=== PATIENT | female | born 1950 | race Caucasian/White ===

== ENCOUNTER 2021-01-20 14:16 | Outpatient (REF) | payer MEDICARE, MEDICAID, SELFPAY ==
--- NOTE | ~2021-01-20 | XR_ITS ---
EXAMINATION: RIGHT SHOULDER, CERVICAL SPINE AND THORACIC SPINE X-RAYS CLINICAL INFORMATION: Pain COMPARISON: Right shoulder x-ray November 2015 and chest x-ray April 2017 TECHNIQUE: 4 views of the right shoulder, 5 views of the cervical spine and 2 views of the thoracic spine FINDINGS: Right shoulder: Bone alignment is normal. No fracture or dislocation is seen. There is arthritis at the acromioclavicular joint. Soft tissues are unremarkable. Cervical spine: There is mild curvature of the mid cervical spine to the right. Bone alignment is otherwise normal. There is evidence of degenerative spondylosis from C3-C4 to C7-T1. There is disc space narrowing from C4-C5 to C7-T1. There is right-sided neuroforaminal narrowing from bony osteophyte from C4-C5 to C7-T1. There is left-sided neuroforaminal narrowing at C3-C4 C5-C6 and C6-C7. Prevertebral soft tissues are normal. Thoracic spine: Bone alignment is normal. No fracture or dislocation is seen. There is multilevel degenerative spondylosis. Paraspinal soft tissues are normal. XR/XR cervical spine min 6V IMPRESSION: Right shoulder: Degenerative change at the acromioclavicular joint. Cervical spine: Multilevel degenerative spondylosis, disc space narrowing and neuroforaminal narrowing. Thoracic spine: Multilevel degenerative spondylosis.
--- NOTE | ~2021-01-20 | XR_ITS ---
EXAMINATION: RIGHT SHOULDER, CERVICAL SPINE AND THORACIC SPINE X-RAYS CLINICAL INFORMATION: Pain COMPARISON: Right shoulder x-ray November 2015 and chest x-ray April 2017 TECHNIQUE: 4 views of the right shoulder, 5 views of the cervical spine and 2 views of the thoracic spine FINDINGS: Right shoulder: Bone alignment is normal. No fracture or dislocation is seen. There is arthritis at the acromioclavicular joint. Soft tissues are unremarkable. Cervical spine: There is mild curvature of the mid cervical spine to the right. Bone alignment is otherwise normal. There is evidence of degenerative spondylosis from C3-C4 to C7-T1. There is disc space narrowing from C4-C5 to C7-T1. There is right-sided neuroforaminal narrowing from bony osteophyte from C4-C5 to C7-T1. There is left-sided neuroforaminal narrowing at C3-C4 C5-C6 and C6-C7. Prevertebral soft tissues are normal. Thoracic spine: Bone alignment is normal. No fracture or dislocation is seen. There is multilevel degenerative spondylosis. Paraspinal soft tissues are normal. XR/XR shoulder RT min 2V IMPRESSION: Right shoulder: Degenerative change at the acromioclavicular joint. Cervical spine: Multilevel degenerative spondylosis, disc space narrowing and neuroforaminal narrowing. Thoracic spine: Multilevel degenerative spondylosis.
--- NOTE | ~2021-01-20 | XR_ITS ---
EXAMINATION: RIGHT SHOULDER, CERVICAL SPINE AND THORACIC SPINE X-RAYS CLINICAL INFORMATION: Pain COMPARISON: Right shoulder x-ray November 2015 and chest x-ray April 2017 TECHNIQUE: 4 views of the right shoulder, 5 views of the cervical spine and 2 views of the thoracic spine FINDINGS: Right shoulder: Bone alignment is normal. No fracture or dislocation is seen. There is arthritis at the acromioclavicular joint. Soft tissues are unremarkable. Cervical spine: There is mild curvature of the mid cervical spine to the right. Bone alignment is otherwise normal. There is evidence of degenerative spondylosis from C3-C4 to C7-T1. There is disc space narrowing from C4-C5 to C7-T1. There is right-sided neuroforaminal narrowing from bony osteophyte from C4-C5 to C7-T1. There is left-sided neuroforaminal narrowing at C3-C4 C5-C6 and C6-C7. Prevertebral soft tissues are normal. Thoracic spine: Bone alignment is normal. No fracture or dislocation is seen. There is multilevel degenerative spondylosis. Paraspinal soft tissues are normal. XR/XR thoracic spine 3V IMPRESSION: Right shoulder: Degenerative change at the acromioclavicular joint. Cervical spine: Multilevel degenerative spondylosis, disc space narrowing and neuroforaminal narrowing. Thoracic spine: Multilevel degenerative spondylosis.
== END 2021-01-20 14:17 | disposition home or self-care (01) ==
LOC: HO.XRAY 14:16
PROVIDERS: PCP Student in an Organized Health Care Education/Training Program; Visit Provider General Practice
DX: M79.601 Pain in right arm (principal); M54.2 Cervicalgia; M54.6 Pain in thoracic spine
CPT/HCPCS: 72052; 72072; 73030

== ENCOUNTER → 2021-04-14 12:59 | Outpatient (BNVA) | payer MEDICARE, MEDICAID, SELFPAY | PROVIDERS: PCP Student in an Organized Health Care Education/Training Program; Referring Provider Student in an Organized Health Care Education/Training Program; Visit Provider Internal Medicine | DX: I48.19 Other persistent atrial fibrillation (principal) | CPT/HCPCS: 93005; 99212 ==

== ENCOUNTER 2021-04-22 09:01 | Day surgery (SDC) | payer MEDICARE, MEDICAID, SELFPAY ==
--- NOTE | 2021-04-21 10:16 | HO.ANESPROP2 ---
Documented by User: Nette Santana 04/21/21 10:19 HPI - Anesthesia Eval Consult details Narrative: 70yo F for Cardioversion Eliquis for afib PMFSH Active Problems Active Problems: All Active Problems (Updated 07/31/20 @ 09:43 by Elizabeth Shankar NP-C) Persistent atrial fibrillation (Acute) Past Medical History Medical History Diabetes HLD (hyperlipidemia) ARMOND (obstructive sleep apnea) Persistent atrial fibrillation Smoker Family History Family History Father Myocardial infarction Mother No problems noted. Surgical History Surgical History History of appendectomy History of bilateral breast reduction surgery History of oophorectomy Social History Social History Patient Tobacco Use Status: Current everyday Tobacco user Tobacco use type: Cigarette Cigarettes Per Day: 4 Smoked in Last 30 Days: Yes Use of substances other than those prescribed or required for medical reasons: No Are you DNR?: No Advance Directives: No Advance Directives Information Provided: No Recently lost weight without trying: No Nutrition Risks: No Nutritional Risk Patient : No Meds Allergies Allergy/AdvReac Type Severity Reaction Status Date / Time Tetanus Vaccines and Toxoid Allergy Unknown HIVES Verified 04/14/21 13:24 [TETANUS VACCINES AND TOXOID] Home Medications Medication Instructions Recorded Confirmed Last Taken Type cholecalciferol (vitamin D3) 25 25 mcg PO DAILY 04/14/21 04/14/21 Unknown History mcg (1,000 unit) capsule lorazepam 1 mg tablet 1 mg PO DAILY PRN 04/14/21 04/14/21 Unknown History metformin 500 mg tablet 500 mg PO DAILY 04/14/21 04/14/21 04/22/21 08:00 History Exam Exam Date and Time: April 21, 2021 1016 Narrative Narrative: EKG 04/14/21 atrial fibrillation at 87/Min with nonspecific ST-T changes Assessment and Plan Assessment Anesthesia Assessment: Chart Reviewed Documented by User: Emerald Kasper 04/22/21 09:50 PMFSH Past Medical History Medical History Diabetes HLD (hyperlipidemia) ARMOND (obstructive sleep apnea) Persistent atrial fibrillation Smoker Family History Family History Father Myocardial infarction Mother No problems noted. Surgical History Surgical History History of appendectomy History of bilateral breast reduction surgery History of oophorectomy Social History Social History Patient Tobacco Use Status: Current everyday Tobacco user Tobacco use type: Cigarette Cigarettes Per Day: 4 Smoked in Last 30 Days: Yes Use of substances other than those prescribed or required for medical reasons: No Are you DNR?: No Advance Directives: No Advance Directives Information Provided: No Recently lost weight without trying: No Nutrition Risks: No Nutritional Risk Patient : No Meds Allergies Allergy/AdvReac Type Severity Reaction Status Date / Time Tetanus Vaccines and Toxoid Allergy Unknown HIVES Verified 04/14/21 13:24 [TETANUS VACCINES AND TOXOID] Home Medications Medication Instructions Recorded Confirmed Last Taken Type cholecalciferol (vitamin D3) 25 25 mcg PO DAILY 04/14/21 04/14/21 Unknown History mcg (1,000 unit) capsule lorazepam 1 mg tablet 1 mg PO DAILY PRN 04/14/21 04/14/21 Unknown History metformin 500 mg tablet 500 mg PO DAILY 04/14/21 04/14/21 04/22/21 08:00 History Exam Airway Mallampati Class: II TM Dist: >3cm Neck ROM: Full Assessment and Plan Assessment Anesthesia Assessment: Anesthesia Plan Discussed Final Anesthetic Review NPO: Yes ASA Class: III Final Preanesthetic Review: No Changes in Pt Med Stat, Meds/Allgs Chart Reviewed, Consent Obtained/Reviewed and Anes Risks/Benef Reviewed Patient Risk: Intermediate Procedure Risk: Low Assessment/Block/Sedation in SS: Assess/Block/Sedation-SS Anesthetic Plan Anesthetic Plan: MAC: Disposition: Standard PACU
[2021-04-22] VITALS (9 sets, daily range): BP systolic 79–120; BP diastolic 37–62; PULSE 50–83; RESP 14–16; TEMP 35.9–36.1; O2SAT 96–100; BMI 33.1
--- NOTE | 2021-04-22 | ECG_ITS ---
Test Reason : CARDIOVERSION Blood Pressure : / mmHG Vent. Rate : 058 BPM Atrial Rate : 058 BPM P-R Int : 158 ms QRS Dur : 070 ms QT Int : 446 ms P-R-T Axes : 106 033 106 degrees QTc Int : 437 ms Sinus bradycardia with marked sinus arrhythmia Nonspecific T wave abnormality Abnormal ECG When compared with ECG of 18-DEC-2017 10:03, Premature atrial complexes are no longer Present Referred By: Tete Jackson Electronically Signed By:TETE JACKSON
--- NOTE | 2021-04-22 09:30 | MHC.SHP ---
Pre-Procedural Eval Section A Date of Service: 04/22/21 Section B Chief Complaint: a-fib Allergies: Allergies Allergy/AdvReac Type Severity Reaction Status Date / Time Tetanus Vaccines and Toxoid Allergy Unknown HIVES Verified 04/14/21 13:24 [TETANUS VACCINES AND TOXOID] Plan I have reviewed the history and physical and performed a pertinent physical examination on my patient. No changes have occurred unless specified.
[2021-04-22] MEDS: Lactated Ringers 1,000 ML 100 ML IVCONT (09:34)
[2021-04-22 09:42] LABS: Glucose, Whole Blood 127 mg/dL (60-115)
--- NOTE | 2021-04-22 10:31 | P.CONAN_ITS ---
FORMERLY [facility], [facility] Active Problems Active Problems: All Active Problems (Updated 04/21/21 @ 10:19 by Nette calix) Persistent atrial fibrillation (Acute) Past Medical History Medical History Diabetes HLD (hyperlipidemia) ARMOND (obstructive sleep apnea) Persistent atrial fibrillation Smoker Family History Family History Father Myocardial infarction Mother No problems noted. Surgical History Surgical History History of appendectomy History of bilateral breast reduction surgery History of oophorectomy Social History Social History Patient Tobacco Use Status: Current everyday Tobacco user Tobacco use type: Cigarette Cigarettes Per Day: 4 Smoked in Last 30 Days: Yes Use of substances other than those prescribed or required for medical reasons: No Are you DNR?: No Advance Directives: No Advance Directives Information Provided: No Recently lost weight without trying: No Nutrition Risks: No Nutritional Risk Patient : No Meds Allergies Allergy/AdvReac Type Severity Reaction Status Date / Time Tetanus Vaccines and Toxoid Allergy Unknown HIVES Verified 04/14/21 13:24 [TETANUS VACCINES AND TOXOID] Active Medications: Current Medications Generic Name Dose Route Start Last Admin Trade Name Freq PRN Reason Stop Dose Admin Albuterol Sulfate 2.5 mg 04/22/21 08:15 Albuterol Sulfate (0.083%) 2.5 Mg/3 Ml Vial.Neb INHALE ONCE PRN Shortness of Breath/Wheezing Lactated Ringer's 1,000 mls @ 100 mls/hr 04/22/21 08:15 04/22/21 09:34 Lr IVCONT 100 mls/hr .Q10H HUY Administration Home Medications Medication Instructions Recorded Confirmed Last Taken Type cholecalciferol (vitamin D3) 25 25 mcg PO DAILY 04/14/21 04/14/21 Unknown History mcg (1,000 unit) capsule lorazepam 1 mg tablet 1 mg PO DAILY PRN 04/14/21 04/14/21 Unknown History metformin 500 mg tablet 500 mg PO DAILY 04/14/21 04/14/21 04/22/21 08:00 History Exam Exam Date and Time: April 22, 2021 1031 Height,Weight and Vital Signs: Height 5 ft 5 in Weight 199 lb Last Vital Signs Temp 96.7 F L 04/22/21 09:27 Pulse 83 04/22/21 09:27 Resp 16 04/22/21 09:27 BP 114/41 L 04/22/21 09:27 Pulse Ox 98 04/22/21 09:27 Pertinent Lab Results Pertinent Lab Results: Laboratory Tests 04/22/21 09:37 POC Glucose 127 H Airway Mallampati Class: III TM Dist: >3cm Neck ROM: Full Denture: Upper and Lower Assessment and Plan Assessment Anesthesia Assessment: Anesthesia Plan Discussed and Chart Reviewed Final Anesthetic Review NPO: Yes ASA Class: III Final Preanesthetic Review: No Changes in Pt Med Stat, Meds/Allgs Chart Reviewed, Consent Obtained/Reviewed and Anes Risks/Benef Reviewed Patient Risk: Low Procedure Risk: Low Anesthetic Plan Anesthetic Plan: GA Disposition: Standard PACU
--- NOTE | 2021-04-22 10:59 | HO.CARDIVERS ---
Cardioversion Procedure Note Cardioversion Date of Procedure: 04/22/2021 Ordering Provider: Dr. Bennett Performing Provider: Dr. Bennett Indication for Procedure: Atrial fibrillation Pre-Op Diagnosis: Atrial fibrillation Post-Op Diagnosis: Sinus rhythm Performed with Transesophageal Echo: No History: Symptomatic atrial fibrillation. Hence referred for cardioversion. Consent: Informed consent obtained. Procedure: After informed consent was obtained, patient was taken to the PACU. The patient was then positioned appropriately. The cardioversion pads were placed in anteroposterior position. Once under anesthesia, 120 joules of synchronized shock was administered. The rhythm converted from atrial fibrillation to sinus rhythm. Patient remained in sinus rhythm after the end of procedure. Complications: None Impression: Successful cardioversion from atrial fibrillation to sinus rhythm. Recommendations: Start Multaq 400 mg b.i.d.. First dose now. EKG. Follow-up in office.
[2021-04-22] MEDS: Dronedarone HCl 400 MG TABLET PO (11:40)
== END 2021-04-22 12:35 | disposition home or self-care (01) ==
PROVIDERS: PCP Student in an Organized Health Care Education/Training Program; Visit Provider Internal Medicine
PROC: 5A2204Z Restoration of Cardiac Rhythm, Single (ICD-10-PCS; principal; 2021-04-22 10:30)
DX: I48.19 Other persistent atrial fibrillation (principal); Z79.01 Long term (current) use of anticoagulants; E11.9 Type 2 diabetes mellitus without complications; Z79.899 Other long term (current) drug therapy; Z88.7 Allergy status to serum and vaccine; G47.33 Obstructive sleep apnea (adult) (pediatric); F17.210 Nicotine dependence, cigarettes, uncomplicated
CPT/HCPCS: 82947; 92960; 93005

== ENCOUNTER → 2021-04-26 14:59 | Outpatient (BNVA) | payer MEDICARE, MEDICAID, SELFPAY | PROVIDERS: PCP Student in an Organized Health Care Education/Training Program; Visit Provider Internal Medicine ==

== ENCOUNTER → 2021-04-29 12:47 | Outpatient (REF) | payer MEDICARE, MEDICAID, SELFPAY | LOC: HO.SL 12:47 | PROVIDERS: PCP Student in an Organized Health Care Education/Training Program; Visit Provider Internal Medicine | DX: G47.33 Obstructive sleep apnea (adult) (pediatric) (principal); I48.19 Other persistent atrial fibrillation | CPT/HCPCS: 95806 ==

== ENCOUNTER → 2021-05-12 12:25 | Outpatient (BNVA) | payer MEDICARE, MEDICAID, SELFPAY | PROVIDERS: PCP Student in an Organized Health Care Education/Training Program; Visit Provider Internal Medicine | DX: I48.19 Other persistent atrial fibrillation (principal); G47.33 Obstructive sleep apnea (adult) (pediatric) | CPT/HCPCS: 93005; 99212 ==

== ENCOUNTER 2021-05-31 14:58 | Outpatient (REF) | payer MEDICARE, MEDICAID, SELFPAY ==
--- NOTE | ~2021-05-31 | MM_ITS ---
EXAMINATION: MM SCREENING DIGITAL BREAST TOMOSYNTHESIS, BILATERAL CLINICAL INFORMATION: Screening. Asymptomatic. Prior history reduction mammoplasty. The lifetime risk of breast cancer based on the Tyrer-Cuzick Model is 3%. COMPARISON: Mammography: 08/28/2019, 05/30/2018, 04/24/2017 TECHNIQUE: Digital breast tomosynthesis is performed in both the craniocaudal and mediolateral oblique views along with computer-aided detection (CAD). Synthesized 2D images are generated from the tomosynthesis. FINDINGS: The breasts are almost entirely fatty (ACR BI-RADS breast composition Category a). Background stromal and fibroglandular densities are stable. There is some minor scarring and scattered benign round and rim calcifications again seen consistent with the reduction mammoplasty. There is no developing density or interval mass or architectural abnormality or abnormal calcifications. No significant changes. MM/MM tomosynthesis screening BI IMPRESSION: No mammographic evidence of malignancy. ASSESSMENT: BI-RADS 2: Benign RECOMMENDATION: Routine annual mammography screening. This patient's information was entered into a reminder system with a target due date for their next mammogram.
== END 2021-05-31 14:59 | disposition home or self-care (01) ==
LOC: HO.MAMMO 14:58
PROVIDERS: Visit Provider Student in an Organized Health Care Education/Training Program
DX: Z12.31 Encounter for screening mammogram for malignant neoplasm of breast (principal)
CPT/HCPCS: 77063; 77067

== ENCOUNTER → 2021-06-08 13:57 | Outpatient (BNVA) | payer MEDICARE, MEDICAID, SELFPAY | PROVIDERS: PCP Student in an Organized Health Care Education/Training Program; Visit Provider Internal Medicine | DX: G47.33 Obstructive sleep apnea (adult) (pediatric) (principal); I48.19 Other persistent atrial fibrillation; Z79.01 Long term (current) use of anticoagulants | CPT/HCPCS: 99202 ==

== ENCOUNTER → 2021-08-05 13:00 | Outpatient (BNVA) | payer MEDICARE, MEDICAID, SELFPAY | PROVIDERS: PCP Student in an Organized Health Care Education/Training Program; Visit Provider Internal Medicine | DX: I48.19 Other persistent atrial fibrillation (principal); G47.33 Obstructive sleep apnea (adult) (pediatric) | CPT/HCPCS: 99212 ==

== ENCOUNTER → 2021-08-16 08:10 | Outpatient (BNVA) | payer MEDICARE, MEDICAID, SELFPAY | PROVIDERS: PCP Student in an Organized Health Care Education/Training Program; Visit Provider Surgery ==

== ENCOUNTER → 2021-11-15 15:04 | Outpatient (BNVA) | payer MEDICARE, OTHER, SELFPAY | PROVIDERS: PCP Student in an Organized Health Care Education/Training Program; Visit Provider Internal Medicine | DX: G47.33 Obstructive sleep apnea (adult) (pediatric) (principal); I48.19 Other persistent atrial fibrillation | CPT/HCPCS: 99212 ==

== ENCOUNTER → 2022-01-17 10:43 | Outpatient (REF) | payer MEDICARE, OTHER, SELFPAY ==
--- NOTE | 2022-01-17 10:46 | HM_ITS ---
Conclusion: 1. Patient was monitored for total period of 3 days and 4 hours 2. Baseline rhythm was atrial fibrillation with average heart of 76 beats per minute 3. No significant pauses or bradycardia noted 4. Total of 312 PVCs accounting for 0.09% of total burden accounting for rare PVCs 5. Patient reported 1 event correlated with baseline rhythm MTDD
== END ==
LOC: HO.CARD 10:43
PROVIDERS: PCP Student in an Organized Health Care Education/Training Program; Visit Provider Internal Medicine
DX: I48.19 Other persistent atrial fibrillation (principal)
CPT/HCPCS: 93242

== ENCOUNTER → 2022-02-03 12:27 | Outpatient (BNVA) | payer MEDICARE, OTHER, SELFPAY | PROVIDERS: PCP Student in an Organized Health Care Education/Training Program; Visit Provider Internal Medicine | DX: I48.19 Other persistent atrial fibrillation (principal); I35.1 Nonrheumatic aortic (valve) insufficiency; G47.33 Obstructive sleep apnea (adult) (pediatric); F17.210 Nicotine dependence, cigarettes, uncomplicated; Z79.01 Long term (current) use of anticoagulants; Z79.899 Other long term (current) drug therapy; Z71.6 Tobacco abuse counseling | CPT/HCPCS: 99212 ==

== ENCOUNTER → 2022-05-02 15:43 | Outpatient (BNVA) | payer MEDICARE, MEDICAID, SELFPAY | PROVIDERS: PCP Student in an Organized Health Care Education/Training Program; Visit Provider Internal Medicine | DX: G47.33 Obstructive sleep apnea (adult) (pediatric) (principal); F17.210 Nicotine dependence, cigarettes, uncomplicated | CPT/HCPCS: 99212 ==

== ENCOUNTER 2022-09-28 10:40 | Outpatient (REF) | payer MEDICARE, MEDICAID, SELFPAY ==
--- NOTE | ~2022-09-28 | MM_ITS ---
EXAMINATION: MM SCREENING DIGITAL BREAST TOMOSYNTHESIS, BILATERAL CLINICAL INFORMATION: Screening. Asymptomatic. The lifetime risk of breast cancer based on the Tyrer-Cuzick Model is 4%. COMPARISON: Mammography: 05/31/2021, 08/28/2019, 05/30/2018 TECHNIQUE: Digital breast tomosynthesis is performed in both the craniocaudal and mediolateral oblique views along with computer-aided detection (CAD). Synthesized 2D images are generated from the tomosynthesis. FINDINGS: The breasts are almost entirely fatty (ACR BI-RADS breast composition Category a). There are no significant masses, abnormal calcifications, or other abnormalities. There are scattered bilateral punctate round and rim and dermal calcifications again noted. Grouped punctate calcifications anterior left breast correspond to dermal calcifications on tomography. There is stable nodule posterior 12:00 right breast possibly intramammary node. The axilla and skin contours are unremarkable. No significant changes. MM/MM tomosynthesis screening BI IMPRESSION: No mammographic evidence of malignancy. ASSESSMENT: BI-RADS 2: Benign RECOMMENDATION: Routine annual mammography screening. This patient's information was entered into a reminder system with a target due date for their next mammogram.
== END 2022-09-28 10:41 | disposition home or self-care (01) ==
LOC: HO.MAMMO 10:40
PROVIDERS: PCP Student in an Organized Health Care Education/Training Program; Visit Provider Student in an Organized Health Care Education/Training Program
DX: Z12.31 Encounter for screening mammogram for malignant neoplasm of breast (principal)
CPT/HCPCS: 77063; 77067

== ENCOUNTER 2023-04-24 11:58 | Outpatient (REF) | payer MEDICARE, MEDICAID, SELFPAY ==
[2023-04-24 15:07] LABS: Alanine Aminotransferase 12 U/L (0-31); Albumin Level 3.7 g/dL (3.5-5.0); Alkaline Phosphatase 65 U/L (39-117); Anion Gap 13 (12-20); Aspartate Amino Transferase 11 U/L (5-31); Bilirubin Direct 0.2 mg/dL (0.0-0.5); Bilirubin Total 0.8 mg/dL (0.0-1.0); Blood Urea Nitrogen 22 mg/dL (9-16); Calcium 9.3 mg/dL (8.4-10.2); Carbon Dioxide 25 mmol/L (22-29); Chloride 107 mmol/L (96-108); Cholesterol 192 mg/dL; Estimated Glomerular Filt Rate > 60; Glucose Random 121 mg/dL (60-115); HDL Cholesterol 37 mg/dL; LDL Cholesterol Calculated 138 mg/dl; Potassium 4.1 mmol/L (3.3-5.1); Sodium 141 mmol/L (135-145); Total Protein 7.8 g/dL (6.5-8.0); Triglycerides 89 mg/dL
== END 2023-04-24 11:59 | disposition home or self-care (01) ==
LOC: HO.CHCLDS 11:58
PROVIDERS: Visit Provider Student in an Organized Health Care Education/Training Program
DX: E78.00 Pure hypercholesterolemia, unspecified (principal); E11.9 Type 2 diabetes mellitus without complications; I10 Essential (primary) hypertension
CPT/HCPCS: 36415; 80048; 80061; 80076; 82043; 83036

== ENCOUNTER → 2023-05-04 13:45 | Outpatient (REF) | payer OTHER, SELFPAY ==
--- NOTE | 2023-05-04 14:11 | CA_ITS ---
Transthoracic Echocardiogram Patient (Last, First, Middle): Saumya Coughlin L Gender: Female Date of : 1950 Age: 72 Procedure Date: 05/04/2023 Procedure Type: Transthoracic Echocardiogram Location: OP Height: 165.1 cm Weight: 89.36 kg BSA: 1.97 m2 Heart Rate: bpm BP: 112 / 66 mmHg Target Worker: TO Referring MD: Nicholas Bennett MD Symptoms: I35.1 - Nonrheumatic aortic (valve) insufficiency Study Quality: Fair ECG Rhythm: Atrial Fibrillation Conclusions: - The left ventricular systolic function is normal. The calculated ejection fraction is 56% by biplane method. - The left atrium is moderately dilated. - There is mild to moderate aortic valve regurgitation. Findings Left Ventricle Normal left ventricular cavity size. There is mildly increased left ventricular wall thickness. The left ventricular systolic function is normal. The calculated ejection fraction is 56% by biplane method. There is no evidence of regional wall motion abnormalities. Diastolic function is indeterminate on the basis of available data. Right Ventricle Normal right ventricular cavity size. There is mildly decreased right ventricular systolic function. Atria The left atrium is moderately dilated. The right atrium is normal in size. Aortic Valve There is a normal trileaflet aortic valve. There is no aortic valve stenosis. There is mild to moderate aortic valve regurgitation. Mitral Valve The mitral valve appears normal. There is mild mitral valve regurgitation. There is no mitral valve stenosis. Pulmonic Valve The pulmonic valve is likely normal. Tricuspid Valve Normal tricuspid valve structure. There is mild tricuspid valve regurgitation. There is no evidence of pulmonary hypertension. Great Vessels The asc aorta is normal in size. Venous The inferior vena cava is normal in size and collapses greater than 50% with inspiration. Pericardium/Pleural There is no evidence of pericardial effusion. Prior Study Comparison No significant change compared to prior study dated: 05/08/2020. Measurements 2D Linear Measurements IVSd: 1.10 0.6-0.9/0.6-1.0 cm LVIDd: 5.40 3.9-5.3/4.2-5.9 cm LVIDd Index: 2.74 2.4-3.2/2.2-3.1 cm/m2 LVIDs: 3.80 2.0-3.6 cm LVPWd: 1.00 0.7-1.1 cm LA Diam: 4.10 2.7-3.8/3.0-4.0 cm LAIDs Index: 2.08 1.5-2.3 cm/m2 LV Mass: 274.99 67-162/88-224 g LV Mass Index: 139.59 43-95/49-115 g/m2 LVOT Diam: 2.00 3.0+(-)1.3 cm 2D Systolic Function EF 4C: 56.40 >55% EF 2C: 56.60 >55% EF BiP: 55.90 >55% Mitral Valve MV VTI: 0.31 MV Pk Santo: 1.44 MV Mn Santo: 0.90 MV Pk Grad: 8.00 MV Mn Grad: 4.00 MV Pk E: 1.23 MV Decel Time: 191.00 E'Lateral: 5.55 E'Medial: 5.66 E/E' Med: 21.70 E/E' Lat: 22.20 PHT: 56.00 MVA PHT: 3.93 MVA Continuity: 2.02 Decel [place]: 6.44 Aortic Valve AoV Pk Santo: 1.49 AoV Pk Grad: 9.00 AI Pk Santo: 4.25 AI [place]: 2.30 LVOT LVOT Pk Santo: 0.87 LVOT Mn Santo: 0.57 LVOT VTI: 0.20 LVOT Pk Grad: 3.00 LVOT Mn Grad: 1.00 LVOT Diam: 2.00 LVOT Area: 3.14 Diastolic Function MV Pk E: 1.23 E'Medial: 5.66 E/E' Med: 21.70 E' Laterial: 5.55 E/E' Lat: 22.20 Right Ventricle TAPSE (mm): 18.50 TVS' Santo: 10.00 Tricuspid Valve TR Pk Santo: 2.71 TR Pk Grad: 29.00 RA Press: 3.00 RVSP: 32.00 Great Vessels Aorta Sinus of Valsalva: 3.50 2.0-3.[address] [place]: 2.50 1.7-3.4 cm Ao Asc: 3.40 2.1-3.4 cm Updated in Other Vendor System with Status of Final Nicholas Bennett MD electronically signed on 05/04/2023 5:06:51 PM with status of Final
== END ==
LOC: HO.CARD 13:45
PROVIDERS: PCP Student in an Organized Health Care Education/Training Program; Visit Provider Internal Medicine
DX: I35.1 Nonrheumatic aortic (valve) insufficiency (principal)
CPT/HCPCS: 93306

== ENCOUNTER → 2023-05-04 14:11 | Outpatient (BNV) | payer MEDICARE, MEDICAID, SELFPAY | PROVIDERS: PCP Student in an Organized Health Care Education/Training Program; Visit Provider Internal Medicine | DX: I35.1 Nonrheumatic aortic (valve) insufficiency (principal); I34.0 Nonrheumatic mitral (valve) insufficiency; I36.1 Nonrheumatic tricuspid (valve) insufficiency | CPT/HCPCS: 93306 ==

== ENCOUNTER 2023-05-24 14:19 | Outpatient (AMB) | payer OTHER, MEDICAID, SELFPAY ==
--- NOTE | 2023-05-24 14:23 | A.OFFVIS_ITS ---
Intake Vital Signs 05/24/23 14:24 Height 5 ft 5 in Weight 201 lb 15.095 oz BMI 33.6 BP 132/70 Blood Pressure Location Lt brachial Position Sitting Pulse 91 Intake Visit Reasons: 1 year follow up, echo Intake Note: 1 year follow up Production Inspector Required: No Accompanied by: Self / Same As Patient Allergies Tetanus Vaccines and Toxoid [TETANUS VACCINES AND TOXOID] Allergy (Unknown, Verified 05/24/23 14:26) HIVES Medication List - Last Reconciled 05/24/23 by Nicholas Bennett MD apixaban (Eliquis) 5 mg PO BID lorazepam 1 mg PO DAILY PRN metformin 500 mg PO DAILY metoprolol succinate ER 50 mg PO DAILY HPI HPI Comments History of Present Illness Details Saumya is here for follow-up regarding atrial fibrillation. To recall, she has had atrial fibrillation for the last few years. Underwent cardioversion in 2018 at 2020. She was on Flecainide in the past, but due to bradycardia and tiredness this was stopped. Then, she was on Multaq but in spite of this, went back into atrial fibrillation. Then she was seen by EP at [facility] but it was recommended that she continue rate control strategy as she had minimal or no symptoms. Overall, generally doing well. No complaints like angina or shortness of breath or in fact anything cardiac sounding. No palpitations. Weight is just about the same as before. States that she has not smoked in the last couple of weeks or so. PFSH Medical History Diabetes HLD (hyperlipidemia) ARMOND (obstructive sleep apnea) Persistent atrial fibrillation Smoker Surgical History History of appendectomy History of bilateral breast reduction surgery History of oophorectomy Family History Father Myocardial infarction Mother Arthritis Sister No problems noted. Sister No problems noted. Sister No problems noted. Brother No problems noted. Sister No problems noted. Brother No problems noted. Son No problems noted. Son No problems noted. Social History Alcohol intake: never Patient Tobacco Use Status: Former Tobacco user Quit Date: 01/27/22 Cigarettes Per Day: 4 Review of Systems Const Denies weakness ENT Denies dizziness Card Denies chest pain, Denies chest pain with activity, Denies syncope, Denies rapid heart rate, Denies pedal edema, Denies edema, Denies leg edema, Denies lightheadedness, Denies palpitations, Denies dyspnea, Denies dyspnea on exertion and Denies orthopnea Resp Denies cough, Denies dyspnea and Denies dyspnea on exertion GI Denies hematochezia and Denies change in stool character Musc Denies abnormal gait, Denies muscle cramps, Denies muscle weakness, Denies numbness, Denies radiating pain into limb and Denies tingling Neuro Denies abnormal gait, Denies dizziness, Denies syncope, Denies numbness, Denies tingling and Denies weakness Endo Denies palpitations Physical Exam Vital Signs: Last Vital Signs Pulse 91 05/24/23 14:24 BP 132/70 05/24/23 14:24 BMI result Body Mass Index 33.6 Const General: comfortable and no acute distress Orientation/consciousness: patient oriented x3 HEENT Other: Unremarkable Head: Yes normal to inspection Neck Neck: Yes normal visual inspection Chest Chest palpation & inspection: normal inspection of the chest Resp Auscultation: clear to auscultation bilaterally Cardio Palpation: normal PMI Heart sounds: S1 normal heart sound present, S2 normal heart sound present, no gallops, no murmurs and no rubs GI Palpation (GI): Soft to palpation Back/Spine/Pelvis Other: unremarkable Skin General skin exam: no rashes or lesions noted Neuro General: patient oriented x3 Extrem General: Yes normal to inspection Psych Mental Status: mental status grossly normal Office Procedures EKG Details: EKG with atrial fibrillation rate of 91/Min; nonspecific ST-T changes. [id number], Complete Assessment & Plan Assessment & Plan (1) Persistent atrial fibrillation: Code(s): I48.19 - Other persistent atrial fibrillation Plan: Failed antiarrhythmics as well as cardioversions. Was seen by EP, but not felt to be a good candidate for ablation. Continue beta-blockers. Continue Eliquis. (2) Non-rheumatic aortic regurgitation: Code(s): I35.1 - Nonrheumatic aortic (valve) insufficiency Plan: In the most recent echocardiogram from last month, [id number] aortic regurgitation. Can be followed on echocardiograms. (3) ARMOND (obstructive sleep apnea): Code(s): G47.33 - Obstructive sleep apnea (adult) (pediatric) Plan: She has mild obstructive sleep apnea. Seen by Pulmonary. Per documentation, not keen on CPAP. Would like to just lose weight. Avoid sleeping in supine position. (4) Smoker: Code(s): F17.200 - Nicotine dependence, unspecified, uncomplicated Plan: She states she has not smoked in the last 2 weeks. Must quit. Plan Follow-up in 1 year. In the interim, she will call with concerns. Coding Level of Care Code Est Pt Level 4 (17911) Diagnoses Persistent atrial fibrillation I48.19 Non-rheumatic aortic regurgitation I35.1 ARMOND (obstructive sleep apnea) G47.33 Smoker F17.200 CPT Codes EKG - CPT: 99216-[id number], Complete ([id number])
[2023-05-24 14:24] VITALS: BP 132/70; PULSE 91; BMI 33.6
== END 2023-05-24 14:42 | disposition home or self-care (01) ==
PROVIDERS: PCP Student in an Organized Health Care Education/Training Program; Referring Provider Student in an Organized Health Care Education/Training Program; Visit Provider Internal Medicine
DX: I48.19 Other persistent atrial fibrillation (principal); I35.1 Nonrheumatic aortic (valve) insufficiency; G47.33 Obstructive sleep apnea (adult) (pediatric); F17.200 Nicotine dependence, unspecified, uncomplicated
CPT/HCPCS: 93010; 99214

== ENCOUNTER → 2023-05-24 14:19 | Outpatient (BNVA) | payer OTHER, MEDICAID, SELFPAY | PROVIDERS: PCP Student in an Organized Health Care Education/Training Program; Referring Provider Student in an Organized Health Care Education/Training Program; Visit Provider Internal Medicine | DX: I48.19 Other persistent atrial fibrillation (principal); I35.1 Nonrheumatic aortic (valve) insufficiency; G47.33 Obstructive sleep apnea (adult) (pediatric); F17.210 Nicotine dependence, cigarettes, uncomplicated | CPT/HCPCS: 93005; 99212 ==

== ENCOUNTER 2023-08-15 09:13 | Outpatient (AMB) | payer OTHER, MEDICAID, SELFPAY ==
[2023-08-15 09:24] VITALS: BMI 33.4
--- NOTE | 2023-08-15 09:24 | MHC.OFFVIS ---
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 Pt states they are getting worse, States that she has Hx of VV procedures w/ . [facility] procedures were too painful so she stopped going there. Pt states that Right LE looks worse but Left LE has more pain. Pt states she has compression socks and wears them when possible. 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 Complaints include pain over varicosities, swelling of lower extremities, cramping, fatigue, and heaviness of the lower extremities. It has been affecting there daily activities including walking. It is noted more so in left leg. Of note she smokes about a half pack per day and has been a diabetic for over 10 years Patient notes prior bilateral venous ablation is by Dr. Yuan nearly 5 years ago Patient denies any history of DVT/ PE. Patient denies any history of phlebitis. Trial of compression includes - [id number] They now present for vascular evaluation regarding their varicose veins. [facility] Medical History Smoker ARMOND (obstructive sleep apnea) Diabetes HLD (hyperlipidemia) Persistent atrial fibrillation Surgical History History of bilateral breast reduction surgery History of appendectomy History of oophorectomy Family History Father Myocardial infarction Mother Arthritis Sister No problems noted. Sister No problems noted. Sister No problems noted. Brother No problems noted. Sister No problems noted. Brother No problems noted. Son No problems noted. Son No problems noted. Social History Alcohol intake: never Patient Tobacco Use Status: Former Tobacco user Quit Date: 01/27/22 Cigarettes Per Day: 4 Review of Systems Const Reports as per HPI ENT Reports no additional complaints Card Denies chest pain, Denies chest pain at rest and Denies chest pain with activity Resp Denies chest congestion and Denies cough GI Reports no additional complaints Musc Details: pain over varicosities, aching of lower extremities, swelling, cramping, heaviness and tiredness, itching Denies abnormal gait Skin/Breast Reports pruritus and Denies wounds Neuro Reports no additional complaints and Denies abnormal gait Psych Denies no additional complaints Physical Exam Vital Signs: BMI result Body Mass Index 33.4 Const General: cooperative, healthy appearing and comfortable Orientation/consciousness: oriented to person, oriented to place and oriented to time Neck Carotids: no bruits Chest Chest palpation & inspection: normal inspection of the chest and normal palpation of entire chest wall Resp Effort & Inspection: normal respiratory effort and able to speak in complete sentences Cardio Rate: regular rate Heart sounds: S1 normal heart sound present and S2 normal heart sound present Peripheral pulses: Peripheral pulses 2+ throughout GI Inspection: Yes normal to inspection Skin Other: +2 edema, large rope-like varicosities greater than 4 mm left medial thigh and calf CEAP Classification C4 - skin color changes Ep - Etiology Primary As - superficial veins P - reflux General skin exam: dry skin Neuro General: oriented to person, oriented to place and oriented to time Extrem Right lower extremity: full ROM, normal capillary refill and edema Left lower extremity: full ROM, normal capillary refill and edema Psych Mental Status: mental status grossly normal Assessment & Plan Assessment & Plan (1) Varicose veins of left lower extremity with inflammation: Code(s): I83.12 - Varicose veins of left lower extremity with inflammation Plan: In short, the patient has evidence of venous insufficiency. I have discussed the pathophysiology with the patient. In addition I have provided informational material regarding venous disease to the patient. We have discussed conservative measures including compression, elevation, and exercise. I have also provided a handout regarding appropriate use of compression stockings and where to purchase good compression stockings as well. I have taken the liberty of ordering venous insufficiency testing with the patient. They will follow up with me after testing. The patient had an opportunity to ask questions regarding the treatment plan. All questions were answered. Imaging studies, laboratory studies and physical exam results were discussed and reviewed in detail. No major barriers to understanding were identified. The patient expressed understanding and agreement with the above treatment plan. The patient is aware they should contact our office by phone for worsening of the current condition or the appearance of new symptoms. Thank you for allowing me to participate in the vascular care of this patient. If you have any questions or concerns regarding the treatment for the above condition please do not hesitate to contact me. The office telephone contact is [phone]. This note is constructed using voice recognition software. While every effort has been made to ensure accuracy, agriculture research director errors may have been included. Thank you for allowing me to participate in the care of your patient. Yours sincerely, Dakota Darnell MD, FACS, R.P.V.I. Orders: Orders US venous duplex LE BI 1 Week I83.12 - Varicose veins of left lower extremity with inflammation Coding Level of Care Code New Pt Level 4 (37963) Diagnoses Varicose veins of left lower extremity with inflammation I83.12
== END 2023-08-15 09:40 | disposition home or self-care (01) ==
PROVIDERS: PCP Student in an Organized Health Care Education/Training Program; Visit Provider Surgery Vascular Surgery
DX: I83.12 Varicose veins of left lower extremity with inflammation (principal)
CPT/HCPCS: 99203

== ENCOUNTER → 2023-08-15 09:13 | Outpatient (BNVA) | payer OTHER, MEDICAID, SELFPAY | PROVIDERS: PCP Student in an Organized Health Care Education/Training Program; Visit Provider Surgery Vascular Surgery | DX: I83.12 Varicose veins of left lower extremity with inflammation (principal) | CPT/HCPCS: 99202 ==

== ENCOUNTER 2023-09-01 12:45 | Outpatient (REF) | payer OTHER, SELFPAY ==
--- NOTE | ~2023-09-01 | US_ITS ---
EXAMINATION: US LOWER EXTREMITY VENOUS (REFLUX EXAM), BILATERAL CLINICAL INDICATION: Varicose veins COMPARISON: None. TECHNIQUE: Color flow triplex imaging and compression Doppler was performed to evaluate both the deep and the superficial systems bilaterally. To evaluate the superficial system, the examination was performed in the upright position. Color-flow Doppler ultrasound and compression ultrasound were utilized. In addition, maneuvers were utilized to demonstrate reflux. FINDINGS: 1. DEEP VENOUS ULTRASOUND OF THE RIGHT LOWER EXTREMITY: Common Femoral Vein: Compressible, normal respiratory variation and augmented flow. Femoral Vein: Compressible, normal color flow and augmentation. Popliteal Vein: Compressible, normal augmentation. Deep Reflux: 364ms reflux in the common femoral vein. There is no evidence of a Huynh's cyst. 2. SUPERFICIAL ULTRASOUND WITH DOPPLER OF RIGHT LOWER EXTREMITY: GREAT SAPHENOUS VEIN: Saphenofemoral Junction: 0.8 cm; Reflux: 0 ms Proximal Thigh: 0.5 cm; Reflux: 3192 ms Mid Thigh: not visualized Above Knee: not visualized At Knee: not visualized Below Knee: 0.4 cm; Reflux: 3252 ms Mid Calf: 0.3 cm; Reflux: 3240 ms Ankle: 0.3 cm; Reflux: 0 ms DUPLICATED MEDIAL GREAT SAPHENOUS VEIN: Diameter: None imaged Reflux: NA DUPLICATED LATERAL GREAT SAPHENOUS VEIN: Proximal: 0.4 cm; Reflux: 0 ms SMALL SAPHENOUS VEIN: Proximal: 0.2 cm; Reflux: 0 ms Distal: 0.2 cm; Reflux: 0 ms VEIN OF GIACOMINI: Size: NA Reflux: NA PERFORATORS: Location: Multiple calf Size: 0.3cm Reflux: 3168-3284ms VARICOSITIES: Location: Numerous varicosities throughout the right lower extremity Size: 0.4-0.7 cm Reflux: >2900ms in numerous varicosities 3. DEEP VENOUS ULTRASOUND OF THE LEFT LOWER EXTREMITY: Common Femoral Vein: Compressible, normal respiratory variation and augmented flow. Femoral Vein: Compressible, normal color flow and augmentation. Popliteal Vein: Compressible, normal augmentation. Deep Reflux: 352ms reflux in the common femoral vein. There is no evidence of a Huynh's cyst. 4. SUPERFICIAL ULTRASOUND WITH DOPPLER OF LEFT LOWER EXTREMITY: GREAT SAPHENOUS VEIN: Saphenofemoral Junction: 0.9 cm; Reflux: 0 ms Proximal Thigh: 0.5 cm; Reflux: 0 ms Mid Thigh: not visualized Above Knee: not visualized At Knee: not visualized Below Knee: not visualized Mid Calf: 0.3 cm; Reflux: 0 ms Ankle: 0.2 cm; Reflux: 0 ms DUPLICATED MEDIAL GREAT SAPHENOUS VEIN: Diameter: None imaged Reflux: NA DUPLICATED LATERAL GREAT SAPHENOUS VEIN: Diameter: None imaged Reflux: NA SMALL SAPHENOUS VEIN: Proximal: 0.3 cm; Reflux: 0 ms Distal: 0.2 cm; Reflux: 0 ms VEIN OF GIACOMINI: Size: NA Reflux: NA PERFORATORS: Location: Multiple at the knee and calf Size: 0.2-0.4 cm Reflux: 1104ms reflux in one director of operations home health in the mid calf at 22 cm from the ankle VARICOSITIES: Location: Numerous varicosities throughout the right lower extremity Size: 0.3-0.4 cm Reflux: >2776ms in numerous varicosities US/US venous duplex LE BI IMPRESSION: 1. Minimal reflux in the bilateral common femoral veins. 2. Bilateral reflux in the great saphenous veins and small saphenous veins. 3. Bilateral refluxing varicosities.
== END 2023-09-01 12:46 | disposition home or self-care (01) ==
LOC: HO.US 12:45
PROVIDERS: PCP Student in an Organized Health Care Education/Training Program; Visit Provider Surgery Vascular Surgery
DX: I83.12 Varicose veins of left lower extremity with inflammation (principal)
CPT/HCPCS: 93970

== ENCOUNTER 2023-11-16 14:53 | Outpatient (AMB) | payer OTHER, SELFPAY ==
[2023-11-16 14:58] VITALS: BMI 33.4
--- NOTE | 2023-11-16 14:58 | A.OFFVIS_ITS ---
Intake Vital Signs 11/16/23 14:58 Height 5 ft 5 in Weight 201 lb BMI 33.4 Intake Visit Reasons: Follow up Intake Note: follow up for bilateral LE US 09/01/23 and has Hx of bilateral LE ablations done by . States Left LE has more pain and Right LE has more rope like VV. Pt states she wears compresiion socks when possible. She has had VV for over 20 years Accompanied by: Self / Same As Patient Allergies Tetanus Vaccines and Toxoid [TETANUS VACCINES AND TOXOID] Allergy (Unknown, Verified 11/16/23 15:02) HIVES HPI Follow up HPI Details Very pleasant 73-year-old female presents for follow-up regarding venous insufficiency. She has significant swelling and discomfort right more so than left. She had a prior history of venous ablation is done nearly [address] Yuan. She now presents for routine follow-up with venous insufficiency testing. [facility] Medical History Smoker ARMOND (obstructive sleep apnea) Diabetes HLD (hyperlipidemia) Persistent atrial fibrillation Surgical History History of bilateral breast reduction surgery History of appendectomy History of oophorectomy Family History Father Myocardial infarction Mother Arthritis Sister No problems noted. Sister No problems noted. Sister No problems noted. Brother No problems noted. Sister No problems noted. Brother No problems noted. Son No problems noted. Son No problems noted. Social History (Updated 11/16/23 @ 15:03 by JACK Bose) Alcohol intake: never Patient Tobacco Use Status: Former Tobacco user Quit Date: 01/27/22 Cigarettes Per Day: 0 Review of Systems Const Reports as per HPI ENT Reports no additional complaints Card Denies chest pain, Denies chest pain at rest and Denies chest pain with activity Resp Denies chest congestion and Denies cough GI Reports no additional complaints Musc Details: pain over varicosities, aching of lower extremities, swelling, cramping, heaviness and tiredness, itching Denies abnormal gait Skin/Breast Reports pruritus and Denies wounds Neuro Reports no additional complaints and Denies abnormal gait Psych Denies no additional complaints Physical Exam Vital Signs: BMI result Body Mass Index 33.4 Const General: cooperative, healthy appearing and comfortable Orientation/consciousness: oriented to person, oriented to place and oriented to time Neck Carotids: no bruits Chest Chest palpation & inspection: normal inspection of the chest and normal palpation of entire chest wall Resp Effort & Inspection: normal respiratory effort and able to speak in complete sentences Cardio Rate: regular rate Heart sounds: S1 normal heart sound present and S2 normal heart sound present Peripheral pulses: Peripheral pulses 2+ throughout GI Inspection: Yes normal to inspection Skin Other: +2 edema, large rope-like varicosities greater than 4 mm right calf CEAP Classification C4 - skin color changes Ep - Etiology Primary As - superficial veins P - reflux General skin exam: dry skin Neuro General: oriented to person, oriented to place and oriented to time Extrem Right lower extremity: full ROM, normal capillary refill and edema Left lower extremity: full ROM, normal capillary refill and edema Psych Mental Status: mental status grossly normal Results Reviewed Results Reviewed: Brief summary of venous insufficiency testing is as follows: right great saphenous vein: Positive right small saphenous vein: negative right accessory vein: none present left great saphenous vein: negative left small saphenous vein: negative left accessory vein: none present Please note there is no evidence of any venous aneurysms or significant tortuosity Assessment & Plan Assessment & Plan (1) Varicose veins of right lower extremity with inflammation: Code(s): I83.11 - Varicose veins of right lower extremity with inflammation Plan: This patient has varicose veins with inflammation. They continue to be a source of discomfort for the patient. The patient has tried conservative treatment with compression, leg elevation and exercise program for over 3 months time. They have been compliant with all treatment. This has provided minimal relief for the patient. I do not anticipate this course of treatment will alter the underlying etiology. The patient has been scheduled for lower extremity venous treatment inclusive of --- right great saphenous vein Cyanoacralate ablation. Risks, benefits, and complications of this procedure has been discussed in detail with the patient including but not limited to bleeding, infection, and the development of a DVT. The patient has demonstrated a clear understanding and has consented. We will schedule the patient as soon as possible. Thank you for allowing us to participate in this patient's care. If there are any questions or concerns please do not hesitate to contact us. Coding Level of Care Code Est Pt Level 4 (65344) Diagnoses Varicose veins of right lower extremity with inflammation I83.11
== END 2023-11-16 15:42 | disposition home or self-care (01) ==
PROVIDERS: PCP Student in an Organized Health Care Education/Training Program; Visit Provider Surgery Vascular Surgery
DX: I83.11 Varicose veins of right lower extremity with inflammation (principal)
CPT/HCPCS: 99214

== ENCOUNTER → 2023-11-16 14:53 | Outpatient (BNVA) | payer OTHER, SELFPAY | PROVIDERS: PCP Student in an Organized Health Care Education/Training Program; Visit Provider Surgery Vascular Surgery | DX: I83.11 Varicose veins of right lower extremity with inflammation (principal) | CPT/HCPCS: 99212 ==

== ENCOUNTER 2024-04-29 12:03 | Outpatient (REF) | payer OTHER, SELFPAY ==
[2024-04-29 14:57] LABS: Alanine Aminotransferase 15 U/L (0-31); Albumin Level 3.7 g/dL (3.5-5.0); Alkaline Phosphatase 60 U/L (39-117); Anion Gap 13 (12-20); Aspartate Amino Transferase 14 U/L (5-31); Bilirubin Direct 0.2 mg/dL (0.0-0.5); Bilirubin Total 0.7 mg/dL (0.0-1.0); Blood Urea Nitrogen 14 mg/dL (9-16); Calcium 9.2 mg/dL (8.4-10.2); Carbon Dioxide 25 mmol/L (22-29); Chloride 107 mmol/L (96-108); Cholesterol 168 mg/dL (<200); Estimated Glomerular Filt Rate 60; Glucose Random 187 mg/dL (60-115); HDL Cholesterol 39 mg/dL (>40); LDL Cholesterol Calculated 111 mg/dL (<100); Potassium 4.7 mmol/L (3.3-5.1); Sodium 140 mmol/L (135-145); Total Protein 7.8 g/dL (6.5-8.0); Triglycerides 92 mg/dL (<150)
[2024-04-29 15:25] LABS: Creatinine Urine 109.33 mg/dL; Microalbum/Creatinine Ratio Ur 23.7 ug/mg cr (<30)
== END 2024-04-29 12:04 | disposition home or self-care (01) ==
LOC: HO.CHCLDS 12:03
PROVIDERS: Visit Provider Student in an Organized Health Care Education/Training Program
DX: I10 Essential (primary) hypertension (principal); E11.9 Type 2 diabetes mellitus without complications; E78.00 Pure hypercholesterolemia, unspecified
CPT/HCPCS: 36415; 80048; 80061; 80076; 82043; 82570

== ENCOUNTER 2024-05-28 12:56 | Outpatient (AMB) | payer OTHER, SELFPAY ==
[2024-05-28 13:02] VITALS: BP 134/68; PULSE 79; BMI 34.5
--- NOTE | 2024-05-28 13:02 | MHC.OFFVIS ---
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 To recall, she has had atrial fibrillation for the last few years. Underwent cardioversion in 2017 and 2020. She was on Flecainide in the past, but due to bradycardia and tiredness this was stopped. Then, she was on Multaq but in spite of this, went back into atrial fibrillation. Then she was seen by EP at [facility], but it was recommended that she continue rate control strategy as she had minimal or no symptoms. Since last seen, she states she is doing fine. No cardiac complaints whatsoever including chest pain or shortness of breath or palpitations or in fact anything cardiac sounding. [facility] Medical History Smoker ARMOND (obstructive sleep apnea) Diabetes HLD (hyperlipidemia) Persistent atrial fibrillation Surgical History History of bilateral breast reduction surgery History of appendectomy History of oophorectomy Family History Father Myocardial infarction Mother Arthritis Sister No problems noted. Sister No problems noted. Sister No problems noted. Brother No problems noted. Sister No problems noted. Brother No problems noted. Son No problems noted. Son No problems noted. Social History Alcohol intake: never Patient Tobacco Use Status: Former Tobacco user Cigarettes Per Day: 0 Review of Systems Const Denies chills, Denies fatigue, Denies fever(s), Denies weight gain and Denies weight loss ENT Denies dizziness Card Denies chest pain, Denies leg edema, Denies lightheadedness, Reports palpitations, Reports dyspnea on exertion, Denies orthopnea and Denies other Resp Denies cough and Reports dyspnea on exertion GI Denies hematochezia and Denies change in stool character Musc Denies abnormal gait, Denies muscle weakness, Denies numbness, Denies radiating pain into limb and Denies tingling Neuro Denies abnormal gait, Denies dizziness, Denies numbness and Denies tingling Endo Denies fatigue and Reports palpitations Physical Exam Vital Signs: Last Vital Signs Pulse 79 05/28/24 13:02 BP 134/68 05/28/24 13:02 BMI result Body Mass Index 34.5 Const General: comfortable and no acute distress Orientation/consciousness: patient oriented x3 HEENT Other: Unremarkable Head: Yes normal to inspection Neck Neck: Yes normal visual inspection Chest Chest palpation & inspection: normal inspection of the chest Resp Auscultation: clear to auscultation bilaterally Cardio Palpation: normal PMI Heart sounds: S1 normal heart sound present, S2 normal heart sound present, no gallops, no murmurs and no rubs GI Palpation (GI): Soft to palpation Back/Spine/Pelvis Other: unremarkable Skin General skin exam: no rashes or lesions noted Neuro General: patient oriented x3 Extrem General: Yes normal to inspection Psych Mental Status: mental status grossly normal Office Procedures EKG Details: EKG with underlying atrial fibrillation at 79/Min; nonspecific ST-T changes. [id number], Complete Assessment & Plan Assessment & Plan (1) Persistent atrial fibrillation: Code(s): I48.19 - Other persistent atrial fibrillation Category: Medical Plan: Failed antiarrhythmics as well as cardioversions. Was seen by EP, but not felt to be a good candidate for ablation. Continue beta-blockers. Continue Eliquis. Need to check if there is any CBC as there is nothing in our system. Will contact PCP. (2) Non-rheumatic aortic regurgitation: Code(s): I35.1 - Nonrheumatic aortic (valve) insufficiency Category: Medical Plan: In the last echocardiogram from 2022, [id number] aortic regurgitation. Can be followed on echocardiograms. (3) ARMOND (obstructive sleep apnea): Code(s): G47.33 - Obstructive sleep apnea (adult) (pediatric) Category: Medical Plan: She has mild obstructive sleep apnea. Seen by Pulmonary. Per documentation, not keen on CPAP. Would like to just lose weight. Avoid sleeping in supine position. (4) Smoker: Code(s): F17.200 - Nicotine dependence, unspecified, uncomplicated Category: Social Hx Plan: Nothing in the last year. Hopefully, she can keep it that way. Plan Advised to call us with any concerns like chest pain or in fact any cardiac symptoms. She agrees. Coding Level of Care Code Est Pt Level 4 (31221) Diagnoses Persistent atrial fibrillation I48.19 Non-rheumatic aortic regurgitation I35.1 ARMOND (obstructive sleep apnea) G47.33 Smoker F17.200 CPT Codes EKG - CPT: 90915-[id number], Complete ([id number])
== END 2024-05-28 13:17 | disposition home or self-care (01) ==
PROVIDERS: PCP Student in an Organized Health Care Education/Training Program; Visit Provider Internal Medicine
DX: I48.19 Other persistent atrial fibrillation (principal); I35.1 Nonrheumatic aortic (valve) insufficiency; G47.33 Obstructive sleep apnea (adult) (pediatric); F17.200 Nicotine dependence, unspecified, uncomplicated
CPT/HCPCS: 93010; 99214

== ENCOUNTER → 2024-05-28 12:56 | Outpatient (BNVA) | payer OTHER, SELFPAY | PROVIDERS: PCP Student in an Organized Health Care Education/Training Program; Visit Provider Internal Medicine | DX: I48.19 Other persistent atrial fibrillation (principal); I35.1 Nonrheumatic aortic (valve) insufficiency; G47.33 Obstructive sleep apnea (adult) (pediatric); F17.210 Nicotine dependence, cigarettes, uncomplicated | CPT/HCPCS: 93005; 99212 ==

== ENCOUNTER 2024-08-29 11:32 | Outpatient (REF) | payer OTHER, SELFPAY | END 2024-08-29 11:33 | disposition home or self-care (01) | LOC: HO.HOSX 11:32 | PROVIDERS: Visit Provider Orthopaedic Surgery | DX: M25.562 Pain in left knee (principal); M17.12 Unilateral primary osteoarthritis, left knee | CPT/HCPCS: 73562; 99202 ==

== ENCOUNTER 2024-08-29 12:59 | Outpatient (AMB) | payer OTHER, SELFPAY ==
--- NOTE | 2024-08-29 13:10 | A.OFFVIS_ITS ---
Vital Signs 08/29/24 13:13 Height 5 ft 5 in Weight 201 lb BMI 33.4 Intake Visit Reasons: Left knee pain Intake Note: Saumya is 74 year old female who presents with complaints of progressively worsening left knee pain. The patient states that she 1st injured her left knee when she fell on ice 2 years ago. Since that time her pain has gotten worse. She denies any locking or giving way. She has failed the last 3 months of conservative treatment which has included topical creams, Tylenol and a home physical therapy program. She is not able to take anti-inflammatory medicines because she is on Eliquis. She has had cortisone injections in the past which gave her no relief. She would like to hold off on surgery if at all possible. She also reports progressively worsening painful nodules in her left hand. today as a new patient with complaints of left knee pain and limited ROM. hx of Type 2 DM. Allergies Tetanus Vaccines and Toxoid [TETANUS VACCINES AND TOXOID] Allergy (Unknown, Verified 08/29/24 13:14) HIVES Medication List - Last Reconciled 08/30/24 by Colton Chou MD apixaban (Eliquis) 5 mg PO BID 30 days lorazepam 1 mg PO DAILY PRN metformin 1,000 mg PO DAILY metoprolol succinate ER 50 mg PO DAILY [facility] Medical History Smoker ARMOND (obstructive sleep apnea) Diabetes HLD (hyperlipidemia) Persistent atrial fibrillation Surgical History History of bilateral breast reduction surgery History of appendectomy History of oophorectomy Family History Father Myocardial infarction Mother Arthritis Sister No problems noted. Sister No problems noted. Sister No problems noted. Brother No problems noted. Sister No problems noted. Brother No problems noted. Son No problems noted. Son No problems noted. Social History (Updated 08/29/24 @ 13:14 by JAKE Rivera) Alcohol intake: never Patient Tobacco Use Status: Former Tobacco user Cigarettes Per Day: 0 Current occupational status: retired Physical Exam Vital Signs: BMI result Body Mass Index 33.4 Const Other: Well-nourished well-developed very friendly female awake alert and oriented x3 in no acute distress Extrem Other: Bilateral lower extremity examination shows good capillary refill, no skin lesions noted, normal sensation light touch Left knee examination shows a minimal effusion, palpable crepitus with range of motion, pain with range of motion, range of motion from -3 degrees to 115 degrees, no instability Results Reviewed Results Reviewed: X-rays of the patient's left knee show joint space narrowing, subchondral sclerosis, no acute bony abnormalities Assessment & Plan Assessment & Plan (1) Left knee pain: Code(s): M25.562 - Pain in left knee Category: Medical (2) Osteoarthritis of left knee: Code(s): M17.12 - Unilateral primary osteoarthritis, left knee Category: Medical Plan Ms. Coughlin presents with progressively worsening left knee pain due to osteoarthritis. I had a lengthy discussion with the patient regarding the treatment options. She wishes to hold off on surgery for as long as possible. I agree with this plan. I will see whether or not the patient's insurance company will cover a viscosupplementation injection, such as Durolane, for her left knee. I will see her back once the injection is available. The patient also has nodules in her left palm due to Dupuytren's contractures. Thus, I will arrange for her to have a follow-up appointment with my partner, Dr. Lopez. The patient will follow-up as instructed. Feel free to call me at any time should questions regarding her orthopedic management arise. Thank you very much for asking me to see this very friendly patient. I spent 22 minutes in reviewing the patient's records and imaging studies, seeing the patient and documenting in the medical record. Orders: Orders XR knee LT 3V 08/29/24 M25.562 - Pain in left knee Coding Level of Care Code New Pt Level 3 (00762) Complex EM visit Add On G2211 Diagnoses Left knee pain M25.562 Osteoarthritis of left knee M17.12
[2024-08-29 13:13] VITALS: BMI 33.4
== END 2024-08-29 13:28 | disposition home or self-care (01) ==
PROVIDERS: PCP Student in an Organized Health Care Education/Training Program; Visit Provider Orthopaedic Surgery
DX: M25.562 Pain in left knee (principal); M17.12 Unilateral primary osteoarthritis, left knee
CPT/HCPCS: 99203; G2211

== ENCOUNTER 2024-09-09 09:35 | Outpatient (AMB) | payer OTHER, SELFPAY ==
[2024-09-09 09:41] VITALS: BMI 33.4
--- NOTE | 2024-09-09 09:41 | A.OFFVIS_ITS ---
Vital Signs 09/09/24 09:41 Height 5 ft 5 in Weight 201 lb BMI 33.4 Intake Visit Reasons: Left knee pain Intake Note: Saumya presents with complaints of progressively worsening left knee pain. She describes her pain as sharp and severe nature. Her pain has gotten worse over the last few months in spite of continued non operative treatments. She has tried Tylenol which gives her minimal relief. She is not able to take anti- inflammatory medicines because she is on Eliquis. She has done physical therapy exercises which aggravated her pain. She wishes to hold off on surgery if at all possible. Allergies Tetanus Vaccines and Toxoid [TETANUS VACCINES AND TOXOID] Allergy (Unknown, Verified 09/09/24 09:41) HIVES Medication List - Last Reconciled 09/09/24 by Colton Chou MD apixaban (Eliquis) 5 mg PO BID 30 days lorazepam 1 mg PO DAILY PRN metformin 1,000 mg PO DAILY metoprolol succinate ER 50 mg PO DAILY [facility] Medical History Smoker ARMOND (obstructive sleep apnea) Diabetes HLD (hyperlipidemia) Persistent atrial fibrillation Surgical History History of bilateral breast reduction surgery History of appendectomy History of oophorectomy Family History Father Myocardial infarction Mother Arthritis Sister No problems noted. Sister No problems noted. Sister No problems noted. Brother No problems noted. Sister No problems noted. Brother No problems noted. Son No problems noted. Son No problems noted. Social History Alcohol intake: never Patient Tobacco Use Status: Former Tobacco user Cigarettes Per Day: 0 Current occupational status: retired Physical Exam Vital Signs: BMI result Body Mass Index 33.4 Const Other: Well-nourished well-developed very friendly female awake alert and oriented x3 in no acute distress Extrem Other: Bilateral lower extremity examination shows good capillary refill, no skin lesions noted, normal sensation light touch Left knee examination shows a minimal effusion, palpable crepitus with range of motion, pain with range of motion, range of motion from -3 degrees to 115 degrees, no instability Office Procedures AMB Joint Injection/Aspiration Joint Injection/Aspiration Primary Site: left knee Prep: site was prepped using aseptic technique Injected: 60 mg of (Durolane viscosupplementation) and 1% plain lidocaine Procedure: The patient tolerated the procedure well Coding - Large joint Procedure code (CPT) selection complete Assessment & Plan Assessment & Plan (1) Osteoarthritis of left knee: Code(s): M17.12 - Unilateral primary osteoarthritis, left knee Category: Medical (2) Left knee pain: Code(s): M25.562 - Pain in left knee Category: Medical Plan Mr. Coughlin presents with left knee pain due to osteoarthritis. I had a lengthy discussion with the patient regarding the treatment options. The risks and benefits of a left knee Durolane viscosupplementation injection were discussed at length with the patient. The patient wished to proceed. She tolerated the injection well. She will continue with her home exercise program. She will contact me prior to her follow-up appointment in 3 months should any questions or concerns arise. Feel free to call me at any time should questions regarding her orthopedic management arise. I spent 20 minutes in reviewing the patient's records and imaging studies, seeing the patient and documenting in the medical record. Orders: Orders AMB Joint Injection/Aspiration Today M17.12 - Unilateral primary osteoar thritis, left knee Coding Level of Care Code Est Pt Level 3 (10641) Complex EM visit Add On G2211 Diagnoses Osteoarthritis of left knee M17.12 Left knee pain M25.562 CPT Codes Coding - Large joint: 85209 - Large joint ([id number])
== END 2024-09-09 09:56 | disposition home or self-care (01) ==
PROVIDERS: PCP Student in an Organized Health Care Education/Training Program; Visit Provider Orthopaedic Surgery
DX: M17.12 Unilateral primary osteoarthritis, left knee (principal)
CPT/HCPCS: 20610; 99213

== ENCOUNTER → 2024-09-09 09:35 | Outpatient (BNVA) | payer OTHER, SELFPAY | PROVIDERS: PCP Student in an Organized Health Care Education/Training Program; Visit Provider Orthopaedic Surgery | DX: M17.12 Unilateral primary osteoarthritis, left knee (principal); M25.562 Pain in left knee | CPT/HCPCS: 20610; 99212; J2003; J7318 ==

== ENCOUNTER 2024-10-22 | Outpatient (REF) | payer MEDICARE, MEDICAID, SELFPAY | END 2024-10-22 00:01 | disposition home or self-care (01) | LOC: CF | PROVIDERS: PCP Student in an Organized Health Care Education/Training Program; Visit Provider Student in an Organized Health Care Education/Training Program | DX: M72.0 Palmar fascial fibromatosis [Dupuytren] (principal); R20.0 Anesthesia of skin; R20.2 Paresthesia of skin; I48.19 Other persistent atrial fibrillation; E11.9 Type 2 diabetes mellitus without complications; F17.200 Nicotine dependence, unspecified, uncomplicated; Z71.6 Tobacco abuse counseling | CPT/HCPCS: 99202 ==

== ENCOUNTER 2024-10-22 11:24 | Outpatient (AMB) | payer MEDICARE, MEDICAID, SELFPAY ==
[2024-10-22 11:40] VITALS: BMI 33.4
--- NOTE | 2024-10-22 11:40 | A.OFFVIS_ITS ---
Vital Signs 10/22/24 11:40 Height 5 ft 5 in Weight 201 lb BMI 33.4 Intake Visit Reasons: Newprob-left hand dupuytren Intake Note: Saumya 74 yr old right hand dominant male presents today for a new problem visit for her left hand dupuytrens contracture. States her small and ring finger are [place] inward for the last 5-6 months and has worsen. Also is having numbness and tingling in her middle and ring finger. No EMG done. Denies any recent injury. Allergies Tetanus Vaccines and Toxoid [TETANUS VACCINES AND TOXOID] Allergy (Unknown, Verified 10/22/24 11:46) HIVES HPI HPI Newprob-left hand dupuytren: Details: Saumya is a 74 year old right hand dominant woman who presents with complaints of left hand contractures. She complains of contractures of her left ring & small fingers, which have been worsening in the last 6 months. She also complains of new numbness of her left middle & ring fingers. Symptoms intermittent, but daily, worse at night. She is a smoker and is on Eliquis for Afib. She is a Diabetic which she says is well-controlled. [facility] Medical History (Updated 10/22/24 @ 12:08 by Akshat Patrick) Smoker ARMOND (obstructive sleep apnea) Diabetes HLD (hyperlipidemia) Persistent atrial fibrillation Surgical History History of bilateral breast reduction surgery History of appendectomy History of oophorectomy Family History Father Myocardial infarction Mother Arthritis Sister No problems noted. Sister No problems noted. Sister No problems noted. Brother No problems noted. Sister No problems noted. Brother No problems noted. Son No problems noted. Son No problems noted. 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 Review of Systems Const All systems reviewed & are unremarkable except as noted in HPI and below Physical Exam Vital Signs: BMI result Body Mass Index 33.4 Const General: cooperative, healthy appearing and no acute distress Orientation/consciousness: patient oriented x3 HEENT Head: Yes normocephalic and Yes atraumatic Eyes EOM: EOMs intact bilaterally Resp Effort & Inspection: normal respiratory effort and able to speak in complete sentences Cardio Jugular venous distension: no JVD Skin General skin exam: turgor normal Rashes: no rashes Neuro General: patient oriented x3 Extrem Other: Evaluation of Left Upper Extremity: The patient is alert, oriented, and in no acute distress Neuro: Median, Ulnar, Radial nerves motor and sensory intact Vascular: Cap refill brisk ROM: She can bring her fingers closed to a fist and extend her index & middle fingers Ring finger Dupuytrens contracture: MCP 20/ PIP 0 Middle finger Dupuytrens contracture: MCP 15/ PIP 0 There is a Dupuytrens cord extending from the palm into the ring & another to the small fingers No contracture of the small finger at this time Skin: No lacerations or abrasions. General: No Ecchymosis. No Erythema or evidence of infection. Psych Appearance: grossly normal Affect: normal affect Attitude: cooperative Assessment & Plan Assessment & Plan (1) Dupuytren's disease of palm of left hand: Code(s): M72.0 - Palmar fascial fibromatosis [Dupuytren] Category: Medical (2) Numbness and tingling in left hand: Code(s): R20.0 - Anesthesia of skin; R20.2 - Paresthesia of skin Category: Medical (3) Smoker: Code(s): F17.200 - Nicotine dependence, unspecified, uncomplicated Category: Social Hx (4) Persistent atrial fibrillation: Code(s): I48.19 - Other persistent atrial fibrillation Category: Medical (5) Diabetes: Comment: NIDDM Code(s): E11.9 - Type 2 diabetes mellitus without complications Category: Medical Plan Assessment & Plan: 1. Left ring finger Dupuytrens contracture MCP 20/PIP 0 2. Left middle finger Dupuytrens contracture MCP 15/PIP 0 I educated her about this condition I discussed operative and non-operative treatment options I directed her to the [email or web address] website for more information She should work on stretching exercises at home At this point I am recommending non operative treatment. If her symptoms increase in severity she can follow up to discuss treatment options Otherwise she can follow up in 6 months to see how she is doing 3. Left small finger Dupuytrens cord in the palm No evidence of small finger contracture at this time 4. Left hand numbness Primarily in the middle, ring, and small fingers Symptoms intermittent, but daily, worse at night I ordered a NCS to assess for peripheral nerve compression She will follow up when completed for review Scribed for Monica Lopez MD by Akshat Patrick, territory sales manager medical, on 10/22/23 at 12:05 PM, EST. Orders: Orders NE nerve conduction velocity Today R20.0 - Anesthesia of skin, R20.2 - Paresth esia of skin Coding Level of Care Code New Pt Level 4 (47174) Diagnoses Dupuytren's disease of palm of left hand M72.0 Numbness and tingling in left hand R20.0; R20.2 Smoker F17.200 Persistent atrial fibrillation I48.19 Diabetes E11.9
== END 2024-10-22 12:16 | disposition home or self-care (01) ==
PROVIDERS: PCP Student in an Organized Health Care Education/Training Program; Visit Provider Orthopaedic Surgery
DX: M72.0 Palmar fascial fibromatosis [Dupuytren] (principal); R20.0 Anesthesia of skin; R20.2 Paresthesia of skin; F17.200 Nicotine dependence, unspecified, uncomplicated; I48.19 Other persistent atrial fibrillation; E11.9 Type 2 diabetes mellitus without complications
CPT/HCPCS: 99204

== ENCOUNTER → 2024-11-13 15:26 | Outpatient (BNV) | payer MEDICARE, MEDICAID, SELFPAY | PROVIDERS: PCP Student in an Organized Health Care Education/Training Program; Visit Provider Physical Medicine & Rehabilitation | DX: G56.02 Carpal tunnel syndrome, left upper limb (principal) | CPT/HCPCS: 95909 ==

== ENCOUNTER 2024-11-13 15:27 | Outpatient (REF) | payer MEDICARE, MEDICAID, SELFPAY ==
--- NOTE | 2024-11-13 15:26 | EMG_ITS ---
Chief complaint: Dupuytren's contraction on left hand Reason for referral: Evaluate for Carpal Tunnel Syndrome Referred by: Dr. Lopez Procedure done: Left upper extremity NCS Precautions and/or limitations: Patient is anxious about needles. On Eliquis for AFib. The limb temperature was monitored continuously and remained between 32-36 degrees C during the performance of the NCS. Nerve Conduction Studies Anti Sensory Summary Table ?Stim Site NR Onset (ms) Norm Onset (ms) Peak (ms) Norm Peak (ms) O-P Amp (?V) Norm O-P Amp Site1 Site2 Delta-0 (ms) Dist (cm) Santo (m/s) Norm Santo (m/s) Left Median Anti Sensory (2nd Digit) Wrist ? 3.5 4.3 <3.6 18.0 >10 Wrist 2nd Digit 3.5 14.0 40 Left Radial Anti Sensory (Thumb) Forearm ? 2.1 2.6 <3.1 23.0 Forearm Thumb 2.1 0.0 Left Ulnar Anti Sensory (5th Digit) Wrist ? 2.9 3.7 <3.7 20.8 >15.0 Wrist 5th Digit 2.9 14.0 48 Motor Summary Table ?Stim Site NR Onset (ms) Norm Onset (ms) O-P Amp (mV) Norm O-P Amp iAmp (mV) Amp (1st) (%) Site1 Site2 Delta-0 (ms) Dist (cm) Santo (m/s) Norm Santo (m/s) Left Median Motor (Abd Poll Brev) Wrist ? 4.2 <3.9 6.4 >4.5 7.9 100.0 Elbow Wrist 3.8 18.5 49 >45 Elbow ? 8.0 5.8 7.1 90.6 Left Ulnar Motor (Abd Dig Minimi) Wrist ? 2.8 <3.0 10.2 >5 12.0 100.0 B Elbow Wrist 3.2 17.5 55 >45 B Elbow ? 6.0 10.2 12.0 100.0 A Elbow B Elbow 1.6 10.0 63 >45 A Elbow ? 7.6 9.8 11.7 96.1 FINDINGS: Left median motor nerve showed prolonged distal latency, normal amplitude and normal conduction velocity. Left median sensory nerve showed prolonged peak latency. All other nerves tested were within normal. IMPRESSION: 1. This is an abnormal study. 2. There is electrodiagnostic evidence for left moderate-severe median neuropathy at the wrist, consistent with carpal tunnel syndrome. 3. There is no electrodiagnostic evidence for ulnar neuropathy. Thank you for your kind referral. Molly Valero MD, VELIA Board Certified, [place] Board of Physical Medicine and Rehabilitation (ABPMR) Board Certified, [place] Board of Electrodiagnostic Medicine (ABEM) CODIN MTDD
--- OUTSIDE RECORDS SUMMARY | 2024-11-13 17:24 | XMS_ITS | Encounter Summary ---
Author Organization [employer] Address [address] [place] [address] [address] [place] [address] Care Team Providers Care Pin Chaser Name Role Phone Ayla Ziegler MD Primary Care Provider [phone] Reason for Visit * Reason Onset Date Comments Appointment Request 10/25/2024 Encounter Details Date Type Department Care Team ([facility] Contact Info) Description 10/25/2024 Telephone [facility] [address] [place] [address] Ayla Ziegler MD [address] [place] [address] Appointment Request Social History Tobacco Use Types Packs/Day Years Used Date Smoking Tobacco: Former Cigarettes Q uit: 04/21/2023 Smokeless Tobacco: Never Alcohol Use Standard Drinks/Week Comments Never 0 (1 standard drink = 0.6 oz pur e alcohol) Depression Answer Date Recorded Patient Health Questionnaire-9 Score 0 04/24/2023 Housing Stability Answer Date Recorded What is your housing situation today? I have josephine alberts 08/09/[address] you li ve. Do you have problems with any of the following? None of the above 08/09/2023 Food Insecurity Answer Date Recorded Within the past 12 months, y ou worried that your food would run out before you got money to buy more: Never True 08/09/2023 Within the past 12 months,th e food you bought just didn't last and you didn't have enough money to get more: Never True Transportation Answer Date Recorded In the past 12 months, has l ack of transportation kept you from medical appts, meetings, work or from getting things needed for daily living? No 08/09/2023 Utilities Answer Date Recorded In the past 12 months, has t he electric, gas, oil or water company threatened to shut off services in your home? No 08/09/2023 Depression Answer Date Recorded Patient Health Questionnaire-2 Score 0 04/24/2023 Internet Access Answer Date Recorded Internet Access Q1 Yes 06/14/2024 Internet Access Q2 Not on file 06/14/2024 Comments Unknown Sex and Gender Information Value Date Recorded Sex Assigned at Female 08/15/2022 10:16 AM EDT Legal Sex Female 10:16 AM EDT Gender Identity Female 08/15/2022 10:16 AM EDT Sexual Orientation Straight 08/15/2022 10 :16 AM EDT documented as of this encounter Miscellaneous Notes * Telephone Encounter - Nevaeh Sorenson MA - 10/28/2024 1:45 PM EST Outgoing call to patient. No answer. Left voicemail stating to call [facility] to schedule an APPT with Dr. Ziegler for rv DM. PARs please schedule next available. * Telephone Encounter - Radha Huerta - 10/25/2024 4:16 PM EST Tc from pt requesting office visit with PCP. Pt would like to discuss weight loss medication. Contact pt at [phone] documented in this encounter Plan of Treatment Upcoming Encounters Date Type Department Care Team (Late st Contact Info) Description 11/19/2024 8:30 AM EST Office Visit [facility] & PEDS [address] [place] [address] Ayla Ziegler MD [address] [place] [address] documented as of this encounter Visit Diagnoses Not on filedocumented in this encounter Additional Health Concerns Assessment Noted Time PHQ-9 Depression Total Score: 0 04/24/20 23 11:11 AM EDT documented as of this encounter Care Teams Pin Chaser Relationship Specialty Start Date End Date Ayla Ziegler MD [address] [place] [address] PCP - General Family Medicine 11/14/13 documented as of this encounter
--- OUTSIDE RECORDS SUMMARY | 2024-11-13 17:24 | XMS_ITS | Clinical Summary ---
Author Organization [employer] Address [address] [place] [address] 7t [place] [address] Care Team Providers Care Sign Painter Helper Name Role Phone Ayla Ziegler MD Primary Care Provider [phone] Allergies Active Allergy Reactions Criticality Noted Date Comments Omeprazole 12/02/2010 Other reaction(s): unspecified Tetanus Toxoid 04/24/2023 Other reaction(s): fever, vomiting Medications metoprolol succinate XL (Toprol-XL) 50 MG 24 hr tablet 3 Active metFORMIN (Glucophage) 500 MG tablet Take 1 tablet (500 mg) by mouth with breakfast and with evening meal. 180 tablet 3 4 04/29/20 25 Active D3-1000 25 MCG (1000 UT) capsule TAKE 1 CAPSULE BY MOUTH IN THE MORNING 90 capsule 3 4 Active Eliquis 5 MG tablet TAKE ONE TABLET EVERY TWELVE HOURS 180 tablet 1 4 Active LORazepam (Ativan) 1 MG tabletIndicatio ns:Anxiety Take 1 tablet (1 mg) by mouth if needed at bedtime for anxiety. 10 tablet 4 Active Active Problems Problem Noted Date Diagnosed Date Chronic atrial fibrillation 05/28/2024 Overview (05/28/2024): on eliquis Abdominal aortic aneurysm (AAA) 04/24/2023 Essential hypertension 12/13/2011 Diabetes mellitus 12/13/2011 Obesity 12/13/2011 Pure hypercholesterolemia 11/10/2011 Tobacco dependence syndrome 10/26/2011 Migraine 10/26/2011 Acute pharyngitis 05/18/2011 Encounters Date Type Department Care Team Description 11/11/2024 Telephone [facility] CHC MED & PEDS [address] [place] [address] Ayla Ziegler MD 11/11/24 Provider out 10/25/2024 Telephone [facility] MED & PEDS [address] [place] [address] Ayla Ziegler MD Appointment Request 10/02/2024 Refill [facility] [address] [facility] [place] [phone] Ayla Ziegler MD Anxiety 09/25/2024 Refill [facility] MEDICINE [address] [place] [address] Ayla Ziegler MD from Last 3 Months Immunizations Name Administration Dates Next Due Influenza High-dose Quadriva lent Preservative Free 08/15/2022 Influenza Quadrivalent Adjuvanted 07/13/2023,10/2020,07/14/2020 Influenza injectable quadriv alent IIV4 with preservative 09/03/2019 Influenza injectable quadriv alent preservative free 08/17/2015 Influenza, High Dose Seasona l, Preservative Free 08/06/2018,06/09/2017,07/21/2016 Influenza, IIV3, injectable 08/16/2014 Influenza, Split (incl. maribel fied surface antigen) 10/18/2013,09/21/2012 Pneumococcal Conjugate PCV 13 06/18/2019 Pneumococcal Conjugate PCV 20 08/12/2022 Tdap 04/29/2024 Social History Tobacco Use Types Packs/Day Years Used Date Smoking Tobacco: Former Cigarettes Q uit: 04/21/2023 Smokeless Tobacco: Never Tobacco Cessation:Counseling Given: Not Answered Alcohol Use Standard Drinks/Week Comments Never 0 [...] Orientation Straight 08/15/2022 10 :16 AM EDT Last Filed Vital Signs Vital Sign Reading Time Taken Comments Blood Pressure 146/86 04/29/2024 11:21 AM EDT Pulse 80 04/29/2024 11:21 AM EDT Temperature 36.7 ??C (98 ??F) 04/29/2024 11:21 AM EDT Respiratory Rate 16 04/29/2024 11:21 AM EDT Oxygen Saturation - - Inhaled Oxygen Concentration - - Weight 93.4 kg (206 lb) 04/29/2024 11:21 AM EDT Height 164.5 cm (5' 4.75 ) 04/29/2024 11:21 AM E DT Body Mass Index 34.55 04/29/2024 11:21 AM EDT Plan of Treatment Upcoming Encounters Date Type Department Care Team (Late st Contact Info) Description 11/19/2024 8:30 AM EST Office Visit [facility] CHC MED & PEDS [address] [place] [address] Ayla Ziegler MD [address] [place] [address] Health Maintenance Due Date Last Done Comments CT Colonography 1950 Colonoscopy 1950 Colorectal Cancer Screening 1950 FIT DNA/Cologuard 1950 FIT 1950 FOBT 1950 Sigmoidoscopy 1950 Eye Exam 1960 Alcohol/Substance Use Screening 1962 Hepatitis C Screening 1968 Hepatitis A Vaccines (1 of 2 - Risk 2-dose series) 1969 Zoster Vaccines (1 of 2) 2000 RSV Patients and Patients Aged 60 years or older (1 - Risk 60-74 years 1-dose series) 2010 Depression Screening 04/24/2024 04/24/2023, 04/24/20 23 Diabetes: Hemoglobin A1C 07/30/2024 024, 04/24/2023, 04/24/2023, Additional history exists Mammogram 09/28/2024 09/28/2022, 05/16, 08/29/2019, Additional history exists SDOH Screening 04/22/2025 04/22/2024 Tobacco Screening 04/22/2025 04/22/2024 Diabetes: Foot Exam 04/29/2025 04/29/2024, 04/29/2024, 04/29/2024, Additional history exists Diabetes: Urine Protein Screening 04/29/2025 04/29/2024, 04/24/2023 Lipid Panel 04/29/2025 04/29/2024, 04/15, 03/25/2022, Additional history exists DTaP/Tdap/Td Vaccines (2 - Td or Tdap) 04/29/2034 04/29/2024 Pneumococcal Vaccine: 50+ Years Completed 08/12/2022, 06/18/2019 COVID-19 Vaccine Completed 07/29/2024, 08/2022, 01/28/2022, Additional history exists Influenza Vaccine Completed 07/29/2024, , 08/15/2022, Additional history exists HIB Vaccines Aged Out No longer eligi ble based on patient's age to complete this topic HPV Vaccines Aged Out No longer eligi ble based on patient's age to complete this topic Hepatitis B Vaccines Aged Out No long er eligible based on patient's age to complete this topic IPV Vaccines Aged Out No longer eligi ble based on patient's age to complete this topic Meningococcal Vaccine Aged Out No oebd myrtle eligible based on patient's age to complete this topic RSV under 20 months Aged Out No longe r eligible based on patient's age to complete this topic Rotavirus Vaccines Aged Out No longer eligible based on patient's age to complete this topic Procedures Procedure Name Priority Date/Time Associated Diagnosis Comments LIPID PANEL, STANDARD Routine 04/29/2024 12:09 PM EDT Type 2 diabetes mellitus without complication, without long-term current use of insulin ([facility]) Essential hypertension Pure hypercholesterolemia POCT GLYCATED HEMOGLOBIN, TOTAL Routine 04/29/2024 11:24 AM EDT Type 2 diabetes mellitus without complication, without long-term current use of insulin ([facility]) ALBUMIN, RANDOM URINE W/CREATININE Routine 04/29/2024 11:01 AM EDT Type 2 diabetes mellitus without complication, without long-term current use of insulin ([facility]) BI MAMMOGRAM SCREENING TOMOSYNTHESIS BILATERAL Routine 09/28/2022 11:02 AM EST from Last 3 Months or Most Recently Relevant to Health Maintenance Results * (ABNORMAL) Lipid Panel, Standard (04/29/2024 12:09 PM EDT) Triglycerides 92 <150 mg/dL [facility] Comment:Desirable Triglyceri de: less than 150 mg/dLBorderline High Triglyceride 150-199 mg/dLHigh Triglyceride: 200-499 mg/dLVery High Triglyceride: greater than or equal to 5OO mg/dL Cholesterol 168 <200 mg/dL [facility] Comment:Desirable Cholestero l: less than 200 mg/dLBorderline High Cholesterol: 200-239 mg/dLHigh Cholesterol: greater than 239 mg/dL LDL Cholesterol Calculated 111(H) <100 mg/dL [facility] Comment:Desirable LDL: less than 100 mg/dLNear Optimal/Above Optimal LDL: 110- 129 mg/dLBorderline High LDL: 130-159 mg/dLHigh LDL: 160-189 mg/dLVery High LDL: greater than or equal to 190 mg/dL HDL Cholesterol 39(L) >40 mg/dL [facility] Comment:Desirable HDL: great er than 40 mg/dL Note: This HDL assay may give artificially low results in patients with liver disease. Blood Venous blood specimen / Unknown 04/29/2024 12:09 PM EDT 04/29/2024 2:23 PM EDT Ayla Ziegler MD LAB BLOOD ORDERABLES Final Resul t Performing Organization Address [facility] Co de Phone Number [facility] [address] [place] [phone] * (ABNORMAL) POCT A1C (04/29/2024 11:24 AM EDT) Hemoglobin A1C 7.9(A) 4.0 - 6.0 % QC Media Lot # Comment:[id number] Lot# Expiration Date Comment:12/05/2025 Blood 04/29/2024 11:2 4 AM EDT Ayla Ziegler MD POINT OF CARE TEST ENTER/EDIT OR DERABLES Final Result * Albumin, Random Urine W/Creatinine (04/29/2024 11:01 AM EDT) Creatinine, Urine 109.33 mg/dL [facility] Microalbumin Urine 26.0 mg/L [facility] Microalbum Creatinine Ratio Ur 23.7 <30 ug/mg cr [facility] Comment:Albumin/Creatinine R at Reference Ranges: Normal: < 30 ug/mg creatinine Microalbuminuria: 30 - 300 ug/mg creatinineClinical Albuminuria: > 300 ug/mg creatinine Urine (Urine, Random) 04/29/2024 11:01 AM EDT 04/29/2024 2:26 PM EDT us Ayla Ziegler MD LAB URINE ORDERABLES Final Resul t Performing Organization Address [facility]/ZIP Co de Phone Number [facility] [address] [place] [phone] * BI Mammogram Screening Tomosynthesis Bilateral (09/28/2022 11:02 AM EST) Anatomical Region Laterality Modality Breast Bilateral Mammography 09/28/2022 11:0 2 AM EST Narrative 09/29/2022 12:04 PM EST ? [facility] ? [address] ?[place] [address] ? Mammography Report ? Signed ? Patient: Ced,Saumya L ?MR#: [id number] ?? [id number] ? : 1950 ?Acct:[id number] ? Age/Sex: 72 / F ?ADM Date: 09/28/ ? Loc: HO.MAMMO ? Attending Dr: Ayla Ziegler MD ? Ordering Physician: Ayla Ziegler MD ?Results: 2Benign ?? Findings ? Date of Service: 09/28/ ?Follow Up: 1 Year From Orig ?? inal Mammogram ? Procedure(s): MM tomosynthesis screening BI ?? Accession Number(s): [id number] ? cc: Ayla Ziegler MD ? EXAMINATION: ?? MM SCREENING DIGITAL BREAST TOMOSYNTHESIS, BILATERAL ? CLINICAL INFORMATION: ? Screening. Asymptomatic. ? The lifetime risk of breast cancer based on the Tyrer-Cuzick Model is ?? 4%. ? COMPARISON: ?? Mammography: 05/31/2021, 08/28/2019, 05/30/2018 ? TECHNIQUE: ?? Digital breast tomosynthesis is performed in both the craniocaudal and ?? mediolateral oblique views along with computer-aided detection (CAD). ?? Synthesized 2D images are generated from the tomosynthesis. ? FINDINGS: ?? The breasts are almost entirely fatty (ACR BI-RADS breast composition ?? Category a). ? There are no significant masses, abnormal calcifications, or other ?? abnormalities. ?? There are scattered bilateral punctate round and rim ?? and dermal calcifications again noted. Grouped punctate calcifications ?? anterior left breast correspond to dermal calcifications on tomography. ?? There is stable nodule posterior 12:00 right breast possibly ?? intramammary node. The axilla and skin contours are unremarkable. No ?? significant changes. ? MM/MM tomosynthesis screening BI ?? IMPRESSION: ?? No mammographic evidence of malignancy. ? ASSESSMENT: ? BI-RADS 2: Benign ? RECOMMENDATION: ?? Routine annual mammography screening. ? This patient's information was entered into a reminder system with a ?? target due date for their next mammogram. ? Dictated By: ?Curry Quiroz MD ? Signed By: ?<Electronically signed by Curry uQiroz MD in OV> ?09/29/22 1202 ? DD/ 1102 ? TD/TT: ? Stock Roller: FLANAGAN ? Procedure Note [place], Image - 09/29/2022 [facility] [address] [place] [address] Mammography Report Signed Patient: Saumya Coughlin LMR#: [id number] : 1950Acct:[id number] Age/Sex: 72 / FADM Date: 09/28/22 Loc: HO.MAMMO Attending Dr: Ayla Ziegler MD Ordering Physician: Ayla Ziegleresults: 2Benign Findings Date of Service: 09/28/22Follow Up: 1 Year From Orig inal Mammogram Procedure(s): MM tomosynthesis screening BI Accession Number(s): [id number] cc: Ayla Ziegler MD EXAMINATION: MM SCREENING DIGITAL BREAST TOMOSYNTHESIS, BILATERAL CLINICAL INFORMATION: Screening. Asymptomatic. The lifetime risk of breast cancer based on the Tyrer-Cuzick Model is 4%. COMPARISON: Mammography: 05/31/2021, 08/28/2019, 05/30/2018 TECHNIQUE: Digital breast tomosynthesis is performed in both the craniocaudal and mediolateral oblique views along with computer-aided detection (CAD). Synthesized 2D images are generated from the tomosynthesis. FINDINGS: The breasts are almost entirely fatty (ACR BI-RADS breast composition Category a). There are no significant masses, abnormal calcifications, or other abnormalities. There are scattered bilateral punctate round and rim and dermal calcifications again noted. Grouped punctate calcifications anterior left breast correspond to dermal calcifications on tomography. There is stable nodule posterior 12:00 right breast possibly intramammary node. The axilla and skin contours are unremarkable. No significant changes. MM/MM tomosynthesis screening BI IMPRESSION: No mammographic evidence of malignancy. ASSESSMENT: BI-RADS 2: Benign RECOMMENDATION: Routine annual mammography screening. This patient's information was entered into a reminder system with a target due date for their next mammogram. Dictated By: Curry Quiroz MD Signed By: <Electronically signed by Curry Quiroz MD in OV> 09/29/22 1202 DD/ 1102 TD/TT: Stock Roller: FLANAGAN [facility] External Provider IMG BI PROCEDURES Final Result from Last 3 Months or Most Recently Relevant to Health Maintenance Insurance Continuity Control STANDARD MEDICARE Care Teams Sign Painter Helper Relationship Specialty Start Date End Date Ayla Ziegler MD [address] [place] [phone] PCP - General Family Medicine 11/14/13
--- OUTSIDE RECORDS SUMMARY | 2024-11-13 17:24 | XMS_ITS | Encounter Summary ---
Author Organization [employer] Address [address] [facility] 7t [place] [address] Care Team Providers Care Valving Machine Operator Name Role Phone Ayla Ziegler MD Primary Care Provider [phone] Reason for Visit * Reason Onset Date Comments Med Refill 03/21/2024 Encounter Details Date Type Department Care Team ([facility] st Contact Info) Description 03/21/[address] [facility] MEDICINE [address] [place] [address] Ayla Ziegler MD [address] [place], [place] [phone] Med Refill Social History Tobacco Use Types Packs/Day Years [...] Recorded Patient Health Questionnaire-2 Score 0 04/24/2023 Comments Unknown Sex and Gender Information Value Date Recorded Sex Assigned at Female 08/15/2022 10:16 AM EDT Legal Sex Female 10:16 AM EDT Gender Identity Female 08/15/2022 10:16 AM EDT Sexual Orientation Straight 08/15/2022 10 :16 AM EDT documented as of this encounter Miscellaneous Notes * Telephone Encounter - Bhavesh Coreas - 03/21/2024 1:46 PM EDT TC from pt requesting medication refill. Medications needing refill: LORazepam (Ativan) 1 MG tablet To be sent to: [facility]/pharmacy #[id number] [facility] documented in this encounter Plan of Treatment Upcoming Encounters Date Type Department Care Team (Late st Contact Info) Description 11/19/2024 8:30 AM EST Office Visit [facility] CHC MED & PEDS [address] [place] [address] Ayla Ziegler MD [address] [place] [address] documented as of this encounter Visit Diagnoses Not on filedocumented in this encounter Additional Health Concerns Assessment Noted Time PHQ-9 Depression Total Score: 0 04/24/20 23 11:11 AM EDT documented as of this encounter Care Teams Valving Machine Operator Relationship Specialty Start Date End Date Ayla Ziegler MD [address] [place] [phone] PCP - General Family Medicine 11/14/13 documented as of this encounter
--- OUTSIDE RECORDS SUMMARY | 2024-11-13 17:24 | XMS_ITS | Encounter Summary ---
Author Organization [employer] Address [address] 7t [place] [address] Care Team Providers Care Silk Screen Repairer Name Role Phone Ayla Ziegler MD Primary Care Provider [phone] Reason for Visit * Reason Onset Date Comments Med Refill 02/01/2023 Encounter Details Date Type Department Care Team ([facility] st Contact Info) Description 02/01/2023 Telephone [facility] MEDICINE [address] [place] [address] Ayla Ziegler MD [address] [place], [place] [phone] Med Refill Social History Tobacco Use Types Packs/Day Years Used Date Smoking Tobacco: Never Assessed Depression Answer Date Recorded Patient Health Questionnaire-9 [...] Orientation Straight 08/15/2022 10 :16 AM EDT COVID-19 Exposure Response Date Recorded In the last 10 days, have yo u been in contact with someone who was confirmed or suspected to have Coronavirus/COVID-19? No / Unsure 04/24/2023 10:50 AM EDT documented as of this encounter Miscellaneous Notes * Telephone Encounter - Monica Marie - 02/01/2023 11:01 AM EDT Tc from pt requesting a med refill for lorazepam 1 mg documented in this encounter Plan of Treatment Upcoming Encounters Date Type Department Care Team (Late st Contact Info) Description 11/19/2024 8:30 AM EST Office Visit [facility] MED & PEDS [address] [place] [address] Ayla Ziegler MD [address] [place] [address] documented as of this encounter Visit Diagnoses Not on filedocumented in this encounter Care Teams Silk Screen Repairer Relationship Specialty Start Date End Date Ayla Ziegler MD [address] [place] [address] PCP - General Family Medicine 11/14/13 documented as of this encounter
--- OUTSIDE RECORDS SUMMARY | 2024-11-13 17:24 | XMS_ITS | Encounter Summary ---
Author Organization [employer] Address [address] [facility] 7t [place] [address] Care Team Providers Care Autocad Detailer Name Role Phone Ayla Ziegler MD Primary Care Provider [phone] Reason for Visit * Reason Onset Date Comments FYI 08/08/2024 Encounter Details Date Type Department Care Team ([facility] st Contact Info) Description 08/08/2024 Telephone [facility] MEDICINE [address] [place] [address] Ayla Ziegler MD [address] [place], [place] [phone] FYI Social History Tobacco Use Types Packs/Day Years [...] * Telephone Encounter - Monica Marie - 08/08/2024 12:03 PM EDT Tc from janis with [facility] medication management requesting PCP to review pt's diabetic status and pt possibly benefiting from being prescribed a statin drug. For any questions please call at [phone] *Advised caller message sent to provider. documented in this encounter Plan of Treatment Upcoming Encounters Date Type Department Care Team (Late st Contact Info) Description 11/19/2024 8:30 AM EST Office Visit [facility] MED & PEDS [address] [place] [address] Ayla Ziegler MD [address] [place] [address] documented as of this encounter Visit Diagnoses Not on filedocumented in this encounter Additional Health Concerns Assessment Noted Time PHQ-9 Depression Total Score: 0 04/24/20 23 11:11 AM EDT documented as of this encounter Care Teams Autocad Detailer Relationship Specialty Start Date End Date Ayla Ziegler MD [address] [place] [phone] PCP - General Family Medicine 11/14/13 documented as of this encounter
--- OUTSIDE RECORDS SUMMARY | 2024-11-13 17:24 | XMS_ITS | Encounter Summary ---
Author Organization [employer] Address [address] [place] [address] 7 [place] [address] Care Team Providers Care Cereal Supervisor Name Role Phone Ayla Ziegler MD Primary Care Provider [phone] Reason for Visit * Reason Onset Date Comments 11/11/24 Provider out 11/11/2024 Encounter Details Date Type Department Care Team ([facility] Contact Info) Description 11/11/2024 Telephone [facility]C MED & PEDS [address] [place] [address] Ayla Ziegler MD [address] [place] [address] 11/11/24 Provider out Social History Tobacco Use Types Packs/Day Years [...] encounter Miscellaneous Notes * Telephone Encounter - Marley Weiss RN - 11/11/2024 8:12 AM EST TC to pt- she agrees to move appt to 11/19/24. documented in this encounter Plan of Treatment Upcoming Encounters Date Type Department Care Team (Late st Contact Info) Description 11/19/2024 8:30 AM EST Office Visit [facility] MED & PEDS [address] [place] [address] Ayla Ziegler MD [address] [place] [address] documented as of this encounter Visit Diagnoses Not on filedocumented in this encounter Additional Health Concerns Assessment Noted Time PHQ-9 Depression Total Score: 0 04/24/20 23 11:11 AM EDT documented as of this encounter Care Teams Cereal Supervisor Relationship Specialty Start Date End Date Ayla Ziegler MD [address] [place] [phone] PCP - General Family Medicine 11/14/13 documented as of this encounter
== END 2024-11-13 15:28 | disposition home or self-care (01) ==
LOC: HO.NEURO 15:27
PROVIDERS: PCP Student in an Organized Health Care Education/Training Program; Visit Provider Orthopaedic Surgery
DX: R20.0 Anesthesia of skin (principal); R20.2 Paresthesia of skin
CPT/HCPCS: 95909

== ENCOUNTER 2024-11-19 09:21 | Outpatient (REF) | payer MEDICARE, MEDICAID, SELFPAY ==
--- OUTSIDE RECORDS SUMMARY | 2024-11-19 09:54 | XMS_ITS | Encounter Summary ---
Author Organization [employer] Address [address] [place] [address] 7 [place] [address] Care Team Providers Care Case Picker Name Role Phone Ayla Ziegler MD Primary Care Provider [phone] Reason for Visit * Reason Onset Date Comments 11/11/24 Provider out 11/11/2024 Encounter Details Date Type Department Care Team ([facility] Contact Info) Description 11/11/2024 Telephone [facility] CHC MED & PEDS [address] [place] [address] Ayla Ziegler MD [address] [place] [address] 11/11/24 Provider out Social History Tobacco Use [...] documented in this encounter Plan of Treatment Not on file documented as of this encounter Visit Diagnoses Not on filedocumented in this encounter Additional Health Concerns Assessment Noted Time PHQ-9 Depression Total Score: 0 04/24/20 23 11:11 AM EDT documented as of this encounter Care Teams Case Picker Relationship Specialty Start Date End Date Ayla Ziegler MD [address] [place] [phone] PCP - General Family Medicine 11/14/13 documented as of this encounter
--- OUTSIDE RECORDS SUMMARY | 2024-11-19 09:54 | XMS_ITS | Encounter Summary ---
Author Organization [employer] Address [address] [place] [address] 7 [place] [address] Care Team Providers Care Organic Gardening Teacher Name Role Phone Ayla Ziegler MD Primary Care Provider [phone] Reason for Visit * Reason Onset Date Comments chart prep 11/18/2024 Encounter Details Date Type Department Care Team ([facility] st Contact Info) Description 11/18/2024 Telephone [facility] CHC MED & PEDS [address] [place] [address] Ayla Ziegler MD [address] [place] [address] chart prep Social History Tobacco Use Types Packs/Day Years [...] Telephone Encounter - Nevaeh Sorenson MA - 11/18/2024 12:55 PM EST Chart Prep Labs: done Images: done Vaccines due: yes Referrals: complete Screenings: colon,mammo, eye exam Overdue care gaps: A1C, Glucose, PHQ-9 documented in this encounter Plan of Treatment Not on file documented as of this encounter Visit Diagnoses Not on filedocumented in this encounter Additional Health Concerns Assessment Noted Time PHQ-9 Depression Total Score: 0 04/24/20 23 11:11 AM EDT documented as of this encounter Care Teams Organic Gardening Teacher Relationship Specialty Start Date End Date Ayla Ziegler MD [address] [place] [phone] PCP - General Family Medicine 11/14/13 documented as of this encounter
--- OUTSIDE RECORDS SUMMARY | 2024-11-19 09:54 | XMS_ITS | Encounter Summary ---
Author Organization [employer] Address [address] [place] [address] 7 [place] [address] Care Team Providers Care Boilermaker Mechanic Name Role Phone Ayla Ziegler MD Primary Care Provider [phone] Reason for Visit * Reason Onset Date Comments Appointment Request 10/25/2024 Encounter Details Date Type Department Care Team ([facility] Contact Info) Description 10/25/2024 Telephone [facility] MED & PEDS [address] [place] [address] Ayla Ziegler MD [address] [place] [address] Appointment Request Social History Tobacco Use Types [...] No answer. Left voicemail stating to call [facility] to schedule an APPT with Dr. Ziegler for rv DM. PARs please schedule next available. * Telephone Encounter - Radha Huerta - 10/25/2024 4:16 PM EST Tc from pt requesting office visit with PCP. Pt would like to discuss weight loss medication. Contact pt at [phone] documented in this encounter Plan of Treatment Not on file documented as of this encounter Visit Diagnoses Not on filedocumented in this encounter Additional Health Concerns Assessment Noted Time PHQ-9 Depression Total Score: 0 04/24/20 23 11:11 AM EDT documented as of this encounter Care Teams Boilermaker Mechanic Relationship Specialty Start Date End Date Ayla Ziegler MD [address] [place] [address] PCP - General Family Medicine 11/14/13 documented as of this encounter
--- OUTSIDE RECORDS SUMMARY | 2024-11-19 09:54 | XMS_ITS | Encounter Summary ---
Author Organization [employer] Address [address] [facility] 7t [place] [address] Care Team Providers Care Repair Service Dispatcher Name Role Phone Ayla Ziegler MD Primary Care Provider [phone] Reason for Visit * Reason Onset Date Comments Med Refill 03/21/2024 Encounter Details Date Type Department Care Team ([facility] st Contact Info) Description 03/21/2024 Telephone [facility] MEDICINE [address] [place] [address] Ayla Ziegler MD [address] [place], [place] [id number] Med Refill Social History Tobacco Use Types [...] 1 MG tablet To be sent to: [facility]/pharmacy #[id number] - [address] AT [facility] documented in this encounter Plan of Treatment Not on file documented as of this encounter Visit Diagnoses Not on filedocumented in this encounter Additional Health Concerns Assessment Noted Time PHQ-9 Depression Total Score: 0 04/24/20 23 11:11 AM EDT documented as of this encounter Care Teams Repair Service Dispatcher Relationship Specialty Start Date End Date Ayla Ziegler MD [address] [place] [id number] PCP - General Family Medicine 11/14/13 documented as of this encounter
--- OUTSIDE RECORDS SUMMARY | 2024-11-19 09:54 | XMS_ITS | Encounter Summary ---
Author Organization [employer] Address [address] [place] [address] [address], [place] [address] Care Team Providers Care Camera Storage Clerk Name Role Phone Ayla Ziegler MD Primary Care Provider [phone] Reason for Referral * Imaging (Routine) - Closed Specialty Diagnoses / Procedures Referred By Neyda sin Referred To Contact Radiology Diagnoses Encounter for screening mammogram for breast cancer Procedures BI Mammogram Screening Tomosynthesis Bilateral Ayla Ziegler MD [address] [place] [address] Phone: tel: fax: [address] Phone: tel: fax: Referral ID Status Reason Start Date Expiration Date Visits Re quested Visits Authorized [id number] Closed 11/19/2024 11/19/2025 1 1 * Consultation (Routine) - Pending Review Specialty Diagnoses / Procedures Referred By Neyda sin Referred To Contact Gastroenterology Diagnoses Encounter for screening for malignant neoplasm of colon Ayla Ziegler MD [address] [place] [address] Phone: tel: fax: Referral ID Status Reason Start Date Expiration Date Visits Requested Visits Authorized [id number] Pending Review Specialty Services Required 11/19/2024 11/19/2025 1 1 * Consultation (Routine) - Pending Review Specialty Diagnoses / Procedures Referred By Neyda sin Referred To Contact Podiatry Diagnoses Type 2 diabetes mellitus without complication, without long-term current use of insulin (CMS/HCC) Ayla Ziegler MD [address] [place] [address] Phone: tel: fax: Referral ID Status Reason Start Date Expiration Date Visits Requested Visits Authorized [id number] Pending Review Specialty Services Required 11/19/2024 11/19/2025 1 1 Reason for Visit * Reason Comments Diabetes Encounter Details Date Type Department Care Team ([facility] st Contact Info) Description 11/19/2024 8:30 AM EST Office Visit [facility] CHC MED & PEDS [address] [place] [address] Ayla Ziegler MD [address] [place] [address] Essential hypertension (Primary Dx); Type 2 diabetes mellitus without complication, without long-term current use of insulin (CMS/HCC); Encounter for screening mammogram for breast cancer; Encounter for screening for malignant neoplasm of colon Social History Tobacco Use Types Packs/Day Years [...] Access Q2 Not on file 06/14/2024 Comments No Sex and Gender Information Value Date Recorded Sex Assigned at Female 08/15/2022 10:16 AM EDT Legal Sex Female 10:16 AM EDT Gender Identity Female 08/15/2022 10:16 AM EDT Sexual Orientation Straight 08/15/2022 10 :16 AM EDT documented as of this encounter Last Filed Vital Signs Vital Sign Reading Time Taken Comments Blood Pressure 146/67 11/19/2024 8:50 AM EST Pulse 84 11/19/2024 8:50 AM EST Temperature 36.1 ??C (97 ??F) 11/19/2024 8:50 AM EST Respiratory Rate 18 11/19/2024 8:50 AM EST Oxygen Saturation - - Inhaled Oxygen Concentration - - Weight 91.2 kg (201 lb) 11/19/2024 8:50 AM EST Height 164.5 cm (5' 4.75 ) 11/19/2024 8:50 AM ES T Body Mass Index 33.71 11/19/2024 8:50 AM EST documented in this encounter Progress Notes * Ayla Ziegler MD - 11/19/2024 8:30 AM EST Subjective Patient ID: Saumya Coughlin is a 74 y.o. female who presents for Diabetes. Diabetes She presents for her follow-up diabetic visit. She has type 2 diabetes mellitus. Her disease coursehas been worsening. Pertinent negatives for hypoglycemia include no headaches or sweats. Pertinent negatives for diabetes include no blurred vision, no chest pain, no fatigue, no foot paresthesias, no foot ulcerations, no polydipsia, no polyphagia, no polyuria, no visual change, no weakness and no weight loss. Review of Systems Constitutional: Negative. Negative for fatigue and weight loss. Eyes: Negative for blurred vision. Respiratory: Negative. Negative for shortness of breath. Cardiovascular: Negative for chest pain and palpitations. Gastrointestinal: Negative. Endocrine: Negative for polydipsia, polyphagia and polyuria. Genitourinary: Negative. Musculoskeletal: Negative for neck pain. Neurological: Negative for weakness and headaches. Objective Physical Exam Constitutional: Appearance: Normal appearance. Cardiovascular: Rate and Rhythm: Normal rate and regular rhythm. Pulses: Normal pulses. Heart sounds: Normal heart sounds. Pulmonary: Effort: Pulmonary effort is normal. Abdominal: General: Abdomen is flat. Neurological: Mental Status: She is alert. Assessment/Plan Diagnoses and all orders for this visit: Essential hypertension Maintain a low-sodium diet (less than 2 grams per day). Maintain a regular cardiovascular exercise program. Advised to maintain a low-fat, low-cholesterol diet. Counseled regarding importance of weight loss. Counseled re: potential co-morbidities including cardiovascular disease. Type 2 diabetes mellitus without complication, without long-term current use of insulin (CMS/HCC) Comments: Metformin Increased to 1000 BID Advised Low sugar and Low carb diet. Counseled regarding self-monitoring of blood glucose. Counseled re: potential co-morbidities including cardiovascular disease. Counseled re: potential co-morbidities include neuropathy and retinopathy. Counseled re: potential co-morbidities include nephropathy. Orders: - POCT HGB A1C - POCT Glucose - Referral to Podiatry; Future - Basic Metabolic Panel; Future - Lipid Panel, Standard; Future - Hepatic Function Panel; Future - Albumin, Random Urine W/Creatinine; Future Encounter for screening mammogram for breast cancer - BI Mammogram Screening Tomosynthesis Bilateral; Future Encounter for screening for malignant neoplasm of colon - Referral to Gastroenterology; Future Other orders - metFORMIN (Glucophage) 1000 MG tablet; Take 1 tablet (1,000 mg) by mouth with breakfast and with evening meal. Pt refused Low dose CT for lung cancer screen documented in this encounter Plan of Treatment Scheduled Orders Name Type Priority Associated Diagnoses Orde r Schedule Basic Metabolic Panel Lab Routine Type 2 diabetes mellitus without complication, without long-term current use of insulin (CMS/HCC) Expected: 11/19/2024 (Approximate), Expires: 11/19/2025 Lipid Panel, Standard Lab Routine Type 2 diabetes mellitus without complication, without long-term current use of insulin (CMS/HCC) Expected: 11/19/2024 (Approximate), Expires: 11/19/2025 Hepatic Function Panel Lab Routine Type 2 diabetes mellitus without complication, without long-term current use of insulin (CMS/HCC) Expected: 11/19/2024 (Approximate), Expires: 11/19/2025 Albumin, Random Urine W/Creatinine Lab Routine Type 2 diabetes mellitus without complication, without long-term current use of insulin (CMS/HCC) Expected: 11/19/2024 (Approximate), Expires: 11/19/2025 BI Mammogram Screening Tomosynthesis Bilateral Imaging Routine Encounter for screening mammogram for breast cancer Expected: 11/19/2024, Expires: 01/17/2026 Scheduled Referrals Name Type Priority Associated Diagnoses Order Schedule Referral to Podiatry Outpatient Referral Routine Type 2 diabetes mellitus without complication, without long-term current use of insulin (CMS/HCC) Expected: 11/19/2024 (Approximate), Expires: 11/19/2025 Referral to Gastroenterology Outpatient Referral Routine Encounter for screening for malignant neoplasm of colon Expected: 11/19/2024 (Approximate), Expires: 11/19/2025 documented as of this encounter Procedures Procedure Name Priority Date/Time Associated Diagnosis Comments POCT GLYCATED HEMOGLOBIN, TOTAL Routine 11/19/2024 8:54 AM EST Type 2 diabetes mellitus without complication, without long-term current use of insulin (CMS/[facility]) POCT GLUCOSE Routine 11/19/2024 8:54 AM EST Type 2 diabetes mellitus without complication, without long-term current use of insulin (CMS/[facility]) documented in this encounter Results * (ABNORMAL) POCT Glucose (11/19/2024 8:54 AM EST) Glucose Blood, POC 265(A) 60 - 200 mg/dL QC Media Lot # [id number] Lot# Expiration Date Blood Capillary blood specimen / Unknown 11/19/2024 8:54 AM EST Ayla Ziegler MD POINT OF CARE TEST ENTER/EDIT OR DERABLES Final Result * (ABNORMAL) POCT HGB A1C (11/19/2024 8:54 AM EST) Hemoglobin A1C 8.5(A) 4.0 - 6.0 % QC Media Lot # [id number] Lot# Expiration Date ,237 Blood 11/19/2024 8:54 AM EST Ayla Ziegler MD POINT OF CARE TEST ENTER/EDIT OR DERABLES Final Result documented in this encounter Visit Diagnoses Diagnosis Essential hypertension- Primary Unspecified essential hypertension Type 2 diabetes mellitus without complication, without long-term current use of insulin ([facility]) Encounter for screening mammogram for breast cancer Encounter for screening for malignant neoplasm of colon documented in this encounter Additional Health Concerns Assessment Noted Time PHQ-9 Depression Total Score: 0 04/24/20 23 11:11 AM EDT documented as of this encounter Care Teams Camera Storage Clerk Relationship Specialty Start Date End Date Ayla Ziegler MD [address] [place] [phone] PCP - General Family Medicine 11/14/13 documented as of this encounter
--- OUTSIDE RECORDS SUMMARY | 2024-11-19 09:54 | XMS_ITS | Encounter Summary ---
Author Organization [employer] Address [address] [facility] [address] [place] [address] Care Team Providers Care Organ Pipe Maker Metal Name Role Phone Ayla Ziegler MD Primary Care Provider Encounter Details Date Type Department Care Team (Latest Contact Info) Description 11/19/2024 Travel Social History Tobacco Use Types Packs/Day Years [...] AM EDT documented as of this encounter Plan of Treatment Not on file documented as of this encounter Visit Diagnoses Not on filedocumented in this encounter Additional Health Concerns Assessment Noted Time PHQ-9 Depression Total Score: 0 04/24/20 23 11:11 AM EDT documented as of this encounter Care Teams Organ Pipe Maker Metal Relationship Specialty Start Date End Date Ayla Ziegler MD [address] [place] [phone] PCP - General Family Medicine 11/14/13 documented as of this encounter
--- OUTSIDE RECORDS SUMMARY | 2024-11-19 09:54 | XMS_ITS | Encounter Summary ---
Author Organization [employer] Address [address] [facility] [address] 7[address] [place] [address] Care Team Providers Care Homemaking Rehabilitation Consultant Name Role Phone Ayla Ziegler MD Primary Care Provider [phone] Reason for Visit * Reason Onset Date Comments Med Refill 02/01/2023 Encounter Details Date Type Department Care Team ([facility] st Contact Info) Description 02/01/2023 Telephone [facility] MEDICINE [address] [place] [address] Ayla Ziegler MD [address] [place], [place] [phone] Med Refill Social History Tobacco Use Types [...] on filedocumented in this encounter Care Teams Homemaking Rehabilitation Consultant Relationship Specialty Start Date End Date Ayla Ziegler MD [address] [place] [phone] PCP - General Family Medicine 11/14/13 documented as of this encounter
--- OUTSIDE RECORDS SUMMARY | 2024-11-19 09:54 | XMS_ITS | Clinical Summary ---
Author Organization [employer] Address [address] [place] [address] 7t [place] [address] Care Team Providers Care Stretcher Drier Operator Name Role Phone Ayla Ziegler MD Primary Care Provider [phone] Allergies Active Allergy Reactions Criticality Noted Date Comments Omeprazole 12/02/2010 Other reaction(s): unspecified Tetanus Toxoid 04/24/2023 Other reaction(s): fever, vomiting Medications metoprolol succinate XL (Toprol-XL) 50 MG 24 hr tablet 04/19/20 23 Active D3-1000 25 MCG (1000 UT) capsule TAKE 1 CAPSULE BY MOUTH IN THE MORNING 90 capsule 3 06/20/20 24 Active Eliquis 5 MG tablet TAKE ONE TABLET EVERY TWELVE HOURS 180 tablet 1 09/26/20 24 Active LORazepam (Ativan) 1 MG tabletIndicati ons:Anxiety Take 1 tablet (1 mg) by mouth if needed at bedtime for anxiety. 10 tablet 10/02/20 24 Active metFORMIN (Glucophage) 1000 MG tablet Take 1 tablet (1,000 mg) by mouth with breakfast and with evening meal. 60 tablet 11 11/19/19 25 026 Active metFORMIN (Glucophage) 500 MG tablet Take 1 tablet (500 mg) by mouth with breakfast and with evening meal. 180 tablet 3 04/29/20 24 025 Discontinued Active Problems Problem Noted Date Diagnosed Date Chronic atrial fibrillation 05/28/2024 Overview (05/28/2024): on eliquis Abdominal aortic aneurysm (AAA) 04/24/2023 Essential hypertension 12/13/2011 Diabetes mellitus 12/13/2011 Obesity 12/13/2011 Pure hypercholesterolemia 11/10/2011 Tobacco dependence syndrome 10/26/2011 Migraine 10/26/2011 Acute pharyngitis 05/18/2011 Encounters Date Type Department Care Team Description 11/19/2024 8:30 AM EST Office Visit [facility] MED & PEDS [address] [facility] [place] [address] Ayla Ziegler MD Essential hypertension (Primary Dx); Type 2 diabetes mellitus without complication, without long-term current use of insulin ([facility]); Encounter for screening mammogram for breast cancer; Encounter for screening for malignant neoplasm of colon 11/19/2024 Travel 11/18/2024 Telephone [facility] CHC MED & PEDS [address] [place] [address] Ayla Ziegler MD chart prep 11/11/2024 Telephone [facility] MED & PEDS [address] [place] [address] Ayla Ziegler MD 11/11/24 Provider out 10/25/2024 Telephone [facility] MED & PEDS [address] [place] [address] Ayla Ziegler MD Appointment Request 10/02/2024 Refill [facility] CHC MED & PEDS [address] [place] [address] Ayla Ziegler MD Anxiety 09/25/2024 Refill [facility] MEDICINE [address] [place] [address] Ayla Ziegler MD from Last 3 Months [...] Mass Index 33.71 11/19/2024 8:50 AM EST Plan of Treatment Health Maintenance Due Date Last Done Comments [...] 2010 Depression Screening 04/24/2024 04/24/2023, 04/24/20 23 Mammogram 09/28/2024 09/28/2022, 05/16, 08/29/2019, Additional history exists Diabetes: Hemoglobin A1C 02/16/2025 025, 04/29/2024, 04/24/2023, Additional history exists SDOH Screening 04/22/2025 04/22/2024 Diabetes: Foot Exam 04/29/2025 04/29/2024, 04/29/2024, 04/29/2024, Additional history exists Diabetes: Urine Protein Screening 04/29/2025 04/29/2024, 04/24/2023 Lipid Panel 04/29/2025 04/29/2024, 04/15, 03/25/2022, Additional history exists Tobacco Screening 11/19/2025 11/19/2024 DTaP/Tdap/Td Vaccines (2 - Td or Tdap) [...] this topic Meningococcal Vaccine Aged Out No obed myrtle eligible based on patient's age to complete this topic RSV under 20 months Aged Out No longe r eligible based on patient's age to complete this topic Rotavirus Vaccines Aged Out No longer eligible based on patient's age to complete this topic Procedures Procedure Name Priority Date/Time Associated Diagnosis Comments POCT GLUCOSE Routine 11/19/2024 8:54 AM EST Type 2 diabetes mellitus without complication, without long-term current use of insulin ([facility]) POCT GLYCATED HEMOGLOBIN, TOTAL Routine 11/19/2024 8:54 AM EST Type 2 diabetes mellitus without complication, without long-term current use of insulin (CMS/[facility]) LIPID PANEL, STANDARD Routine 04/29/2024 12:09 PM EDT Type 2 diabetes mellitus without complication, without long-term current use of insulin (CMS/[facility]) Essential hypertension Pure hypercholesterolemia ALBUMIN, RANDOM URINE W/CREATININE Routine 04/29/2024 11:01 AM EDT Type 2 diabetes mellitus without complication, without long-term current use of insulin (CMS/[facility]) BI MAMMOGRAM SCREENING TOMOSYNTHESIS BILATERAL Routine 09/28/2022 11:02 AM EST from Last 3 Months or Most Recently Relevant to Health Maintenance Results * (ABNORMAL) POCT HGB A1C (11/19/2024 8:54 AM EST) Hemoglobin A1C 8.5(A) 4.0 - 6.0 % QC Media Lot # [id number] Lot# Expiration Date Blood 11/19/2024 8:54 AM EST Ayla Ziegler MD POINT OF CARE TEST ENTER/EDIT OR DERABLES Final Result * (ABNORMAL) POCT Glucose (11/19/2024 8:54 AM EST) [facility] Glucose Blood, POC 265(A) 60 - 200 mg/dL QC Media Lot # [id number] Lot# Expiration Date Blood Capillary blood specimen / Unknown 11/19/2024 8:54 AM EST Ayla Ziegler MD POINT OF CARE TEST ENTER/EDIT OR DERABLES Final Result * (ABNORMAL) Lipid Panel, Standard (04/29/2024 12:09 PM EDT) [facility] Triglycerides 92 <150 mg/dL [facility] Comment:Desirable Triglyceri de: less than 150 mg/dLBorderline High Triglyceride 150-199 mg/dLHigh Triglyceride: 200-499 mg/dLVery High Triglyceride: greater than or equal to 5OO mg/dL Cholesterol 168 <200 mg/dL [facility] Comment:Desirable Cholestero l: less than 200 mg/dLBorderline High Cholesterol: 200-239 mg/dLHigh Cholesterol: greater than 239 mg/dL LDL Cholesterol Calculated 111(H) <100 mg/dL [facility] Comment:Desirable LDL: less than 100 mg/dLNear Optimal/Above Optimal LDL: 110- 129 mg/dLBorderline High LDL: 130-159 mg/dLHigh LDL: 160-189 mg/dLVery High LDL: greater than or equal to 190 mg/dL HDL Cholesterol 39(L) >40 mg/dL [facility] Comment:Desirable HDL: great er than 40 mg/dL Note: This HDL assay may give artificially low results in patients with liver disease. Blood Venous blood specimen / Unknown 04/29/2024 12:09 PM EDT 04/29/2024 2:23 PM EDT Ayla Ziegler MD LAB BLOOD ORDERABLES Final Resul t [facility] [address] [place] [phone] * Albumin, Random Urine W/Creatinine (04/29/2024 11:01 AM EDT) Creatinine, Urine 109.33 mg/dL [facility] Microalbumin Urine 26.0 mg/L [facility] Microalbum Creatinine Ratio Ur 23.7 <30 ug/mg cr [facility] Comment:Albumin/Creatinine R atio Reference Ranges: Normal: < 30 ug/mg creatinine Microalbuminuria: 30 - 300 ug/mg creatinineClinical Albuminuria: > 300 ug/mg creatinine Urine (Urine, Random) 04/29/2024 11:01 AM EDT 04/29/2024 2:26 PM EDT us Ayla Ziegler MD LAB URINE ORDERABLES Final Resul t [facility] [address] [place] [address] [phone] * BI Mammogram Screening Tomosynthesis Bilateral (09/28/2022 11:02 AM EST) Anatomical Region Laterality Modality Breast Bilateral Mammography 09/28/2022 11:0 2 AM EST Narrative 09/29/2022 12:04 PM EST ? [facility] [address] ?[place] [address] ? Mammography Report ? Signed ? Patient: Ced,Saumya L ?MR#: [id number] ?? [id number] ? : 1950 ?Acct:[id number] ? Age/Sex: 72 / F ?ADM Date: 12/14/22 ? Loc: HO.MAMMO ? Attending Dr: Ayla Ziegler MD ? Ordering Physician: Ayla Ziegler MD ?Results: 2Benign ?? Findings ? Date of Service: 09/28/22 ?Follow Up: 1 Year From Orig ?? inal Mammogram ? Procedure(s): MM tomosynthesis screening BI ?? Accession Number(s): [id number] ? cc: Toney,Ayla De Jesus MD ? EXAMINATION: ?? MM SCREENING DIGITAL [...] ? Signed By: ?<Electronically signed by Curry Quiroz MD in OV> ?09/29/22 1202 ? DD/ 1102 ? TD/TT: ? Stylist Assistant: FLANAGAN ? Procedure Note Donotuseinterpreter, Image - 09/29/2022 [place] [facility] [address] [place] [address] Mammography Report Signed Patient: Saumya Coughlin LMR#: [id number] : 1950Acct:[id number] Age/Sex: 72 / FADM Date: 09/28/22 Loc: HO.MAMMO Attending Dr: Ayla Ziegler MD Ordering Physician: Ayla Ziegler MDResults: 2Benign Findings Date of Service: 09/28/22Follow Up: 1 Year From Orig inal Mammogram Procedure(s): MM tomosynthesis screening BI Accession Number(s): [id number] cc: Ayla Ziegler MD EXAMINATION: MM SCREENING [...] in OV> 09/29/22 1202 DD/ 1102 TD/TT: Stylist Assistant: MASHA [facility] External Provider IMG BI PROCEDURES Final Result from Last 3 Months or Most Recently Relevant to Health Maintenance Insurance [facility] STANDARD MEDICARE Care Teams Stretcher Drier Operator Relationship Specialty Start Date End Date Ayla Ziegler MD [address] [place] [phone] PCP - General Family Medicine 11/14/13
--- OUTSIDE RECORDS SUMMARY | 2024-11-19 09:54 | XMS_ITS | Encounter Summary ---
Author Organization [employer] Address [address] [facility] 7t [place] [address] Care Team Providers Care Ferryboat Helper Name Role Phone Ayla Ziegler MD Primary Care Provider [phone] Reason for Visit * Reason Onset Date Comments FYI 08/08/2024 Encounter Details Date Type Department Care Team ([facility] st Contact Info) Description 08/08/2024 Telephone [facility] [address] [place] [address] Ayla Ziegler MD [address] [place], [place] [id number] FYI Social History Tobacco Use Types Packs/Day [...] drug. For any questions please call at [phone] *Advised caller message sent to provider. documented in this encounter Plan of Treatment Not on file documented as of this encounter Visit Diagnoses Not on filedocumented in this encounter Additional Health Concerns Assessment Noted Time PHQ-9 Depression Total Score: 0 04/24/20 23 11:11 AM EDT documented as of this encounter Care Teams Ferryboat Helper Relationship Specialty Start Date End Date Ayla Ziegler MD [address] [place] [id number] PCP - General Family Medicine 11/14/13 documented as of this encounter
[2024-11-19 14:36] LABS: Alanine Aminotransferase 7 U/L (0-31); Albumin Level 3.5 g/dL (3.5-5.0); Alkaline Phosphatase 65 U/L (39-117); Anion Gap 13 (12-20); Aspartate Amino Transferase 16 U/L (5-31); Bilirubin Direct 0.2 mg/dL (0.0-0.5); Bilirubin Total 0.6 mg/dL (0.0-1.0); Blood Urea Nitrogen 16 mg/dL (9-16); Calcium 8.5 mg/dL (8.4-10.2); Carbon Dioxide 28 mmol/L (22-29); Chloride 102 mmol/L (96-108); Cholesterol 175 mg/dL (<200); Estimated Glomerular Filt Rate > 60; Glucose Random 246 mg/dL (60-115); HDL Cholesterol 36 mg/dL (>40); LDL Cholesterol Calculated 123 mg/dL (<100); Potassium 4.4 mmol/L (3.3-5.1); Sodium 139 mmol/L (135-145); Total Protein 7.8 g/dL (6.5-8.0); Triglycerides 84 mg/dL (<150)
== END 2024-11-19 09:22 | disposition home or self-care (01) ==
LOC: HO.CHCLDS 09:21
PROVIDERS: Visit Provider Student in an Organized Health Care Education/Training Program
DX: E11.9 Type 2 diabetes mellitus without complications (principal)
CPT/HCPCS: 36415; 80048; 80061; 80076

== ENCOUNTER 2024-12-05 20:00 | Inpatient (IN) | payer MEDICARE, SELFPAY ==
--- NOTE | ~2024-12-05 | CT_ITS ---
CLINICAL HISTORY: Umbilical pain, elevated lipase, R O pancr gallsto CT abdomen and pelvis with contrast Comparison: None Findings: Right basilar subsegmental atelectasis versus scarring. No consolidation or pleural effusion. Minimal densities in the gallbladder possibly very small gallstones. No biliary ductal dilatation. The liver is enlarged and demonstrates low attenuation consistent with steatosis. The spleen is unremarkable. A 3.5 cm lobulated somewhat heterogeneous mass is demonstrated in the tail of the pancreas. Adrenal glands are normal. No ureteral stones and no hydronephrosis or hydroureter. 2.8 cm left renal exophytic cyst and 1.2 cm right renal exophytic cyst. No bowel obstruction, pneumoperitoneum, or pneumatosis. Minimal edema in bowel mesentery in upper abdomen. Sigmoid colon diverticulosis. Trace free fluid in pelvic cul-de-sac. Appendix not visualized. Uterus and urinary bladder within normal limits. Atherosclerotic vascular disease with no aneurysm of the abdominal aorta. Retroaortic left renal vein. No acute fracture. IMPRESSION: 1. 3.5 cm somewhat heterogeneous mass in the tail of the pancreas. This could be benign but pancreatic carcinoma not excluded. Further clinical evaluation recommended. 2. Possible cholelithiasis with no CT evidence of acute cholecystitis. 3. Hepatomegaly and hepatic steatosis. 4. Additional nonacute findings as described. This document has been electronically signed by: Kaykay Wasserman MD on 12/06/2024 04:29:39
--- NOTE | ~2024-12-05 | MR_ITS ---
EXAMINATION: MRCP. CLINICAL INFORMATION: Pancreatic mass. COMPARISON: Correlated to CT dated December 06, 2024. TECHNIQUE: Axial and coronal T2 HASTE sequences. Axial and coronal T2 fat sat HASTE. Coronal oblique T2 fat-sat single slice. MRCP radial T2 fat sat. 3-D SPACE MRCP TRIGGERED. Axial in and out of phase 3-D. Axial T1 VIBE fat sat. FINDINGS: Limited by patient's motion artifact and the lack of IV contrast. Liver measures 20 cm. No focal lesion. The portal veins, hepatic veins and intrahepatic portion of the IVC demonstrated normal flow void signal. Gallbladder is fluid-filled prominent with multiple layering small less than 5 mm intraluminal calculi. There is a 4 mm erythematous gallbladder wall. The common bile duct measures 6 mm with an abrupt cut off in the distal segment. There is a lobulated 4 x 3 cm isointense T1 and T2 lesion centered in the tail of the pancreas. There is no main pancreatic ductal dilatation. No peripancreatic fluid collection. Spleen measures 11 cm. No nodular lesions in the right adrenal gland. There is a 1 cm isointense T2 nodular lesion in the left adrenal gland with a drop-off signal from the in-phase into the out of phase sequences. Kidneys demonstrate multifocal exophytic cystic lesions, the largest in the left kidney measures 3.5 cm and the largest in the right kidney measures 1.5 cm. No hydronephrosis in either kidney. Renal cortical thinning bilaterally with the subcentimeter cystic lesion in the parapelvic region. No gross lymphadenopathy in the retroperitoneum. No ascites. No intestinal obstruction pattern. No aneurysm in the abdominal aorta. Small volume hiatal hernia. MR/MR MRCP IMPRESSION: Concerning acute calculus cholecystitis with questionable choledocholithiasis. 4 x 3 cm lobulated lesion/mass, tail of the pancreas. Concerning for malignancy. Bilateral renal cysts. Hepatomegaly. Lipid rich adenoma, left adrenal gland. Electronically signed by: Ariel Ruiz MD 12/06/2024 10:28 AM EST
[2024-12-05 20:05] VITALS: BP 125/71; PULSE 101; RESP 20; TEMP 36; O2SAT 97; BMI 33.1
--- NOTE | 2024-12-05 20:05 | ED.GENADULT ---
HPI - General Adult General Chief complaint: Abdominal Pain Stated complaint: abd pain Time Seen by Provider: 12/06/24 02:59 Source: patient Mode of arrival: ambulatory Limitations: no limitations History of Present Illness ED Provider: Dr. Marcial Stephenson HPI narrative: 74-year-old female who presents emergency department for evaluation of sudden onset of abdominal pain that occurred yesterday afternoon. She states that the pain has been constant since onset. The patient points to her umbilical area when asked to localize the pain. She states the pain is a constant, stabbing pain which is 8/10 at its worst. Patient states this is a 1st episode of this type of pain. The patient states that she was had some change in her stools over the last 3 weeks. She states that she has constipation alternating with bloody loose stools. She was not noticed any blood in her stools. She states that her glucose was high and 2 weeks prior, her doctor increased her metformin from 1000 mg a day to 2000 mg a day. She states that she did have blood work recently from her doctor and was told that she may have high triglycerides. She denies taking any other new medications. She denied fever but states she did have chills. She denied sore throat, cough, chest pain, shortness of breath. She had nausea with no vomiting. She denied dark stools or bloody stools. Related Data Home Medications ?Medication ?Instructions ?Recorded ?Confirmed lorazepam 1 mg tablet 1 mg PO DAILY PRN Anxiety 04/14/21 12/06/24 metformin 500 mg tablet 1,000 mg PO DAILY 05/28/24 12/06/24 Previous Rx's ?Medication ?Instructions ?Recorded apixaban 5 mg tablet (Eliquis) 5 mg PO BID 30 days #60 tabs 10/23/23 metoprolol succinate 50 mg 50 mg PO DAILY #90 tabs 04/24/24 tablet,extended release 24 hr Allergies Allergy/AdvReac Type Severity Reaction Status Date / Time Tetanus Vaccines and Toxoid Allergy Unknown HIVES Verified 12/05/24 20:06 [TETANUS VACCINES AND TOXOID] Review of Systems Review of Systems: Yes all other systems are reviewed and are negative [facility] Past Medical History [facility] Narrative: Social history: She denies tobacco, alcohol and drug use Medical History (Updated 12/06/24 @ 05:25 by Marcial Stephenson MD) Smoker ARMOND (obstructive sleep apnea) Diabetes HLD (hyperlipidemia) Persistent atrial fibrillation Surgical History History of bilateral breast reduction surgery History of appendectomy History of oophorectomy Family History Family History Father Myocardial infarction Mother Arthritis Sister No problems noted. Sister No problems noted. Sister No problems noted. Brother No problems noted. Sister No problems noted. Brother No problems noted. Son No problems noted. Son No problems noted. 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 Physical Exam ED Vital Signs: Vital Signs - 24 hr 12/05/24 20:05 12/06/24 01:14 12/06/24 02:31 Temperature 96.8 F 98.5 F 98.2 F Pulse Rate 101 H 90 80 Respiratory Rate 20 20 16 Blood Pressure 125/71 136/40 L 122/48 L Pulse Oximetry 97 95 98 Oxygen Delivery Method Room Air Room Air Room Air 12/06/24 04:52 Temperature 98.4 F Pulse Rate 78 Respiratory Rate 16 Blood Pressure 119/45 L Pulse Oximetry 95 Oxygen Delivery Method Room Air BMI result Body Mass Index 33.1 Vital signs revealed an elevated heart rate of 101, otherwise unremarkable Exam: General: Awake, alert in no distress, weight 90.2 kg, elevated BMI 33.1 kg per m2 Head: Normocephalic, atraumatic EENT: PERRL, Lids normal, sclera normal, conjunctiva normal, nose normal , ears normal, throat without erythema or exudates Neck: Supple, no adenopathy Lung: breath sounds symmetric, no wheezing, rales or rhonchi Chest: symmetric movement, nontender Heart: regular rate and rhythm, normal S1, S2 no murmurs or rubs Abdomen: soft, moderate umbilical tenderness, mild to moderate diffuse abdominal tenderness, no rebound, no voluntary or involuntary guarding, normoactive bowel sounds Back: no vertebral tenderness, no CVAT Extremities: no deformities, moves all extremities symmetrically Neuro: Awake, alert, oriented, normal speech, moves all extremities symmetrically Psych: Pleasant, cooperative Course Course Course Narrative: This is a rapid medical exam performed by Charlie Scott NP: Additional HPI, ROS, PE not included below will be deferred to primary provider. Patient is a 74-year-old female with history of afib on eliquis, DM, ARMOND, non-rheumatic aortic regurgitation presenting with complaint of severe periumbilical pain for the past 4-5 hours. Nausea without vomiting. Denies fevers. Also feeling short of breath. Plan: labs, UA, EKG Medications Administered Discontinued Medications Generic Name Dose Route Start Last Admin Trade Name Freq PRN Reason Stop Dose Admin Sodium Chloride 1,000 mls @ 999 mls/hr 12/06/24 03:13 12/06/24 03:26 Ns IV 12/06/24 04:13 999 mls/hr .Q1H1M STA Administration Iohexol 85 ml 12/06/24 03:39 12/06/24 03:40 Iohexol 350 Mg/Ml 100 Ml Infus..Btl IV 12/06/24 03:40 85 ml ONCE ONE Administration Morphine Sulfate 4 mg 12/06/24 03:13 12/06/24 03:24 Morphine Sulfate 4 Mg/Ml Cartridge IVPUSH 12/06/24 03:14 4 mg ONCE STA Administration Protocol Ondansetron HCl 4 mg 12/06/24 03:13 12/06/24 03:24 Ondansetron Hcl 4 Mg/2 Ml Vial IVPUSH 12/06/24 03:14 4 mg ONCE ONE Administration Medical Decision Making Medical Decision Making [facility] Narrative: 74-year-old female who presents emergency department for evaluation of sudden onset of periumbilical, stabbing, constant, 8/10 abdominal pain that occurred yesterday afternoon. The patient's 1st episode of this type of pain. Patient had associated nausea and chills. Two weeks prior, patient was PCP increased her metformin from a 1000 mg to 2000 mg a day, she was also told that she may have high triglycerides. Patient denies alcohol use. Vital signs revealed an elevated heart rate otherwise unremarkable. Examination revealed moderate umbilical tenderness with mild to moderate diffuse abdominal tenderness. Differential diagnosis: ?Includes but is not limited to gastritis, pancreatitis, diverticulitis, bowel obstruction, anemia, electrolyte abnormalities Course: 03:18 My interpretation patient's laboratory patient is follows: WBC was normal 9300. Glucose elevated 195. LFTs were normal. Lipase elevated 1522. COVID-19, influenza and RSV tests were negative. The patient's presentation and elevated lipase is consistent with acute pancreatitis unclear etiology. I added triglycerides to the patient's laboratory tests and will obtain a CT scan of the patient's abdomen pelvis to evaluate for pancreatitis. Patient was ordered to get normal saline IV x1 L, Zofran 4 mg IV and morphine 4 mg IV. 05:16 Patient states that her pain improved after the 1st dose of morphine in the pain is not 2/10. Triglycerides were normal. CT scan of the abdomen pelvis with IV contrast this suspicious for gallstones but no evidence for acute cholecystitis. Patient also has 3.5 cm heterogeneous mass in the tail of the pancreas which is concerning for possible malignancy. I did discuss these findings with the patient. I order a right upper quadrant ultrasound to further evaluate the patient for possible gallstone pancreatitis. Patient will need admission for further treatment of her pancreatitis and further workup for possible malignancy. I did discuss the patient's presentation over tiger text with the covering hospitalist, Dr. Contreras the patient will be admitted to the hospitalist service for further treatment. Admission/Observation Consideration of admission/observation: Escalation of care including admission/observation considered (Yes) Consult Healthcare Provider Management of the patient was discussed with: Hospitalist Lab Data MDM Lab Attestation statement: I reviewed the patient's lab results. 12/05/24 20:20 12/05/24 20:20 Labs: Lab Results 12/05/24 Range/Units 20:20 WBC 9.3 (4.8-10.8) X10*3/uL RBC 3.85 L (4.20-5.50) X10*6/uL Hgb 11.9 L (12.0-16.0) g/dl Hct 36.2 L (37.0-47.0) % MCV 94.0 (80.0-98.0) fL MCH 30.9 (27.0-33.0) pg MCHC 32.9 (31.0-35.0) g/dl RDW 14.3 (11.0-16.0) % Plt Count 164 (160-400) X10*3/uL MPV 10.1 (9.4-12.3) fL Immature Gran % (Auto) 0.4 (0.0-0.4) % Neut % (Auto) 78.8 H (45-73) % Lymph % (Auto) 14.6 L (20-40) % [place] % (Auto) 4.7 (2-11) % Eos % (Auto) 1.2 (0-4) % Baso % (Auto) 0.3 (0-2) % Lymph # (Auto) 1.4 (1.2-4.9) X10*3/uL [place] # (Auto) 0.4 (0.1-1.2) X10*3/uL Eos # (Auto) 0.1 (0.0-0.4) X10*3/uL Baso # (Auto) 0.0 (0.0-0.2) X10*3/uL Abs Immat Gran (auto) 0.04 H (0.00-0.03) X10*3/uL Absolute Neuts (auto) 7.3 (2.0-8.3) x10*3/uL Absolute Nucleated RBC 0.000 (0.0-0.012) X10*3/uL Nucleated RBC % (auto) 0.0 (0.0-0.2) /100WBC PT 16.8 H (10.9-12.4) SEC INR 1.4 H (0.9-1.1) Sodium 139 (135-145) mmol/L Potassium 4.3 (3.3-5.1) mmol/L Chloride 106 (96-108) mmol/L Carbon Dioxide 25 (22-29) mmol/L Anion Gap 12 (12-20) BUN 15 (9-16) mg/dL Creatinine 0.68 (0.5-1.4) mg/dL Estim Creat Clear Calc 80.5 Estimated GFR > 60 Random Glucose 195 H (60-115) mg/dL Lactic Acid 1.8 (0.5-2.0) mmol/L Calcium 9.4 D (8.4-10.2) mg/dL Magnesium 1.8 (1.6-2.6) mg/dL Total Bilirubin 0.8 (0.0-1.0) mg/dL AST 16 (5-31) U/L ALT 14 (0-31) U/L Alkaline Phosphatase 66 (39-117) U/L Troponin I High Sens 4.2 (<3.5-17.0) ng/L Total Protein 7.9 (6.5-8.0) g/dL Albumin 3.7 (3.5-5.0) g/dL Triglycerides 97 (<150) mg/dL Lipase 1522 H (8-78) U/L Influenza Type A (PCR) NEGATIVE (Negative) Influenza Type B (PCR) NEGATIVE (Negative) RSV RNA Qual (PCR) NEGATIVE (Negative) SARS-CoV-2 RNA (RT-PCR) NEGATIVE (Negative) Independent Interpretation I performed an independent interpretation of an: EKG Interpretation: My interpretation patient's 12 EKG done on 12/05/2024 at 20:13 hours is as follows: Atrial fibrillation with a rate of 93, no ST segment elevation, no ST segment depression, Q-wave V1, nonspecific T-wave abnormalities, no PVCs. Compared to EKG dated 04/22/2021 at 10:58 hours, patient was atrial fibrillation at that time with known at a rate with no significant changes, Q-wave in V1 was present on the previous EKG. Radiology Impression Discussion of test interpretation with radiology: I have reviewed the radiologist's reading. Radiologist Impression: CT abdomen and pelvis with contrast Comparison: None Findings: Right basilar subsegmental atelectasis versus scarring. No consolidation or pleural effusion. Minimal densities in the gallbladder possibly very small gallstones. No biliary ductal dilatation. The liver is enlarged and demonstrates low attenuation consistent with steatosis. The spleen is unremarkable. A 3.5 cm lobulated somewhat heterogeneous mass is demonstrated in the tail of the pancreas. Adrenal glands are normal. No ureteral stones and no hydronephrosis or hydroureter. 2.8 cm left renal exophytic cyst and 1.2 cm right renal exophytic cyst. No bowel obstruction, pneumoperitoneum, or pneumatosis. Minimal edema in bowel mesentery in upper abdomen. Sigmoid colon diverticulosis. Trace free fluid in pelvic cul-de-sac. Appendix not visualized. Uterus and urinary bladder within normal limits. Atherosclerotic vascular disease with no aneurysm of the abdominal aorta. Retroaortic left renal vein. No acute fracture. IMPRESSION: 1. 3.5 cm somewhat heterogeneous mass in the tail of the pancreas. This could be benign but pancreatic carcinoma not excluded. Further clinical evaluation recommended. 2. Possible cholelithiasis with no CT evidence of acute cholecystitis. 3. Hepatomegaly and hepatic steatosis. 4. Additional nonacute findings as described. This document has been electronically signed by: Kaykay Wasserman MD on 12/06/2024 04:29:39 Dictated By: Kaykay Wasserman MD Chronic Conditions Patient?s care impacted by: Diabetes and Other (Chronic atrial fibrillation) Discharge Plan Discharge Clinical Impression: Acute pancreatitis, Pancreatic mass Patient Disposition: Admitted As Inpatient Print Language: Surinamese
--- NOTE | 2024-12-05 20:08 | ECG_ITS ---
Test Reason : SOB Blood Pressure : */* mmHG Vent. Rate : 93 BPM Atrial Rate : * BPM P-R Int : * ms QRS Dur : 70 ms QT Int : 364 ms P-R-T Axes : * 32 106 degrees QTcB Int : 452 ms Atrial fibrillation Nonspecific ST and T wave abnormality Abnormal ECG When compared with ECG of 22-Apr-2021 10:58, Atrial fibrillation has replaced Sinus rhythm Vent. rate has increased by 35 bpm Referred By: Glenny Scott Electronically Signed By: TETE JACKSON
[2024-12-05 20:27] LABS: MANUAL DIFF FLAG NO
--- OUTSIDE RECORDS SUMMARY | 2024-12-05 20:27 | XMS_ITS | Encounter Summary ---
Author Organization [employer] Address [address] [facility] 7t [place] [address] Care Team Providers Care Patient Registrar Name Role Phone Ayla Ziegler MD Primary Care Provider [phone] Reason for Visit * Reason Onset Date Comments Med Refill 03/21/2024 Encounter Details Date Type Department Care Team ([facility] st Contact Info) Description 03/21/2024 Telephone [facility] [address] [place] [address] Ayla Ziegler MD [address] [place], [place] [phone] Med Refill Social History Tobacco Use Types [...] 1 MG tablet To be sent to: [facility]/pharmacy #[id number] - [address] AT [facility] documented in this encounter Plan of Treatment Not on file documented as of this encounter Visit Diagnoses Not on filedocumented in this encounter Additional Health Concerns Assessment Noted Time PHQ-9 Depression Total Score: 0 04/24/20 23 11:11 AM EDT documented as of this encounter Care Teams Patient Registrar Relationship Specialty Start Date End Date Ayla Ziegler MD [address] [place] [id number] PCP - General Family Medicine 11/14/13 documented as of this encounter
--- OUTSIDE RECORDS SUMMARY | 2024-12-05 20:27 | XMS_ITS | Encounter Summary ---
Author Organization [employer] Address [address] [facility] [address] [place] [address] Care Team Providers Care Administrative Project Coordinator Name Role Phone Ayla Ziegler MD Primary Care Provider [phone] Encounter Details Date Type Department Care Team [...] documented as of this encounter Care Teams Administrative Project Coordinator Relationship Specialty Start Date End Date Ayla Ziegler MD [address] [place] [id number] PCP - General Family Medicine 11/14/13 documented as of this encounter
--- OUTSIDE RECORDS SUMMARY | 2024-12-05 20:27 | XMS_ITS | Encounter Summary ---
Author Organization [employer] Address [address] [facility] [address] [place] [address] Care Team Providers Care Clam Shucking Machine Tender Name Role Phone Ayla Ziegler MD Primary Care Provider [phone] Reason for Visit * Reason Onset Date Comments Results 12/05/2024 Encounter Details Date Type Department Care Team ([facility] Contact Info) Description 12/05/2024 Telephone [facility] [address] [place], [place] [phone] Rashmi Nazario RN Results Social History Tobacco Use Types Packs/Day Years [...] encounter Miscellaneous Notes * Telephone Encounter - Rashmi Nazario RN - 12/05/2024 10:42 AM EST TC placed to pt to inform of the positive Cologaurd results and that a referral has been placed by Dr. Ziegler to GI. Pt educated that a positive Cologuard result indicates that further evaluation is needed, primarily with a colonoscopy. Pt informed that she will either receive a call or a traffic control officer to schedule an appt with GI. Pt agreeable to this information and had no further questions or concerns. ---- Message from Ayla Ziegler MD sent at 12/05/2024 9:32 AM EST ----- Cologaurd positive. Referred to GI documented in this encounter Plan of Treatment Not on file documented as of this encounter Visit Diagnoses Not on filedocumented in this encounter Additional Health Concerns Assessment Noted Time PHQ-9 Depression Total Score: 0 04/24/20 23 11:11 AM EDT documented as of this encounter Care Teams Clam Shucking Machine Tender Relationship Specialty Start Date End Date Ayla Ziegler MD [address] [place] [id number] PCP - General Family Medicine 11/14/13 documented as of this encounter
--- OUTSIDE RECORDS SUMMARY | 2024-12-05 20:27 | XMS_ITS | Clinical Summary ---
Author Organization [facility] Address [address] [place] [address] Phone Care Team Providers Care Heavy Equipment Operator/Paver Name Role Phone Ayla Ziegler MD Primary Care Provider [phone] Social History Tobacco Use Types Packs/Day Years Used Date Smoking Tobacco: Never Assessed Comments Unknown Sex and Gender Information Value Date Recorded Sex Assigned at Not on file Legal Sex Female 11:17 AM EST Gender Identity Not on file Sexual Orientation Not on file Plan of Treatment Upcoming Encounters Date Type Department Care Team ([facility] Contact Info) Description 02/03/2025 3:00 PM EDT Consult Orthopedic Surgery [place] [id number] [phone] Warren Currie, DPM [address] [address] Health Maintenance Due Date Last Done Comments Breast Cancer Screening 1950 Diabetes: Annual GFR (Glomer ular Filtration Rate) 1950 Diabetes: Annual Foot Exam 1960 Diabetes: Annual Retina Eye Exam 1960 DTaP,Tdap,and Td Vaccines (1 - Tdap) 1969 Pneumococcal Vaccine: 50+ Ye ars (1 of 2 - PCV) 1969 Zoster Vaccines (1 of 2) 2000 COVID-19 Vaccine ( - 2023-2 5 season) 2024 Influenza Vaccine (#1) 2024 Cholesterol Screening (Lipid Panel) 12/05/2024 Colorectal Cancer Screening: Colonoscopy 12/05/2024 Depression Screening 12/05/2024 Diabetes: Annual Urine Albumin-Creatinine Ratio (uACR) 12/05/2024 Diabetes: Blood Sugar Contro l Test (HGBA1C) 12/05/2024 Falls Risk Assessment 12/05/2024 Hepatitis C Screening 12/05/2024 Medicare Annual Wellness Visit 12/05/2024 Osteoporosis Screening (Bone Density Screening) 12/05/2024 Social Influencers of Health Screening 12/05/2024 RSV Immunization Patients 60 + Years Old (1 - 1-dose 75+ series) 2025 HIB Vaccines Aged Out No longer eligi ble based on patient's age to complete this topic HPV Vaccines Aged Out No longer eligi ble based on patient's age to complete this topic Hepatitis A Vaccines Aged Out No long er eligible based on patient's age to complete this topic Hepatitis B Vaccines Aged Out No long er eligible based on patient's age to complete this topic IPV Vaccines Aged Out No longer eligi ble based on patient's age to complete this topic MMR Vaccines Aged Out No longer eligi ble based on patient's age to complete this topic Meningococcal ACWY Vaccine Aged Out N o longer eligible based on patient's age to complete this topic Meningococcal B Vacine Aged Out No lo nger eligible based on patient's age to complete this topic RSV Immunization Patients Un justus 20 months Aged Out No longer eligible b ased on patient's age to complete this topic Varicella Vaccines Aged Out No longer eligible based on patient's age to complete this topic Insurance MEDICAID - [place] MEDICARE Care Teams Heavy Equipment Operator/Paver Relationship Specialty Start Date End Date Ayla Ziegler MD [address] [place] [address] PCP - General Family Medicine 12/05/24
--- OUTSIDE RECORDS SUMMARY | 2024-12-05 20:27 | XMS_ITS | Encounter Summary ---
Author Organization [employer] Address [address] [place] [address] [address] [place] [address] Care Team Providers Care Corporation Lawyer Name Role Phone Ayla Ziegler MD Primary Care Provider [phone] Reason for Visit * Reason Onset Date Comments 11/11/24 Provider out 11/11/2024 Encounter Details Date Type Department Care Team ([facility] Contact Info) Description 11/11/[address] [facility] [address] [place] [address] Ayla Ziegler MD [address] [place] [address] 11/11/24 Provider out Social History Tobacco Use [...] documented as of this encounter Care Teams Corporation Lawyer Relationship Specialty Start Date End Date Ayla Ziegler MD [address] [place] [id number] PCP - General Family Medicine 11/14/13 documented as of this encounter
--- OUTSIDE RECORDS SUMMARY | 2024-12-05 20:27 | XMS_ITS | Encounter Summary ---
Author Organization [employer] Address [address] [place] [address] [address] [place] [address] Care Team Providers Care Clinical Nurse Educator Name Role Phone Ayla Ziegler MD Primary Care Provider [phone] Reason for Visit * Reason Onset Date Comments chart prep 11/18/2024 Encounter Details Date Type Department Care Team ([facility] st Contact Info) Description 11/18/[address] [facility] [address] [place] [address] Ayla Ziegler MD [address] [place] [address] chart prep Social History Tobacco Use Types [...] documented as of this encounter Care Teams Clinical Nurse Educator Relationship Specialty Start Date End Date Ayla Ziegler MD [address] [place] [id number] PCP - General Family Medicine 11/14/13 documented as of this encounter
--- OUTSIDE RECORDS SUMMARY | 2024-12-05 20:27 | XMS_ITS | Encounter Summary ---
Author Organization [employer] Address [address] [place] [address] 7 [place] [address] Care Team Providers Care Windows Architect Name Role Phone Ayla Ziegler MD Primary Care Provider [phone] Reason for Referral * Consultation (Routine) - Canceled Specialty Diagnoses / Procedures Referred By Neyda sin Referred To Contact Gastroenterology Diagnoses Encounter for screening for malignant neoplasm of colon Ayla Ziegler MD [address] [place] [address] Phone: tel: fax: Referral ID Status Reason Start Date Expiration Date Visits Requested Visits Authorized [id number] Canceled Specialty Services Required 12/05/2024 12/05/2025 1 1 Encounter Details Date Type Department Care Team ([facility] st Contact Info) Description 12/05/2024 Orders Only [facility] CHC MED & PEDS [address] [place] [address] Ayla Ziegler MD [address] [place] [address] Encounter for screening for malignant neoplasm of colon (Primary Dx) Social History Tobacco Use Types Packs/Day Years [...] as of this encounter Plan of Treatment Scheduled Referrals Name Type Priority Associated Diagnoses Order Schedule Referral to Gastroenterology Outpatient Referral Routine Encounter for screening for malignant neoplasm of colon Expected: 12/05/2024 (Approximate), Expires: 12/05/2025 documented as of this encounter Visit Diagnoses Diagnosis Encounter for screening for malignant neoplasm of colon- Primary documented in this encounter Additional Health Concerns Assessment Noted Time PHQ-9 Depression Total Score: 0 04/24/20 23 11:11 AM EDT documented as of this encounter Care Teams Windows Architect Relationship Specialty Start Date End Date Ayla Ziegler MD [address] [place] [id number] PCP - General Family Medicine 11/14/13 documented as of this encounter
--- OUTSIDE RECORDS SUMMARY | 2024-12-05 20:27 | XMS_ITS | Encounter Summary ---
Author Organization [employer] Address [address] [place] [address] Care Team Providers Care Electronic Data Processing Auditor Name Role Phone Ayla Ziegler MD Primary Care Provider Reason for Visit * Reason Onset Date Comments Med Refill 02/01/2023 Encounter Details Date Type Department Care Team ([facility] st Contact Info) Description 02/01/2023 Telephone [facility] MEDICINE [address] [place] [address] Ayla Ziegler MD [address] [place], [place] [phone] Med Refill Social History Tobacco Use Types [...] on filedocumented in this encounter Care Teams Electronic Data Processing Auditor Relationship Specialty Start Date End Date Ayla Ziegler MD [address] [place] [phone] PCP - General Family Medicine 11/14/13 documented as of this encounter
--- OUTSIDE RECORDS SUMMARY | 2024-12-05 20:27 | XMS_ITS | Encounter Summary ---
Author Organization [employer] Address [address] [place] [address] 7t [place] [address] Care Team Providers Care Natural Resources Extension Educator Name Role Phone Ayla Ziegler MD Primary Care Provider [phone] Reason for Visit * Reason Onset Date Comments Med Refill 11/20/2024 Encounter Details Date Type Department Care Team ([facility] st Contact Info) Description 11/20/2024 Refill [facility] CHC MED & PEDS [address] [place] [address] Ayla Ziegler MD [address] [place] [address] Anxiety Social History Tobacco Use Types Packs/Day Years [...] encounter Miscellaneous Notes * Telephone Encounter - Bettie Scherer - 11/20/2024 9:17 AM EST TC from pt requesting medication refill. Medications needing refill : LORazepam (Ativan) 1 MG tablet To be sent to: [facility]/pharmacy #[id number] - [address] AT [facility] documented in this encounter Plan of Treatment Not on file documented as of this encounter Visit Diagnoses Diagnosis Anxiety Anxiety state, unspecified documented in this encounter Additional Health Concerns Assessment Noted Time PHQ-9 Depression Total Score: 0 04/24/20 23 11:11 AM EDT documented as of this encounter Care Teams Natural Resources Extension Educator Relationship Specialty Start Date End Date Ayla Ziegler MD [address] [place] [phone] PCP - General Family Medicine 11/14/13 documented as of this encounter
--- OUTSIDE RECORDS SUMMARY | 2024-12-05 20:27 | XMS_ITS | Encounter Summary ---
Author Organization [facility] [employer] Address [address] [place] [address] [address] [address] Care Team Providers Care Sunglass Clip Attacher Name Role Phone Ayla Ziegler MD Primary Care Provider [phone] Reason for Referral * Imaging (Routine) - Closed Specialty Diagnoses / Procedures Referred By Neyda sin Referred To Contact Radiology Diagnoses Encounter for screening mammogram for breast cancer Procedures BI Mammogram Screening Tomosynthesis Bilateral Ayla Ziegler MD [address] [place] [address] Phone: tel: fax: [address] Phone: tel: fax: Referral ID Status Reason Start Date Expiration Date Visits Re quested Visits Authorized [id number] Closed 11/19/2024 11/19/2025 1 1 * Consultation (Routine) - Authorized Specialty Diagnoses / Procedures Referred By Neyda sin Referred To Contact Gastroenterology Diagnoses Encounter for screening for malignant neoplasm of colon Ayla Ziegler MD [address] [place] [address] Phone: tel: fax: Rene Blake MD [address] [place] [address] Phone: tel: fax: Referral ID Status Reason Start Date Expiration Date Visits Requested Visits Authorized [id number] Authorized Specialty Services Required 11/19/2024 11/19/2025 1 1 * Consultation (Routine) - Authorized Specialty Diagnoses / Procedures Referred By Neyda sin Referred To Contact Podiatry Diagnoses Type 2 diabetes mellitus without complication, without long-term current use of insulin (CMS/HCC) Ayla Ziegler MD [address] [place] [address] Phone: tel: fax: Warren Currie DPM [address] [address] Phone: tel: fax: Referral ID Status Reason Start Date Expiration Date Visits Requested Visits Authorized [id number] Authorized Specialty Services Required 11/19/2024 11/19/2025 1 1 Reason for Visit * Reason Comments Diabetes Encounter Details Date Type Department Care Team (Late st Contact Info) Description 11/19/2024 8:30 AM EST Office Visit [facility] ED MED & PEDS [address] [place] [address] Ayla Ziegler MD [address] [place] [address] Essential hypertension (Primary Dx); Type 2 diabetes [...] complication, without long-term current use of insulin ([facility]) Comments: Metformin Increased to 1000 BID Advised [...] Type Priority Associated Diagnoses Orde r Schedule Albumin, Random Urine W/Creatinine Lab Routine Type [...] Procedure Name Priority Date/Time Associated Diagnosis Comments HEPATIC FUNCTION PANEL Routine 11/19/2024 9:24 AM EST Type 2 diabetes mellitus without complication, without long-term current use of insulin (CMS/HCC) LIPID PANEL, STANDARD Routine 11/19/2024 9:24 AM EST Type 2 diabetes mellitus without complication, without long-term current use of insulin (CMS/HCC) BASIC METABOLIC PANEL Routine 11/19/2024 9:24 AM EST Type 2 diabetes mellitus without complication, without long-term current use of insulin (CMS/HCC) POCT GLYCATED HEMOGLOBIN, TOTAL Routine 11/19/2024 8:54 AM EST Type 2 diabetes mellitus without complication, without long-term current use of insulin (CMS/HCC) POCT GLUCOSE Routine 11/19/2024 8:54 AM EST Type 2 diabetes mellitus without complication, without long-term current use of insulin (CMS/HCC) documented in this encounter Results * Hepatic Function Panel (11/19/2024 9:24 AM EST) Bilirubin, Total 0.6 0.0 - 1.0 mg/dL [facility] Bilirubin, Direct 0.2 0.0 - 0.5 mg/dL [facility] Aspartate Amino Transferase 16 5 - 31 U/L [facility] Alanine Aminotransferase 7 0 - 31 U/L [facility] Total Protein 7.8 6.5 - 8.0 g/dL [facility] Albumin Level 3.5 3.5 - 5.0 g/dL [facility] Alkaline Phosphatase 65 39 - 117 U/L [facility] Blood Venous blood specimen / Unknown 11/19/2024 9:24 AM EST 11/19/2024 2:10 PM EST us Ayla Ziegler MD LAB BLOOD ORDERABLES Final Resul t [facility] [address] [place] [address] [phone] * (ABNORMAL) Lipid Panel, Standard (11/19/2024 9:24 AM EST) Triglycerides 84 <150 mg/dL [facility] Comment:Desirable Triglyceri de: less than 150 mg/dLBorderline High Triglyceride 150-199 mg/dLHigh Triglyceride: 200-499 mg/dLVery High Triglyceride: greater than or equal to 5OO mg/dL Cholesterol 175 <200 mg/dL [facility] Comment:Desirable Cholestero l: less than 200 mg/dLBorderline High Cholesterol: 200-239 mg/dLHigh Cholesterol: greater than 239 mg/dL LDL Cholesterol Calculated 123(H) <100 mg/dL [facility] Comment:Desirable LDL: less than 100 mg/dLNear Optimal/Above Optimal LDL: 110- 129 mg/dLBorderline High LDL: 130-159 mg/dLHigh LDL: 160-189 mg/dLVery High LDL: greater than or equal to 190 mg/dL HDL Cholesterol 36(L) >40 mg/dL [facility] Comment:Desirable HDL: great er than 40 mg/dL Note: This HDL assay may give artificially low results in patients with liver disease. Blood Venous blood specimen / Unknown 11/19/2024 9:24 AM EST 11/19/2024 2:10 PM EST Ayla Ziegler MD LAB BLOOD ORDERABLES Final Resul t Performing Organization Address [facility] Co de Phone Number [facility] [address] [place] [phone] * (ABNORMAL) Basic Metabolic Panel (11/19/2024 9:24 AM EST) Sodium 139 135 - 145 mmol/L [facility] Potassium 4.4 3.3 - 5.1 mmol/L [facility] Chloride 102 96 - 108 mmol/L [facility] Carbon Dioxide 28 22 - 29 mmol/L [facility] Anion Gap 13 12 - 20 [facility] Urea Nitrogen (BUN) 16 9 - 16 mg/dL [facility] Creatinine, Serum 0.90 0.5 - 1.4 mg/dL [facility] Estimated Glomerular Filt Rate >60 [facility] Comment:Chronic Kidney Disea se: Estimated GFR < 60 mL/min/[id number] Kidney Disease: Estimated GFR < 15 mL/min/1.73m2 Glucose 246(H) 60 - 115 mg/dL [facility] Calcium 8.5 8.4 - 10.2 mg/dL [facility] Blood Venous blood specimen / Unknown 11/19/2024 9:24 AM EST 11/19/2024 2:10 PM EST Ayla Ziegler MD LAB BLOOD ORDERABLES Final Resul t Performing Organization Address City/[facility]/ZIP Co de Phone Number [facility] [address] [place] [phone] * (ABNORMAL) POCT Glucose (11/19/2024 8:54 AM [...] - 6.0 % QC Media Lot # [id number] Lot# Expiration Date Blood 11/19/2024 8:54 AM EST Ayla Ziegler MD POINT OF CARE TEST ENTER/EDIT OR DERABLES Final Result documented in this encounter Visit Diagnoses Diagnosis Essential hypertension- Primary Unspecified essential hypertension Type 2 diabetes mellitus without complication, without long-term current use of insulin ([facility]) Encounter for screening mammogram for breast cancer Encounter for screening for malignant neoplasm of colon documented in this encounter Additional Health Concerns Assessment Noted Time PHQ-9 Depression Total Score: 0 04/24/20 23 11:11 AM EDT documented as of this encounter Care Teams Sunglass Clip Attacher Relationship Specialty Start Date End Date Ayla Ziegler MD [address] [place] [address] PCP - General Family Medicine 11/14/13 documented as of this encounter
--- OUTSIDE RECORDS SUMMARY | 2024-12-05 20:27 | XMS_ITS | Clinical Summary ---
Author Organization [employer] Address [address] [place] [address] [address] [place] [address] Care Team Providers Care Combination Saw Operator Name Role Phone Ayla Ziegler MD Primary Care Provider [phone] Allergies Active Allergy Reactions Criticality Noted Date [...] HOURS 180 tablet 1 09/26/20 24 Active metFORMIN (Glucophage) 1000 MG tablet Take 1 tablet (1,000 mg) by mouth with breakfast and with evening meal. 60 tablet 11 11/19/19 25 026 Active LORazepam (Ativan) 1 MG tabletIndicati ons:Anxiety Take 1 tablet (1 mg) by mouth if needed at bedtime for anxiety. 10 tablet 11/20/19 25 Active metFORMIN (Glucophage) 500 MG tablet Take 1 tablet (500 mg) by mouth with breakfast and with evening meal. 180 tablet 3 04/29/20 24 025 Discontinued LORazepam (Ativan) 1 MG tabletIndicati ons:Anxiety Take 1 tablet (1 mg) by mouth if needed at bedtime for anxiety. 10 tablet 10/02/20 24 025 Discontinued(Re order (will not trigger notification to Pharmacy)) Active Problems Problem Noted Date Diagnosed Date Chronic atrial fibrillation 05/28/2024 Overview (05/28/2024): on eliquis Abdominal aortic aneurysm (AAA) 04/24/2023 Essential hypertension 12/13/2011 Diabetes mellitus 12/13/2011 Obesity 12/13/2011 Pure hypercholesterolemia 11/10/2011 Tobacco dependence syndrome 10/26/2011 Migraine 10/26/2011 Acute pharyngitis 05/18/2011 Encounters Date Type Department Care Team Description 12/05/2024 Telephone [facility] [address] [place] [address] Rashmi Nazario, RN Results 12/05/2024 Orders Only [facility] [address] [place] [address] Ayla Ziegler MD Encounter for screening for malignant neoplasm of colon (Primary Dx) 11/20/2024 Refill [facility] [address] [place] [address] Ayla Ziegler MD Anxiety 11/19/2024 8:30 AM EST Office Visit [facility] [address] [place] [address] Ayla Ziegler MD Essential hypertension (Primary Dx); Type 2 diabetes mellitus without complication, without long-term current use of insulin ([facility]); Encounter for screening mammogram for breast cancer; Encounter for screening for malignant neoplasm of colon 11/19/2024 Travel 11/18/2024 Telephone [facility] [address] [place] [address] Ayla Ziegler MD chart prep 11/11/2024 Telephone [facility] [address] [place] [address] Ayla Ziegler MD 11/11/24 Provider out 10/25/2024 Telephone [facility] [address] [facility] [place] [address] Ayla Ziegler MD Appointment Request 10/02/2024 Refill [facility] [address] [place] [address] Ayla Ziegler MD Anxiety 09/25/2024 Refill [facility] [address] [place], [place] [phone] Ayla Ziegler MD from Last 3 Months [...] Done Comments CT Colonography 1950 Colonoscopy 1950 FIT 1950 FOBT 1950 Sigmoidoscopy 1950 Eye Exam 1960 Alcohol/Substance Use Screening 1962 Hepatitis C Screening 1968 Hepatitis A Vaccines (1 of 2 - Risk 2-dose series) 1969 Zoster Vaccines (1 of 2) 2000 RSV Patients and Patients Aged 60 years or older (1 - Risk 60-74 years 1-dose series) 2010 Depression Screening 04/24/2024 04/24/2023, 04/24/20 23 Mammogram 09/28/2024 09/28/2022, 0803/2021, 08/29/2019, Additional history exists Diabetes: Hemoglobin A1C 02/16/2025 025, 04/29/2024, 04/24/2023, Additional history exists SDOH Screening 04/22/2025 04/22/2024 Diabetes: Foot Exam 04/29/2025 04/29/2024, 04/29/2024, 04/29/2024, Additional history exists Diabetes: Urine Protein Screening 04/29/2025 04/29/2024, 04/24/2023 Lipid Panel 11/19/2025 11/19/2024, 04/15, 04/24/2023, Additional history exists Tobacco Screening 11/19/2025 11/19/2024 Colorectal Cancer Screening 11/28/2027 FIT DNA/Cologuard 11/28/2027 11/28/2024 DTaP/Tdap/Td Vaccines (2 - Td or Tdap) [...] Procedure Name Priority Date/Time Associated Diagnosis Comments LAB COLOGUARD?? COLON CANCER SCREEN Routine 11/28/2024 10:45 AM EST Encounter for screening for malignant neoplasm of colon HEPATIC FUNCTION PANEL Routine 9:24 AM EST Type 2 diabetes mellitus [...] without long-term current use of insulin (CMS/HCC) ALBUMIN, RANDOM URINE W/CREATININE Routine 04/29/2024 11:01 AM EDT Type 2 diabetes mellitus without complication, without long-term current use of insulin (CMS/HCC) BI MAMMOGRAM SCREENING TOMOSYNTHESIS BILATERAL Routine 09/28/2022 11:02 AM EST from Last 3 Months or Most Recently Relevant to Health Maintenance Results * (ABNORMAL) Cologuard?? colon cancer screening (11/28/2024 10:45 AM EST) Cologuard Result Positive( A) Negative 12/04/2024 2:53 PM EST [facility] (CLIA #:[id number]) Comment: POSITIVE TEST RESULT. A positive Cologuard result should be followed with a colonoscopy or visual examination of the colon. The normal value (reference range) for this assay is negative. TEST DESCRIPTION: Composite algorithmic analysis of stool DNA-biomarkers with hemoglobin immunoassay. ?? Quantitative values of individual biomarkers are not reportable and are not associated with individual biomarker result reference ranges. Cologuard is intended for colorectal cancer screening of adults of either sex, 45 years or older, who are at average-risk for colorectal cancer (CRC). Cologuard has been approved for use by the U.S. FDA. The performance of Cologuard was established in a cross sectional study of average-risk adults aged 50-84. Cologuard performance in patients ages 45 to 49 years was estimated by sub-group analysis of near-age groups. Colonoscopies performed for a positive result may find as the most clinically significant lesion: colorectal cancer [4.0%], advanced adenoma (including sessile serrated polyps greater than or equal to 1cm diameter) [20%] or non- advanced adenoma [31%]; or no colorectal neoplasia [45%]. These estimates are derived from a prospective cross-sectional screening study of 10,000 individuals at average risk for colorectal cancer who were screened with both Cologuard and colonoscopy. (Dawn Farfan al, N Engl J Med 2014;370(14):7209-3324.) Cologuard may produce a false negative or false positive result (no colorectal cancer or precancerous polyp present at colonoscopy follow up). A negative Cologuard test result does not guarantee the absence of CRC or advanced adenoma (pre-cancer). The current Cologuard screening interval is every 3 years. ([place] [employer] Society and U.S. Multi-Society Task Force). Cologuard performance data in a 10,000 patient pivotal study using colonoscopy as the reference method can be accessed at the following location: www.hearo.fm/results. Additional description of the Cologuard test process, warnings and precautions can be found at [email or web address].[email or web address]. Stool specimen (specimen) Rectal contents / Unknown 11/28/2024 10:45 AM EST 11/29/2024 10:58 AM EST us Ayla Ziegler MD LAB MOLECULAR DIAGNOSTICS ORDERA BLES Final Result [facility] (CLIA #:[id number]) [place] [address], * Hepatic Function Panel (11/19/2024 9:24 AM EST) Bilirubin, Total 0.6 0.0 - 1.0 mg/dL [facility] Bilirubin, Direct 0.2 0.0 - 0.5 mg/dL [facility] Aspartate Amino Transferase 16 5 - 31 U/L [facility] Alanine Aminotransferase 7 0 - 31 U/L [facility] Total Protein 7.8 6.5 - 8.0 g/dL [facility] Albumin Level 3.5 3.5 - 5.0 g/dL [facility] Alkaline Phosphatase 65 39 - 117 U/L [facility] Blood Venous blood specimen / Unknown 11/19/2024 9:24 AM EST 11/19/2024 2:10 PM EST Ayla Ziegler MD LAB BLOOD ORDERABLES Final Resul t Performing Organization Address [facility] de Phone Number [facility] [address] [place] [phone] * (ABNORMAL) Lipid Panel, Standard (11/19/2024 9:24 AM EST) Triglycerides 84 <150 mg/dL [facility] Comment:Desirable Triglyceri de: less than 150 mg/dLBorderline High Triglyceride 150-199 mg/dLHigh Triglyceride: 200-499 mg/dLVery High Triglyceride: greater than or equal to 5OO mg/dL Cholesterol 175 <200 mg/dL [facility] Comment:Desirable Cholestero l: less than 200 mg/dLBorderline High Cholesterol: 200-239 mg/dLHigh Cholesterol: greater than 239 mg/dL LDL Cholesterol Calculated 123(H) <100 mg/dL [facility] Comment:Desirable LDL: less than 100 mg/dLNear Optimal/Above Optimal LDL: 110- 129 mg/dLBorderline High LDL: 130-159 mg/dLHigh LDL: 160-189 mg/dLVery High LDL: greater than or equal to 190 mg/dL HDL Cholesterol 36(L) >40 mg/dL [facility] Comment:Desirable HDL: great er than 40 mg/dL Note: This HDL assay may give artificially low results in patients with liver disease. Blood Venous blood specimen / Unknown 11/19/2024 9:24 AM EST 11/19/2024 2:10 PM EST Ayla Ziegler MD LAB BLOOD ORDERABLES Final Resul t Performing Organization Address [facility] Co de Phone Number [facility] [address] [place] [phone] * (ABNORMAL) Basic Metabolic Panel (11/19/2024 9:24 AM EST) [facility] Sodium 139 135 - 145 mmol/L [facility] Potassium 4.4 3.3 - 5.1 mmol/L [facility] Chloride 102 96 - 108 mmol/L [facility] Carbon Dioxide 28 22 - 29 mmol/L [facility] Anion Gap 13 12 - 20 [facility] Urea Nitrogen (BUN) 16 9 - 16 mg/dL [facility] Creatinine, Serum 0.90 0.5 - 1.4 mg/dL [facility] Estimated Glomerular Filt Rate >60 [facility] Comment:Chronic Kidney Disea se: Estimated GFR < 60 mL/min/1.10o1[place] Kidney Disease: Estimated GFR < 15 mL/min/1.73m2 Glucose 246(H) 60 - 115 mg/dL [facility] Calcium 8.5 8.4 - 10.2 mg/dL [facility] Blood Venous blood specimen / Unknown 11/19/2024 9:24 AM EST 11/19/2024 2:10 PM EST Ayla Ziegler MD LAB BLOOD ORDERABLES Final Resul t Performing Organization Address City/State/[facility] Co de Phone Number [facility] [address] [place] [phone] * (ABNORMAL) POCT HGB A1C (11/19/2024 8:54 AM EST) [facility] Hemoglobin A1C 8.5(A) 4.0 - 6.0 % QC Media Lot # [id number] Lot# Expiration Date [id number] Blood 11/19/2024 8:54 AM EST Ayla Ziegler MD POINT OF CARE TEST ENTER/EDIT OR DERABLES Final Result * (ABNORMAL) POCT Glucose (11/19/2024 8:54 AM EST) [facility] Glucose Blood, POC 265(A) 60 - 200 mg/dL QC Media Lot # [id number] Lot# Expiration Date Blood Capillary blood specimen / Unknown 11/19/2024 8:54 AM EST Ayla Ziegler MD POINT OF CARE TEST ENTER/EDIT OR DERABLES Final Result * Albumin, Random Urine W/Creatinine (04/29/2024 11:01 AM EDT) Creatinine, Urine 109.33 mg/dL [facility] Microalbumin Urine 26.0 mg/L [facility] Microalbum Creatinine Ratio Ur 23.7 <30 ug/mg cr [facility] Comment:Albumin/Creatinine R atio Reference Ranges: Normal: < 30 ug/mg creatinine Microalbuminuria: 30 - 300 ug/mg creatinineClinical Albuminuria: > 300 ug/mg creatinine Urine (Urine, Random) 04/29/2024 11:01 AM EDT 04/29/2024 2:26 PM EDT Ayla Ziegler MD LAB URINE ORDERABLES Final Resul t Performing Organization Address City/State/[facility] Co de Phone Number [facility] [address] [place] [address] [phone] * BI Mammogram Screening Tomosynthesis Bilateral (09/28/2022 11:02 AM EST) Anatomical Region Laterality Modality Breast Bilateral Mammography 09/28/2022 11:0 2 AM EST Narrative 09/29/2022 12:04 PM EST ? [facility] ? [address] ?[place] [address] ? Mammography Report ? Signed ? Patient: Ced,Saumya L ?MR#: [id number] ?? [id number] ? : 1950 ?Acct:[id number] ? Age/Sex: 72 / F ?ADM Date: 12/14/22 ? Loc: HO.MAMMO ? Attending Dr: Ayla Ziegler MD ? Ordering Physician: Ayla Ziegler MD ?Results: 2Benign ?? Findings ? Date of Service: 09/28/22 ?Follow Up: 1 Year From Orig ?? inal Mammogram ? Procedure(s): MM tomosynthesis screening BI ?? Accession Number(s): [id number] ? cc: Ayla Ziegler MD ? EXAMINATION: [...] signed by Curry Quiroz MD in OV> ?15/ 1202 ? DD/ 1102 ? TD/TT: ? Rn Clinical Documentation Specialist: FLANAGAN ? Procedure Note Donotuseinterpreter, Image - 09/29/2022 [facility] [address] [place], [place] [address] Mammography Report Signed Patient: Saumya Coughlin LMR#: [id number] : 1950Acct:[id number] Age/Sex: 72 / FADM Date: 09/28/22 Loc: HO.MAMMO Attending Dr: Ayla Ziegler MD Ordering Physician: Ayla Ziegler MDResults: 2Benign Findings Date of Service: 09/28/22Follow Up: 1 Year From Orig inal Mammogram Procedure(s): MM tomosynthesis screening BI Accession Number(s): [id number] cc: Ayla Ziegler MD EXAMINATION: MM SCREENING [...] in OV> 09/29/22 1202 DD/ 1102 TD/TT: Rn Clinical Documentation Specialist: MAS[facility] External Provider IMG BI PROCEDURES Final Result from Last 3 Months or Most Recently Relevant to Health Maintenance Insurance STANDARD MEDICARE Care Teams Combination Saw Operator Relationship Specialty Start Date End Date Ayla Ziegler MD [address] [place] [id number] PCP - General Family Medicine 11/14/13
[2024-12-05 20:28] LABS: Basophils Percent Auto 0.3 % (0-2); Eosinophils Absolute Auto 0.1 X10*3/uL (0.0-0.4); Eosinophils Percent Auto 1.2 % (0-4); Hematocrit 36.2 % (37.0-47.0); Hemoglobin 11.9 g/dl (12.0-16.0); Imm Gran Abs Auto 0.04 X10*3/uL (0.00-0.03); Imm Gran Pct Auto 0.4 % (0.0-0.4); Lymphocytes Absolute Auto 1.4 X10*3/uL (1.2-4.9); Lymphocytes Percent Auto 14.6 % (20-40); Mean Corpuscular HGB Conc 32.9 g/dl (31.0-35.0); Mean Corpuscular Hemoglobin 30.9 pg (27.0-33.0); Mean Platelet Volume 10.1 fL (9.4-12.3); Monocytes Absolute Auto 0.4 X10*3/uL (0.1-1.2); Monocytes Percent Auto 4.7 % (2-11); Neutrophils Absolute Auto 7.3 x10*3/uL (2.0-8.3); Neutrophils Percent Auto 78.8 % (45-73); Platelet Count 164 X10*3/uL (160-400); Red Blood Count 3.85 X10*6/uL (4.20-5.50); Red Cell Distribution Width 14.3 % (11.0-16.0); White Blood Count 9.3 X10*3/uL (4.8-10.8)
[2024-12-05 20:37] LABS: INTERNATIONAL NORM RATIO 1.4 (0.9-1.1); Prothrombin Time 16.8 SEC (10.9-12.4)
[2024-12-05 20:42] LABS: Lactic Acid 1.8 mmol/L (0.5-2.0)
[2024-12-05 20:44] LABS: Alanine Aminotransferase 14 U/L (0-31); Albumin Level 3.7 g/dL (3.5-5.0); Alkaline Phosphatase 66 U/L (39-117); Anion Gap 12 (12-20); Aspartate Amino Transferase 16 U/L (5-31); Bilirubin Total 0.8 mg/dL (0.0-1.0); Blood Urea Nitrogen 15 mg/dL (9-16); Calcium 9.4 mg/dL (8.4-10.2); Carbon Dioxide 25 mmol/L (22-29); Chloride 106 mmol/L (96-108); Creatinine Clr Calc Pharmacy 80.5; Estimated Glomerular Filt Rate > 60; Glucose Random 195 mg/dL (60-115); Magnesium 1.8 mg/dL (1.6-2.6); Potassium 4.3 mmol/L (3.3-5.1); Sodium 139 mmol/L (135-145); Total Protein 7.9 g/dL (6.5-8.0)
[2024-12-05 20:50] LABS: Troponin-I High Sensitivity 4.2 ng/L (<3.5-17.0)
[2024-12-05 20:54] LABS: Lipase 1522 U/L (8-78)
[2024-12-05 21:04] LABS: Influenza A PCR NEGATIVE (Negative); Influenza B PCR NEGATIVE (Negative); Resp Syncy Virus RNA Qual PCR NEGATIVE (Negative); SARS COV2 PCR INHOUSE NEGATIVE (Negative)
[2024-12-06] VITALS (10 sets, daily range): BP systolic 109–141; BP diastolic 40–66; PULSE 73–90; RESP 14–20; TEMP 36.6–36.9; O2SAT 93–98
--- NOTE | 2024-12-06 02:37 | MHC.EDTECH ---
This pct just assumed care of Patient ,vitals taken ,Patient got change into hospital gown ,Patient is aware we need a urine sample .
[2024-12-06] MEDS: ondansetron HCL 4 MG/2 ML VIAL IVPUSH (03:24)
[2024-12-06] MEDS: Morphine Sulfate 4 MG/ML CARTRIDGE IVPUSH (03:24)
[2024-12-06] MEDS: 0.9 % Sodium Chloride 1,000 ML 999 ML IV (03:26)
[2024-12-06 03:34] LABS: Triglycerides 97 mg/dL (<150)
[2024-12-06] MEDS: iohexoL 350 MG/ML 100 ML INFUS..BTL 85 ML IV (03:40)
--- NOTE | 2024-12-06 05:14 | MHC.EDTECH ---
2nd set of blood culture drawn.urine sample collected all sent to lab .
[2024-12-06 05:22] LABS: Appearance Urine Clear; Color Urine Yellow; Glucose Urine UA 250 mg/dL (Negative); Leukocyte Esterase Urine Negative (Negative); Nitrite Urine Negative (Negative); Specific Gravity - Urine >= 1.030 (1.005-1.025); Urine Blood Negative (Negative); Urine Ketones Negative (Negative); Urine Protein Negative (Neg-Trace)
--- NOTE | 2024-12-06 05:23 | PM.IMHP ---
History of Present Illness Date of Service: 12/06/24 Attending physician on admission: [facility] Chief Complaint: Abdominal pain Pt is a 74-year-old female with a PMH significant for?persistent AFib on Eliquis s/p failed cardioversions in 2017 and 2020, nuu-qndaaey-xubysugkw type 2 diabetes, HTN, and anxiety who presents to the ED with?sudden-onset central abdominal pain since yesterday mid afternoon. Pt describes pain as constant, sharp and stabbing with no alleviating or relieving factors. Pt has not felt similar symptoms before. Has had nausea but no vomiting, as well as chills but no fever. Pt reports has not eaten anything since night prior to symptom onset. Pt denies alcohol use. No chest pain/pressure, palpitations. Denies shortness or breath or difficulty breathing. Pt reports pain currently well-controlled current analgesics. In the ED pt was tachycardic up to 101 and soft BP as low as 119/45. Labs were significant for lipase 1522, otherwise grossly unremarkable and around baseline for pt. No leukocytosis. Stable H&H. No significant electrolyte abnormalities. Renal function baseline. Lactic acid WNL. Hepatic function WNL. Triglycerides WNL at 97. UA negative for UTI. Tested negative for flu, COVID, RSV. CT?of abdomen showed 3.5 cm mass in the tail of pancreas that could be benign but carcinoma not excluded. Also found possible cholelithiasis without evidence of acute cholecystitis, as well as hepatomegaly and hepatic steatosis. Pt was treated with morphine, ondansetron, and IVF. Pt will be admitted to the hospital for treatment and further evaluation of acute pancreatitis. Review of Systems Review of Systems: Negative except for that which is stated in the HPI. ON LICENSE OF [facility] Medical History (Updated 12/06/24 @ 06:04 by YON García) HTN (hypertension) Smoker ARMOND (obstructive sleep apnea) Diabetes HLD (hyperlipidemia) Persistent atrial fibrillation Family History Father Myocardial infarction Mother Arthritis Sister No problems noted. Sister No problems noted. Sister No problems noted. Brother No problems noted. Sister No problems noted. Brother No problems noted. Son No problems noted. Son No problems noted. 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 Meds Allergies Allergy/AdvReac Type Severity Reaction Status Date / Time Tetanus Vaccines and Toxoid Allergy Unknown HIVES Verified 12/05/24 20:06 [TETANUS VACCINES AND TOXOID] Home Medications ?Medication ?Instructions ?Recorded ?Confirmed ?Last Taken ?Type lorazepam 1 mg tablet 1 mg PO DAILY PRN Anxiety 04/14/21 12/06/24 12/05/24 12:00 History metformin 500 mg tablet 1,000 mg PO DAILY 05/28/24 12/06/24 12/05/24 12:00 History Physical Exam Vital Signs and Narrative: Vital Signs: Last Vital Signs Temp 98.4 F 12/06/24 04:52 Pulse 78 12/06/24 04:52 Resp 16 12/06/24 04:52 BP 119/45 L 12/06/24 04:52 Pulse Ox 95 12/06/24 04:52 O2 Del Method Room Air 12/06/24 04:52 BMI result Body Mass Index 33.1 General: AOx3, no acute distress Resp: CTA bilaterally CVS: S1, S2, RRR GI: Mild periumbilical tenderness. +BS, Skin: Warm, dry Neuro: Cranial nerves II-XII grossly intact bilaterally. Motor grossly intact bilaterally Extremities: No edema Psych: Mildly anxious Results Labs 12/05/24 20:20 12/05/24 20:20 Labs: Laboratory Results - last 24 hr 12/05/24 20:20 MCV 94.0 MCH 30.9 MCHC 32.9 RDW 14.3 Plt Count 164 MPV 10.1 Immature Gran % (Auto) 0.4 Neut % (Auto) 78.8 H Lymph % (Auto) 14.6 L [place] % (Auto) 4.7 Eos % (Auto) 1.2 Baso % (Auto) 0.3 Lymph # (Auto) 1.4 [place] # (Auto) 0.4 Eos # (Auto) 0.1 Baso # (Auto) 0.0 Abs Immat Gran (auto) 0.04 H Absolute Neuts (auto) 7.3 Absolute Nucleated RBC 0.000 Nucleated RBC % (auto) 0.0 PT 16.8 H INR 1.4 H Anion Gap 12 Estim Creat Clear Calc 80.5 Estimated GFR > 60 Random Glucose 195 H Lactic Acid 1.8 Calcium 9.4 D Magnesium 1.8 Total Bilirubin 0.8 AST 16 ALT 14 Alkaline Phosphatase 66 Total Protein 7.9 Albumin 3.7 Triglycerides 97 Lipase 1522 H Influenza Type A (PCR) NEGATIVE Influenza Type B (PCR) NEGATIVE RSV RNA Qual (PCR) NEGATIVE SARS-CoV-2 RNA (RT-PCR) NEGATIVE Assessment and Plan (1) Acute pancreatitis: Qualifiers: Acute pancreatitis complication: no infection or necrosis Pancreatitis type: unspecified pancreatitis type Qualified Code(s): K85.90 - Acute pancreatitis without necrosis or infection, unspecified Status: Acute (2) Pancreatic mass: Status: Acute Plan Pt is a 74-year-old female with a PMH significant for?persistent AFib on Eliquis s/p failed cardioversions in 2017 and 2020, mxg-bbuhesz-mhwmxnnvd type 2 diabetes, HTN, and anxiety who presents to the ED with?sudden-onset central abdominal pain since yesterday mid afternoon. Pt will be admitted to the hospital for treatment and further evaluation of acute pancreatitis. Acute pancreatitis Pt with sudden onset periumbilical pain, lipase 1522 CT of abdomen and pelvis showing 3.5 cm mass in tail of pancreas Pt denies alcohol use, triglycerides WNL Will treat with bowel rest, IVF, analgesics, and antiemetics Will check MRCP; pt with anxiety and claustrophobia, administer Ativan 1 mg IV prior to MRCP GI consult Follow BMP, lipase Persistent AFib Continue metoprolol, Eliquis Insulin-dependent type [address] sliding scale insulin Hold metformin Anxiety Continue lorazepam Full Code Attending:?Dr. Contreras DVT Prophylaxis: On Eliquis Pt will require a hospitalization of at least two nights for treatment of?acute pancreatitis possibly secondary to pancreatic mass. As pt is currently unable to tolerate p.o., she will require hospital level care for administration of IVF, IV analgesics, IV antiemetics, and specialist consultation with GI and further evaluation with MRCP. Quality Stroke Does the patient have a stroke diagnosis?: No VTE Prior VTE?: No VTE Risk Level:: Medical - moderate - high VTE Device Contraindication: Treatment Not Indicated VTE Drug Contraindication: N/A - Med Ordered
[2024-12-06] MEDS: LORazepam 2 MG/ML VIAL 1 MG IVPUSH (06:43)
[2024-12-06] MEDS: Lactated Ringers 1,000 ML 100 ML IVCONT ×2 (06:46→15:27)
[2024-12-06 07:18] LABS: Glucose, Whole Blood 160 mg/dL (60-115)
--- NOTE | 2024-12-06 07:31 | P.CNGI_ITS ---
History of Present Illness Data of Consult Service Date: 12/06/24 Requesting physician: Jersey Cerda Primary Care Provider: Ayla Ziegler MD [facility] Reason for consult: Pancreatitis, pancreatic mass in tail 74 YF with AFib on Eliquis s/p failed cardioversions in 2017 and 2020, NIDDM, HTN, and anxiety seen at [facility] [place] [facility] on 12/05/24 with?sudden-onset upper abdominal and periumblical abdominal pain and nausea x 1 day. Pt described the pain as 8/10, constant, sharp and stabbing radiating to the back with no alleviating or relieving factors. Pt has not felt similar symptoms before. Pt complained of chills and nausea without vomiting. Pt reported has not eaten anything since night prior to symptom onset. Pt denied chest pain/pressure, palpitations, shortness or breath or difficulty breathing. Pt reports pain has decreased to 2/10 and well-controlled current analgesics. Pt also notes a change in bowel habits with constipation x 3 days followed by diarrhea for the past 3 weeks. She denies ant change in her appetite or weight. Pt denies smoking or ETOH abuse. 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 Family hx is positive for colon polyps in a sister and a brother with prostate cancer. Pt denies known FH of pancreatic or colon cancer. In the ED pt was tachycardic up to 101 and soft BP as low as 119/45. Labs showed lipase 1522, otherwise grossly unremarkable and around baseline for pt. No leukocytosis. Stable H&H. No significant electrolyte abnormalities. Renal function baseline. Lactic acid WNL. Hepatic function WNL. Triglycerides WNL at 97. Tested negative for flu, COVID, RSV. Pt was treated with morphine, ondansetron, and IVF and admitted for further evaluation of acute pancreatitis 12/06/[address] SCAN SHOWED: 1. 3.5 cm somewhat heterogeneous mass in the tail of the pancreas. This could be benign but pancreatic carcinoma not excluded. Further clinical evaluation recommended. 2. Possible cholelithiasis with no CT evidence of acute cholecystitis. 3. Hepatomegaly and hepatic steatosis. 4. Additional nonacute findings as described. 12/06/24 ABD MRI SHOWED: Concerning acute calculus cholecystitis with questionable choledocholithiasis. 4 x 3 cm lobulated lesion/mass, tail of the pancreas. Concerning for malignancy. Bilateral renal cysts. Hepatomegaly. Lipid rich adenoma, left adrenal gland. Review of Systems 2 Review of Systems: Yes all other systems are reviewed and are negative [facility] Past Medical History Medical History HTN (hypertension) Smoker ARMOND (obstructive sleep apnea) Diabetes HLD (hyperlipidemia) Persistent atrial fibrillation Family History Family History Father Myocardial infarction Mother Arthritis Sister No problems noted. Sister No problems noted. Sister No problems noted. Brother No problems noted. Sister No problems noted. Brother No problems noted. Son No problems noted. Son No problems noted. 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 Meds Allergies Allergy/AdvReac Type Severity Reaction Status Date / Time Tetanus Vaccines and Toxoid Allergy Unknown HIVES Verified 12/05/24 20:06 [TETANUS VACCINES AND TOXOID] Active Medications: Current Medications Acetaminophen (Acetaminophen 325 Mg Tablet) 650 mg PO Q6H PRN PRN Reason: Pain, Mild 1-3,fever,headache Apixaban (Apixaban 5 Mg Tablet) 5 mg PO BID [facility] Calcium Carbonate (Calcium Carbonate 750 Mg Tab.Chew) 750 mg PO Q4H PRN PRN Reason: Heartburn Dextrose (Dextrose 50 % 25 Gm/50 Ml Syringe) 25 gm IVPUSH Q15M PRN; Protocol PRN Reason: per Hypoglycemia Standing Ord. Glucose (Glucose Gel 15 Gm Gel..Gram.) 15 gm PO Q15M PRN; Protocol PRN Reason: per Hypoglycemia Standing Ord. Lactated Ringer's (Lr) 1,000 mls @ 100 mls/hr IVCONT .Q10H [facility] Last Admin: 12/06/24 06:46 Dose: 100 mls/hr Insulin Human Lispro (Insulin Lispro 100 Unit/Ml 3 Ml Vial) 0 unit SUBCUT QIDACHS [facility]; Protocol Last Admin: 12/06/24 07:15 Dose: Not Given Lorazepam (Lorazepam 1 Mg Tablet) 1 mg PO DAILY PRN PRN Reason: Anxiety Magnesium Hydroxide (Milk Of Magnesia 30 Ml Oral.Susp) 30 ml PO DAILY PRN PRN Reason: Constipation Melatonin (Melatonin 3 Mg Tablet) 6 mg PO BEDTIME PRN PRN Reason: Insomnia Metoprolol Succinate (Metoprolol Succinate Er 50 Mg Tab.Er.24h) 50 mg PO DAILY [facility]; Protocol Morphine Sulfate (Morphine Sulfate 4 Mg/Ml Cartridge) 4 mg IVPUSH Q4H PRN; Protocol PRN Reason: Pain, Severe (Pain Scale 7-10) Ondansetron HCl (Ondansetron Hcl 4 Mg/2 Ml Vial) 4 mg IVPUSH Q8H PRN PRN Reason: Nausea and Vomiting Oxycodone HCl (Oxycodone Hcl Immed Release 5 Mg Tablet) 5 mg PO Q6H PRN PRN Reason: Pain, Moderate(Pain Scale 4-6) Sodium Chloride (0.9 % Sodium Chloride Flush 3 Ml Syringe) [facility] Medications ?Medication ?Instructions ?Recorded ?Confirmed ?Last Taken ?Type lorazepam 1 mg tablet 1 mg PO DAILY PRN Anxiety 04/14/21 12/06/24 12/04/24 History metformin 1,000 mg tablet 1,000 mg PO BID 12/06/24 12/06/24 12/04/24 History Physical Exam 2 Vital Signs: Vital Signs: Last Vital Signs Temp 98.4 F 12/06/24 04:52 Pulse 78 12/06/24 04:52 Resp 16 12/06/24 04:52 BP 119/45 L 12/06/24 04:52 Pulse Ox 95 12/06/24 04:52 O2 Del Method Room Air 12/06/24 04:52 BMI result Body Mass Index 33.1 Const: General: no acute distress Nutritional Appearance: obese O rientation/consciousness: patient oriented x3 Limitations: no limitations HEENT: Head: Yes normal to inspection Ears: hearing grossly normal bilaterally Eyes: Sclerae: sclerae normal Pupils: Equal, round and reactive pupils present Neck: Neck: Yes normal visual inspection Chest: Chest palpation & inspection: normal inspection of the chest Resp: Effort & Inspection: normal respiratory effort Auscultation: clear to auscultation bilaterally Cardio: Palpation: normal PMI Rate: Other Rhythm: regular rhythm and other (irregularly irregular due to A fib) Heart sounds: S1 normal heart sound present, S2 normal heart sound present and no murmurs GI: Palpation (GI): Soft to palpation, Tenderness to palpation present (GI) (upper abdominal tenderness) and No hepatosplenomegaly present Auscultation: normal bowel sounds Rectal Exam - Female: deferred Skin: General skin exam: no rashes or lesions noted Neuro: General: patient oriented x3, gait normal and moves all extremities Cranial nerves: Yes Equal, round and reactive pupils present Psych: Appearance: grossly normal Mental Status: mental status grossly normal Results Labs 12/07/24 06:29 12/07/24 06:29 Labs: Short CBC 12/05/24 Range/Units 20:20 WBC 9.3 (4.8-10.8) X10*3/uL Hgb 11.9 L (12.0-16.0) g/dl Hct 36.2 L (37.0-47.0) % Plt Count 164 (160-400) X10*3/uL BMP 12/05/24 20:20 Sodium 139 Potassium 4.3 Chloride 106 Carbon Dioxide 25 BUN 15 Creatinine 0.68 Calcium 9.4 D Liver Function 12/05/24 Range/Units 20:20 Total Bilirubin 0.8 (0.0-1.0) mg/dL AST 16 (5-31) U/L ALT 14 (0-31) U/L Alkaline Phosphatase 66 (39-117) U/L Albumin 3.7 (3.5-5.0) g/dL Urine 12/06/24 Range/Units 05:13 Urine Color Yellow Urine Appearance Clear Urine pH 5.0 (5.0-9.0) Ur Specific [place] >= 1.030 H (1.005-1.025) Urine Protein Negative (Neg-Trace) mg/dL Urine Glucose (UA) 250 H (Negative) mg/dL Assessment and Plan (1) Pancreatic mass: Status: Acute (2) Acute pancreatitis: Qualifiers: Acute pancreatitis complication: no infection or necrosis Pancreatitis type: unspecified pancreatitis type Qualified Code(s): K85.90 - Acute pancreatitis without necrosis or infection, unspecified Status: Acute Plan 74 YF with AFib on Eliquis s/p failed cardioversions in 2018 and 2020, NIDDM, HTN, and anxiety admitted to [facility] [place] on 12/06/24 with?upper abdominal and periumblical pain and nausea x 1 day. Pt denies smoking or ETOH abuse. Labs showed lipase 1522, Lactic acid and Hepatic function WNL. Triglycerides WNL at 97. Acute pancreatitis likey biliary etiology versus related to pancreatic mass. 12/06/[address] SCAN SHOWED: 1. 3.5 cm somewhat heterogeneous mass in the tail of the pancreas. This could be benign but pancreatic carcinoma not excluded. Further clinical evaluation recommended. 2. Possible cholelithiasis with no CT evidence of acute cholecystitis. 3. Hepatomegaly and hepatic steatosis. 4. Additional nonacute findings as described. 12/06/24 ABD MRI SHOWED: Concerning acute calculus cholecystitis with questionable choledocholithiasis. 4 x 3 cm lobulated lesion/mass, tail of the pancreas. Concerning for malignancy. Bilateral renal cysts. Hepatomegaly. RECOMMENDATIONS: 1. Agree with IV pain medications and antiemetics 2. Check CEA and CA 19-9 and lipase - added to am labs 3. Clear liquid diet and advance diet as tolerated. 4. Oncology consult. 5. Pt will need further evaluation with EUS guided biopsy of pancreatic lesion versus percutaneous bx by IR as an outpatient after acute pancreatitis resolves Procedures Date of Service Date of Service: 12/07/24
--- NOTE | 2024-12-06 07:51 | PC.NURSE ---
Pts son Manav asked to leave his number [phone]
--- NOTE | 2024-12-06 09:03 | PHA.MEDREC ---
Addendum entered by Jimenez Dan 12/06/24 09:05: reviewed Original Note: Pharmacy Consult ? Medication Reconciliation Pharmacy has completed the medication reconciliation. Spoke with patient and she confirmed her medications. She stated she has not taken any medications since Monday.
[2024-12-06] MEDS: LORazepam 1 MG TABLET PO (09:13)
[2024-12-06] MEDS: Metoprolol Succinate ER 50 MG TAB.ER.24H PO (09:13)
[2024-12-06] MEDS: Apixaban 5 MG TABLET PO (09:13)
--- NOTE | 2024-12-06 09:37 | MHC.CM.PN ---
PT REPORTS SHE LIVES WITH HER SON AND IS INDEPENDENT WITH CARE SHE HAS NO DME AND NO SERVICES SHE WILL CONSIDER COMPLETING A HCP, SHE IS UNSURE WHO SHE WANTS TO NAME AT THIS TIME PT AWARE CM CAN ASSIST WITH COMPLETION OF A HCP ANYTIME DURING ADMISSION PCP: TATY VALVERDE IMM DELIVERED DCP: HOME NO SERVICES VIA PRIVATE TRANSPORT
--- NOTE | 2024-12-06 11:03 | PM.EVENT ---
Event Note Date of Service: 12/06/24 Event Note: 74-year-old female with a PMH significant for?persistent AFib on Eliquis s/p failed cardioversions in 2017 and 2020, iod-[id number] type 2 diabetes, HTN, and anxiety who presents to the ED with?sudden-onset central abdominal pain since yesterday mid afternoon. Pt will be admitted to the hospital for treatment and further evaluation of acute pancreatitis. Complaining of persistent abdominal pain associated with chills, denies weight loss, no change in appetite, with change in bowel pattern constipation alternating with diarrhea muddy loose stools General: AOx3, no acute distress Anicteric sclera Resp: CTA bilaterally CVS: S1, S2, RRR GI: Mid abdominal tenderness tenderness. +BS, Skin: Warm, dry, no edema Neuro: Motor grossly intact bilaterally Extremities: No edema Psych: Appropriate affect Acute pancreatitis Abdominal pain of 3 weeks' duration , lipase 1522 CT of abdomen and pelvis showing 3.5 cm mass in tail of pancreas, normal LFTs, normal total bili and alk-phos MRCP concerning for acute calculous cholecystitis with questionable choledocholithiasis, 4 on to 3 cm lobulated lesion/mass, tail of pancreas concerning for malignancy, hepatomegaly no alcohol use, triglycerides WNL, normal WBC no fevers bowel rest, IVF, analgesics, and antiemetics GI consult Obtain surgical consult Follow BMP, lipase Persistent AFib Continue metoprolol xl 50 mg, hold Eliquis Insulin-dependent type 2 diabetes npo, sliding scale insulin, Hold metformin Anxiety Continue lorazepam Full Code DVT Prophylaxis: Compression boots Pt will require continued inpatient hospitalization for treatment of?acute pancreatitis possibly secondary to pancreatic mass, require IVF, IV analgesics, IV antiemetics, and specialist consultation with GI and further evaluation with MRCP. Time Spent With Patient Time: Total time managing care of this patient today ____ minutes.
[2024-12-06 12:53] LABS: Glucose, Whole Blood 170 mg/dL (60-115)
--- NOTE | 2024-12-06 15:11 | PC.NURSE ---
Pt alert and oriented, breathing even and unlabored. Pt denied any pain today so far, resting comfortably in bed with family. Plan to stay NPO per admitting provider. Family and pt asks for update from provider, provider aware.
[2024-12-06] MEDS: Acetaminophen 325 MG TABLET 650 MG PO (15:36)
--- NOTE | 2024-12-06 15:55 | PM.CNGS ---
History of Present Illness Consult details Consult date: 12/06/24 Narrative: 74-year-old female admitted last night via the emergency room because of sharp epigastric pain. She says that this started yesterday during the day suddenly. She says she had been doing well the day before. She says she has been unable to eat because of this pain She had a CAT scan done last night showing what appeared to be a pancreatic mass. She currently says that her pain is much improved although this is still present. She has other medical problems including atrial fibrillation, obstructive sleep apnea, aortic regurgitation and diabetes. She is a smoker She denies any jaundice or weight loss. Review of Systems Constitutional: Constitutional: Denies chills and Denies fever(s) Cardiovascular: Cardiovascular: Denies chest pain, Denies dyspnea and Reports dyspnea on exertion Respiratory: Respiratory: Denies cough, Denies dyspnea and Reports dyspnea on exertion Gastrointestinal: Gastrointestinal: Denies hematochezia and Denies change in bowel habits Genitourinary: Genitourinary: Denies hematuria Musculoskeletal: Musculoskeletal: Denies back pain and Denies limited range of motion Neurologic: Denies focal weakness and Denies convulsions Psychiatric: Psychiatric: Denies depression and Denies mood swings [facility] Past Medical History Medical History HTN (hypertension) Smoker ARMOND (obstructive sleep apnea) Diabetes HLD (hyperlipidemia) Persistent atrial fibrillation Family History Family History Father Myocardial infarction Mother Arthritis Sister No problems noted. Sister No problems noted. Sister No problems noted. Brother No problems noted. Sister No problems noted. Brother No problems noted. Son No problems noted. Son No problems noted. 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 Glucose (Glucose Gel 15 Gm Gel..Gram.) 15 gm PO Q15M PRN; Protocol PRN Reason: per Hypoglycemia Standing Ord. Lactated Ringer's (Lr) 1,000 mls @ 100 mls/hr IVCONT .Q10H [facility] Last Admin: 12/06/24 15:27 Dose: 100 mls/hr Insulin Human Lispro (Insulin Lispro 100 Unit/Ml 3 Ml Vial) 0 unit SUBCUT QIDACHS [facility]; Protocol Last Admin: 12/06/24 12:47 Dose: Not Given Lorazepam (Lorazepam 1 Mg Tablet) 1 mg PO DAILY PRN PRN Reason: Anxiety Last Admin: 12/06/24 09:13 Dose: 1 mg Magnesium Hydroxide (Milk Of Magnesia 30 Ml Oral.Susp) 30 ml PO DAILY PRN PRN Reason: Constipation Melatonin (Melatonin 3 Mg Tablet) 6 mg PO BEDTIME PRN PRN Reason: Insomnia Metoprolol Succinate (Metoprolol Succinate Er 50 Mg Tab.Er.24h) 50 mg PO DAILY [facility]; Protocol Last Admin: 12/06/24 09:13 Dose: 50 mg Morphine Sulfate (Morphine Sulfate 4 Mg/Ml Cartridge) 4 mg IVPUSH Q4H PRN; Protocol PRN Reason: Pain, Severe (Pain Scale 7-10) Ondansetron HCl (Ondansetron Hcl 4 Mg/2 Ml Vial) 4 mg IVPUSH Q8H PRN PRN Reason: Nausea and Vomiting Oxycodone HCl (Oxycodone Hcl Immed Release 5 Mg Tablet) 5 mg PO Q6H PRN PRN Reason: Pain, Moderate(Pain Scale 4-6) Sodium Chloride (0.9 % Sodium Chloride Flush 3 Ml Syringe) 3 ml IVFLUSH QSHIFT [facility] Last Admin: 12/06/24 15:27 Dose: Not Given Home Medications ?Medication ?Instructions ?Recorded ?Confirmed ?Last Taken ?Type lorazepam 1 mg tablet 1 mg PO DAILY PRN Anxiety 04/14/21 12/06/24 12/04/24 History metformin 1,000 mg tablet 1,000 mg PO BID 12/06/24 12/06/24 12/04/24 History Physical Exam Vital Signs: Vital Signs: Last Vital Signs Temp 98.3 F 12/06/24 14:12 Pulse 82 12/06/24 14:12 Resp 14 12/06/24 14:12 BP 130/52 L 12/06/24 14:12 Pulse Ox 94 12/06/24 14:12 O2 Del Method Room Air 12/06/24 14:12 BMI result Body Mass Index 33.1 Const: General: comfortable and no acute distress Eyes: Sclerae: sclerae normal Resp: Effort & Inspection: normal respiratory effort Cardio: Rhythm: abnormal rhythm GI: Palpation (GI): Soft to palpation, not firm, Tenderness to palpation present (GI) (epigastric), no guarding and not rigid Results Labs 12/07/24 06:29 12/07/24 06:29 Labs: Abnormal lab results 12/05/24 12/06/24 12/06/24 Range/Units 20:20 05:13 07:09 RBC 3.85 L (4.20-5.50) X10*6/uL Hgb 11.9 L (12.0-16.0) g/dl Hct 36.2 L (37.0-47.0) % Neut % (Auto) 78.8 H (45-73) % Lymph % (Auto) 14.6 L (20-40) % Abs Immat Gran (auto) 0.04 H (0.00-0.03) X10*3/uL PT 16.8 H (10.9-12.4) SEC INR 1.4 H (0.9-1.1) POC Glucose 160 H (60-115) mg/dL Random Glucose 195 H (60-115) mg/dL Lipase 1522 H (8-78) U/L Ur Specific [place] >= 1.030 H (1.005-1.025) Urine Glucose (UA) 250 H (Negative) mg/dL 12/06/24 Range/Units 12:46 RBC (4.20-5.50) X10*6/uL Hgb (12.0-16.0) g/dl Hct (37.0-47.0) % Neut % (Auto) (45-73) % Lymph % (Auto) (20-40) % Abs Immat Gran (auto) (0.00-0.03) X10*3/uL PT (10.9-12.4) SEC INR (0.9-1.1) POC Glucose 170 H (60-115) mg/dL Random Glucose (60-115) mg/dL Lipase (8-78) U/L Ur Specific [place] (1.005-1.025) Urine Glucose (UA) (Negative) mg/dL Short CBC 12/05/24 Range/Units 20:20 WBC 9.3 (4.8-10.8) X10*3/uL Hgb 11.9 L (12.0-16.0) g/dl Hct 36.2 L (37.0-47.0) % Plt Count 164 (160-400) X10*3/uL BMP 12/05/24 20:20 Sodium 139 Potassium 4.3 Chloride 106 Carbon Dioxide 25 BUN 15 Creatinine 0.68 Calcium 9.4 D Liver Function 12/05/24 Range/Units 20:20 Total Bilirubin 0.8 (0.0-1.0) mg/dL AST 16 (5-31) U/L ALT 14 (0-31) U/L Alkaline Phosphatase 66 (39-117) U/L Albumin 3.7 (3.5-5.0) g/dL Urine 12/06/24 Range/Units 05:13 Urine Color Yellow Urine Appearance Clear Urine pH 5.0 (5.0-9.0) Ur Specific [place] >= 1.030 H (1.005-1.025) Urine Protein Negative (Neg-Trace) mg/dL Urine Glucose (UA) 250 H (Negative) mg/dL All other labs normal. Imaging Abdomen CT scan report/results: report reviewed and image reviewed CT scan - pelvis: report reviewed and image reviewed Assessment and Plan (1) Pancreatic mass: Status: Acute She has been did for epigastric pain. I have reviewed her imaging studies. There was note of a 3.5 cm heterogenous mass in the tail of the pancreas. A malignancy can not be ruled out at this point Her lipase is elevated at 1500. This may be related to her pancreatic mass although gallstone pancreatitis can not be ruled out I would follow her LFTs. She may need further diagnostic studies including a possible tissue diagnosis. We will follow along while she is in the hospital. She is okay to have clear liquids at this time. Her family was at bedside. Procedures Date of Service Date of Service: 12/08/24
[2024-12-06 17:43] LABS: Glucose, Whole Blood 165 mg/dL (60-115)
[2024-12-06 21:19] LABS: Glucose, Whole Blood 148 mg/dL (60-115)
[2024-12-07 02:24] VITALS: BP 149/53; PULSE 78; RESP 16; TEMP 36.6; O2SAT 96
[2024-12-07 04:00] VITALS: BP 140/62; PULSE 71; RESP 18; TEMP 36.8; O2SAT 94
[2024-12-07 04:01] VITALS: BMI 33.1
[2024-12-07] MEDS: Lactated Ringers 1,000 ML 100 ML IVCONT ×3 (04:14→23:44)
[2024-12-07 07:05] LABS: Hematocrit 33.3 % (37.0-47.0); Hemoglobin 10.8 g/dl (12.0-16.0); Mean Corpuscular HGB Conc 32.4 g/dl (31.0-35.0); Mean Corpuscular Hemoglobin 31.1 pg (27.0-33.0); Mean Platelet Volume 10.2 fL (9.4-12.3); Platelet Count 141 X10*3/uL (160-400); Red Blood Count 3.47 X10*6/uL (4.20-5.50); Red Cell Distribution Width 14.6 % (11.0-16.0); White Blood Count 5.6 X10*3/uL (4.8-10.8)
[2024-12-07 07:21] VITALS: BP 150/68; PULSE 85; RESP 18; TEMP 36.1; O2SAT 96
[2024-12-07 07:24] LABS: Alanine Aminotransferase 8 U/L (0-31); Albumin Level 3.2 g/dL (3.5-5.0); Alkaline Phosphatase 59 U/L (39-117); Anion Gap 10 (12-20); Aspartate Amino Transferase 15 U/L (5-31); Bilirubin Total 0.6 mg/dL (0.0-1.0); Blood Urea Nitrogen 8 mg/dL (9-16); Calcium 8.6 mg/dL (8.4-10.2); Carbon Dioxide 25 mmol/L (22-29); Chloride 108 mmol/L (96-108); Creatinine Clr Calc Pharmacy 77.1; Estimated Glomerular Filt Rate > 60; Glucose Random 178 mg/dL (60-115); Lipase 108 U/L (8-78); Potassium 3.7 mmol/L (3.3-5.1); Sodium 139 mmol/L (135-145); Total Protein 6.9 g/dL (6.5-8.0)
[2024-12-07 07:35] LABS: Glucose, Whole Blood 184 mg/dL (60-115)
[2024-12-07] MEDS: Acetaminophen 325 MG TABLET 650 MG PO (08:49)
[2024-12-07] MEDS: Metoprolol Succinate ER 50 MG TAB.ER.24H PO (08:49)
[2024-12-07] MEDS: Insulin Lispro 100 UNIT/ML 3 ML VIAL SUBCUT ×3 (08:50→20:36)
--- NOTE | 2024-12-07 09:36 | PM.PNGS ---
Subjective Subjective Date of Service: 12/07/24 Interval history: Feels much better Has minimal epigastric pain Tolerating clear liquid No fever Physical Exam Vital Signs: Vital Signs: Last Vital Signs Temp 96.9 F 12/07/24 07:21 Pulse 85 12/07/24 07:21 Resp 18 12/07/24 07:21 BP 150/68 H 12/07/24 07:21 Pulse Ox 96 12/07/24 07:21 O2 Del Method Room Air 12/07/24 07:21 BMI result Body Mass Index 33.1 Const: General: comfortable and no acute distress Nutritional Appearance: overweight Resp: Effort & Inspection: normal respiratory effort Cardio: Rate: regular rate GI: Palpation (GI): Soft to palpation, not firm, nontender and no guarding Objective Data Active Medications Acetaminophen (Acetaminophen 325 Mg Tablet) 650 mg PO Q6H PRN PRN Reason: Pain, Mild 1-3,fever,headache Last Admin: 12/07/24 08:49 Dose: 650 mg Documented By: PEDRO Calcium Carbonate (Calcium Carbonate 750 Mg Tab.Chew) 750 mg PO Q4H PRN PRN Reason: Heartburn Dextrose (Dextrose 50 % 25 Gm/50 Ml Syringe) 25 gm IVPUSH Q15M PRN; Protocol PRN Reason: per Hypoglycemia Standing Ord. Glucose (Glucose Gel 15 Gm Gel..Gram.) 15 gm PO Q15M PRN; Protocol PRN Reason: per Hypoglycemia Standing Ord. Lactated Ringer's (Lr) 1,000 mls @ 100 mls/hr IVCONT .Q10H [facility] Last Admin: 12/07/24 04:14 Dose: 100 mls/hr Documented By: BILL Insulin Human Lispro (Insulin Lispro 100 Unit/Ml 3 Ml Vial) 0 unit SUBCUT QIDACHS [facility]; Protocol Last Admin: 12/07/24 08:50 Dose: 2 unit Documented By: PEDRO Lorazepam (Lorazepam 1 Mg Tablet) 1 mg PO DAILY PRN PRN Reason: Anxiety Last Admin: 12/06/24 09:13 Dose: 1 mg Documented By: THU Magnesium Hydroxide (Milk Of Magnesia 30 Ml Oral.Susp) 30 ml PO DAILY PRN PRN Reason: Constipation Melatonin (Melatonin 3 Mg Tablet) 6 mg PO BEDTIME PRN PRN Reason: Insomnia Metoprolol Succinate (Metoprolol Succinate Er 50 Mg Tab.Er.24h) 50 mg PO DAILY [facility]; Protocol Last Admin: 12/07/24 08:49 Dose: 50 mg Documented By: PEDRO Morphine Sulfate (Morphine Sulfate 4 Mg/Ml Cartridge) 4 mg IVPUSH Q4H PRN; Protocol PRN Reason: Pain, Severe (Pain Scale 7-10) Ondansetron HCl (Ondansetron Hcl 4 Mg/2 Ml Vial) 4 mg IVPUSH Q8H PRN PRN Reason: Nausea and Vomiting Oxycodone HCl (Oxycodone Hcl Immed Release 5 Mg Tablet) 5 mg PO Q6H PRN PRN Reason: Pain, Moderate(Pain Scale 4-6) Sodium Chloride (0.9 % Sodium Chloride Flush 3 Ml Syringe) 3 ml IVFLUSH QSHIFT [facility] Last Admin: 12/07/24 07:12 Dose: Not Given Documented By: PEDRO Non-Admin Reason: Previously Administered Labs 12/07/24 06:29 12/07/24 06:29 Labs: Laboratory Results - last 24 hr 12/06/24 12/06/24 12/06/24 12:46 17:38 21:16 MCV MCH MCHC RDW Plt Count MPV Absolute Nucleated RBC Nucleated RBC % (auto) Anion Gap Estim Creat Clear Calc Estimated GFR POC Glucose 170 H 165 H 148 H Random Glucose Calcium Total Bilirubin AST ALT Alkaline Phosphatase Total Protein Albumin Lipase Carcinoembryonic Ag 12/07/24 12/07/24 06:29 07:22 MCV 96.0 MCH 31.1 MCHC 32.4 RDW 14.6 Plt Count 141 L MPV 10.2 Absolute Nucleated RBC 0.000 Nucleated RBC % (auto) 0.0 Anion Gap 10 L Estim Creat Clear Calc 77.1 Estimated GFR > 60 POC Glucose 184 H Random Glucose 178 H Calcium 8.6 D Total Bilirubin 0.6 AST 15 ALT 8 Alkaline Phosphatase 59 Total Protein 6.9 Albumin 3.2 L Lipase 108 H Carcinoembryonic Ag 2.40 Microbiology Microbiology Results: Microbiology 12/06/24 05:13 Blood Culture - Preliminary Blood - Venous No growth after 24 hours. 12/05/24 20:20 Blood Culture - Preliminary Blood - Venous No growth after 24 hours. Procedures Date of Service Date of Service: 12/07/24 Progress Note: A&P Assessment and plan (1) Acute pancreatitis: Status: Acute Assessment and Plan: Lipase now down to 150 Clinically looks well Abdomen is soft and benign LFTs normal Has pancreatic mass - further diagnostic workup including tissue biopsy Family at bedside Time Spent With Patient Time: Total time managing care of this patient today ____ minutes. Quality Stroke Does the patient have a stroke diagnosis?: No VTE Prior VTE?: No VTE Risk Level:: Medical - moderate - high VTE Device Contraindication: Treatment Not Indicated VTE Drug Contraindication: N/A - Med Ordered
[2024-12-07 11:30] LABS: Glucose, Whole Blood 168 mg/dL (60-115)
--- NOTE | 2024-12-07 11:59 | P.PNIM_ITS ---
Subjective Subjective Date of Service: 12/08/24 Interval History: Wants to know why her metformin and Eliquis on hold Denies abdominal pain, slept well, no nausea, no vomiting, no fevers, no chills. No acute events overnight Review of Systems All other system reviewed and are negative. Physical Exam 2 Vital Signs: Vital Signs: Last Vital Signs Temp 96.9 F 12/07/24 07:21 Pulse 85 12/07/24 07:21 Resp 18 12/07/24 07:21 BP 150/68 H 12/07/24 07:21 Pulse Ox 96 12/07/24 07:21 O2 Del Method Room Air 12/07/24 07:21 BMI result Body Mass Index 33.1 Const: Other: General: AOx3, no acute distress Anicteric sclera Resp: CTA bilaterally CVS: S1, S2, RRR GI: Nontender, soft, +BS, Skin: Warm, dry, no edema Neuro: Motor grossly intact bilaterally Extremities: No edema Psych: Appropriate affect Objective Data Active Medications Acetaminophen (Acetaminophen 325 Mg Tablet) 650 mg PO Q6H PRN PRN Reason: Pain, Mild 1-3,fever,headache Last Admin: 12/07/24 08:49 Dose: 650 mg Documented By: PEDRO Calcium Carbonate (Calcium Carbonate 750 Mg Tab.Chew) 750 mg PO Q4H PRN PRN Reason: Heartburn Dextrose (Dextrose 50 % 25 Gm/50 Ml Syringe) 25 gm IVPUSH Q15M PRN; Protocol PRN Reason: per Hypoglycemia Standing Ord. Glucose (Glucose Gel 15 Gm Gel..Gram.) 15 gm PO Q15M PRN; Protocol PRN Reason: per Hypoglycemia Standing Ord. Lactated Ringer's (Lr) 1,000 mls @ 100 mls/hr IVCONT .Q10H [facility] Last Admin: 12/07/24 04:14 Dose: 100 mls/hr Documented By: BILL Insulin Human Lispro (Insulin Lispro 100 Unit/Ml 3 Ml Vial) 0 unit SUBCUT QIDACHS [facility]; Protocol Last Admin: 12/07/24 11:35 Dose: 2 unit Documented By: JULIA Lorazepam (Lorazepam 1 Mg Tablet) 1 mg PO DAILY PRN PRN Reason: Anxiety Last Admin: 12/06/24 09:13 Dose: 1 mg Documented By: THU Magnesium Hydroxide (Milk Of Magnesia 30 Ml Oral.Susp) 30 ml PO DAILY PRN PRN Reason: Constipation Melatonin (Melatonin 3 Mg Tablet) 6 mg PO BEDTIME PRN PRN Reason: Insomnia Metoprolol Succinate (Metoprolol Succinate Er 50 Mg Tab.Er.24h) 50 mg PO DAILY [facility]; Protocol Last Admin: 12/07/24 08:49 Dose: 50 mg Documented By: PEDRO Morphine Sulfate (Morphine Sulfate 4 Mg/Ml Cartridge) 4 mg IVPUSH Q4H PRN; Protocol PRN Reason: Pain, Severe (Pain Scale 7-10) Ondansetron HCl (Ondansetron Hcl 4 Mg/2 Ml Vial) 4 mg IVPUSH Q8H PRN PRN Reason: Nausea and Vomiting Oxycodone HCl (Oxycodone Hcl Immed Release 5 Mg Tablet) 5 mg PO Q6H PRN PRN Reason: Pain, Moderate(Pain Scale 4-6) Sodium Chloride (0.9 % Sodium Chloride Flush 3 Ml Syringe) 3 ml IVFLUSH QSHIFT [facility] Last Admin: 12/07/24 07:12 Dose: Not Given Documented By: PEDRO Non-Admin Reason: Previously Administered Labs 12/07/24 06:29 12/07/24 06:29 Labs: Laboratory Results - last 24 hr 12/06/24 12/06/24 12/06/24 12:46 17:38 21:16 MCV MCH MCHC RDW Plt Count MPV Absolute Nucleated RBC Nucleated RBC % (auto) Anion Gap Estim Creat Clear Calc Estimated GFR POC Glucose 170 H 165 H 148 H Random Glucose Calcium Total Bilirubin AST ALT Alkaline Phosphatase Total Protein Albumin Lipase Carcinoembryonic Ag 12/07/24 12/07/24 12/07/24 06:29 07:22 11:23 MCV 96.0 MCH 31.1 MCHC 32.4 RDW 14.6 Plt Count 141 L MPV 10.2 Absolute Nucleated RBC 0.000 Nucleated RBC % (auto) 0.0 Anion Gap 10 L Estim Creat Clear Calc 77.1 Estimated GFR > 60 POC Glucose 184 H 168 H Random Glucose 178 H Calcium 8.6 D Total Bilirubin 0.6 AST 15 ALT 8 Alkaline Phosphatase 59 Total Protein 6.9 Albumin 3.2 L Lipase 108 H Carcinoembryonic Ag 2.40 Microbiology Microbiology Results: Microbiology 12/06/24 05:13 Blood Culture - Preliminary Blood - Venous No growth after 24 hours. 12/05/24 20:20 Blood Culture - Preliminary Blood - Venous No growth after 24 hours. Assessment and Plan (1) Pancreatic mass: Status: Acute (2) Acute pancreatitis: Status: Acute Plan Acute pancreatitis question due to pancreatic mass versus biliary source Abdominal pain resolved, lipase [address] of abdomen and pelvis showing 3.5 cm mass in tail of pancreas, normal LFTs, normal total bili and alk-phos MRCP concerning for acute calculous cholecystitis with questionable choledocholithiasis, 4 on to 3 cm lobulated lesion/mass, tail of pancreas concerning for malignancy, hepatomegaly no alcohol use, triglycerides WNL, normal WBC no fevers, normal LFTs Continue analgesics, and antiemetics Seen by Dr. Blake CEA 2.4 in normal range, CA 19-9 pending Seen by General surgery he recommend further diagnostic workup including tissue biopsy Advance diet to full liquids Patient will need further evaluation with EUS guided biopsy of pancreatic lesion versus percutaneous biopsy by IR as an outpatient after acute pancreatitis resolves Follow BMP, lipase Persistent AFib Continue metoprolol xl 50 mg, hold Eliquis if requires further testing Insulin-dependent type 2 diabetes Continue sliding scale insulin, Hold metformin Anxiety Continue lorazepam Full Code DVT Prophylaxis: Compression boots Pt will require continued inpatient hospitalization for treatment of?acute pancreatitis possibly secondary to pancreatic mass, require IVF, IV analgesics, IV antiemetics, and specialist consultation with GI and further evaluation with MRCP. Quality Stroke Does the patient have a stroke diagnosis?: No VTE Prior VTE?: No VTE Risk Level:: Medical - moderate - high VTE Device Contraindication: Treatment Not Indicated VTE Drug Contraindication: N/A - Med Ordered
[2024-12-07 15:03] VITALS: BP 132/63; PULSE 66; RESP 16; TEMP 36; O2SAT 95
[2024-12-07 17:00] LABS: Glucose, Whole Blood 150 mg/dL (60-115)
[2024-12-07 18:58] VITALS: BP 141/89; PULSE 86; RESP 16; TEMP 36.1; O2SAT 95
[2024-12-07 20:18] LABS: Glucose, Whole Blood 215 mg/dL (60-115)
[2024-12-08 03:49] VITALS: BP 138/70; PULSE 99; RESP 18; TEMP 36.1; O2SAT 94
[2024-12-08 07:14] VITALS: BP 144/65; PULSE 88; RESP 18; TEMP 36.6; O2SAT 92
[2024-12-08 07:26] LABS: Glucose, Whole Blood 160 mg/dL (60-115)
[2024-12-08] MEDS: Insulin Lispro 100 UNIT/ML 3 ML VIAL SUBCUT ×2 (07:43→11:45)
[2024-12-08] MEDS: Metoprolol Succinate ER 50 MG TAB.ER.24H PO (07:44)
[2024-12-08] MEDS: Milk of Magnesia 30 ML ORAL.SUSP PO (07:53)
[2024-12-08] MEDS: Acetaminophen 325 MG TABLET 650 MG PO (07:54)
--- NOTE | 2024-12-08 09:50 | PM.PNGS ---
Subjective Subjective Date of Service: 12/08/24 Physical Exam Vital Signs: Vital Signs: Last Vital Signs Temp 97.8 F 12/08/24 07:14 Pulse 88 12/08/24 07:14 Resp 18 12/08/24 07:14 BP 144/65 H 12/08/24 07:14 Pulse Ox 92 12/08/24 07:14 O2 Del Method Room Air 12/08/24 07:14 BMI result Body Mass Index 33.1 Const: General: comfortable and no acute distress Resp: Effort & Inspection: normal respiratory effort Cardio: Rate: regular rate GI: Palpation (GI): Soft to palpation, not firm, nontender and no guarding Objective Data Active Medications Acetaminophen (Acetaminophen 325 Mg Tablet) 650 mg PO Q6H PRN PRN Reason: Pain, Mild 1-3,fever,headache Last Admin: 12/08/24 07:54 Dose: 650 mg Documented By: JULIA Calcium Carbonate (Calcium Carbonate 750 Mg Tab.Chew) 750 mg PO Q4H PRN PRN Reason: Heartburn Dextrose (Dextrose 50 % 25 Gm/50 Ml Syringe) 25 gm IVPUSH Q15M PRN; Protocol PRN Reason: per Hypoglycemia Standing Ord. Glucose (Glucose Gel 15 Gm Gel..Gram.) 15 gm PO Q15M PRN; Protocol PRN Reason: per Hypoglycemia Standing Ord. Insulin Human Lispro (Insulin Lispro 100 Unit/Ml 3 Ml Vial) 0 unit SUBCUT QIDACHS [facility]; Protocol Last Admin: 12/08/24 07:43 Dose: 2 unit Documented By: JULIA Lorazepam (Lorazepam 1 Mg Tablet) 1 mg PO DAILY PRN PRN Reason: Anxiety Last Admin: 12/06/24 09:13 Dose: 1 mg Documented By: THU Magnesium Hydroxide (Milk Of Magnesia 30 Ml Oral.Susp) 30 ml PO DAILY PRN PRN Reason: Constipation Last Admin: 12/08/24 07:53 Dose: 30 ml Documented By: JULIA Melatonin (Melatonin 3 Mg Tablet) 6 mg PO BEDTIME PRN PRN Reason: Insomnia Metoprolol Succinate (Metoprolol Succinate Er 50 Mg Tab.Er.24h) 50 mg PO DAILY [facility]; Protocol Last Admin: 12/08/24 07:44 Dose: 50 mg Documented By: JULIA Morphine Sulfate (Morphine Sulfate 4 Mg/Ml Cartridge) 4 mg IVPUSH Q4H PRN; Protocol PRN Reason: Pain, Severe (Pain Scale 7-10) Ondansetron HCl (Ondansetron Hcl 4 Mg/2 Ml Vial) 4 mg IVPUSH Q8H PRN PRN Reason: Nausea and Vomiting Oxycodone HCl (Oxycodone Hcl Immed Release 5 Mg Tablet) 5 mg PO Q6H PRN PRN Reason: Pain, Moderate(Pain Scale 4-6) Sodium Chloride (0.9 % Sodium Chloride Flush 3 Ml Syringe) 3 ml IVFLUSH QSHIFT [facility] Last Admin: 12/08/24 07:45 Dose: Not Given Documented By: JULIA Non-Admin Reason: IV Running Labs 12/07/24 06:29 12/07/24 06:29 Labs: Laboratory Results - last 24 hr 12/07/24 12/07/24 12/07/24 11:23 16:57 20:12 POC Glucose 168 H 150 H 215 H 12/08/24 07:17 POC Glucose 160 H Microbiology Microbiology Results: Microbiology 12/06/24 05:13 Blood Culture - Preliminary Blood - Venous No growth after 48 hours. 12/05/24 20:20 Blood Culture - Preliminary Blood - Venous No growth after 48 hours. Procedures Date of Service Date of Service: 12/08/24 Progress Note: A&P Assessment and plan (1) Pancreatic mass: Status: Acute Assessment and Plan: Denies any abdominal pain No tenderness on exam Tolerating full liquids Okay to advance diet as tolerated Lipase much improved We will need tissue diagnosis for pancreatic mass - as per GI, this should be endoscopic ultrasound guided May need to have this done as an outpatient in [facility] Exam remains benign Time Spent With Patient Time: Total time managing care of this patient today ____ minutes. Quality Stroke Does the patient have a stroke diagnosis?: No VTE Prior VTE?: No VTE Risk Level:: Medical - moderate - high VTE Device Contraindication: Treatment Not Indicated VTE Drug Contraindication: N/A - Med Ordered
[2024-12-08 11:36] LABS: Glucose, Whole Blood 202 mg/dL (60-115)
--- NOTE | 2024-12-08 12:38 | P.DS_ITS ---
DS: Providers Provider Date of Service: 12/08/24 Date of admission: 12/06/24 05:51 Date of discharge: 12/08/24 Primary care physician: Ayla Ziegler MD Consults: 12/06/24 05:56 Consult to Gastroenterology Routine Consulting Provider: Rene Blake Reason for consultation: Pancreatitis, pancreatic mass in tail 12/06/24 11:09 Consult to General Surgery Routine Consulting Provider: [facility] General Surgeons Reason for consultation: cholecystitis/choledocholithiasis Has provider been notified: No DS: Diagnosis Discharge Diagnosis (1) Pancreatic mass: Status: Acute (2) Acute pancreatitis: Status: Acute DS: Summary Hospital Course Hospital Course: History of presenting illness: Date of Service: 12/06/24 Attending physician on admission: [facility] Chief Complaint: Abdominal pain Pt is a 74-year-old female with a PMH significant for?persistent AFib on Eliquis s/p failed cardioversions in 2017 and 2020, [id number] type 2 diabetes, HTN, and anxiety who presents to the ED with?sudden-onset central abdominal pain since yesterday mid afternoon. Pt describes pain as constant, sharp and stabbing with no alleviating or relieving factors. Pt has not felt similar symptoms before. Has had nausea but no vomiting, as well as chills but no fever. Pt reports has not eaten anything since night prior to symptom onset. Pt denies alcohol use. No chest pain/pressure, palpitations. Denies shortness or breath or difficulty breathing. Pt reports pain currently well-controlled current analgesics. In the ED pt was tachycardic up to 101 and soft BP as low as 119/45. Labs were significant for lipase 1522, otherwise grossly unremarkable and around baseline for pt. No leukocytosis. Stable H&H. No significant electrolyte abnormalities. Renal function baseline. Lactic acid WNL. Hepatic function WNL. Triglycerides WNL at 97. UA negative for UTI. Tested negative for flu, COVID, RSV. CT?of abdomen showed 3.5 cm mass in the tail of pancreas that could be benign but carcinoma not excluded. Also found possible cholelithiasis without evidence of acute cholecystitis, as well as hepatomegaly and hepatic steatosis. Pt was treated with morphine, ondansetron, and IVF. Pt will be admitted to the hospital for treatment and further evaluation of acute pancreatitis. Hospital course: Acute pancreatitis question due to pancreatic mass versus biliary source, lipase 1522 ,CT of abdomen and pelvis showing 3.5 cm mass in tail of pancreas, normal LFTs, normal total bili and alk-phos,MRCP concerning for acute calculous cholecystitis with questionable choledocholithiasis, 4 to 3 cm lobulated lesion/mass, tail of pancreas concerning for malignancy, hepatomegaly, no alcohol use, triglycerides WNL, normal WBC no fevers, normal LFTs, patient admitted to medical floor treated with analgesics IV fluid and antiemetics, seen by wide load escort Dr. Blake ,CEA 2.4 in normal range, CA 19-9 pending, General surgery recommended further diagnostic workup including tissue biopsy, patient diet was gradually advanced, lipase improved to 108, acute pancreatitis resolved , since patient is hemodynamically stable she has been discharged home with recommendation for outpatient follow-up with oncologist Dr. Novoa for EUS guided biopsy of pancreatic lesion versus percutaneous biopsy by IR as an outpatient Persistent AFib Continue metoprolol xl 50 mg, and Eliquis Insulin-dependent type 2 diabetes Continue metformin Anxiety Continue lorazepam Time Attestation Discharge Coordination Time (in mins): 40 Quality: Safe Use of Opioids Does Pt have an Active Cancer Diagnosis on the Problem List?: No Quality: Stroke Does the patient have a stroke diagnosis?: No Physical Exam Vital Signs: Vital Signs: Last Vital Signs Temp 97.8 F 12/08/24 07:14 Pulse 88 12/08/24 07:14 Resp 18 12/08/24 07:14 BP 144/65 H 12/08/24 07:14 Pulse Ox 92 12/08/24 07:14 O2 Del Method Room Air 12/08/24 07:14 BMI result Body Mass Index 33.1 Const: Other: General: AOx3, no acute distress Anicteric sclera Resp: CTA bilaterally CVS: S1, S2, RRR GI: Nontender, soft, +BS, Skin: Warm, dry, no edema Neuro: Motor grossly intact bilaterally Extremities: No edema Psych: Appropriate affect DS: Data Data Completed and Pending Labs on day of discharge: Laboratory Results - last 24 hr 12/07/24 12/07/24 12/08/24 16:57 20:12 07:17 POC Glucose 150 H 215 H 160 H 12/08/24 11:30 POC Glucose 202 H Preliminary micro results at discharge 12/06/24 05:13 Blood Culture - Preliminary Blood - Venous No growth after 48 hours. 12/05/24 20:20 Blood Culture - Preliminary Blood - Venous No growth after 48 hours. Discharge Plan Discharge Anticipated Discharge Date/Time: 12/08/24 12:30 Patient Disposition: Home, Self-Care Discharge Diagnosis: Acute pancreatitis Pancreatic mass Referrals: Ayla Ziegler MD [Primary Care Provider] - 1 Week Discharge Medications: Continued Eliquis 5 mg tablet 5 mg PO BID 30 Days Qty: 60 1RF metoprolol succinate 50 mg tablet extended release 24 hr 50 mg PO DAILY Qty: 90 3RF metformin 1,000 mg tablet 1,000 mg PO BID lorazepam 1 mg tablet 1 mg PO DAILY PRN (Reason: Anxiety) Discharge Orders: Discharge Order (Routine); Ordered 12/08/24 Ordered By: Fletcher Vinson Diet: Diabetic diet Activity on Discharge: As tolerated Stand Alone Forms: Patient Portal Discharge page Print Language: Vietnamese Care Plan Goals: Acute pancreatitis resolved Pancreatic mass needs further workup including biopsy need follow-up with Dr. Novoa Take low-fat diet Continue all home medications as before. Health Concerns: Diabetes mellitus follow diabetic diet Plan of Treatment: Outpatient follow-up with Dr. Annabella Novoa [facility] Oncology dept for follow-up appointment on pancreatic mass Assessment: As above Discharge Date/Time: 12/08/24 13:24
--- NOTE | 2024-12-08 13:48 | MHC.CM.PN ---
PT CLEARED TO DC HOME TODAY WITH NO SERVICES VIA PRIVATE TRANSPORT
[2024-12-10 09:04] LABS: Carbohydrate Antigen 19-9 30 U/mL (<34)
== END 2024-12-08 13:24 | disposition home or self-care (01) | DRG 439 ==
LOC: HO.ED 12-06 03:22 → HO.EDOVER 12-06 06:02 → HO.S3 12-07 01:05
PROVIDERS: Internal Medicine Gastroenterology; Registered Nurse Emergency; Admitting Provider Student in an Organized Health Care Education/Training Program; Emergency Provider Emergency Medicine Emergency Medical Services; PCP Student in an Organized Health Care Education/Training Program; Visit Provider Hospitalist
DX: K85.90 Acute pancreatitis without necrosis or infection, unspecified (principal); C25.2 Malignant neoplasm of tail of pancreas; I48.19 Other persistent atrial fibrillation; K80.42 Calculus of bile duct with acute cholecystitis without obstruction; F41.9 Anxiety disorder, unspecified; Z20.822 Contact with and (suspected) exposure to COVID-19; F40.240 Claustrophobia; Z87.891 Personal history of nicotine dependence; Z79.01 Long term (current) use of anticoagulants; Z79.84 Long term (current) use of oral hypoglycemic drugs; Z79.899 Other long term (current) drug therapy
CPT/HCPCS: 0241U; 36415; 74177; 74181; 80053; 81003; 82378; 82947; 83605; 83690; 83735; 84478; 84484; 85025; 85027; 85610; 86301; 87040; 93005; 99285; J2060; J2270; J2405; J7120; Q9967

== ENCOUNTER → 2024-12-05 20:08 | Outpatient (BNV) | payer MEDICARE, MEDICAID, SELFPAY | PROVIDERS: Admitting Provider Student in an Organized Health Care Education/Training Program; Emergency Provider Emergency Medicine Emergency Medical Services; PCP Student in an Organized Health Care Education/Training Program; Visit Provider Internal Medicine | DX: R06.02 Shortness of breath (principal); I48.91 Unspecified atrial fibrillation; R94.31 Abnormal electrocardiogram [ECG] [EKG] | CPT/HCPCS: 93010 ==

== ENCOUNTER → 2024-12-06 03:01 | Outpatient (BNV) | payer MEDICARE, MEDICAID, SELFPAY | PROVIDERS: Emergency Provider Emergency Medicine Emergency Medical Services; PCP Student in an Organized Health Care Education/Training Program; Visit Provider Specialist | DX: K86.89 Other specified diseases of pancreas (principal); R16.0 Hepatomegaly, not elsewhere classified; N28.1 Cyst of kidney, acquired; D35.02 Benign neoplasm of left adrenal gland | CPT/HCPCS: 74181 ==

== ENCOUNTER → 2024-12-06 05:51 | Outpatient (BNV) | payer MEDICARE, MEDICAID, SELFPAY | PROVIDERS: Admitting Provider Student in an Organized Health Care Education/Training Program; Emergency Provider Emergency Medicine Emergency Medical Services; PCP Student in an Organized Health Care Education/Training Program; Visit Provider Surgery | DX: K85.90 Acute pancreatitis without necrosis or infection, unspecified (principal) | CPT/HCPCS: 99222; 99232 ==

== ENCOUNTER → 2024-12-06 05:51 | Outpatient (BNV) | payer MEDICARE, MEDICAID, SELFPAY | PROVIDERS: Admitting Provider Student in an Organized Health Care Education/Training Program; Emergency Provider Emergency Medicine Emergency Medical Services; PCP Student in an Organized Health Care Education/Training Program; Visit Provider Internal Medicine Gastroenterology | DX: K86.89 Other specified diseases of pancreas (principal); K85.90 Acute pancreatitis without necrosis or infection, unspecified | CPT/HCPCS: 99222 ==

== ENCOUNTER → 2024-12-06 05:51 | Outpatient (BNV) | payer MEDICARE, MEDICAID, SELFPAY | PROVIDERS: Admitting Provider Student in an Organized Health Care Education/Training Program; Emergency Provider Emergency Medicine Emergency Medical Services; PCP Student in an Organized Health Care Education/Training Program; Visit Provider Hospitalist | DX: K86.89 Other specified diseases of pancreas (principal); K85.90 Acute pancreatitis without necrosis or infection, unspecified | CPT/HCPCS: 99239; 99499 ==

== ENCOUNTER → 2024-12-20 09:43 | Outpatient (BNV) | payer MEDICARE, SELFPAY | PROVIDERS: PCP Student in an Organized Health Care Education/Training Program; Visit Provider Internal Medicine | DX: K86.89 Other specified diseases of pancreas (principal) | CPT/HCPCS: 99204 ==

== ENCOUNTER 2024-12-24 11:46 | Outpatient (AMB) | payer MEDICARE, SELFPAY ==
--- NOTE | 2024-12-24 11:48 | MHC.OFFVIS ---
Vital Signs 12/24/24 11:54 Height 5 ft 5 in Weight 199 lb BMI 33.1 BP 142/78 H Blood Pressure Location Lt brachial Position Sitting Pulse 82 Intake Visit Reasons: AFTER HOSPITAL Intake Note: Patient new consult after hospitalization for Acute pancreatitis. Patient cc: abdominal bloating with pressure/discomfort, and between diarrhea and constipation. Denies any other GI issues for today Police Patrol Officer Required: No Accompanied by: Self / Same As Patient Allergies Tetanus Vaccines and Toxoid [TETANUS VACCINES AND TOXOID] Allergy (Unknown, Verified 12/24/24 11:47) HIVES Medication List - Last Reconciled 12/24/24 by Rene Blake MD apixaban (Eliquis) 5 mg PO BID 30 days lorazepam 1 mg PO DAILY PRN metformin 1,000 mg PO BID metoprolol succinate ER 50 mg PO DAILY HPI HPI AFTER HOSPITAL: Details: GI clinic visit for this 74 YF with AFib on Eliquis s/p failed cardioversions in 2017 and 2020, NIDDM, HTN, and anxiety see for FU after hospitalization for acute pancreatitis. TODAY'S VISIT: Pt is accompanied by her sister. Her niece (sister's daughter) participitated in the interview by phone. Continues to have abdominal pressure. Trying to eat and does not know what to eat. Diagnosed with DM x 10 yrs ago. Patient denies symptoms of heartburn, dysphagia, nausea, vomiting, change in appetite or weight. Complains of constipation - no BM for a few days and then can have watery stools. Pt notes abd bloating and admits to intermittent bulky/oily stools Not taking any medication for constipation. Denies recent change in bowel habits, black stools or rectal bleeding. Patient denies major cardiac or pulmonary problems, Has bodreline sleep apnea Denies problems with anesthesia in the past. On Eliquis for AF. [place] [facility] [place] She denies ant change in her appetite or weight. Pt denies smoking or ETOH abuse. 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 Family hx is positive for colon polyps in a sister and a brother with prostate cancer. Pt denies known FH of pancreatic or colon cancer. PAST EGD/COLONOSCOPY: Denies having an EGD or colon in the past LABS IN [facility] : Reviewed IMAGING STUDIES: 12/06/[address] SCAN SHOWED: 1. 3.5 cm somewhat heterogeneous mass in the tail of the pancreas. This could be benign but pancreatic carcinoma not excluded. Further clinical evaluation recommended. 2. Possible cholelithiasis with no CT evidence of acute cholecystitis. 3. Hepatomegaly and hepatic steatosis. 4. Additional nonacute findings as described. 12/06/24 ABD MRI SHOWED: Concerning acute calculus cholecystitis with questionable choledocholithiasis. 4 x 3 cm lobulated lesion/mass, tail of the pancreas. Concerning for malignancy. Bilateral renal cysts. Hepatomegaly. PAST GI HISTORY BY REVIEW OF MEDICAL RECORDS: 12/06/24 PT WAS SEEN DURING HOSPITALIZATION AT [facility] [place] 74 YF with AFib on Eliquis s/p failed cardioversions in 2017 and 2020, NIDDM, HTN, and anxiety admitted to [facility] on 12/06/24 with?upper abdominal and periumblical pain and nausea x 1 day. Pt described the pain as 8/10, constant, sharp and stabbing radiating to the back with no alleviating or relieving factors. Pt has not felt similar symptoms before. Pt complained of chills and nausea without vomiting. Pt reported has not eaten anything since night prior to symptom onset. Pt denied chest pain/pressure, palpitations, shortness or breath or difficulty breathing. Pt reports pain has decreased to 2/10 and well-controlled current analgesics. Pt also notes a change in bowel habits with constipation x 3 days followed by diarrhea for the past 3 weeks. Pt denies smoking or ETOH abuse. In the ED pt was tachycardic up to 101 and soft BP as low as 119/45. Labs showed lipase 1522, otherwise grossly unremarkable and around baseline for pt. No leukocytosis. Stable H&H. No significant electrolyte abnormalities. Renal function baseline. Lactic acid WNL. Hepatic function WNL. Triglycerides WNL at 97. Patient denies known family history of colon polyps, colon cancer or other GI malignancies. Acute pancreatitis likey biliary etiology versus related to pancreatic mass. RECOMMENDATIONS: 1. Agree with IV pain medications and antiemetics 2. Check CEA and CA 19-9 and lipase - added to am labs 3. Clear liquid diet and advance diet as tolerated. 4. Oncology consult. 5. Pt will need further evaluation with EUS guided biopsy of pancreatic lesion versus percutaneous bx by IR as an outpatient after acute pancreatitis resolves [facility], [facility] Medical History HTN (hypertension) Smoker ARMOND (obstructive sleep apnea) Diabetes HLD (hyperlipidemia) Persistent atrial fibrillation Surgical History History of bilateral breast reduction surgery History of appendectomy History of oophorectomy Family History Father Myocardial infarction Mother Arthritis Sister No problems noted. Sister No problems noted. Sister No problems noted. Brother No problems noted. Sister No problems noted. Brother No problems noted. Son No problems noted. Son No problems noted. 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 Gender identity: Female Review of Systems Const Denies fever(s), Denies headache(s) and Denies weight loss Eyes Denies eye discharge and Denies irritation ENT Reports Normal hearing present, Denies dysphagia, Denies dizziness and Denies headache(s) Card Denies chest pain, Denies leg edema, Denies dyspnea on exertion and Reports other (Abnormal heart rhythm, palpitations) Resp Denies cough, Denies dyspnea on exertion and Denies wheezing GI Denies abdominal pain, Reports bloating, Denies change in bowel habits, Reports constipation, Denies dysphagia, Reports early satiety, Denies heartburn and Reports diarrhea Denies difficulty voiding and Denies dysuria Musc Denies back pain, Reports arthralgias and Reports other (Arthritis) Skin/Breast Denies pruritus, Denies rash and Denies jaundice Neuro Reports Normal hearing present, Denies Abnormal speech present, Denies dizziness, Denies headache(s) and Denies seizure-like activity Psych Reports anxiety, Denies depression and Denies panic attacks Endo Denies cold intolerance, Denies flushing and Denies heat intolerance Nahun/Lymph Denies easy bleeding and Denies easy bruising Aller/Immun Denies wheezing Physical Exam Vital Signs: Last Vital Signs Pulse 82 12/24/24 11:54 BP 142/78 H 12/24/24 11:54 BMI result Body Mass Index 33.1 Const General: healthy appearing and no acute distress Nutritional Appearance: obese Orientation/consciousness: patient oriented x3 Limitations: no limitations HEENT Head: Yes normal to inspection Ears: hearing grossly normal bilaterally Mouth: Normal oral and palatal mucosa present Eyes Sclerae: sclerae normal Pupils: Equal, round and reactive pupils present Neck Neck: Yes normal visual inspection Chest Chest palpation & inspection: normal inspection of the chest Resp Effort & Inspection: normal respiratory effort Auscultation: clear to auscultation bilaterally Cardio Palpation: normal PMI Rate: regular rate Rhythm: regular rhythm Heart sounds: S1 normal heart sound present, S2 normal heart sound present and no murmurs GI Palpation (GI): Soft to palpation, nontender and No hepatosplenomegaly present Auscultation: normal bowel sounds Rectal Exam - Female: deferred Skin General skin exam: no rashes or lesions noted Neuro General: patient oriented x3, gait normal and moves all extremities Cranial nerves: Yes Equal, round and reactive pupils present and Yes Normal hearing present Speech: No Abnormal speech present Psych Appearance: grossly normal Mental Status: mental status grossly normal Assessment & Plan Assessment & Plan (1) Acute pancreatitis: Code(s): K85.90 - Acute pancreatitis without necrosis or infection, unspecified Category: Medical Qualifiers: Acute pancreatitis complication: no infection or necrosis Pancreatitis type: unspecified pancreatitis type Qualified Code(s): K85.90 - Acute pancreatitis without necrosis or infection, unspecified Plan 74 YF with AFib on Eliquis s/p failed cardioversions in 2017 and 2020, NIDDM, HTN, and anxiety hospitalized at [facility] 12/06 to 12/08/24 with?upper abdominal and periumblical pain and nausea x 1 day. Labs showed lipase 1522, otherwise grossly unremarkable and around baseline for pt. No leukocytosis. Stable H&H. No significant electrolyte abnormalities. Renal function baseline. Lactic acid WNL. Hepatic function WNL. Triglycerides WNL at 97. Acute pancreatitis likey biliary etiology versus related to pancreatic mass. CEA and CA 19-9 were normal Pt is scheduled EUS guided [place] pancreatic [place] [facility] [place] Pt inquired about management of gallstones. She was advised to wait till biopsy results are available. If she needs pancreatic resection, can check with the surgeon if it is feasible to perform Lap Trupti on the same day Stool for pancreatic elastase to rule out pancreatic insufficiency. 12/20/[address] REID IN ONCOLOGY: This is a 74-year-old woman with past medical history significant for NIDDM, atrial fibrillation on Eliquis who has been diagnosed with acute pancreatitis in November 2024 and was noted to have mass in tail of pancreas. CT abdomen with contrast and subsequent MRI abdomen performed 12/06/2024 revealed a 4 x 3 cm lobulated mass in the tail of pancreas concerning for malignancy. There was no suspicious lymphadenopathy. I discussed further evaluation with EUS/biopsy, she is being referred to [facility] for this. If proven to be malignant, staging with PET scan will be ordered and referral to surgeon if she is a surgical candidate and does not have metastatic disease. FU in 3 months Orders: Orders Pancreatic Elastase-1 Today K85.90 - Acute pancreatitis without necrosis or infection, unspecified Medications: New polyethylene glycol 3350 (Miralax) 17 grams PO DAILY 30 days 510 grams 3RF K59.09 - Other constipation Coding Level of Care Code Est Pt Level 4 (67468) Diagnoses Acute pancreatitis without infection or necrosis, unspecified pancreatitis type K85.90 Acute pancreatitis complication: no infection or necrosis Pancreatitis type: unspecified pancreatitis type Time Spent (min) 23
[2024-12-24 11:54] VITALS: BP 142/78; PULSE 82; BMI 33.1
--- OUTSIDE RECORDS SUMMARY | 2024-12-24 14:31 | XMS_ITS | Encounter Summary ---
Author Organization [employer] Address [address] [place] [address] 7 [place] [address] Care Team Providers Care Go Go Dancer Name Role Phone Ayla Ziegler MD Primary Care Provider [phone] Reason for Referral * Consultation (STAT) - Closed Specialty Diagnoses / Procedures Referred By Contoscar t Referred To Contact Gastroenterology Diagnoses Pancreatic mass Ayla Ziegler MD [address] [place] [address] Phone: tel: fax: Rene Blake MD [address] [place] [address] Phone: tel: fax: Referral ID Status Reason Start Date Expiration Date V isits Requested Visits Authorized [id number] Closed Specialty Services Required 12/06/2024 12/06/2025 1 1 Encounter Details Date Type Department Care Team (Late st Contact Info) Description 12/06/2024 Orders Only [facility] [address] [place], [place] [id number] Ayla Ziegler MD [address] [place] [address] Pancreatic mass (Primary Dx) Social History Tobacco Use Types [...] Order Schedule Referral to Gastroenterology Outpatient Referral STAT Pancreatic mass Expected: 12/06/2024 (Approximate), Expires: 12/06/2025 documented as of this encounter Visit Diagnoses Diagnosis Pancreatic mass- Primary Unspecified disease of pancreas documented in this encounter Additional Health Concerns Assessment Noted Time PHQ-9 Depression Total Score: 0 04/24/20 23 11:11 AM EDT documented as of this encounter Care Teams Go Go Dancer Relationship Specialty Start Date End Date Ayla Ziegler MD [address] [place] [id number] PCP - General Family Medicine 11/14/13 documented as of this encounter
--- OUTSIDE RECORDS SUMMARY | 2024-12-24 14:31 | XMS_ITS | Encounter Summary ---
Author Organization [employer] Address [address] [facility] [address] [place] [address] Care Team Providers Care Car Restorer Name Role Phone Ayla Ziegler MD Primary Care Provider Reason for Visit * Reason Onset Date Comments Hospital Follow-up 12/12/2024 Encounter Details Date Type Department Care Team ([facility] st Contact Info) Description 12/12/2024 Telephone [facility] [address] [place] [address] Ayla Ziegler MD [address] [place], [place] [phone] Hospital Follow-up Social History Tobacco Use Types Packs/Day Years [...] encounter Miscellaneous Notes * Telephone Encounter - Norma Ash - 12/12/2024 9:40 AM EST Tc from pt son requesting a HDF appt. [place] [facility] [place]: [place]/06 Discharge date: 12/08 Diagnosed: Pancreatic mass (acute), Acute Pancreatitis. *Send message to [facility] Care Coordinators [phone] documented in this encounter Plan of Treatment Not on file documented as of this encounter Visit Diagnoses Not on filedocumented in this encounter Additional Health Concerns Assessment Noted Time PHQ-9 Depression Total Score: 0 04/24/20 23 11:11 AM EDT documented as of this encounter Care Teams Car Restorer Relationship Specialty Start Date End Date Ayla Ziegler MD [address] [place] [id number] PCP - General Family Medicine 11/14/13 documented as of this encounter
--- OUTSIDE RECORDS SUMMARY | 2024-12-24 14:31 | XMS_ITS | Encounter Summary ---
Author Organization [employer] Address [address] [facility] [address] [address] [place] [address] Care Team Providers Care Assistant Plant Control Operator Name Role Phone Ayla Ziegler MD Primary Care Provider [phone] Encounter Details Date Type Department Care Team ([facility] st Contact Info) Description 12/07/2024 Orders Only [facility] [address] [place] [address] ProviderSybil MD Social History Tobacco Use Types Packs/Day Years [...] on file documented as of this encounter Procedures Procedure Name Priority Date/Time Associated Diagnosis Comments DIABETES EYE EXAM Routine 02/28/2024 7:24 PM EDT documented in this encounter Results * Diabetes Eye Exam (02/28/2024 7:24 PM EDT) Historical Provider HEALTH MAINTENANCE Final Result documented in this encounter Visit Diagnoses Not on filedocumented in this encounter Additional Health Concerns Assessment Noted Time PHQ-9 Depression Total Score: 0 04/24/20 23 11:11 AM EDT documented as of this encounter Care Teams Assistant Plant Control Operator Relationship Specialty Start Date End Date Ayla Ziegler MD [address] [place] [id number] PCP - General Family Medicine 11/14/13 documented as of this encounter
--- OUTSIDE RECORDS SUMMARY | 2024-12-24 14:31 | XMS_ITS | Encounter Summary ---
Author Organization [employer] Address [address] [place] [address] 7 [place] [address] Care Team Providers Care Sugarcane Planter Name Role Phone Ayla Ziegler MD Primary Care Provider Reason for Visit * Reason Comments Transition Of Care (Tcm) HDF- LVM Encounter Details Date Type Department Care Team ([facility] st Contact Info) Description 12/12/2024 Patient Outreach [facility] [address] [place] [address] Ayla Ziegler MD [address] [place] [address] Transition Of Care (Tcm) (HDF- LVM ) Social History Tobacco Use Types Packs/Day Years [...] as of this encounter Miscellaneous Notes * Significant Event - Belle Maya - 12/12/2024 10:10 AM EST 12/12/24 1009 Hospital Discharges and Ad[facility] for [facility] Type of Visit Hospital Admission Date of Admission/Visit 12/06/24 Date of Discharge 12/08/24 Facility [facility] Diagnosis Pancreatic mass (acute), Acute Pancreatitis. Disposition Discharged Home Follow-Up Actions Follow-Up Needed Provider appointment Follow-Up Outcome Left Voicemail Initial Contact Date 12/12/24 CC Belle Patterson placed outbound call to patient for HDF outreach. CC placing call to offer patient with an HDF appointment with provider. No answer at this time. Patient's name and were not confirmed. CC left detailed message educating patient on importance of following up with provider followingan inpatient admission. Provided contact information requesting a call back in order to schedule the HDF appointment. Patient educated via voicemail on extended clinic hours on Mondays and Wednesdays, and Walk-In Urgent Care Located in [facility]. Patient provided with after-hours line for [facility], , which offer night time triage service and option to transfer to salesperson corsets provider if needed. CC will request Discharge summaries to scan into chart. CC will place additional outreach call within 2-5 business days. documented in this encounter Plan of Treatment Not on file documented as of this encounter Visit Diagnoses Not on filedocumented in this encounter Additional Health Concerns Assessment Noted Time PHQ-9 Depression Total Score: 0 04/24/20 23 11:11 AM EDT documented as of this encounter Care Teams Sugarcane Planter Relationship Specialty Start Date End Date Ayla Ziegler MD [address] [place] [address] PCP - General Family Medicine 11/14/13 documented as of this encounter
--- OUTSIDE RECORDS SUMMARY | 2024-12-24 14:31 | XMS_ITS | Encounter Summary ---
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 st Contact Info) Description 12/06/2024 Telephone [facility] [address] [place] [address] Ayla Ziegler MD [address] [place], [place] [phone] Social History Tobacco Use Types Packs/Day Years [...] encounter Miscellaneous Notes * Telephone Encounter - Kaykay Payne RN - 12/06/2024 1:42 PM EST PCP aware, pt is currently admitted to [facility] for pancreatitis. * Telephone Encounter - Kaykay Pyane RN - 12/06/2024 1:42 PM EST ----- Message from Ayla Ziegler MD sent at 12/06/2024 10:46 AM EST ----- Tried to call pt .MRCP reviewed.Shows pancreatic mass.STAT referral made to GI documented in this encounter Plan of Treatment Not on file documented as of this encounter Visit Diagnoses Not on filedocumented in this encounter Additional Health Concerns Assessment Noted Time PHQ-9 Depression Total Score: 0 04/24/20 23 11:11 AM EDT documented as of this encounter Care Teams Gas Plant Repairer Relationship Specialty Start Date End Date Ayla Ziegler MD [address] [place] [id number] PCP - General Family Medicine 11/14/13 documented as of this encounter
--- OUTSIDE RECORDS SUMMARY | 2024-12-24 14:32 | XMS_ITS | Clinical Summary ---
Author Organization [employer] Address [address] [place] [address] [address] [place] [address] Care Team Providers Care Per Diem Nurse Name Role Phone Ayla Ziegler MD Primary Care Provider Allergies Active Allergy Reactions Criticality Noted Date Comments Omeprazole 12/02/2010 Other reaction(s): unspecified Tetanus Toxoid 04/24/2023 Other reaction(s): fever, vomiting Medications metoprolol succinate XL (Toprol-XL) 50 MG 24 hr tablet 3 Active D3-1000 25 MCG (1000 UT) capsule TAKE 1 CAPSULE BY MOUTH IN THE MORNING 90 capsule 3 4 Active Eliquis 5 MG tablet TAKE ONE TABLET EVERY TWELVE HOURS 180 tablet 1 4 Active metFORMIN (Glucophage) 1000 MG tablet Take 1 tablet (1,000 mg) by mouth with breakfast and with evening meal. 60 tablet 11 5 11/19/19 26 Active LORazepam (Ativan) 1 MG tabletIndicatio ns:Anxiety Take 1 tablet (1 mg) by mouth if needed at bedtime for anxiety. 10 tablet 5 Active Active Problems Problem Noted Date Diagnosed Date Chronic atrial fibrillation 05/28/2024 Overview (05/28/2024): on eliquis Abdominal aortic aneurysm (AAA) 04/24/2023 Essential hypertension 12/13/2011 Diabetes mellitus 12/13/2011 Obesity 12/13/2011 Pure hypercholesterolemia 11/10/2011 Tobacco dependence syndrome 10/26/2011 Migraine 10/26/2011 Acute pharyngitis 05/18/2011 Encounters Date Type Department Care Team Description 12/12/2024 Patient Outreach [facility] [address] [place] [address] Ayla Ziegler MD Transition Of Care (Tcm) (HDF- LVM ) 12/12/2024 Telephone [facility] MED[facility] [address] [place] [phone] Ayla Ziegler MD Hospital Follow-up 12/07/2024 Orders Only [facility] [address] [place] [address] ProviderSybil MD 12/06/2024 Telephone [facility] PEDIATRICS [address] [place] [phone] Ayla Ziegler MD 12/06/2024 Orders Only [facility] [address] [place] [address] Ayla Ziegler MD Pancreatic mass (Primary Dx) 12/05/2024 Telephone [facility] [address] [place] [address] Rashmi Nazario, RN Results 12/05/2024 Orders Only [facility] [address] [place] [address] Ayla Ziegler MD Encounter for screening for malignant neoplasm of colon (Primary Dx) 11/20/2024 Refill [facility] [address] [place] [address] Ayla Ziegler MD Anxiety 11/19/2024 8:30 AM EST Office Visit [facility] [address] [place] [address] Ayla Ziegler MD Essential hypertension (Primary Dx); Type 2 diabetes mellitus without complication, without long-term current use of insulin (CMS/HCC); Encounter for screening mammogram for breast cancer; Encounter for screening for malignant neoplasm of colon 11/19/2024 Travel 11/18/2024 Telephone [facility] [address] [facility] [address] Ayla Ziegler MD chart prep 11/11/2024 Telephone [facility] [address] [place] [address] Ayla Ziegler MD 1/27/25 Provider out 10/25/2024 Telephone [facility] [address] [place] [address] Ayla Ziegler MD Appointment Request 10/02/2024 Refill [facility] [address] [place] [phone] Ayla Ziegler MD Anxiety 09/25/2024 Refill [facility] [address] [place] [address] Ayla Ziegler MD from Last 3 Months [...] is your housing situation today? I have josephineabena alberts 08/09/[address] you [...] 1950 FIT 1950 FOBT 1950 Sigmoidoscopy 1950 Alcohol/Substance Use Screening 1962 Hepatitis C Screening 1968 Zoster Vaccines (1 of 2) 2000 RSV [...] Additional history exists Tobacco Screening 11/19/2025 11/19/2024 Eye Exam 02/27/2026 02/28/2024 Colorectal Cancer Screening 11/28/2027 FIT DNA/Cologuard 11/28/2027 [...] Procedure Name Priority Date/Time Associated Diagnosis Comments MR MRCP Routine 12/06/2024 9:42 AM EST URINALYSIS WITH REFLEX MICROSCOPIC Routine 12/06/2024 5:13 AM EST Encounter for screening for malignant neoplasm of colon CT ABDOMEN PELVIS W CONTRAST Routine 12/06/2024 4:29 AM EST LAB COLOGUARD?? COLON CANCER SCREEN Routine 11/28/2024 [...] without long-term current use of insulin (CMS/HCC) HM DIABETES EYE EXAM Routine 02/28/2024 7:24 PM EDT BI MAMMOGRAM SCREENING TOMOSYNTHESIS BILATERAL Routine 09/28/2022 11:02 AM EST from Last 3 Months or Most Recently Relevant to Health Maintenance Results * MR MRCP (12/06/2024 9:42 AM EST) Anatomical Region Laterality Modality Lower Extremities Left Magnetic Reson ance 12/06/2024 9:42 AM EST Narrative 12/06/2024 10:31 AM EST ? [facility] ?[address] ?[place] [address] ? Magnetic Resonance Report ? Signed ? Patient: Ced,Saumya L ?MR#: [id number] ?? [id number] ? : 1950 ?Acct:[id number] ? Age/Sex: 74 / F ?ADM Date: 12/06/24 ? Loc: HO.[place] ?MEDSURG-8 ? Attending Dr: Fltecher Vinson MD ? Ordering Physician: Jersey Cerda ?? Date of Service: 12/06/24 ?? Procedure(s): MR MRCP ?? Accession Number(s): [id number] ? cc: Jersey Cerda; Ayla Ziegler MD ? EXAMINATION: ?? MRCP. ? CLINICAL INFORMATION: ?? Pancreatic mass. ? COMPARISON: ?? Correlated to CT dated December 06, 2024. ? TECHNIQUE: ?? Axial and coronal T2 HASTE sequences. ?? Axial and coronal T2 fat sat HASTE. ?? Coronal oblique T2 fat-sat single slice. ?? MRCP radial T2 fat sat. ?? 3-D SPACE MRCP TRIGGERED. ?? Axial in and out of phase 3-D. ?? Axial T1 VIBE fat sat. ? FINDINGS: ? Limited by patient's motion artifact and the lack of IV contrast. ?? Liver measures 20 cm. No focal lesion. The portal veins, hepatic veins ?? and intrahepatic portion of the IVC demonstrated normal flow void ?? signal. ? Gallbladder is fluid-filled prominent with multiple layering small less ?? than 5 mm intraluminal calculi. There is a 4 mm erythematous ?? gallbladder wall. ?? The common bile duct measures 6 mm with an abrupt cut off in the distal ?? segment. ? There is a lobulated 4 x 3 cm isointense T1 and T2 lesion centered in ?? the tail of the pancreas. ?? There is no main pancreatic ductal dilatation. ?? No peripancreatic fluid collection. ? Spleen measures 11 cm. ? No nodular lesions in the right adrenal gland. ?? There is a 1 cm isointense T2 nodular lesion in the left adrenal gland ?? with a drop-off signal from the in-phase into the out of phase ?? sequences. ? Kidneys demonstrate multifocal exophytic cystic lesions, the largest in ?? the left kidney measures 3.5 cm and the largest in the right kidney ?? measures 1.5 cm. ?? No hydronephrosis in either kidney. ?? Renal cortical thinning bilaterally with the subcentimeter cystic ?? lesion in the parapelvic region. ? No gross lymphadenopathy in the retroperitoneum. ? No ascites. ?? No intestinal obstruction pattern. ?? No aneurysm in the abdominal aorta. ?? Small volume hiatal hernia. ? MR/MR MRCP ?? IMPRESSION: ? Concerning acute calculus cholecystitis with questionable ?? choledocholithiasis. ? 4 x 3 cm lobulated lesion/mass, tail of the pancreas. Concerning for ?? malignancy. ? Bilateral renal cysts. ? Hepatomegaly. ? Lipid rich adenoma, left adrenal gland. ? Electronically signed by: ??Ariel Ruiz MD ??12/06/2024 10:28 AM ?? EST ? Dictated By: ?Ariel Roger MD ? Signed By: ?<Electronically signed by Ariel Gallegos MD in OV> ? 12/06/24 1028 ? DD/ 0942 ? TD/TT: 12/06/24 1002 ? Librarian School: ? Procedure Note Lisbeth, Kateryna - 12/06/2024 [place] [address] Magnetic Resonance Report Signed Patient: Saumya Coughlin R#: [id number] : 1950Acct:[id number] Age/Sex: 74 / FADM Date: 12/06/24 [facility]: Fletcher Vinson MD Ordering Physician: Jersey Cerda Date of Service: 12/06/24 Procedure(s): MR MRCP Accession Number(s): [id number] cc: Jersey Cerda; Ayla Ziegler MD EXAMINATION: MRCP. CLINICAL INFORMATION: Pancreatic mass. COMPARISON: Correlated to CT dated December 06, 2024. TECHNIQUE: Axial and coronal T2 HASTE sequences. Axial and coronal T2 fat sat HASTE. Coronal oblique T2 fat-sat single slice. MRCP radial T2 fat sat. 3-D SPACE MRCP TRIGGERED. Axial in and out of phase 3-D. Axial T1 VIBE fat sat. FINDINGS: Limited by patient's motion artifact and the lack of IV contrast. Liver measures 20 cm. No focal lesion. The portal veins, hepatic veins and intrahepatic portion of the IVC demonstrated normal flow void signal. Gallbladder is fluid-filled prominent with multiple layering small less than 5 mm intraluminal calculi. There is a 4 mm erythematous gallbladder wall. The common bile duct measures 6 mm with an abrupt cut off in the distal segment. There is a lobulated 4 x 3 cm isointense T1 and T2 lesion centered in the tail of the pancreas. There is no main pancreatic ductal dilatation. No peripancreatic fluid collection. Spleen measures 11 cm. No nodular lesions in the right adrenal gland. There is a 1 cm isointense T2 nodular lesion in the left adrenal gland with a drop-off signal from the in-phase into the out of phase sequences. Kidneys demonstrate multifocal exophytic cystic lesions, the largest in the left kidney measures 3.5 cm and the largest in the right kidney measures 1.5 cm. No hydronephrosis in either kidney. Renal cortical thinning bilaterally with the subcentimeter cystic lesion in the parapelvic region. No gross lymphadenopathy in the retroperitoneum. No ascites. No intestinal obstruction pattern. No aneurysm in the abdominal aorta. Small volume hiatal hernia. MR/MR MRCP IMPRESSION: Concerning acute calculus cholecystitis with questionable choledocholithiasis. 4 x 3 cm lobulated lesion/mass, tail of the pancreas. Concerning for malignancy. Bilateral renal cysts. Hepatomegaly. Lipid rich adenoma, left adrenal gland. Electronically signed by: Ariel Ruiz MD 12/06/2024 10:28 AM [facility] Dictated By: Ariel Roger MD Signed By: <Electronically signed by Ariel Gallegos MDin OV> 12/06/24 1028 DD/ 0942 TD/TT: 12/06/24 1002 Librarian School: [facility] External Provider IM MRI PROCEDURES Final Result * (ABNORMAL) Urinalysis w/reflex microscopic (12/06/2024 5:13 AM EST) Color Urine Yellow [facility] Appearance Urine Clear [facility] PH 5.0 5.0 - 9.0 [facility] Glucose Urine UA 250(A) Negative mg/dL [facility] Urine Blood Negative Negative [facility] Specific [place] - Urine >=1.030(H) 1.005 - 1.025 [facility] Urine Protein Negative Neg-Trace mg/dL [facility] Urine Ketones Negative Negative mg/dL [facility] Nitrite Urine Negative Negative [facility] Leukocyte Esterase Urine Negative Negative [facility] 12/06/2024 5:13 AM EST 12/06/2024 5:20 AM EST Narrative [facility] - 12/06/2024 5:23 AM EST [id number], [employer] Generic External Data Provider LAB URINE ORDERAB LES Final Result Performing Organization Address City/State/[facility] Co de Phone Number [facility] [address] [place] [address] [phone] * CT Abdomen Pelvis w/ Contrast (12/06/2024 4:29 AM EST) Anatomical Region Laterality Modality Body, Pelvis, Abdomen Computed T omography 12/06/2024 4:29 AM EST Narrative 12/06/2024 4:31 AM EST ? [facility] ?[address] ?[place] [address] ? CT Scan Report ? Signed with Addenda ? Patient: Ced,Saumya L ?MR#: [id number] ?? [id number] ? : 1950 ?Acct:[id number] ? Age/Sex: 74 / F ?ADM Date: 02/20/25 ? Loc: HO.ED ? Attending Dr: ? Ordering Physician: Marcial Stephenson MD ?? Date of Service: 12/06/24 ?? Procedure(s): CT abdomen pelvis w IV con ?? Accession Number(s): [id number] ? cc: Ayla Ziegler MD; Marcial Stephenson MD ? Report Number: ?? [id number]: Total DLP = ??722.00 mGy-cm ?ADDENDUM ?? This document has been electronically signed by: Kaykay Wasserman MD on ?? 12/06/2024 04:29:39 ? ADDENDUM: ?? This report was discussed with Sachin Ceja ??on Dec 06, 2024 04:36:00 ?? EST. ? This document has been electronically signed by: Suellen Gill on ?? 12/06/2024 04:36:42 ? Addendum Dictated By: ?Kaykay Wasserman MD ? Addendum Signed By: ? <Electronically signed by Kaykay Wasserman MD in OV> ? 12/06/24 0437 ?? Addendum Cosigned By: ? DD/ ? TD/TT: 12/06/24 ? CLINICAL HISTORY: Umbilical pain, elevated lipase, R O pancr gallsto ? CT abdomen and pelvis with contrast ? Comparison: None ? Findings: ?? Right basilar subsegmental atelectasis versus scarring. No consolidation ?? or pleural effusion. ? Minimal densities in the gallbladder possibly very small gallstones. No ?? biliary ductal dilatation. ?? The liver is enlarged and demonstrates low attenuation consistent with ?? steatosis. The spleen is unremarkable. ?? A 3.5 cm lobulated somewhat heterogeneous mass is demonstrated in the tail ?? of the pancreas. ?? Adrenal glands are normal. No ureteral stones and no hydronephrosis or ?? hydroureter. ?? 2.8 cm left renal exophytic cyst and 1.2 cm right renal exophytic cyst. ? No bowel obstruction, pneumoperitoneum, or pneumatosis. Minimal edema in ?? bowel mesentery in upper abdomen. ?? Sigmoid colon diverticulosis. Trace free fluid in pelvic cul-de-sac. ?? Appendix not visualized. Uterus and urinary bladder within normal limits. ?? Atherosclerotic vascular disease with no aneurysm of the abdominal aorta. ?? Retroaortic left renal vein. ?? No acute fracture. ? IMPRESSION: ?? 1. 3.5 cm somewhat heterogeneous mass in the tail of the pancreas. This ?? could be benign but pancreatic carcinoma not excluded. Further clinical ?? evaluation recommended. ?? 2. Possible cholelithiasis with no CT evidence of acute cholecystitis. ?? 3. Hepatomegaly and hepatic steatosis. ?? 4. Additional nonacute findings as described. ? This document has been electronically signed by: Kaykay Wasserman MD on ?? 12/06/2024 04:29:39 ? Dictated By: ?Kaykay Wasserman MD ? Signed By: ?<Electronically signed by Kaykay Wasserman MD in OV> ? 12/06/[address] ? DD/ 8 ? TD/TT: 12/06/24428 ? Librarian School: ? Procedure Note Donotfarzanehinterpreter, Image - 12/06/[address] [address] [address] Scan Report Signed with Addenda Patient: Saumya Coughlin LMR#: [id number] : 1950Acct:[id number] Age/Sex: 74 / FADM Date: 12/05/24 Loc: HO.ED Attending Dr: Ordering Physician: Marcial Stephenson MD Date of Service: 12/06/24 Procedure(s): CT abdomen pelvis w IV con Accession Number(s): [id number] cc: Ayla Ziegler MD; Marcial Stephenson MD Report Number: [id number]: Total DLP = 722.00 mGy-cm ADDENDUM This document has been electronically signed by: Kaykay Wasserman MD on 12/06/2024 04:29:39 ADDENDUM: This report was discussed with Sachin Ceja on Dec 06, 2024 04:36:00 EST. This document has been electronically signed by: Suellen Gill on 12/06/2024 04:36:42 Addendum Dictated By: Kaykay Wasserman MD Addendum Signed By: <Electronically signed by MD Marjan in OV> 12/06/24436 Addendum Cosigned By: DD/ TD/TT: 12/06/24 CLINICAL HISTORY: Umbilical pain, elevated lipase, R O pancr gallsto CT abdomen and pelvis with contrast Comparison: None Findings: Right basilar subsegmental atelectasis versus scarring. No consolidation or pleural effusion. Minimal densities in the gallbladder possibly very small gallstones. No biliary ductal dilatation. The liver is enlarged and demonstrates low attenuation consistent with steatosis. The spleen is unremarkable. A 3.5 cm lobulated somewhat heterogeneous mass is demonstrated in the tail of the pancreas. Adrenal glands are normal. No ureteral stones and no hydronephrosis or hydroureter. 2.8 cm left renal exophytic cyst and 1.2 cm right renal exophytic cyst. No bowel obstruction, pneumoperitoneum, or pneumatosis. Minimal edema in bowel mesentery in upper abdomen. Sigmoid colon diverticulosis. Trace free fluid in pelvic cul-de-sac. Appendix not visualized. Uterus and urinary bladder within normal limits. Atherosclerotic vascular disease with no aneurysm of the abdominal aorta. Retroaortic left renal vein. No acute fracture. IMPRESSION: 1. 3.5 cm somewhat heterogeneous mass in the tail of the pancreas. This could be benign but pancreatic carcinoma not excluded. Further clinical evaluation recommended. 2. Possible cholelithiasis with no CT evidence of acute cholecystitis. 3. Hepatomegaly and hepatic steatosis. 4. Additional nonacute findings as described. This document has been electronically signed by: Kaykay Wasserman MD on 12/06/2024 04:29:39 Dictated By: Kaykay Wasserman MD Signed By: <Electronically signed by Kaykay Wasserman MD in OV> 12/06/24 0430 DD/ 8 TD/TT: 12/06/24428 Librarian School: [facility] External Provider IMG CT PROCEDURES Edited Result - Final * (ABNORMAL) Cologuard?? colon cancer screening (11/28/2024 10:45 AM EST) Cologuard Result Positive( A) Negative 12/04/2024 2:53 PM EST [facility] (CLIA #:[id number]) Comment: POSITIVE TEST RESULT. A positive Cologuard [...] screened with both Cologuard and colonoscopy. (Dawn Jurado et al, N Engl J Med 2014;370(14):3793-3454.) Cologuard may produce a false negative or false positive result (no colorectal cancer or precancerous polyp present at colonoscopy follow up). A negative Cologuard test result does not guarantee the absence of CRC or advanced adenoma (pre-cancer). The current Cologuard screening interval is every 3 years. ([place] [employer] Society and U.S. Multi-Society Task Force). Cologuard performance data in a 10,000 patient pivotal study using colonoscopy as the reference method can be accessed at the following location: www.ConnectQuest/results. Additional description of the Cologuard test process, warnings and precautions can be found at www.[employer] Stool specimen (specimen) Rectal contents / Unknown 11/28/2024 10:45 AM EST 11/29/2024 10:58 AM EST us Ayla Ziegler MD LAB MOLECULAR DIAGNOSTICS ORDERA BLES Final Result [facility] (CLIA #:[id number]) [place] [address] [place] [address], * Hepatic Function Panel (11/19/2024 9:24 AM EST) Bilirubin, Total 0.6 0.0 - 1.0 mg/dL [facility] Bilirubin, Direct 0.2 0.0 - 0.5 mg/dL [facility] Aspartate Amino Transferase 16 5 - 31 U/L [facility] Alanine Aminotransferase 7 0 - 31 U/L [facility] Total Protein 7.8 6.5 - 8.0 g/dL [facility] Albumin Level 3.5 3.5 - 5.0 g/dL [facility] Alkaline Phosphatase 65 39 - 117 U/L [facility] Blood Venous blood specimen / Unknown 11/19/2024 9:24 AM EST 11/19/2024 2:10 PM EST us Ayla Ziegler MD LAB BLOOD ORDERABLES Final Resul t [facility] [address] [place] [phone] * (ABNORMAL) Lipid Panel, Standard (11/19/2024 9:24 AM EST) Triglycerides 84 <150 mg/dL [facility] Comment:Desirable Triglyceri de: less than 150 mg/dLBorderline High Triglyceride 150-199 mg/dLHigh Triglyceride: 200-499 mg/dLVery High Triglyceride: greater than or equal to 5OO mg/dL Cholesterol 175 <200 mg/dL [facility] Comment:Desirable Cholestero l: less than 200 mg/dLBorderline High Cholesterol: 200-239 mg/dLHigh Cholesterol: greater than 239 mg/dL LDL Cholesterol Calculated 123(H) <100 mg/dL [facility] Comment:Desirable LDL: less than 100 mg/dLNear Optimal/Above Optimal LDL: 110- 129 mg/dLBorderline High LDL: 130-159 mg/dLHigh LDL: 160-189 mg/dLVery High LDL: greater than or equal to 190 mg/dL HDL Cholesterol 36(L) >40 mg/dL [facility] Comment:Desirable HDL: great er than 40 mg/dL Note: This HDL assay may give artificially low results in patients with liver disease. Blood Venous blood specimen / Unknown 11/19/2024 9:24 AM EST 11/19/2024 2:10 PM EST Ayla Ziegler MD LAB BLOOD ORDERABLES Final Resul t Performing Organization Address [facility] de Phone Number [facility] [address] [place] [phone] * (ABNORMAL) Basic Metabolic Panel (11/19/2024 9:24 AM EST) Sodium 139 135 - 145 mmol/L [facility] Potassium 4.4 3.3 - 5.1 mmol/L [facility] Chloride 102 96 - 108 mmol/L [facility] Carbon Dioxide 28 22 - 29 mmol/L [facility] Anion Gap 13 12 - 20 [facility] Urea Nitrogen (BUN) 16 9 - 16 mg/dL [facility] Creatinine, Serum 0.90 0.5 - 1.4 mg/dL [facility] Estimated Glomerular Filt Rate >60 [facility] Comment:Chronic Kidney Disea se: Estimated GFR < 60 mL/min/1.79f6Ethfof Kidney Disease: Estimated GFR < 15 mL/min/1.73m2 Glucose 246(H) 60 - 115 mg/dL [facility] Calcium 8.5 8.4 - 10.2 mg/dL [facility] Blood Venous blood specimen / Unknown 11/19/2024 9:24 AM EST 11/19/2024 2:10 PM EST Ayla Ziegler MD LAB BLOOD ORDERABLES Final Resul t Performing Organization Address [facility] Co de Phone Number [facility] [address] [place] [phone] * (ABNORMAL) POCT HGB A1C (11/19/2024 [...] 11:01 AM EDT) Creatinine, Urine 109.33 mg/dL [facility] Microalbumin Urine 26.0 mg/L [facility] Microalbum Creatinine Ratio Ur 23.7 <30 ug/mg cr [facility] Comment:Albumin/Creatinine R atio Reference Ranges: Normal: < 30 ug/mg creatinine Microalbuminuria: 30 - 300 ug/mg creatinineClinical Albuminuria: > 300 ug/mg creatinine Urine (Urine, Random) 04/29/2024 11:01 AM EDT 04/29/2024 2:26 PM EDT Ayla Ziegler MD LAB URINE ORDERABLES Final Resul t Performing Organization Address City/State/[facility] Co de Phone Number [facility] [address] [place] [phone] * Diabetes Eye Exam (02/28/2024 7:24 PM EDT) Sybil Dominguez MD HEALTH MAINTENANCE Final Result * BI Mammogram Screening Tomosynthesis Bilateral (09/28/2022 11:02 AM EST) Anatomical Region Laterality Modality Breast Bilateral Mammography 09/28/2022 11:0 2 AM EST Narrative 09/29/2022 12:04 PM EST ? [place] [facility] ? [address] ?[place] [address] ? Mammography Report ? Signed ? Patient: Ced,Saumya L ?MR#: [id number] ?? [id number] ? : 1950 ?Acct:[id number] ? Age/Sex: 72 / F ?ADM Date: 09/28/22 ? Loc: HO.MAMMO ? Attending Dr: Ayla Ziegler MD ? Ordering Physician: Ayla Ziegler MD ?Results: 2Benign ?? Findings ? Date of Service: 09/28/22 ?Follow Up: 1 Year From Orig ?? inal Mammogram ? Procedure(s): MM tomosynthesis screening BI ?? Accession Number(s): [id number] ? cc: Ayla Ziegler MD ? EXAMINATION: [...] 1202 ? DD/ 1102 ? TD/TT: ? Librarian School: [employer] ? Procedure Note Donjennyfarzanehinterpreter, Image - 09/29/2022 [facility] [address] [place] [address] Mammography Report Signed Patient: Saumya Coughlin LMR#: [id number] : 1950Acct:[id number] Age/Sex: 72 / FADM Date: 09/28/22 Loc: HO.MAMMO Attending Dr: Ayla Ziegler MD Ordering Physician: Ayla Ziegler MDResults: 2Benign Findings Date of Service: 09/28/22Follow Up: 1 Year From Orig inal Mammogram Procedure(s): MM tomosynthesis screening BI Accession Number(s): [id number] cc: Ayla Ziegler MD EXAMINATION: MM SCREENING [...] in OV> 09/29/22 1202 DD/ 1102 TD/TT: Librarian School: [employer] [facility] External Provider IMG BI PROCEDURES Final Result from Last 3 Months or Most Recently Relevant to Health Maintenance Insurance STANDARD MEDICARE Care Teams Per Diem Nurse Relationship Specialty Start Date End Date Ayla Ziegler MD [address] [place] [phone] PCP - General Family Medicine 11/14/13
--- OUTSIDE RECORDS SUMMARY | 2024-12-24 14:32 | XMS_ITS | Encounter Summary ---
Author Organization [employer] Address [address] 7t [place] [address] Care Team Providers Care Pipe Stripper Name Role Phone Ayla Ziegler MD Primary Care Provider [phone] Reason for Visit * Reason Onset Date Comments Results 12/05/2024 Encounter Details Date Type Department Care Team ([facility] Contact Info) Description 12/05/2024 Telephone [facility] MED & PEDS [address] [place], [place] [phone] Rashmi Nazario RN Results Social History Tobacco [...] will either receive a call or a rivet hole machine operator to schedule an appt with GI. Pt [...] documented as of this encounter Care Teams Pipe Stripper Relationship Specialty Start Date End Date Ayla Ziegler MD [address] [place] [address] PCP - General Family Medicine 11/14/13 documented as of this encounter
--- OUTSIDE RECORDS SUMMARY | 2024-12-24 14:32 | XMS_ITS | Clinical Summary ---
Author Organization [facility] Address [address] [place] [address] Phone Care Team Providers Care New Accounts Representative Name Role Phone Ayla Ziegler MD Primary Care Provider [phone] Social History Tobacco Use Types Packs/Day Years Used Date Smoking Tobacco: Never Assessed Comments Unknown Sex and Gender Information Value Date Recorded Sex Assigned at Not on file Legal Sex Female 11:17 AM EST Gender Identity Not on file Sexual Orientation Not on file Plan of Treatment Upcoming Encounters Date Type Department Care Team ([facility] Contact Info) Description 02/03/2025 3:00 PM EDT Consult Orthopedic Surgery [place] [id number] [phone] Warren Currie, DPM [address] [address] Health Maintenance Due Date Last Done Comments [...] Insurance MEDICAID - [place] MEDICARE Care Teams New Accounts Representative Relationship Specialty Start Date End Date Ayla Ziegler MD [address] [place] [address] PCP - General Family Medicine 12/05/24
--- OUTSIDE RECORDS SUMMARY | 2024-12-24 14:32 | XMS_ITS | Encounter Summary ---
Author Organization [employer] Address [address] [place] [address] 7 [place] [address] Care Team Providers Care Manager Meat Name Role Phone Ayla Ziegler MD Primary Care Provider [phone] Reason for Referral * Consultation (Routine) - Canceled Specialty Diagnoses / Procedures Referred By Neyda sin Referred To Contact Gastroenterology Diagnoses Encounter for screening for malignant neoplasm of colon Ayla Ziegler MD [address] [place] [address] Phone: tel: fax: Referral ID Status Reason Start Date Expiration Date Visits Requested Visits Authorized [id number] Canceled Specialty Services Required 12/05/2024 12/05/2025 1 1 Encounter Details Date Type Department Care Team ([facility] st Contact Info) Description 12/05/2024 Orders Only [facility] CHC MED & PEDS [address] [place] [address] Ayla Ziegler MD [address] [place] [address] Encounter for screening for malignant neoplasm of [...] as of this encounter Miscellaneous Notes * Result Encounter Note - Ayla Ziegler MD - 12/05/2024 9:32 AM EST Tried to call pt .MRCP reviewed.Shows pancreatic mass.STAT referral made to GI documented in this encounter Plan of Treatment Scheduled Referrals Name Type Priority Associated Diagnoses Order Schedule Referral to Gastroenterology Outpatient Referral Routine Encounter for screening for malignant neoplasm of colon Expected: 12/05/2024 (Approximate), Expires: 12/05/2025 documented as of this encounter Procedures Procedure Name Priority Date/Time Associated Diagnosis Comments MR MRCP Routine 12/06/2024 9:42 AM EST URINALYSIS WITH REFLEX MICROSCOPIC Routine 12/06/2024 5:13 AM EST Encounter for screening for malignant neoplasm of colon CT ABDOMEN PELVIS W CONTRAST Routine 12/06/2024 4:29 AM EST documented in this encounter Results * MR MRCP (12/06/2024 9:42 AM EST) Anatomical Region Laterality Modality Lower Extremities Left Magnetic Reson ance 12/06/2024 9:42 AM EST Narrative 12/06/2024 10:31 AM EST ? [facility] ?[address] ?[place] [address] ? Magnetic Resonance Report ? Signed ? Patient: Saumya Coughlin L ?MR#: [id number] ?? [id number] ? : 1950 ?Acct:[id number] ? Age/Sex: 74 / F ?ADM Date: 12/06/24 ? Loc: HO.EDOVER ?MEDSURG-8 ? Attending Dr: Fletcher Vinson MD ? Ordering Physician: Jersey Cerda ?? Date of Service: 12/06/24 ?? Procedure(s): MR MRCP ?? Accession Number(s): [id number] ? cc: Jersey Cerda; Ayla Ziegler MD [...] DD/ 0942 ? TD/TT: 12/06/24 1002 ? Certified Medicine Aide: ? Procedure Note Lisbeth, Image - 12/06/[address] [address] Magnetic Resonance Report Signed Patient: Saumya Coughlin LMR#: [id number] : 1950Acct:[id number] Age/Sex: 74 / FADM Date: 12/06/24 Loc: [place] [address]: Fletcher Vinson MD Ordering Physician: Jersey Cerda Date of Service: 12/06/24 Procedure(s): MR MRCP Accession Number(s): [id number] cc: Jersey Cerda; Ayla Ziegler MD EXAMINATION: [...] by: Ariel Ruiz MD 12/06/2024 10:28 AM [facility] Dictated By: Ariel Roger MD Signed By: <Electronically signed by Ariel Gallegos MDin OV> 12/06/24 1028 DD/ 0942 TD/TT: 12/06/24 1002 Certified Medicine Aide: [facility] External Provider IMG MRI PROCEDURES Final Result * (ABNORMAL) Urinalysis w/reflex microscopic (12/06/2024 5:13 AM EST) Color Urine Yellow [facility] Appearance Urine Clear [facility] PH 5.0 5.0 - 9.0 [facility] Glucose Urine UA 250(A) Negative mg/dL [facility] Urine Blood Negative Negative [facility] Specific [place] - Urine >=1.030(H) 1.005 - 1.025 [facility] Urine Protein Negative Neg-Trace mg/dL [facility] Urine Ketones Negative Negative mg/dL [facility] Nitrite Urine Negative Negative [facility] Leukocyte Esterase Urine Negative Negative [facility] 12/06/2024 5:13 AM EST 12/06/2024 5:20 AM EST Narrative [facility] - 12/06/2024 5:23 AM EST [id number], Clean Catch Generic External Data Provider LAB URINE ORDERAB LES Final Result Performing Organization Address [facility] Co de Phone Number [facility] [address] [place] [phone] * CT Abdomen Pelvis w/ Contrast (12/06/2024 4:29 AM EST) Anatomical Region Laterality Modality Body, Pelvis, Abdomen Computed T omography 12/06/2024 4:29 AM EST Narrative 12/06/2024 4:31 AM EST ? [facility] [place] [facility] ?[address] ?[place] [address] ? CT Scan Report ? Signed with Addenda ? Patient: Ced,Saumya L ?MR#: [id number] ?? [id number] ? : 1950 ?Acct:[id number] ? Age/Sex: 74 / F ?ADM Date: 12/05/24 ? Loc: HO.ED ? Attending Dr: ? Ordering Physician: Marcial Stephenson MD ?? Date of Service: 12/06/24 ?? Procedure(s): CT abdomen pelvis w IV con ?? Accession Number(s): [id number] ? cc: Ayla Ziegler MD; Marcial Stephenson MD ? Report Number: ?? [id number]: Total DLP = ??722.00 mGy-cm ?ADDENDUM ?? [...] by Kaykay Wasserman MD in OV> ? 12/06/24436 ?? Addendum Cosigned By: ? DD/ ? [...] Kaykay Wasserman MD in OV> ? 12/06/24 0430 ? DD/ 8 ? TD/TT: 12/06/24428 ? Certified Medicine Aide: ? Procedure Note Dondeniseforeign, Image - 12/06/[address] [place] [address] [address] Scan Report Signed with Addenda Patient: Saumya Coughlin LMR#: [id number] : 1950Acct:[id number] Age/Sex: 74 / FADM Date: 12/05/24 Loc: HO.ED Attending Dr: Ordering Physician: Marcial Stephenson MD Date of Service: 12/06/24 Procedure(s): CT abdomen pelvis w IV con Accession Number(s): [id number] cc: Ayla Ziegler MD; Marcial Stephenson MD Report Number: [id number]: Total DLP = 722.00 mGy-cm ADDENDUM This [...] MD Signed By: <Electronically signed by Kaykay Wassreman MD in OV> 12/06/24 0430 DD/ TD/TT: 12/06/24428 Certified Medicine Aide: [facility] External Provider IMG CT PROCEDURES Edited Result - Final documented in this encounter Visit Diagnoses Diagnosis Encounter for screening for malignant neoplasm of colon- Primary documented in this encounter Additional Health Concerns Assessment Noted Time PHQ-9 Depression Total Score: 0 04/24/20 23 11:11 AM EDT documented as of this encounter Care Teams Manager Meat Relationship Specialty Start Date End Date Ayla Ziegler MD [address] [place] [address] PCP - General Family Medicine 11/14/13 documented as of this encounter
--- OUTSIDE RECORDS SUMMARY | 2024-12-24 14:32 | XMS_ITS | Encounter Summary ---
Author Organization [employer] Address [address] [facility] 7t [place] [address] Care Team Providers Care Public Safety Telecommunicator Name Role Phone Ayla Ziegler MD Primary Care Provider [phone] Reason for Visit * Reason Onset Date Comments Med Refill 03/21/2024 Encounter Details Date Type Department Care Team ([facility] st Contact Info) Description 03/21/2024 Telephone [facility] MEDICINE [address] [place] [address] Ayla Ziegler MD [address] [place], [place] [phone] Med Refill Social History Tobacco Use Types [...] 1 MG tablet To be sent to: [facility]/pharmacy #[id number] - [address] AT [facility] documented in this encounter Plan of Treatment Not on file documented as of this encounter Visit Diagnoses Not on filedocumented in this encounter Additional Health Concerns Assessment Noted Time PHQ-9 Depression Total Score: 0 04/24/20 23 11:11 AM EDT documented as of this encounter Care Teams Public Safety Telecommunicator Relationship Specialty Start Date End Date Ayla Ziegler MD [address] [place] [address] PCP - General Family Medicine 11/14/13 documented as of this encounter
== END 2024-12-24 15:21 | disposition home or self-care (01) ==
LOC: HO.HGI 11:47
PROVIDERS: PCP Student in an Organized Health Care Education/Training Program; Visit Provider Internal Medicine Gastroenterology
DX: K85.90 Acute pancreatitis without necrosis or infection, unspecified (principal)
CPT/HCPCS: 99214

== ENCOUNTER → 2024-12-24 11:46 | Outpatient (BNVA) | payer MEDICARE, SELFPAY | PROVIDERS: PCP Student in an Organized Health Care Education/Training Program; Visit Provider Internal Medicine Gastroenterology | DX: K85.90 Acute pancreatitis without necrosis or infection, unspecified (principal) | CPT/HCPCS: 99212 ==

== ENCOUNTER 2024-12-26 11:17 | Outpatient (REF) | payer MEDICARE, SELFPAY ==
--- OUTSIDE RECORDS SUMMARY | 2024-12-26 14:27 | XMS_ITS | Encounter Summary ---
Author Organization [employer] Address [address] [facility] [address] 7t [place] [address] Care Team Providers Care Dining Server Name Role Phone Ayla Ziegler MD Primary Care Provider [phone] Encounter Details Date Type Department Care Team ([facility] st Contact Info) Description 12/06/2024 Telephone [facility] [address] [place] [address] Ayla Ziegler MD [address] [place], [place] [phone] Social History Tobacco Use Types Packs/Day Years [...] PCP aware, pt is currently admitted to [facility] for pancreatitis. * Telephone Encounter - Kaykay Payne RN - 12/06/2024 1:42 PM EST ----- [...] documented as of this encounter Care Teams Dining Server Relationship Specialty Start Date End Date Ayla Ziegler MD [address] [place] [address] PCP - General Family Medicine 11/14/13 documented as of this encounter
--- OUTSIDE RECORDS SUMMARY | 2024-12-26 14:27 | XMS_ITS | Encounter Summary ---
Author Organization [employer] Address [address] [place] [address] 7 [place] [address] Care Team Providers Care Branch General Manager Name Role Phone Ayla Ziegler MD Primary Care Provider [phone] Reason for Visit * Reason Comments Transition Of Care (Tcm) HDF- LVM Encounter Details Date Type Department Care Team ([facility] st Contact Info) Description 12/12/2024 Patient Outreach [facility] CH[facility] MED & PEDS [address] [place] [address] Ayla Ziegler MD [address] [place] [address] Transition Of Care (Tcm) (HDF- LVM ) [...] 12/12/24 1009 [facility] Type [facility] Visit Hospital Admission Date of Admission/Visit 12/06/24 Date of Discharge 12/08/24 Facility [facility] Diagnosis Pancreatic mass (acute), Acute Pancreatitis. [...] Wednesdays, and Walk-In Urgent Care Located in [facility] of [facility]. Patient provided with after-hours line for [facility], , which offer night time triage service and option to transfer to environmental compliance officer provider if needed. CC will request Discharge [...] documented as of this encounter Care Teams Branch General Manager Relationship Specialty Start Date End Date Ayla Ziegler MD [address] [place] [address] PCP - General Family Medicine 11/14/13 documented as of this encounter
--- OUTSIDE RECORDS SUMMARY | 2024-12-26 14:27 | XMS_ITS | Encounter Summary ---
Author Organization [employer] Address [address] [facility] 7t [place] [address] Care Team Providers Care Investment Underwriter Name Role Phone Ayla Ziegler MD Primary Care Provider [phone] Reason for Visit * Reason Onset Date Comments Hospital Follow-up 12/12/2024 Encounter Details Date Type Department Care Team ([facility] st Contact Info) Description 12/12/2024 Telephone [facility] MEDICINE [address] [place] [address] Ayla Ziegler MD [address] [place], [place] [phone] Hospital Follow-up Social History Tobacco Use Types [...] pt son requesting a HDF appt. [place] [facility] Date of admission: 12/06 Discharge date: 12/08 Diagnosed: Pancreatic mass (acute), Acute Pancreatitis. *Send message to [facility] Care Coordinators [phone] documented in this encounter Plan of Treatment Not on file documented as of this encounter Visit Diagnoses Not on filedocumented in this encounter Additional Health Concerns Assessment Noted Time PHQ-9 Depression Total Score: 0 04/24/20 23 11:11 AM EDT documented as of this encounter Care Teams Investment Underwriter Relationship Specialty Start Date End Date Ayla Ziegler MD [address] [place] [address] PCP - General Family Medicine 11/14/13 documented as of this encounter
--- OUTSIDE RECORDS SUMMARY | 2024-12-26 14:27 | XMS_ITS | Encounter Summary ---
Author Organization [employer] Address [address] [place] [address] 7 [place] [address] Care Team Providers Care Hardwood Floor Installer Name Role Phone Ayla Ziegler MD Primary Care Provider [phone] Reason for Referral * Consultation (Routine) - Canceled Specialty Diagnoses / Procedures Referred By Neyda sin Referred To Contact Gastroenterology Diagnoses Encounter for screening for malignant neoplasm of colon Ayla Ziegler MD [address] [place] [address] Phone: tel: fax: Referral ID Status Reason Start Date Expiration Date Visits Requested Visits Authorized [id number] Canceled Specialty Services Required 12/05/2024 12/05/2025 1 1 Encounter Details Date Type Department Care Team ([facility] st Contact Info) Description 12/05/2024 Orders Only [facility] CHC MED & PEDS [address] [place] [address] Ayla Ziegler MD [address] [place] [address] Encounter for screening for malignant neoplasm of [...] EST Narrative 12/06/2024 10:31 AM EST ? [facility] ?[address] ?[place] [address] ? Magnetic Resonance Report ? Signed ? Patient: Saumya Coughlin L ?MR#: [id number] ?? [id number] ? : 1950 ?Acct:[id number] ? Age/Sex: 74 / F ?ADM Date: 12/06/24 ? Loc: HO.EDOVER ?MEDSURG-8 ? Attending Dr: Fletcher Vinson MD ? Ordering Physician: Jersey Cerda ?? Date of Service: 12/06/24 ?? Procedure(s): MR MRCP ?? Accession Number(s): [id number] ? cc: Jersey Cerda; Ayla Ziegler MD [...] DD/ 0942 ? TD/TT: 12/06/24 1002 ? Small Appliance Assembly Supervisor: ? Procedure Note Lisbeth, Image - 12/06/[address] [address] Magnetic Resonance Report Signed Patient: Saumya Coughlin LMR#: [id number] : 1950Acct:[id number] Age/Sex: 74 / FADM Date: 12/06/24 Loc: [place] [address]: Fletcher Vinson MD Ordering Physician: Jersey Cerda Date of Service: 12/06/24 Procedure(s): MR MRCP Accession Number(s): [id number] cc: Jersey Cerda; Ayla Ziegler MD EXAMINATION: [...] by: Ariel Ruiz MD 12/06/2024 10:28 AM [facility] Dictated By: Ariel Roger MD Signed By: <Electronically signed by Ariel Gallegos MDin OV> 12/06/24 1028 DD/ 0942 TD/TT: 12/06/24 1002 Small Appliance Assembly Supervisor: [facility] External Provider IMG MRI PROCEDURES Final Result * (ABNORMAL) Urinalysis w/reflex microscopic (12/06/2024 5:13 AM EST) Color Urine Yellow [facility] Appearance Urine Clear [facility] PH 5.0 5.0 - 9.0 [facility] Glucose Urine UA 250(A) Negative mg/dL [facility] Urine Blood Negative Negative [facility] Specific [place] - Urine >=1.030(H) 1.005 - 1.025 [facility] Urine Protein Negative Neg-Trace mg/dL [facility] Urine Ketones Negative Negative mg/dL [facility] Nitrite Urine Negative Negative [facility] Leukocyte Esterase Urine Negative Negative [facility] 12/06/2024 5:13 AM EST 12/06/2024 5:20 AM EST Narrative [facility] - 12/06/2024 5:23 AM EST [id number], Clean Catch Generic External Data Provider LAB URINE ORDERAB LES Final Result Performing Organization Address [facility] Co de Phone Number [facility] [address] [place] [phone] * CT Abdomen Pelvis w/ Contrast (12/06/2024 4:29 AM EST) Anatomical Region Laterality Modality Body, Pelvis, Abdomen Computed T omography 12/06/2024 4:29 AM EST Narrative 12/06/2024 4:31 AM EST ? [place] [facility] ?[address] ?[place] [address] ? CT Scan Report ? Signed with Addenda ? Patient: Ced,Saumya L ?MR#: [id number] ?? [id number] ? : 1950 ?Acct:[id number] ? Age/Sex: 74 / F ?ADM Date: 12/05/24 ? Loc: HO.ED ? Attending Dr: ? Ordering Physician: Marcial Stephenson MD ?? Date of Service: 12/06/24 ?? Procedure(s): CT abdomen pelvis w IV con ?? Accession Number(s): [id number] ? cc: Ayla Ziegler MD; Marcial Stephenson MD ? Report Number: ?? [id number]: Total DLP = ??722.00 mGy-cm ?ADDENDUM ?? [...] ? DD/ 8 ? TD/TT: 12/06/24428 ? Small Appliance Assembly Supervisor: ? Procedure Note Dondeniseforeign, Image - 12/06/[address] [place] [address] [address] Scan Report Signed with Addenda Patient: Saumya Coughlin LMR#: [id number] : 1950Acct:[id number] Age/Sex: 74 / FADM Date: 12/05/24 Loc: HO.ED Attending Dr: Ordering Physician: Marcial Stephenson MD Date of Service: 12/06/24 Procedure(s): CT abdomen pelvis w IV con Accession Number(s): [id number] cc: Ayla Ziegler MD; Marcial Stephenson MD Report Number: [id number]: Total DLP = 722.00 mGy-cm ADDENDUM This [...] Wasserman MD in OV> 12/06/24 0430 DD/ TD/TT: 12/06/24428 Small Appliance Assembly Supervisor: [facility] External Provider IMG CT PROCEDURES Edited Result - Final documented in this encounter Visit Diagnoses Diagnosis Encounter for screening for malignant neoplasm of colon- Primary documented in this encounter Additional Health Concerns Assessment Noted Time PHQ-9 Depression Total Score: 0 04/24/20 23 11:11 AM EDT documented as of this encounter Care Teams Hardwood Floor Installer Relationship Specialty Start Date End Date Ayla Ziegler MD [address] [place] [address] PCP - General Family Medicine 11/14/13 documented as of this encounter
--- OUTSIDE RECORDS SUMMARY | 2024-12-26 14:27 | XMS_ITS | Encounter Summary ---
Author Organization [employer] Address [address] [facility] [address] 7t [place] [address] Care Team Providers Care Inspector Golf Ball Name Role Phone Ayla Ziegler MD Primary Care Provider [phone] Encounter Details Date Type Department Care Team ([facility] st Contact Info) Description 12/07/2024 Orders Only [facility] MED & PEDS [address] [place] [address] ProviderSybil MD Social History Tobacco Use Types [...] documented as of this encounter Care Teams Inspector Golf Ball Relationship Specialty Start Date End Date Ayla Ziegler MD [address] [place] [address] PCP - General Family Medicine 11/14/13 documented as of this encounter
--- OUTSIDE RECORDS SUMMARY | 2024-12-26 14:27 | XMS_ITS | Encounter Summary ---
Author Organization [employer] Address [address] [facility] [address] [place] [address] Care Team Providers Care Flat Polisher Name Role Phone Ayla Ziegler MD Primary Care Provider Reason for Visit * Reason Onset Date Comments Results 12/05/2024 Encounter Details Date Type Department Care Team ([facility] Contact Info) Description 12/05/2024 Telephone [facility] MED & PEDS [address] [place], [place] [phone] Rashmi Nazario RN Results Social History Tobacco [...] will either receive a call or a concrete batching plant operator to schedule an appt with GI. [...] documented as of this encounter Care Teams Flat Polisher Relationship Specialty Start Date End Date Ayla Ziegler MD [address] [place] [address] PCP - General Family Medicine 11/14/13 documented as of this encounter
--- OUTSIDE RECORDS SUMMARY | 2024-12-26 14:27 | XMS_ITS | Encounter Summary ---
Author Organization [employer] Address [address] [place] [address] 7 [place] [address] Care Team Providers Care Mechanics Supervisor Name Role Phone Ayla Ziegler MD Primary Care Provider [phone] Reason for Referral * Consultation (STAT) - Closed Specialty Diagnoses / Procedures Referred By Contoscar t Referred To Contact Gastroenterology Diagnoses Pancreatic mass Ayla Ziegler MD [address] [place] [address] Phone: tel: fax: Rene Blake MD [address] [place] [address] Phone: tel: fax: Referral ID Status Reason Start Date Expiration Date V isits Requested Visits Authorized [id number] Closed Specialty Services Required 12/06/2024 12/06/2025 1 1 Encounter Details Date Type Department Care Team (Late st Contact Info) Description 12/06/2024 Orders Only [facility] MED & PEDS [address] [place], [place] [phone] Ayla Ziegler MD [address] [place] [address] Pancreatic mass (Primary Dx) Social History Tobacco [...] documented as of this encounter Care Teams Mechanics Supervisor Relationship Specialty Start Date End Date Ayla Ziegler MD [address] [place] [address] PCP - General Family Medicine 11/14/13 documented as of this encounter
--- OUTSIDE RECORDS SUMMARY | 2024-12-26 14:28 | XMS_ITS | Clinical Summary ---
Author Organization [employer] Address [address] [place] [address] [address] [place] [address] Care Team Providers Care Speaker Wirer Name Role Phone Ayla Ziegler MD Primary Care Provider [phone] Allergies Active Allergy Reactions Criticality Noted Date [...] Department Care Team Description 12/12/2024 Patient Outreach [facility] [address] [place] [address] Ayla Ziegler MD Transition Of Care (Tcm) (HDF- LVM ) 12/12/2024 Telephone [facility] [address] [place] [phone] Ayla Ziegler MD Hospital Follow-up 12/07/2024 Orders Only [facility] [address] [place] [address] ProviderSybil MD 12/06/2024 Telephone [facility] [address] [place] [phone] Ayla Ziegler MD 12/06/2024 Orders Only [facility] [address] [facility] [place] [address] Ayla Ziegler MD Pancreatic mass (Primary Dx) 12/05/2024 Telephone [facility] [address] [place] [address] Rashmi Nazario, RN Results 12/05/2024 Orders Only [facility] [address] [facility] [place] [address] Ayla Ziegler MD Encounter for screening for malignant neoplasm of colon (Primary Dx) 11/20/2024 Refill [facility] [address] [place] [address] Ayla Ziegler MD Anxiety 11/19/2024 8:30 AM EST Office Visit [facility] [address] [facility] [place] [address] Ayla Ziegler MD Essential hypertension (Primary Dx); Type 2 diabetes mellitus without complication, without long-term current use of insulin (CMS/HCC); Encounter for screening mammogram for breast cancer; Encounter for screening for malignant neoplasm of colon 11/19/2024 Travel 11/18/2024 Telephone [facility] [place] [address] Ayla Ziegler MD chart prep 11/11/2024 Telephone [facility] [address] [place] [address] Ayla Ziegler MD 1/27/25 Provider out 10/25/2024 Telephone [facility] [address] [place] [address] Ayla Ziegler MD Appointment Request 10/02/2024 Refill [facility] [address] [place] [address] Ayla Ziegler MD Anxiety from Last 3 Months Immunizations Name Administration [...] EST Narrative 12/06/2024 10:31 AM EST ? [place] [facility] ?[address] ?[place] [address] ? Magnetic Resonance Report ? Signed ? Patient: Ced,Saumya L ?MR#: [id number] ?? [id number] ? : 1950 ?Acct:[id number] ? Age/Sex: 74 / F ?ADM Date: 12/06/24 ? Loc: [facility] ?MEDSURG-8 ? Attending Dr: Fletcher Vinson MD ? Ordering Physician: Jersey Cerda ?? Date of Service: 12/06/24 ?? Procedure(s): MR MRCP ?? Accession Number(s): [id number] ? cc: Jersey Cerda; Ayla Ziegler MD [...] Ruiz MD ??12/06/2024 10:28 AM ?? EST RP ? Dictated By: ?Ariel Roger MD ? Signed By: ?<Electronically signed by Ariel Gallegos MD in OV> ? 12/06/24 1028 ? DD/ 0942 ? TD/TT: 12/06/24 1002 ? Vamp Seamer: ? Procedure Note Dontabter, Image - 12/06/2024 [place] [address] Magnetic Resonance Report Signed Patient: Saumya Coughlin LMR#: [id number] : 1950Acct:[id number] Age/Sex: 74 / FADM Date: 12/06/24 Loc: [place] [address]: Fletcher Vinson MD Ordering Physician: Jersey Cerda Date of Service: 12/06/24 Procedure(s): MR MRCP Accession Number(s): [id number] cc: Jersey Cerda; Ayla Ziegler MD EXAMINATION: [...] by: Ariel Ruiz MD 12/06/2024 10:28 AM EST Dictated By: Ariel Roger MD Signed By: <Electronically signed by Ariel Gallegos MDin OV> 12/06/24 1028 DD/ 0942 TD/TT: 12/06/24 1002 Vamp Seamer: [facility] External Provider IMG MRI PROCEDURES Final Result * (ABNORMAL) Urinalysis w/reflex microscopic (12/06/2024 5:13 AM EST) Color Urine Yellow [facility] Appearance Urine Clear [facility] PH 5.0 5.0 - 9.0 [facility] Glucose Urine UA 250(A) Negative mg/dL [facility] Urine Blood Negative Negative [facility] Specific Patterson - Urine >=1.030(H) 1.005 - 1.025 [facility] Urine Protein Negative Neg-Trace mg/dL [facility] Urine Ketones Negative Negative mg/dL [facility] Nitrite Urine Negative Negative [facility] Leukocyte Esterase Urine Negative Negative [facility] 12/06/2024 5:13 AM EST 12/06/2024 5:20 AM EST Narrative [facility] - 12/06/2024 5:23 AM EST [id number], Clean Catch us Generic External Data Provider LAB URINE ORDERAB LES Final Result Performing Organization Address City/State/[facility] Co de Phone Number [facility] [address] [place] [phone] * CT Abdomen Pelvis w/ Contrast (12/06/2024 4:29 AM EST) Anatomical Region Laterality Modality Body, Pelvis, Abdomen Computed T omography 12/06/2024 4:29 AM EST Narrative 12/06/2024 4:31 AM EST ? [facility] ?[address] ?[place] [address] ? CT Scan Report ? Signed with Addenda ? Patient: Ced,Saumya L ?MR#: [id number] ?? [id number] ? : 1950 ?Acct:[id number] ? Age/Sex: 74 / F ?ADM Date: 02/20/25 ? Loc: HO.ED ? Attending Dr: ? Ordering Physician: Marcial Stephenson MD ?? Date of Service: 12/06/24 ?? Procedure(s): CT abdomen pelvis w IV con ?? Accession Number(s): [id number] ? cc: Ayla Ziegler MD; Marcial Stephenson MD ? Report Number: ?? [id number]: Total DLP = ??722.00 mGy-cm ?ADDENDUM ?? [...] in OV> ? 12/06/24 0430 ? DD/ 0429 ? TD/TT: 12/06/24 0209 ? Vamp Seamer: ? Procedure Note Donotuseinterpreter, Image - 12/06/[address] [address] [address] Scan Report Signed with Cooper Patient: Saumya Coughlin LMR#: [id number] : 1950Acct:[id number] Age/Sex: 74 / FADM Date: 12/05/24 Loc: HO.ED Attending Dr: Ordering Physician: Marcial Stephenson MD Date of Service: 12/06/24 Procedure(s): CT abdomen pelvis w IV con Accession Number(s): [id number] cc: Ayla Ziegler MD; Marcial Stephenson MD Report Number: [id number]: Total DLP = 722.00 mGy-cm ADDENDUM This [...] OV> 12/06/24 0430 DD/ 8 TD/TT: 12/06/24428 Vamp Seamer: [facility] External Provider IMG CT PROCEDURES Edited Result - Final * (ABNORMAL) Cologuard?? colon cancer screening (11/28/2024 10:45 AM EST) Cologuard Result Positive( A) Negative 12/04/2024 2:53 PM EST Hello Chair (CLIA #:[id number]) Comment: POSITIVE TEST RESULT. A positive Cologuard [...] (Dawn Farfan al, N Engl J Med 2014;370(14):8035-2500.) Cologuard may produce a false negative or false positive result (no colorectal cancer or precancerous polyp present at colonoscopy follow up). A negative Cologuard test result does not guarantee the absence of CRC or advanced adenoma (pre-cancer). The current Cologuard screening interval is every 3 years. ([place] [employer] and U.S. Multi-Society Task Force). Cologuard performance data in a 10,000 patient pivotal study using colonoscopy as the reference method can be accessed at the following location: www.[employer]/results. Additional description of the Cologuard test process, warnings and precautions can be found at www.[email or web address].com. Stool specimen (specimen) Rectal contents / Unknown 11/28/2024 10:45 AM EST 11/29/2024 10:58 AM EST us Ayla Ziegler MD LAB MOLECULAR DIAGNOSTICS ORDERGauri AREVALO Final Result Hello Chair (CLIA #:[id number]) [place] [address], * Hepatic Function Panel (11/19/2024 9:24 AM EST) Bilirubin, Total 0.6 0.0 - 1.0 mg/dL [facility] Bilirubin, Direct 0.2 0.0 - 0.5 mg/dL [facility] Aspartate Amino Transferase 16 5 - 31 U/L [facility] Alanine Aminotransferase 7 0 - 31 U/L [facility] Total Protein 7.8 6.5 - 8.0 g/dL [facility] Albumin Level 3.5 3.5 - 5.0 g/dL [facility] Alkaline Phosphatase 65 39 - 117 U/L [facility] Blood Venous blood specimen / Unknown 11/19/2024 9:24 AM EST 11/19/2024 2:10 PM EST Ayla Ziegler MD LAB BLOOD ORDERABLES Final Resul t Performing Organization Address City/[facility] Co de Phone Number [facility] [address] [place] [address] [phone] * (ABNORMAL) Lipid Panel, Standard (11/19/2024 9:24 AM EST) Triglycerides 84 <150 mg/dL [facility] Comment:Desirable Triglyceri de: less than 150 mg/dLBorderline High Triglyceride 150-199 mg/dLHigh Triglyceride: 200-499 mg/dLVery High Triglyceride: greater than or equal to 5OO mg/dL Cholesterol 175 <200 mg/dL [facility] Comment:Desirable Cholestero l: less than 200 mg/dLBorderline High Cholesterol: 200-239 mg/dLHigh Cholesterol: greater than 239 mg/dL LDL Cholesterol Calculated 123(H) <100 mg/dL [facility] Comment:Desirable LDL: less than 100 mg/dLNear Optimal/Above Optimal LDL: 110- 129 mg/dLBorderline High LDL: 130-159 mg/dLHigh LDL: 160-189 mg/dLVery High LDL: greater than or equal to 190 mg/dL HDL Cholesterol 36(L) >40 mg/dL [facility] Comment:Desirable HDL: great er than 40 mg/dL Note: This HDL assay may give artificially low results in patients with liver disease. Blood Venous blood specimen / Unknown 11/19/2024 9:24 AM EST 11/19/2024 2:10 PM EST Ayla Ziegler MD LAB BLOOD ORDERABLES Final Resul t [facility] [address] [place] [phone] * (ABNORMAL) Basic Metabolic Panel (11/19/2024 9:24 AM EST) Sodium 139 135 - 145 mmol/L [facility] Potassium 4.4 3.3 - 5.1 mmol/L [facility] Chloride 102 96 - 108 mmol/L [facility] Carbon Dioxide 28 22 - 29 mmol/L [facility] Anion Gap 13 12 - 20 [facility] Urea Nitrogen (BUN) 16 9 - 16 mg/dL [facility] Creatinine, Serum 0.90 0.5 - 1.4 mg/dL [facility] Estimated Glomerular Filt Rate >60 [facility] Comment:Chronic Kidney Disea se: Estimated GFR < 60 mL/min/[id number] Kidney Disease: Estimated GFR < 15 mL/min/1.73m2 Glucose 246(H) 60 - 115 mg/dL [facility] Calcium 8.5 8.4 - 10.2 mg/dL [facility] Blood Venous blood specimen / Unknown 11/19/2024 9:24 AM EST 11/19/2024 2:10 PM EST us Ayla Ziegler MD LAB BLOOD ORDERABLES Final Resul t [facility] [address] [place] [phone] * (ABNORMAL) POCT HGB A1C (11/19/2024 8:54 AM EST) Hemoglobin A1C 8.5(A) 4.0 - 6.0 % QC Media Lot # [id number] Lot# Expiration Date Blood 11/19/2024 8:54 AM EST us Ayla Ziegler MD POINT OF CARE TEST ENTER/EDIT OR DERABLES Final Result * (ABNORMAL) POCT Glucose (11/19/2024 8:54 AM EST) Glucose Blood, POC 265(A) 60 - 200 mg/dL QC Media Lot # [id number] Lot# Expiration Date Blood Capillary blood specimen / Unknown 11/19/2024 8:54 AM EST Result [facility] Ayla Ziegler MD POINT OF CARE TEST ENTER/EDIT OR DERABLES Final Result * Albumin, Random Urine W/Creatinine (04/29/2024 11:01 AM EDT) Creatinine, Urine 109.33 mg/dL [facility] Microalbumin Urine 26.0 mg/L [facility] Microalbum Creatinine Ratio Ur 23.7 <30 ug/mg cr [facility] Comment:Albumin/Creatinine R atio Reference Ranges: Normal: < 30 ug/mg creatinine Microalbuminuria: 30 - 300 ug/mg creatinineClinical Albuminuria: > 300 ug/mg creatinine Urine (Urine, Random) 04/29/2024 11:01 AM EDT 04/29/2024 2:26 PM EDT Result [facility] Ayla Ziegler MD LAB URINE ORDERABLES Final Resul t [facility] [address] [place] [address] [phone] * Diabetes Eye Exam (02/28/2024 7:24 PM EDT) Sybil Dominguez MD HEALTH MAINTENANCE Final Result * BI Mammogram Screening Tomosynthesis Bilateral (09/28/2022 11:02 AM EST) Anatomical Region Laterality Modality Breast Bilateral Mammography 09/28/2022 11:0 2 AM EST Narrative 09/29/2022 12:04 PM EST ? [facility] ? [address] ?[place] [address] ? Mammography Report ? Signed ? Patient: Ced,Saumya L ?MR#: [id number] ?? [id number] ? : 1950 ?Acct:[id number] ? Age/Sex: 72 / F ?ADM Date: 09/28/22 ? Loc: HO.MAMMO ? Attending Dr: Ayla Ziegler MD ? Ordering Physician: Ayla Ziegler MD ?Results: 2Benign ?? Findings ? Date of Service: 09/28/22 ?Follow Up: 1 Year From Orig ?? inal Mammogram ? Procedure(s): MM tomosynthesis screening BI ?? Accession Number(s): [id number] ? cc: Ayla Ziegler MD ? EXAMINATION: [...] 1202 ? DD/ 1102 ? TD/TT: ? Vamp Seamer: FLANAGAN ? Procedure Note Lisbeth, Image - 09/29/2022 [facility] [address] [place] [address] Mammography Report Signed Patient: Saumya Coughlin LMR#: [id number] : 1950Acct:[id number] Age/Sex: 72 / FADM Date: 09/28/22 Loc: HO.MAMMO Attending Dr: Ayla Ziegler MD Ordering Physician: Ayla Ziegler MDResults: 2Benign Findings Date of Service: 09/28/22Follow Up: 1 Year From Orig inal Mammogram Procedure(s): MM tomosynthesis screening BI Accession Number(s): [id number] cc: Ayla Ziegler MD EXAMINATION: MM SCREENING [...] in OV> 09/29/22 1202 DD/ 1102 TD/TT: Vamp Seamer: FLANAGAN [facility] External Provider IMG BI PROCEDURES Final Result from Last 3 Months or Most Recently Relevant to Health Maintenance Insurance MEDICARE Care Teams Speaker Wirer Relationship Specialty Start Date End Date Ayla Ziegler MD [address] [place] [phone] PCP - General Family Medicine 11/14/13
--- OUTSIDE RECORDS SUMMARY | 2024-12-26 14:28 | XMS_ITS | Clinical Summary ---
Author Organization [facility] Address [address] [place] [address] Phone Care Team Providers Care Whitewasher Name Role Phone Ayla Ziegler MD Primary Care Provider [phone] Social History Tobacco Use Types Packs/Day Years Used Date Smoking Tobacco: Never Assessed Comments Unknown Sex and Gender Information Value Date Recorded Sex Assigned at Not on file Legal Sex Female 11:17 AM EST Gender Identity Not on file Sexual Orientation Not on file Plan of Treatment Upcoming Encounters Date Type Department Care Team ([facility] Contact Info) Description 02/03/2025 3:00 PM EDT Consult Orthopedic Surgery [place] [address] [phone] Warren Currie, DPM [address] [address] Health Maintenance Due Date Last Done Comments [...] Insurance MEDICAID - [place] MEDICARE Care Teams Whitewasher Relationship Specialty Start Date End Date Ayla Ziegler MD [address] [place] [address] PCP - General Family Medicine 12/05/24
--- OUTSIDE RECORDS SUMMARY | 2024-12-26 14:28 | XMS_ITS | Encounter Summary ---
Author Organization [employer] Address [address] [facility] 7[address] [place] [address] Care Team Providers Care Interlocking Tower Operator Name Role Phone Ayla Ziegler MD Primary Care Provider [phone] Reason for Visit * Reason Onset Date Comments Med Refill 03/21/2024 Encounter Details Date Type Department Care Team ([facility] st Contact Info) Description 03/21/2024 Telephone [facility] [address] [place] [address] Ayla Ziegler MD [address] [place], [place] [phone] Med Refill Social History Tobacco Use Types [...] 1 MG tablet To be sent to: [facility]/pharmacy #[id number] - [address] AT [facility] documented in this encounter Plan of Treatment Not on file documented as of this encounter Visit Diagnoses Not on filedocumented in this encounter Additional Health Concerns Assessment Noted Time PHQ-9 Depression Total Score: 0 04/24/20 23 11:11 AM EDT documented as of this encounter Care Teams Interlocking Tower Operator Relationship Specialty Start Date End Date Ayla Ziegler MD [address] [place] [phone] PCP - General Family Medicine 11/14/13 documented as of this encounter
[2024-12-31 20:28] LABS: Pancreatic Elastase-1 529 mcg/g (>200)
== END 2024-12-26 11:18 | disposition home or self-care (01) ==
LOC: HO.LNP 11:17
PROVIDERS: Visit Provider Internal Medicine Gastroenterology
DX: K85.90 Acute pancreatitis without necrosis or infection, unspecified (principal)
CPT/HCPCS: 82656

== ENCOUNTER 2025-01-08 00:48 | Emergency (ER) | payer MEDICARE, MEDICAID, SELFPAY ==
[2025-01-08] VITALS (8 sets, daily range): BP systolic 104–128; BP diastolic 41–87; PULSE 97–180; RESP 19–25; TEMP 37.3–37.4; O2SAT 91–97; BMI 31.7
--- NOTE | ~2025-01-08 | XR_ITS ---
CLINICAL HISTORY: fever 1 view chest Comparison: None Findings: No consolidation or effusion. No acute fracture. Osteopenia. Impression: 1. Cardiomegaly without failure. This document has been electronically signed by: Shiva Rodriguez MD on 01/08/2025 03:22:03
--- NOTE | 2025-01-08 00:53 | ECG_ITS ---
Test Reason : AFIB RVR? Blood Pressure : */* mmHG Vent. Rate : 129 BPM Atrial Rate : * BPM P-R Int : * ms QRS Dur : 70 ms QT Int : 308 ms P-R-T Axes : * 27 174 degrees QTcB Int : 451 ms Atrial fibrillation with rapid ventricular response with premature ventricular or aberrantly conducted complexes Nonspecific ST and T wave abnormality Abnormal ECG When compared with ECG of 05-Dec-2024 20:13, Nonspecific T wave abnormality, worse in Lateral leads Referred By: Giovana Wetzel Electronically Signed By: HUY POTTER MD
--- NOTE | 2025-01-08 01:07 | ED_ITS ---
HPI - Arrhythmia/Palpitations General Chief Complaint: Arrhythmia/Palpitations Stated Complaint: EXCESSIVE NAUSEA Time Seen by Provider: 01/08/25 00:52 Source: patient Mode of arrival: ambulatory Limitations: no limitations History of Present Illness ED Provider: Dr. Giovana Wetzel HPI narrative: Patient comes to the emergency room complaining of nausea, no vomiting, no abdominal pain. Patient complaining of mild headache. Patient states that earlier today, she had biopsy done at [facility] for her pancreatic mass that was seen on CAT scan MRIs and proximally a month ago. Patient states that earlier today, her son took her temperature and she had a fever. On arrival, patient's temperature within normal limits. Patient states she has palpitations. Patient known to have atrial fibrillation. Patient takes metoprolol at home but has been off Eliquis and metoprolol for 3 days due to her biopsy and she is scheduled to restart her medications tomorrow. Related Data Home Medications ?Medication ?Instructions ?Recorded ?Confirmed lorazepam 1 mg tablet 1 mg PO DAILY PRN Anxiety 04/14/21 12/24/24 metformin 1,000 mg tablet 1,000 mg PO BID 12/06/24 12/24/24 Previous Rx's ?Medication ?Instructions ?Recorded apixaban 5 mg tablet (Eliquis) 5 mg PO BID 30 days #60 tabs 10/23/23 metoprolol succinate 50 mg 50 mg PO DAILY #90 tabs 04/24/24 tablet,extended release 24 hr polyethylene glycol 3350 17 17 g PO DAILY 30 days #510 grams 12/24/24 gram/dose oral powder (Miralax) acetaminophen 500 mg tablet 500 mg PO QID PRN fever or pain 01/08/25 #20 tabs ondansetron 4 mg disintegrating 4 mg PO Q6H PRN nausea and 01/08/25 tablet vomiting #10 tabs Allergies Allergy/AdvReac Type Severity Reaction Status Date / Time Tetanus Vaccines and Toxoid Allergy Unknown HIVES Verified 01/08/25 01:00 [TETANUS VACCINES AND TOXOID] Review of Systems 2 Review of Systems: Constitutional : No Weight loss, No Fever, No Chills, No Night Sweats, No Fatigue, No Malaise ENT/Mouth : No Hearing loss, No Ear Pain, No Nasal Congestion, No Sinus Pain, No Hoarseness, No sore throat, No Rhinorrhea, No Swallowing Difficulty Eyes: No Eye Pain, No Swelling, No Redness, No Foreign Body, No Discharge, No Vision Changes Cardiovascular : No Chest Pain, No SOB, No Dyspnea on Exertion, No Orthopnea, No Edema, complaining of Palpitations Respiratory : No Cough, No Sputum, No Wheezing, No Smoke Exposure, No Dyspnea Gastrointestinal : Complaining of Nausea, No Vomiting, No Diarrhea, No Constipation, No abdominal Pain, No Hematochezia, No Melena Genitourinary : no irregular bleeding, No Dysuria, No Urinary Frequency, No Hematuria, No Urinary Incontinence, No Urgency, No Flank Pain, No Urinary Flow Changes, No Hesitancy Musculoskeletal : No joint pain, No Myalgias, No Joint Swelling Skin : No Skin Lesions, No rash Neuro : No Weakness, No Numbness, No Paresthesias, No Loss of Consciousness, No Dizziness, complaining of Headache Psych : No Anxiety/Panic, No Depression, No SI/HI/AH/VH, No Social Issues, Heme/Lymph: No Bruising, No Bleeding,No Lymphadenopathy Endocrine : No Polyuria, No Polydipsia, No Temperature Intolerance [facility] Past Medical History Medical History HTN (hypertension) Smoker ARMOND (obstructive sleep apnea) Diabetes HLD (hyperlipidemia) Persistent atrial fibrillation Surgical History History of bilateral breast reduction surgery History of appendectomy History of oophorectomy Family History Family History Father Myocardial infarction Mother Arthritis Sister No problems noted. Sister No problems noted. Sister No problems noted. Brother No problems noted. Sister No problems noted. Brother No problems noted. Son No problems noted. Son No problems noted. 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 Oriented X3. No acute distress. Eyes: Pupils equal, round and reactive to light. ENT: Pharynx normal. Neck: Normal inspection. Neck supple. No lymph nodes noted. No crepitus CVS: Irregularly irregular, heart rate between 150-160. Pulses normal. Normal S1 and S2 Respiratory: No respiratory distress. Breath sounds normal. No Wheezing. No rales Abdomen: Soft and nontender. No rigidity. No distention. Skin: Skin warm and dry. Normal skin color. Normal skin turgor. Extremities: No lower extremity edema. No Lacerations. No Rash Neuro: Oriented X 3. No motor deficit. No sensory deficit. Moving all extremities. No slurred speech. CN 2 through 12 grossly intact Psych: calm, cooperative, normal affect Course Course Course Narrative: No arrival, patient's heart rate 140-160, blood pressure 128/48. Patient receiving a dose of IV metoprolol. Patient has not been taking her medications due to a biopsy that she had today. All of patient's labs pending At this time, no abdominal pain. Medications Administered Discontinued Medications Generic Name Dose Route Start Last Admin Trade Name Erin PRN Reason Stop Dose Admin Acetaminophen 975 mg 01/08/25 01:07 01/08/25 01:12 Acetaminophen 325 Mg Tablet PO 01/08/25 01:08 975 mg ONCE ONE Administration Sodium Chloride 500 mls @ 999 mls/hr 01/08/25 01:05 01/08/25 01:50 Ns IVCONT 01/08/25 01:35 Infused .Q31M ONE Infusion Metoprolol Tartrate 5 mg 01/08/25 01:05 01/08/25 01:13 Metoprolol Tartrate 5 Mg/5 Ml Vial IVPUSH 01/08/25 01:06 5 mg ONCE ONE Administration Protocol Morphine Sulfate 1 mg 01/08/25 01:05 01/08/25 01:12 Morphine Sulfate 2 Mg/Ml Cartridge IVPUSH 01/08/25 01:06 1 mg ONCE ONE Administration Protocol Medical Decision Making Medical Decision Making [facility] Narrative: My interpretation of EKG: Atrial fibrillation, heart rate 99, no ST segment depression or elevation, no T-wave inversion, QTC 433 My interpretation of labs: Patient's hematology at baseline, chemistry within normal limits, troponin 6.1 Patient states that the headache is improving. Patient had a biopsy of the pancreas earlier today, patient denies any chest pain or shortness of breath. Patient went to AFib with RVR, patient had been without metoprolol for over 3 days, in preparation for her biopsy Patient received a dose of metoprolol IV, heart rate 90-100, blood pressure 105/43. Oxygen saturation constantly 91-93%. Patient tested positive for COVID, extending the fever that she had earlier at home. Chest x-ray shows cardiomegaly without heart failure pulmonary edema. Patient was ambulated, oxygen saturation 94% and above. No oxygen desaturations. Discussed with the patient that she may reassume taking her medications Differential Diagnosis Differential Diagnoses: The differential diagnosis associated with the presentation includes (AFib with RVR, a flutter, viral syndrome) Admission/Observation Consideration of admission/observation: Escalation of care including admission/observation considered (Given patient's presentation and past medical history, observation was considered) Lab Data [facility] Lab Attestation statement: I reviewed the patient's lab results. 01/08/25 01:08 01/08/25 01:08 Labs: Lab Results 01/08/25 01/08/25 Range/Units 01:08 01:26 WBC 6.8 (4.8-10.8) X10*3/uL RBC 3.71 L (4.20-5.50) X10*6/uL Hgb 11.4 L (12.0-16.0) g/dl Hct 35.1 L (37.0-47.0) % MCV 94.6 (80.0-98.0) fL MCH 30.7 (27.0-33.0) pg MCHC 32.5 (31.0-35.0) g/dl RDW 14.9 (11.0-16.0) % Plt Count 134 L (160-400) X10*3/uL MPV 10.3 (9.4-12.3) fL Immature Gran % (Auto) 0.4 (0.0-0.4) % Neut % (Auto) 83.1 H (45-73) % Lymph % (Auto) 5.3 L (20-40) % [place] % (Auto) 10.2 (2-11) % Eos % (Auto) 0.7 (0-4) % Baso % (Auto) 0.3 (0-2) % Lymph # (Auto) 0.4 L (1.2-4.9) X10*3/uL [place] # (Auto) 0.7 (0.1-1.2) X10*3/uL Eos # (Auto) 0.1 (0.0-0.4) X10*3/uL Baso # (Auto) 0.0 (0.0-0.2) X10*3/uL Abs Immat Gran (auto) 0.03 (0.00-0.03) X10*3/uL Absolute Neuts (auto) 5.6 (2.0-8.3) x10*3/uL Absolute Nucleated RBC 0.000 (0.0-0.012) X10*3/uL Nucleated RBC % (auto) 0.0 (0.0-0.2) /100WBC Sodium 138 (135-145) mmol/L Potassium 4.1 (3.3-5.1) mmol/L Chloride 108 (96-108) mmol/L Carbon Dioxide 21 L (22-29) mmol/L Anion Gap 13 (12-20) BUN 23 H (9-16) mg/dL Creatinine 1.04 (0.5-1.4) mg/dL Estim Creat Clear Calc 51.5 Estimated GFR 52 Random Glucose 208 H (60-115) mg/dL Calcium 9.0 (8.4-10.2) mg/dL Total Bilirubin 0.8 (0.0-1.0) mg/dL Direct Bilirubin 0.3 (0.0-0.5) mg/dL AST 23 (5-31) U/L ALT 12 (0-31) U/L Alkaline Phosphatase 57 (39-117) U/L Troponin I High Sens 6.1 (<3.5-17.0) ng/L Total Protein 7.7 (6.5-8.0) g/dL Albumin 3.7 (3.5-5.0) g/dL Lipase 34 (8-78) U/L Influenza Type A (PCR) NEGATIVE (Negative) Influenza Type B (PCR) NEGATIVE (Negative) RSV RNA Qual (PCR) NEGATIVE (Negative) SARS-CoV-2 RNA (RT-PCR) POSITIVE A (Negative) Independent Interpretation I performed an independent interpretation of an: Plain X-Ray Radiology Impression Discussion of test interpretation with radiology: I have reviewed the radiologist's reading. Radiologist Impression: No consolidation or effusion. No acute fracture. Osteopenia. Impression: 1. Cardiomegaly without failure. Critical Care Time Critical Care Time Critical Care Time: Yes Total Critical Care Time: 45 Attestation: I have personally provided critical care time. Time includes review of lab data, radiology results, discussion with consultants, and monitoring for potential decompensation. Intervention performed as documented. Discharge Plan Discharge Clinical Impression: Atrial fibrillation with RVR, COVID-19 Patient Disposition: Home, Self-Care Instructions: A-fib (Atrial Fibrillation) (ED), COVID-19 (Coronavirus Disease 2019) (ED) Additional Instructions: Please follow-up with your primary care physician tomorrow. If you have any worsening or new symptoms, please return to the emergency room or call 911 Prescriptions: New ondansetron 4 mg tablet,disintegrating 4 mg PO Q6H PRN (Reason: nausea and vomiting) Qty: 10 0RF acetaminophen 500 mg tablet 500 mg PO QID PRN (Reason: fever or pain) Qty: 20 0RF No Action Eliquis 5 mg tablet 5 mg PO BID 30 Days Qty: 60 1RF metoprolol succinate 50 mg tablet extended release 24 hr 50 mg PO DAILY Qty: 90 3RF metformin 1,000 mg tablet 1,000 mg PO BID lorazepam 1 mg tablet 1 mg PO DAILY PRN (Reason: Anxiety) polyethylene glycol 3350 [Miralax] 17 gram/dose powder 17 g PO DAILY 30 Days Qty: 510 3RF Print Language: Malagasy
[2025-01-08] MEDS: Morphine Sulfate 2 MG/ML CARTRIDGE 1 MG IVPUSH (01:12)
[2025-01-08] MEDS: Acetaminophen 325 MG TABLET 975 MG PO (01:12)
[2025-01-08] MEDS: Metoprolol Tartrate 5 MG/5 ML VIAL IVPUSH (01:13)
[2025-01-08 01:15] LABS: MANUAL DIFF FLAG NO
[2025-01-08 01:16] LABS: Basophils Percent Auto 0.3 % (0-2); Eosinophils Absolute Auto 0.1 X10*3/uL (0.0-0.4); Eosinophils Percent Auto 0.7 % (0-4); Hematocrit 35.1 % (37.0-47.0); Hemoglobin 11.4 g/dl (12.0-16.0); Imm Gran Abs Auto 0.03 X10*3/uL (0.00-0.03); Imm Gran Pct Auto 0.4 % (0.0-0.4); Lymphocytes Absolute Auto 0.4 X10*3/uL (1.2-4.9); Lymphocytes Percent Auto 5.3 % (20-40); Mean Corpuscular HGB Conc 32.5 g/dl (31.0-35.0); Mean Corpuscular Hemoglobin 30.7 pg (27.0-33.0); Mean Corpuscular Volume 94.6 fL (80.0-98.0); Mean Platelet Volume 10.3 fL (9.4-12.3); Monocytes Absolute Auto 0.7 X10*3/uL (0.1-1.2); Monocytes Percent Auto 10.2 % (2-11); Neutrophils Absolute Auto 5.6 x10*3/uL (2.0-8.3); Neutrophils Percent Auto 83.1 % (45-73); Platelet Count 134 X10*3/uL (160-400); Red Blood Count 3.71 X10*6/uL (4.20-5.50); Red Cell Distribution Width 14.9 % (11.0-16.0); White Blood Count 6.8 X10*3/uL (4.8-10.8)
[2025-01-08] MEDS: 0.9 % Sodium Chloride 500 ML 999 ML IVCONT (01:17)
--- NOTE | 2025-01-08 01:28 | PC.NURSE ---
Patient BIBA from home for evaluation of severe headache, nausea, 1 episode of vomiting, heart palpitations, weakness s/p biopsy of Pancreas at [facility]-onset of symptoms around 15:00 yesterday. Patient changed into a hospital attire, cardiac monitor technician applied to patient's chest, EKG completed by [facility] pharmacy tech, 20 G IV line in L wrist established by EMS, 20 G IV line inserted at ED , labs drawn and sent to lab. Patient medicated per DEC. Patient currently resting on stretcher bed HR 102, a-fib on cardiac monitor technician, patient denies chest pain, heart palpitations resolved. Call todd placed within patient's reach,m plan of care ongoing
[2025-01-08 01:32] LABS: Alanine Aminotransferase 12 U/L (0-31); Albumin Level 3.7 g/dL (3.5-5.0); Aspartate Amino Transferase 23 U/L (5-31); Bilirubin Direct 0.3 mg/dL (0.0-0.5); Bilirubin Total 0.8 mg/dL (0.0-1.0); Blood Urea Nitrogen 23 mg/dL (9-16); Carbon Dioxide 21 mmol/L (22-29); Chloride 108 mmol/L (96-108); Creatinine Clr Calc Pharmacy 51.5; Estimated Glomerular Filt Rate 52; Glucose Random 208 mg/dL (60-115); Lipase 34 U/L (8-78); Potassium 4.1 mmol/L (3.3-5.1); Sodium 138 mmol/L (135-145); Total Protein 7.7 g/dL (6.5-8.0)
[2025-01-08 01:38] LABS: Alkaline Phosphatase 57 U/L (39-117)
[2025-01-08 01:40] LABS: Troponin-I High Sensitivity 6.1 ng/L (<3.5-17.0)
[2025-01-08 02:10] LABS: Influenza A PCR NEGATIVE (Negative); Influenza B PCR NEGATIVE (Negative); Resp Syncy Virus RNA Qual PCR NEGATIVE (Negative); SARS COV2 PCR INHOUSE POSITIVE (Negative)
[2025-01-08 02:29] LABS: Anion Gap 13 (12-20)
--- NOTE | 2025-01-08 03:31 | ECG_ITS ---
Test Reason : PALPATATIONS Blood Pressure : */* mmHG Vent. Rate : 99 BPM Atrial Rate : * BPM P-R Int : * ms QRS Dur : 74 ms QT Int : 338 ms P-R-T Axes : * 25 193 degrees QTcB Int : 433 ms Atrial fibrillation T wave abnormality, consider lateral ischemia Abnormal ECG When compared with ECG of 08-Jan-2025 00:59, No significant change was found Referred By: Giovana Wetzel Electronically Signed By: HUY POTTER MD
== END 2025-01-08 04:55 | disposition home or self-care (01) ==
PROVIDERS: Emergency Provider Emergency Medicine; PCP Student in an Organized Health Care Education/Training Program
DX: U07.1 COVID-19 (principal); I48.19 Other persistent atrial fibrillation; I10 Essential (primary) hypertension; E11.9 Type 2 diabetes mellitus without complications; E78.5 Hyperlipidemia, unspecified; Z79.899 Other long term (current) drug therapy
CPT/HCPCS: 0241U; 36415; 71045; 80048; 80076; 83690; 84484; 85025; 93005; 96361; 96374; 96375; 99284; 99285; J2270

== ENCOUNTER → 2025-01-08 00:53 | Outpatient (BNV) | payer MEDICARE, MEDICAID, SELFPAY | PROVIDERS: Emergency Provider Emergency Medicine; PCP Student in an Organized Health Care Education/Training Program; Visit Provider Internal Medicine Cardiovascular Disease | DX: I48.91 Unspecified atrial fibrillation (principal); R94.31 Abnormal electrocardiogram [ECG] [EKG]; R00.2 Palpitations | CPT/HCPCS: 93010 ==

== ENCOUNTER → 2025-01-08 02:43 | Outpatient (BNV) | payer MEDICARE, MEDICAID, SELFPAY | PROVIDERS: Emergency Provider Emergency Medicine; PCP Student in an Organized Health Care Education/Training Program; Visit Provider Radiology Diagnostic Radiology | DX: I51.7 Cardiomegaly (principal) | CPT/HCPCS: 71045 ==

== ENCOUNTER 2025-02-05 11:21 | Day surgery (SDC) | payer MEDICARE, MEDICAID, SELFPAY ==
--- OUTSIDE RECORDS SUMMARY | 2025-01-29 15:08 | XMS_ITS | Encounter Summary ---
Author Organization [employer] Address [address] [place] [address] Care Team Providers Care Bookbinder Chief Name Role Phone Ayla Ziegler MD Primary Care Provider [phone] Encounter Details Date Type Department Care Team ([facility] st Contact Info) Description 01/21/2025 Orders Only [facility] [address] [place] [address] ProviderSybil MD Social History Tobacco Use Types [...] as of this encounter Plan of Treatment Upcoming Encounters Date Type Department Care Team (Late st Contact Info) Description 04/09/2025 11:15 AM EDT Office Visit [facility] [address] [place], [place] [phone] Ayla Ziegler MD [address] [place] [address] documented as of this encounter Procedures Procedure Name Priority Date/Time Associated Diagnosis Comments PET CT SKULL TO MID THIGH W FDG Routine 01/17/2025 9:30 AM EDT documented in this encounter Results * PET/CT FDG Skull Base To Mid-Thigh (01/17/2025 9:30 AM EDT) Anatomical Region Laterality Modality Computed Tomogra phy Historical Provider MD CAMACHO CT PROCEDURES Final R esult documented in this encounter Visit Diagnoses Not on filedocumented in this encounter Additional Health Concerns Assessment Noted Time PHQ-9 Depression Total Score: 0 04/24/20 23 11:11 AM EDT documented as of this encounter Care Teams Bookbinder Chief Relationship Specialty Start Date End Date Ayla Ziegler MD [address] [place] [address] PCP - General Family Medicine 11/14/13 documented as of this encounter
--- OUTSIDE RECORDS SUMMARY | 2025-01-29 15:08 | XMS_ITS | Clinical Summary ---
Author Organization [address] [facility] Address [address] [place] [address] Phone Care Team Providers Care Sport Intern Name Role Phone Ayla Ziegler MD Primary Care Provider Encounters Date Type Department Care Team Description 01/17/2025 1:47 PM EDT - 01/17/2025 11:59 PM EDT Hospital Encounter [facility] PET Scan [address] [place] [id number] Malignant neoplasm of pancreas, unspecified (CMS/HCC V24, CMS/HCC V28); Malignant neoplasm of body of pancreas (CMS/HCC V24, CMS/HCC V28) Discharge Disposition: Home or Self Care from Last 3 Months Social History Tobacco Use Types Packs/Day Years Used Date Smoking Tobacco: Never Assessed Comments Unknown Sex and Gender Information Value Date Recorded Sex Assigned at Not on file Legal Sex Female 11:17 AM EST Gender Identity Not on file Sexual Orientation Not on file Plan of Treatment Upcoming Encounters Date Type Department Care Team ([facility] st Contact Info) Description 02/03/2025 3:00 PM EDT Consult Orthopedic Surgery - [place] [address] [phone] Warren Currie, DPM [address] [id number] Health Maintenance Due Date Last Done Comments Diabetes: Annual Foot Exam 1960 Diabetes: Annual Retina Eye Exam 1960 Zoster Vaccines (1 of 2) 1969 RSV Immunization Adult Patients (1 - Risk 60-74 years 1-dose series) 2010 Breast Cancer Screening 09/28/2024 09/28/2022 Depression Screening 12/05/2024 04/24/2023 Diabetes: Annual Urine Albumin-Creatinine Ratio (uACR) 12/05/2024 Falls Risk Assessment 12/05/2024 Hepatitis C Screening 12/05/2024 Medicare Annual Wellness Visit 12/05/2024 Osteoporosis Screening (Bone Density Screening) 12/05/2024 Social Influencers of Health Screening 12/05/2024 COVID-19 Vaccine (7 - Moderna risk ) 01/27/2025 07/29/2024, 08/26/2022, 01/28/2022, Additional history exists Diabetes: Blood Sugar Control Test (HGBA1C) 05/19/2025 11/19/2024 Diabetes: Annual GFR (Glomerular Filtration Rate) 11/19/2025 11/19/2024 Hypertension/CHF/CAD Annual BMP Blood Test 11/19/2025 11/19/2024 Colorectal Cancer Screening: FIT-DNA (Cologuard) 11/28/2027 11/28/2024 Cholesterol Screening (Lipid Panel) 11/19/2029 11/19/2024 DTaP,Tdap,and Td Vaccines (2 - Td or Tdap) 04/29/2034 04/29/2024 Pneumococcal Vaccine: 50+ Years Completed 08/12/2022, 06/18/2019 Influenza Vaccine Completed 07/29/2024, , 08/15/2022, Additional [...] age to complete this topic Meningococcal B Vaccine Aged Out No l onger eligible based on patient's age to complete this topic RSV Immunization Patients Under 20 months Aged Out No longer eligible based on patient's age to complete this topic Varicella Vaccines Aged Out No longer eligible based on patient's age to complete this topic Procedures Procedure Name Priority Date/Time Associated Diagnosis Comments PET CT SKULL TO MID THIGH INITIAL Routine 01/17/2025 3:30 PM EDT Malignant neoplasm of pancreas, unspecified (CMS/HCC V24, CMS/HCC V28) Malignant neoplasm of body of pancreas (CMS/HCC V24, CMS/HCC V28) from Last 3 Months Results * PET CT Skull to Mid Thigh Initial (01/17/2025 3:30 PM EDT) Anatomical Region Laterality Modality Body Radiographic Lore ging 01/21/2025 3:54 AM EDT Impressions 01/21/2025 4:45 AM EDT 1. ??FDG avid pancreatic tail mass in keeping with biopsy-proven malignancy. ?? 2. ??No definite PET/CT findings to suggest metastatic disease. ??Nonenlarged upper abdominal lymph nodes not demonstrating significant FDG activity. Please note: The CT was acquired at a low radiation dose settings. ??The images are of nondiagnostic quality and used solely for purposes of attenuation correction and slice localization for the PET scan. ??If a diagnostic CT study is desired it must be ordered separately. -------- FINAL REPORT -------- Dictated By: Flavia Zepeda Dictated Date: 01/21/2025 03:54 ET Assigned Physician: Flavia Zepeda Reviewed and Electronically Signed By: Flavia Zepeda Signed Date: 01/21/2025 04:45 ET Workstation ID: [id number] Transcribed By: Self Edit Transcribed Date: 01/21/2025 03:54 ET Narrative 01/21/2025 4:45 AM EDT INDICATION: PANCREAS CANCER TECHNIQUE: FDG PET-CT imaging was performed from the skull bases through the thighs in a single acquisition with data set reconstructed in axial, coronal, and sagittal planes at the computer workstation with fused data from both the PET imaging study and attenuation correction CT. The CT portion of the examination was done strictly for attenuation correction and is not a true diagnostic CT examination. ??Enteric contrast was administered. DLP: ??948 mGy-cm Radiopharmaceutical: 10.5 mCi of F-18 FDG IV. Blood glucose: 103 mg/dl. COMPARISON: Outside CT of the abdomen and pelvis November 2024 FINDINGS: HEAD AND NECK: Activity along the nasopharynx SUV Max 4.4 and tonsillar region SUV max 6.2 on the right and 4.2 on the left; likely physiologic. ??Bilateral nonenlarged cervical lymph nodes SUV max 2.7 on the left and 2.8 on the right. THORAX: No FDG avid pulmonary nodules. ??Bibasilar atelectasis. No significant FDG avid thoracic lymphadenopathy. ??For example, mediastinal lymph nodes measuring up to SUV Max 2.6 (mediastinal blood pool SUV Max 3.1). Coronary artery calcifications. ABDOMEN/PELVIS: Pancreatic tail mass SUV max 7.9. Gastrohepatic lymph node SUV max 1.1. ??Mabel hepatis lymph nodes SUV max 2.1. ??Retroperitoneal lymph nodes SUV max 1. ??Inguinal lymph nodes measuring up to SUV Max 1.5. ??Focal soft tissue nodularity adjacent to the gastric fundus either representing a lymph node versus vessel SUV Max 1.2. Small hiatal hernia. ??Nonspecific bowel activity. ??Fat-containing lesion in the duodenum which may represent a lipoma. ??Low-attenuation lesion in the left kidney without significant FDG activity. ??Diverticulosis. MUSCULOSKELETAL: No abnormal FDG activity. Procedure Note Flavia Zepeda MD - 01/21/2025 INDICATION: PANCREAS CANCER TECHNIQUE: FDG PET-CT imaging was performed from the skull bases throughthe thighs in a single acquisition with data set reconstructed in axial,coronal, and sagittal planes at the computer workstation with fused datafrom both the PET imaging study and attenuation correction CT. The CTportion of the examination was done strictly for attenuation correctionand is not a true diagnostic CT examination. Enteric contrast wasadministered. DLP: 948 mGy-cm Radiopharmaceutical: 10.5 mCi of F-18 FDG IV. Blood glucose: 103 mg/dl. COMPARISON: Outside CT of the abdomen and pelvis November 2024 FINDINGS: HEAD AND NECK: Activity along the nasopharynx SUV Max 4.4 and tonsillarregion SUV max 6.2 on the right and 4.2 on the left; likely physiologic.Bilateral nonenlarged cervical lymph nodes SUV max 2.7 on the left and 2.8on the right. THORAX: No FDG avid pulmonary nodules. Bibasilar atelectasis. No significant FDG avid thoracic lymphadenopathy. For example,mediastinal lymph nodes measuring up to SUV Max 2.6 (mediastinal bloodpool SUV Max 3.1). Coronary artery calcifications. ABDOMEN/PELVIS: Pancreatic tail mass SUV max 7.9. Gastrohepatic lymph node SUV max 1.1. Mabel hepatis lymph nodes SUV max2.1. Retroperitoneal lymph nodes SUV max 1. Inguinal lymph nodesmeasuring up to SUV Max 1.5. Focal soft tissue nodularity adjacent to thegastric fundus either representing a lymph node versus vessel SUV Max1.2. Small hiatal hernia. Nonspecific bowel activity. Fat-containing lesionin the duodenum which may represent a lipoma. Low-attenuation lesion inthe left kidney without significant FDG activity. Diverticulosis. MUSCULOSKELETAL: No abnormal FDG activity. IMPRESSION: 1. FDG avid pancreatic tail mass in keeping with biopsy-provenmalignancy. 2. No definite PET/CT findings to suggest metastatic disease.Nonenlarged upper abdominal lymph nodes not demonstrating significant FDGactivity. Please note: The CT was acquired at a low radiation dose settings. The images are ofnondiagnostic quality and used solely for purposes of attenuationcorrection and slice localization for the PET scan. If a diagnostic CTstudy is desired it must be ordered separately. -------- FINAL REPORT -------- Dictated By: Flavia Zepeda Dictated Date: 01/21/2025 03:54 ET Assigned Physician: Flavia Zepeda Reviewed and Electronically Signed By: Flavia Zepeda Signed Date: 01/21/2025 04:45 ET Workstation ID: [id number] Transcribed By: Self Edit Transcribed Date: 01/21/2025 03:54 ET Annabella Novoa MD IM NM PROCEDURES Final Result from Last 3 Months Insurance MEDICAID - [place] MEDICARE Care Teams Sport Intern Relationship Specialty Start Date End Date Ayla Ziegler MD [address] [place] [phone] PCP - General Family Medicine 12/05/24
--- OUTSIDE RECORDS SUMMARY | 2025-01-29 15:08 | XMS_ITS | Encounter Summary ---
Author Organization [employer] Address 75 [facility] 7t [place] [address] Care Team Providers Care Bowling Or Skating Front Desk Clerk Name Role Phone Ayla Ziegler MD Primary Care Provider [phone] Reason for Visit * Reason Onset Date Comments Med Refill 03/21/2024 Encounter Details Date Type Department Care Team ([facility] st Contact Info) Description 03/21/2024 Telephone [facility] MEDICINE [address] [place] [address] Ayla Ziegler MD [address] [place], [place] [phone] Med Refill Social History Tobacco Use Types [...] 1 MG tablet To be sent to: [facility]/pharmacy #[id number] AT [facility] documented in this encounter Plan of Treatment Upcoming Encounters Date Type Department Care Team (Late st Contact Info) Description 04/09/2025 11:15 AM EDT Office Visit [facility] MED & PEDS [address] [place] [address] Ayla Ziegler MD 505 [place] [address] documented as of this encounter Visit Diagnoses Not on filedocumented in this encounter Additional Health Concerns Assessment Noted Time PHQ-9 Depression Total Score: 0 04/24/20 23 11:11 AM EDT documented as of this encounter Care Teams Bowling Or Skating Front Desk Clerk Relationship Specialty Start Date End Date Ayla Ziegler MD [address] [place] [address] PCP - General Family Medicine 11/14/13 documented as of this encounter
--- OUTSIDE RECORDS SUMMARY | 2025-01-29 15:08 | XMS_ITS | Encounter Summary ---
Author Organization [employer] Address [address] [facility] [address] 7t [place] [address] Care Team Providers Care Body Technician Name Role Phone Ayla Ziegler MD Primary Care Provider [phone] Encounter Details Date Type Department Care Team ([facility] st Contact Info) Description 12/07/2024 Orders Only [facility] CHC MED & PEDS [address] [place] [address] ProviderSybil MD Social History Tobacco Use Types [...] Description 04/09/2025 11:15 AM EDT Office Visit [facility] CHC MED & PEDS [address] [place], [place] [phone] Ayla Ziegler MD 505 [place] [address] documented as of this encounter Procedures Procedure Name Priority Date/Time Associated Diagnosis Comments DIABETES EYE EXAM Routine 02/28/2024 7:24 PM EDT documented in this encounter Results * Diabetes Eye Exam (02/28/2024 7:24 PM EDT) us Historical Provider HEALTH MAINTENANCE Final Result documented in this encounter Visit Diagnoses Not on filedocumented in this encounter Additional Health Concerns Assessment Noted Time PHQ-9 Depression Total Score: 0 04/24/20 23 11:11 AM EDT documented as of this encounter Care Teams Body Technician Relationship Specialty Start Date End Date Ayla Ziegler MD [address] [place] [phone] PCP - General Family Medicine 11/14/13 documented as of this encounter
--- OUTSIDE RECORDS SUMMARY | 2025-01-29 15:08 | XMS_ITS | Encounter Summary ---
Author Organization [employer] Address 75 [facility] 7t [place] [address] Care Team Providers Care Outside Repairer Special Name Role Phone Ayla Ziegler MD Primary Care Provider [phone] Reason for Visit * Reason Onset Date Comments Hospital Follow-up 12/12/2024 Encounter Details Date Type Department Care Team ([facility] st Contact Info) Description 12/12/2024 Telephone [facility] MED[facility]INE [address] [place] [address] Ayla Ziegler MD [address] [place], [place] [phone] Hospital Follow-up Social History Tobacco Use Types [...] pt son requesting a HDF appt. Hospital: [facility] [place] Date of admission: 12/06 Discharge date: 12/08 Diagnosed: Pancreatic mass (acute), Acute Pancreatitis. *Send message to Cut Off Clinical Care Coordinators [phone] documented in this encounter Plan of Treatment Upcoming Encounters Date Type Department Care Team (Late st Contact Info) Description 04/09/2025 11:15 AM EDT Office Visit [facility] MED & PEDS [address] [place] [address] Ayla Ziegler MD 505 [place] [address] documented as of this encounter Visit Diagnoses Not on filedocumented in this encounter Additional Health Concerns Assessment Noted Time PHQ-9 Depression Total Score: 0 04/24/20 23 11:11 AM EDT documented as of this encounter Care Teams Outside Repairer Special Relationship Specialty Start Date End Date Ayla Ziegler MD [address] [place] [phone] PCP - General Family Medicine 11/14/13 documented as of this encounter
--- OUTSIDE RECORDS SUMMARY | 2025-01-29 15:08 | XMS_ITS | Clinical Summary ---
Author Organization [employer] Address [address] [place] [address] 7t [place] [address] Care Team Providers Care Brim Curler Name Role Phone Ayla Ziegler MD Primary [...] needed at bedtime for anxiety. 10 tablet 01/18/20 25 Active LORazepam (Ativan) 1 MG tabletIndicati ons:Anxiety Take 1 tablet (1 mg) by mouth if needed at bedtime for anxiety. 10 tablet 11/20/19 25 025 Discontinued(Re order (will not trigger notification to Pharmacy)) Active Problems Problem Noted Date Diagnosed Date Chronic atrial fibrillation 05/28/2024 Overview (05/28/2024): on eliquis Abdominal aortic aneurysm (AAA) 04/24/2023 Essential hypertension 12/13/2011 Diabetes mellitus 12/13/2011 Obesity 12/13/2011 Pure hypercholesterolemia 11/10/2011 Tobacco dependence syndrome 10/26/2011 Migraine 10/26/2011 Acute pharyngitis 05/18/2011 Encounters Date Type Department Care Team Description 01/21/2025 Orders Only [facility] CH[facility] MED & PEDS [address] [place] [address] Sybil Dominguez MD 01/17/2025 Refill [facility] [address] [place] [address] Ayla Ziegler MD Anxiety 01/08/2025 Orders Only [facility] External Provider, [facility] 12/12/2024 Patient Outreach [facility] MED & PEDS [address] [place] [address] Ayla Ziegler MD Transition Of Care (Tcm) (HDF- LVM ) 12/12/2024 Telephone [facility] [address] [place] [phone] Ayla Ziegler MD Hospital Follow-up 12/07/2024 Orders Only [facility] MED & PEDS [address] [place] [address] Sybil Dominguez MD 12/06/2024 Telephone [facility] [address] [place] [phone] Ayla Ziegler MD 12/06/2024 Orders Only [facility] MED [facility] PEDS [address] [place] [address] Ayla Ziegler MD Pancreatic mass (Primary Dx) 12/05/2024 Telephone [facility] MED & PEDS [address] [place] [address] Rashmi Nazario, RN Results 12/05/2024 Orders Only [facility] MED & PEDS [address] [place] [address] Ayla Ziegler MD Encounter for screening for malignant neoplasm of colon (Primary Dx) 11/20/2024 Refill [facility] PED[facility] [address] [place] [address] Ayla Ziegler MD Anxiety 11/19/2024 8:30 AM EST Office Visit [facility] MED & PEDS [address] [place] [address] Ayla Ziegler MD Essential hypertension (Primary Dx); Type 2 diabetes mellitus without complication, without long-term current use of insulin ([facility]/HCC); Encounter for screening mammogram for breast cancer; Encounter for screening for malignant neoplasm of colon 11/19/2024 Travel 11/18/2024 Telephone [facility] MED & PEDS [address] [place] [address] Ayla Ziegler MD chart prep 11/11/2024 Telephone [facility] MED & PEDS [address] [place] [address] Ayla Ziegler MD 11/11/24 Provider out from Last 3 Months Immunizations Name Administration [...] 11/19/2024 8:50 AM EST Plan of Treatment Upcoming Encounters Date Type Department Care Team (Late st Contact Info) Description 04/09/2025 11:15 AM EDT Office Visit [facility] MED & PEDS [address] [place] [address] Ayla Ziegler MD [address] [place] [address] Health Maintenance Due Date Last Done Comments [...] W FDG Routine 01/17/2025 9:30 AM EDT XR CHEST 1 VIEW Routine 01/08/2025 3:22 AM EDT MR MRCP Routine 12/06/2024 9:42 AM EST [...] complication, without long-term current use of insulin ([facility]) HM DIABETES EYE EXAM Routine 02/28/2024 7:24 PM EDT BI MAMMOGRAM SCREENING TOMOSYNTHESIS BILATERAL Routine 09/28/2022 11:02 AM EST from Last 3 Months or Most Recently Relevant to Health Maintenance Results * PET/CT FDG Skull Base To Mid-Thigh (01/17/2025 9:30 AM EDT) Anatomical Region Laterality Modality Computed Tomogra phy us Historical Provider IMG CT PROCEDURES Final R esult * XR Chest 1 View (01/08/2025 3:22 AM EDT) Anatomical Region Laterality Modality Chest Radiographic Lore ging 01/08/2025 3:22 AM EDT Narrative 01/08/2025 3:24 AM EDT ? [facility] ?[address] ?[place] [address] ?XRay Report ? Signed ? Patient: Saumya Coughlin ?MR#: [id number] ?? [id number] ? : 1950 ?Acct:[id number] ? Age/Sex: 74 / F ?ADM Date: 01/08/25 ? Loc: HO.ED ? Attending Dr: ? Ordering Physician: Giovana Wetzel MD ?? Date of Service: 01/08/25 ?? Procedure(s): XR chest 1V ?? Accession Number(s): [id number] ? cc: Ayla Ziegler MD; Giovana Wetzel MD ? CLINICAL HISTORY: fever ? 1 view chest ? Comparison: None ? Findings: ?? No consolidation or effusion. ?? No acute fracture. Osteopenia. ? Impression: ?? 1. Cardiomegaly without failure. ? This document has been electronically signed by: Shiva Rodriguez, ?? on 01/08/2025 03:22:03 ? Dictated By: ?Shiva Rodriguez MD ? Signed By: ?<Electronically signed by Shiva Rodriguez MD in OV> ?01/08/25 0323 ? DD/ 032 ? TD/TT: 01/08/25 032 ? Compressed Gas Equipment Mechanic: ? Procedure Note Lisbeth, Image - 01/08/2025 [facility] [address] [place] [address] XRay Report Signed Patient: Saumya Coughlin LMR#: [id number] : 1950Acct:[id number] Age/Sex: 74 / FADM Date: 01/08/25 Loc: HO.ED Attending Dr: Ordering Physician: Giovana Wetzel MD Date of Service: 01/08/25 Procedure(s): XR chest 1V Accession Number(s): [id number] cc: Ayla Ziegler MD; Giovana Wetzel MD CLINICAL HISTORY: fever 1 view chest Comparison: None Findings: No consolidation or effusion. No acute fracture. Osteopenia. Impression: 1. Cardiomegaly without failure. This document has been electronically signed by: Shiva Rodriguez MD on 01/08/2025 03:22:03 Dictated By: Shiva Rodriguez MD Signed By: <Electronically signed by Shiva Rodriguez MD in OV> 01/08/25 032 DD/ 0322 TD/TT: 01/08/25 032 Compressed Gas Equipment Mechanic: us [facility] External Provider IMG XR PROCEDURES Final Result * MR MRCP (12/06/2024 9:42 AM EST) Anatomical Region Laterality Modality Lower Extremities Left Magnetic Reson ance 12/06/2024 9:42 AM EST Narrative 12/06/2024 10:31 AM EST ? [facility] ?[address] ?[place] [address] ? Magnetic Resonance Report ? Signed ? Patient: Ced,Saumya L ?MR#: [id number] ?? [id number] ? : 1950 ?Acct:[id number] ? Age/Sex: 74 / F ?ADM Date: 12/06/25 ? Loc: HO.[place] ?MEDSURG-8 ? Attending Dr: Fletcher Vinson MD ? Ordering Physician: Jersey Cerda ?? Date of Service: 12/06/24 ?? Procedure(s): MR MRCP ?? Accession Number(s): [id number] ? cc: Jersey Cerda; Ayla Ziegler MD [...] DD/ 0942 ? TD/TT: 12/06/24 1002 ? Compressed Gas Equipment Mechanic: ? Procedure Note Donchristi, Image - 12/06/2024 [place] [address] Magnetic Resonance Report Signed Patient: Saumya Coughlin LMR#: [id number] : 1950Acct:[id number] Age/Sex: 74 / FADM Date: 12/06/24 [facility] [address]: Fletcher Vinson MD Ordering Physician: Jersey Cerda Date of Service: 12/06/24 Procedure(s): MR MRCP Accession Number(s): [id number] cc: Jersey Cerda; Ayla Ziegler MD EXAMINATION: [...] 12/06/24 1028 DD/ 0942 TD/TT: 12/06/24 1002 Compressed Gas Equipment Mechanic: [facility] External Provider IMG MRI PROCEDURES Final Result * (ABNORMAL) Urinalysis w/reflex microscopic (12/06/2024 5:13 AM EST) Color Urine Yellow [facility] Appearance Urine Clear [facility] PH 5.0 5.0 - 9.0 [facility] Glucose Urine UA 250(A) Negative mg/dL [facility] Urine Blood Negative Negative [facility] Specific [place] - Urine >=1.030(H) 1.005 - 1.025 [facility] Urine Protein Negative Neg-Trace mg/dL [facility] Urine Ketones Negative Negative mg/dL [facility] Nitrite Urine Negative Negative [facility] Leukocyte Esterase Urine Negative Negative [facility] 12/06/2024 5:13 AM EST 12/06/2024 5:20 AM EST Narrative [facility] - 12/06/2024 5:23 AM EST [id number], Clean Catch us Generic External Data Provider LAB URINE ORDERAB LES Final Result [facility] [address] [place] [address] [phone] * CT Abdomen Pelvis w/ Contrast (12/06/2024 4:29 AM EST) Anatomical Region Laterality Modality Body, Pelvis, Abdomen Computed T omography 12/06/2024 4:29 AM EST Narrative 12/06/2024 4:31 AM EST ? [facility] ?[address] ?[place] [address] ? CT Scan Report ? Signed with Addenda ? Patient: Saumya Coughlin ?MR#: [id number] ?? [id number] ? : 1950 ?Acct:[id number] ? Age/Sex: 74 / F ?ADM Date: 12/05/24 ? Loc: HO.ED ? Attending Dr: ? Ordering Physician: Marcial Stephenson MD ?? Date of Service: 12/06/24 ?? Procedure(s): CT abdomen pelvis w IV con ?? Accession Number(s): [id number] ? cc: Ayla Ziegler MD; Marcial Stephenson MD ? Report Number: ?? [id number]: Total DLP = ??722.00 mGy-cm ?ADDENDUM ?? [...] 0430 ? DD/ 0429 ? TD/TT: 12/06/24 0429 ? Compressed Gas Equipment Mechanic: ? Procedure Note Lisbeth, Image - 12/06/2024 [facility] [address] [place] [address] CT Scan Report Signed with Addenda Patient: Saumya Coughlin LMR#: [id number] : 1950Acct:[id number] Age/Sex: 74 / FADM Date: 12/05/24 Loc: HO.ED Attending Dr: Ordering Physician: Marcial Stephenson MD Date of Service: 12/06/24 Procedure(s): CT abdomen pelvis w IV con Accession Number(s): [id number] cc: Ayla Ziegler MD; Marcial Stephenson MD Report Number: [id number]: Total DLP = 722.00 mGy-cm ADDENDUM This [...] OV> 12/06/24 0430 DD/ 8 TD/TT: 12/06/24428 Compressed Gas Equipment Mechanic: [facility] External Provider IMG CT PROCEDURES Edited Result - Final * (ABNORMAL) Cologuard?? colon cancer screening (11/28/2024 10:45 AM EST) Cologuard Result Positive( A) Negative 12/04/2024 2:53 PM EST [facility] (CLIA #:[id number]) Comment: POSITIVE TEST RESULT. A positive Cologuard [...] (Dawn Farfan al, N Engl J Med 2014;370(14):4043-8277.) Cologuard may produce a false negative or false positive result (no colorectal cancer or precancerous polyp present at colonoscopy follow up). A negative Cologuard test result does not guarantee the absence of CRC or advanced adenoma (pre-cancer). The current Cologuard screening interval is every 3 years. ([place] [employer] Society and U.S. Multi-Society Task Force). Cologuard performance data in a 10,000 patient pivotal study using colonoscopy as the reference method can be accessed at the following location: www.LoopUp.Balihoo/results. Additional description of the Cologuard test process, warnings and precautions can be found at www.[employer].Balihoo. Stool specimen (specimen) Rectal contents / Unknown 11/28/2024 10:45 AM EST 11/29/2024 10:58 AM EST us Ayla Ziegler MD LAB MOLECULAR DIAGNOSTICS ORDERA BLES Final Result [facility] (CLIA #:[id number]) [place] [address], * Hepatic Function Panel (11/19/2024 9:24 AM EST) Bilirubin, Total 0.6 0.0 - 1.0 mg/dL [facility] Bilirubin, Direct 0.2 0.0 - 0.5 mg/dL [facility] Aspartate Amino Transferase 16 5 - 31 U/L [facility] Alanine Aminotransferase 7 0 - 31 U/L [facility] Total Protein 7.8 6.5 - 8.0 g/dL [facility] Albumin Level 3.5 3.5 - 5.0 g/dL [facility] Alkaline Phosphatase 65 39 - 117 U/L [facility] Blood Venous blood specimen / Unknown 11/19/2024 9:24 AM EST 11/19/2024 2:10 PM EST us Ayla Ziegler MD LAB BLOOD ORDERABLES Final Resul t Performing Organization Address [facility] Co de Phone Number [facility] [address] [place] [phone] * (ABNORMAL) Lipid Panel, Standard (11/19/2024 9:24 AM EST) Triglycerides 84 <150 mg/dL [facility] Comment:Desirable Triglyceri de: less than 150 mg/dLBorderline High Triglyceride 150-199 mg/dLHigh Triglyceride: 200-499 mg/dLVery High Triglyceride: greater than or equal to 5OO mg/dL Cholesterol 175 <200 mg/dL [facility] Comment:Desirable Cholestero l: less than 200 mg/dLBorderline High Cholesterol: 200-239 mg/dLHigh Cholesterol: greater than 239 mg/dL LDL Cholesterol Calculated 123(H) <100 mg/dL [facility] Comment:Desirable LDL: less than 100 mg/dLNear Optimal/Above Optimal LDL: 110- 129 mg/dLBorderline High LDL: 130-159 mg/dLHigh LDL: 160-189 mg/dLVery High LDL: greater than or equal to 190 mg/dL HDL Cholesterol 36(L) >40 mg/dL [facility] Comment:Desirable HDL: great er than 40 mg/dL Note: This HDL assay may give artificially low results in patients with liver disease. Blood Venous blood specimen / Unknown 11/19/2024 9:24 AM EST 11/19/2024 2:10 PM EST us Ayla Ziegler MD LAB BLOOD ORDERABLES Final Resul t Performing Organization Address [facility]/ZIP Co de Phone Number [facility] [address] [place] [phone] * (ABNORMAL) Basic Metabolic Panel (11/19/2024 9:24 AM EST) Sodium 139 135 - 145 mmol/L [facility] Potassium 4.4 3.3 - 5.1 mmol/L [facility] Chloride 102 96 - 108 mmol/L [facility] Carbon Dioxide 28 22 - 29 mmol/L [facility] Anion Gap 13 12 - 20 [facility] Urea Nitrogen (BUN) 16 9 - 16 mg/dL [facility] Creatinine, Serum 0.90 0.5 - 1.4 mg/dL [facility] Estimated Glomerular Filt Rate >60 [facility] Comment:Chronic Kidney Disea se: Estimated GFR < 60 mL/min/1.31p5Rnjslu Kidney Disease: Estimated GFR < 15 mL/min/1.73m2 Glucose 246(H) 60 - 115 mg/dL [facility] Calcium 8.5 8.4 - 10.2 mg/dL [facility] Blood Venous blood specimen / Unknown 11/19/2024 9:24 AM EST 11/19/2024 2:10 PM EST Ayla Ziegler MD LAB BLOOD ORDERABLES Final Resul t [facility] [address] [place] [phone] * (ABNORMAL) POCT HGB A1C (11/19/2024 [...] 11:01 AM EDT) Creatinine, Urine 109.33 mg/dL [facility] Microalbumin Urine 26.0 mg/L [facility] Microalbum Creatinine Ratio Ur 23.7 <30 ug/mg cr [facility] Comment:Albumin/Creatinine R atio Reference Ranges: Normal: < 30 ug/mg creatinine Microalbuminuria: 30 - 300 ug/mg creatinineClinical Albuminuria: > 300 ug/mg creatinine Urine (Urine, Random) 04/29/2024 11:01 AM EDT 04/29/2024 2:26 PM EDT Ayla Ziegler MD LAB URINE ORDERABLES Final Resul t [facility] [address] [place] [phone] * Diabetes Eye Exam (02/28/2024 7:24 PM EDT) Sybil Dominguez MD HEALTH MAINTENANCE Final Result * BI Mammogram Screening Tomosynthesis Bilateral (09/28/2022 11:02 AM EST) Anatomical Region Laterality Modality Breast Bilateral Mammography 09/28/2022 11:0 2 AM EST Narrative 09/29/2022 12:04 PM EST ? [facility] ? [address] ?[place] [address] ? Mammography Report ? Signed ? Patient: Ced,Saumya L ?MR#: [id number] ?? [id number] ? : 1950 ?Acct:[id number] ? Age/Sex: 72 / F ?ADM Date: 12/14/22 ? Loc: HO.MAMMO ? Attending Dr: Ayla Ziegler MD ? Ordering Physician: Ayla Ziegler MD ?Results: 2Benign ?? Findings ? Date of Service: 09/28/22 ?Follow Up: 1 Year From Orig ?? inal Mammogram ? Procedure(s): MM tomosynthesis screening BI ?? Accession Number(s): [id number] ? cc: Ayla Ziegler MD ? EXAMINATION: [...] 1202 ? DD/ 1102 ? TD/TT: ? Compressed Gas Equipment Mechanic: FLANAGAN ? Procedure Note Dontabter, Image - 09/29/2022 [facility] [address] [place] [address] Mammography Report Signed Patient: Saumya Coughlin LMR#: [id number] : 1950Acct:[id number] Age/Sex: 72 / FADM Date: 09/28/22 Loc: HO.MAMMO Attending Dr: Ayla Ziegler MD Ordering Physician: Ayla Ziegler MDResults: 2Benign Findings Date of Service: 09/28/22Follow Up: 1 Year From Orig inal Mammogram Procedure(s): MM tomosynthesis screening BI Accession Number(s): [id number] cc: Ayla Ziegler MD EXAMINATION: MM SCREENING [...] in OV> 09/29/22 1202 DD/ 1102 TD/TT: Compressed Gas Equipment Mechanic: [facility] External Provider IMG BI PROCEDURES Final Result from Last 3 Months or Most Recently Relevant to Health Maintenance [place] [place] [address] STANDARD MEDICARE Care Teams Brim Curler Relationship Specialty Start Date End Date Ayla Ziegler MD [address] [place] [phone] PCP - General Family Medicine 11/14/13
[2025-02-05] VITALS (13 sets, daily range): BP systolic 139–162; BP diastolic 56–90; PULSE 77–112; RESP 11–20; TEMP 36.1–36.6; O2SAT 94–99; BMI 31.9
--- NOTE | ~2025-02-05 | IR_ITS ---
CLINICAL HISTORY: Pancreatic cancer. The patient presents to interventional radiology for placement of a port for chemotherapy. PROCEDURES: 1. Real-time ultrasound-guided access into the right internal jugular vein after documentation of selected vessel patency, and permanent image storing in the patient records. 2. Placement of a 6.6 Armenian single-lumen port. CLINICIAN: Vasquez Thurman NP MEDICATIONS: - Versed , Fentanyl , Lidocaine 1% SQ -Antibiotics: Ancef 2g -For additional details, please see nursing flowsheet. Complications: None. Estimated blood loss: <5 ml Specimens: None. Contrast: None. Fluoroscopy time: 0.4 min MODERATE SEDATION TIME: 30 min PROCEDURE NOTE: The procedure, risks, benefits, and alternatives were carefully explained to the patient and written informed consent was obtained. The patient was placed supine on the fluoroscopy table. A timeout was performed. The right neck and chest was prepped and draped in usual sterile fashion. Maximum barrier technique was utilized. Local anesthesia was administered to the access site with 1% lidocaine. Under ultrasound guidance, the right internal jugular vein was accessed with a 5 fr micropuncture set. A 0.035 in wire was advanced into the IVC. A peel-away sheath was advanced over the wire and into the SVC, and the wire was removed. Next, subcutaneous lidocaine was administered to the chest. The port pocket was created after the skin incision, utilizing blunt dissection. Using blunt dissection, a subcutaneous tunnel was created that connects from the port pocket to the venotomy site. Through the peel-away sheath, the 6.6 Armenian port catheter was placed. The catheter position was verified with fluoroscopy to be at the superior vena cava/right atrial junction. The port was connected to the catheter and was placed in the pocket. The port incision site was closed with interrupted 3-0 Vicryl subcutaneous sutures and surgical glue. Prior to closing the skin, 1 g of Ancef solution was placed in the pocket. The port was tested, flushed, and packed with heparin per routine protocol. The patient tolerated the procedure well. The patient was stable after the procedure and was transferred to the PACU. The procedure was performed under moderate sedation and with a dedicated nurse with continuous monitoring of vital signs. A permanent image of the ultrasound the neck and fluoroscopic image of the chest was saved and sent to PACS. FINDINGS: 1. Patent right internal jugular vein 2. Placement of a 6.6 Armenian single lumen port. 3. Port flushes and aspirates very well with a 10 mL syringe. No pneumothorax. IR/IR cvc insert tunnel w prt/barrow worker IMPRESSION: Placement of a 6.6 Armenian single-lumen port. PLAN: - The patient will be discharged home when stable by sedation protocol. - Port may be used immediately. This procedure was performed by Vasquez Thurman NP and directly supervised by Gita Daniels MD. Electronically signed by: Jaswinder Daniels MD 02/20/2025 01:55 PM EDT
[2025-02-05 12:19] LABS: MANUAL DIFF FLAG NO
[2025-02-05 12:20] LABS: Basophils Percent Auto 0.3 % (0-2); Eosinophils Percent Auto 0.4 % (0-4); Hematocrit 34.5 % (37.0-47.0); Hemoglobin 10.8 g/dl (12.0-16.0); Imm Gran Abs Auto 0.05 X10*3/uL (0.00-0.03); Imm Gran Pct Auto 0.7 % (0.0-0.4); Lymphocytes Absolute Auto 1.3 X10*3/uL (1.2-4.9); Lymphocytes Percent Auto 18.6 % (20-40); Mean Corpuscular HGB Conc 31.3 g/dl (31.0-35.0); Mean Corpuscular Hemoglobin 29.9 pg (27.0-33.0); Mean Corpuscular Volume 95.6 fL (80.0-98.0); Mean Platelet Volume 9.6 fL (9.4-12.3); Monocytes Absolute Auto 0.5 X10*3/uL (0.1-1.2); Monocytes Percent Auto 6.3 % (2-11); Neutrophils Absolute Auto 5.2 x10*3/uL (2.0-8.3); Neutrophils Percent Auto 73.7 % (45-73); Platelet Count 189 X10*3/uL (160-400); Red Blood Count 3.61 X10*6/uL (4.20-5.50); Red Cell Distribution Width 15.7 % (11.0-16.0); White Blood Count 7.1 X10*3/uL (4.8-10.8)
[2025-02-05 12:27] LABS: INTERNATIONAL NORM RATIO 1.4 (0.9-1.1); Prothrombin Time 16.7 SEC (10.9-12.4)
[2025-02-05 12:37] LABS: Anion Gap 14 (12-20); Blood Urea Nitrogen 18 mg/dL (9-16); Calcium 9.5 mg/dL (8.4-10.2); Carbon Dioxide 25 mmol/L (22-29); Chloride 105 mmol/L (96-108); Estimated Glomerular Filt Rate > 60; Glucose Random 175 mg/dL (60-115); Potassium 4.9 mmol/L (3.3-5.1); Sodium 139 mmol/L (135-145)
[2025-02-05 12:40] LABS: Glucose, Whole Blood 158 mg/dL (60-115)
[2025-02-05] MEDS: ceFAZolin Sodium/Dextrose,Iso 2 GM/50 ML PIGGYBACK IV (13:29)
[2025-02-05] MEDS: fentaNYL citrate/PF 100 MCG/2 ML VIAL 25 MCG IVPUSH (13:42)
[2025-02-05] MEDS: Midazolam HCl 2 MG/2 ML VIAL 0.5 MG IVPUSH (13:42)
== END 2025-02-05 15:15 | disposition home or self-care (01) ==
PROVIDERS: Radiology Diagnostic Radiology; PCP Student in an Organized Health Care Education/Training Program; Visit Provider Internal Medicine
DX: C25.9 Malignant neoplasm of pancreas, unspecified (principal); I10 Essential (primary) hypertension; I48.19 Other persistent atrial fibrillation; E11.9 Type 2 diabetes mellitus without complications; G47.33 Obstructive sleep apnea (adult) (pediatric); Z79.84 Long term (current) use of oral hypoglycemic drugs; Z79.899 Other long term (current) drug therapy; Z88.7 Allergy status to serum and vaccine; Z87.891 Personal history of nicotine dependence
CPT/HCPCS: 36415; 36561; 76937; 80048; 82947; 85025; 85610; 99152; 99153; C1769; C1788; J0690; J1642; J1644; J2003; J2250; J3010

== ENCOUNTER → 2025-02-05 12:53 | Outpatient (BNV) | payer MEDICARE, MEDICAID, SELFPAY | PROVIDERS: PCP Student in an Organized Health Care Education/Training Program | DX: C25.9 Malignant neoplasm of pancreas, unspecified (principal) | CPT/HCPCS: 36561; 76937; 77001; 99152 ==

== ENCOUNTER → 2025-03-13 10:04 | Outpatient (AMB) | payer MEDICARE, MEDICAID, SELFPAY ==
--- NOTE | 2025-03-13 10:09 | A.OFFVIS_ITS ---
Vital Signs 03/13/25 10:13 Height 5 ft 5 in Weight 187 lb BMI 31.1 BP 109/53 L Blood Pressure Location Lt brachial Position Sitting Pulse 90 Pulse Oximetry (%) 99 Oxygen Delivery Method Room Air Intake Visit Reasons: acute Pancreatitis Intake Note: Patient follow up for Acute pancreatitis and lab result. Patient cc: abdominal bloating, diarrhea and some dizziness on and off. Denies any other GI issues. Delivery Rn Required: No Accompanied by: Self / Same As Patient Allergies Tetanus Vaccines and Toxoid (TETANUS VACCINES AND TOXOID) Allergy (Unknown, Verified 05/07/25 10:36) HIVES Medication List - Last Reconciled 03/13/25 by Rene Blake MD acetaminophen 500 mg PO QID PRN apixaban (Eliquis) 5 mg PO BID 30 days dexamethasone 2 mg PO BID diphenoxylate-atropine 2.5-0.025 mg (Lomotil) 1 tab PO BID PRN loperamide (Imodium A-D) 2 mg PO Q4H PRN lorazepam 1 mg PO DAILY PRN magnesium glycinate 100 mg PO BID metformin 1,000 mg PO BID metoprolol succinate ER 50 mg PO DAILY ondansetron 8 mg PO Q8H PRN potassium chloride ER 20 mEq PO DAILY HPI HPI acute Pancreatitis: Details: GI clinic visit for this 74 YF with AFib on Eliquis s/p failed cardioversions in 2017 and 2020, NIDDM, HTN, and anxiety see for FU after hospitalization for acute pancreatitis. Pt advised to schedule a colonoscopy by Dr Reid due to a positive Cologuard test. TODAY'S VISIT: Patient cc: abdominal bloating, diarrhea and some dizziness on and off. Diagnosed with pancreatic adenoca and had 2 cycles of chemo - notes diarrhea after getting chemo. Has an appt on 05/20/25 for XRT x 28 days in [place] Never had a colonoscopy - stool cologuard was positive a month ago. Denies recent change in bowel habits or rectal bleeding prior to starting chemo. Notes angelique colored stools since she had the blood transfusion. Pt is accompanied by her sister. Her niece (sister's daughter) participitated in the interview by phone. Continues to have abdominal pressure. Trying to eat and does not know what to eat. Diagnosed with DM x 10 yrs ago. Patient denies symptoms of heartburn, dysphagia, nausea, vomiting, change in appetite or weight. Complains of constipation - no BM for a few days and then can have watery stools. Pt notes abd bloating and admits to intermittent bulky/oily stools Not taking any medication for constipation. Denies recent change in bowel habits, black stools or rectal bleeding. Patient denies major cardiac or pulmonary problems, Has bodreline sleep apnea Denies problems with anesthesia in the past. On Eliquis for AF. Scheduled [place] guided [place] [facility] She denies ant change in her appetite or weight. Pt denies smoking or ETOH abuse. She worked in a [employer] and lives with her son. Family hx is positive for colon polyps in a sister and a brother with prostate cancer. Pt denies known FH of pancreatic or colon cancer. PAST EGD/COLONOSCOPY: Denies having an EGD or colon in the past LABS IN etechies.in : Reviewed IMAGING STUDIES: 12/06/[address] SCAN SHOWED: 1. 3.5 cm somewhat heterogeneous mass in the tail of the pancreas. This could be benign but pancreatic carcinoma not excluded. Further clinical evaluation recommended. 2. Possible cholelithiasis with no CT evidence of acute cholecystitis. 3. Hepatomegaly and hepatic steatosis. 4. Additional nonacute findings as described. 12/06/24 ABD MRI SHOWED: Concerning acute calculus cholecystitis with questionable choledocholithiasis. 4 x 3 cm lobulated lesion/mass, tail of the pancreas. Concerning for malignancy. Bilateral renal cysts. Hepatomegaly. PAST GI HISTORY BY REVIEW OF MEDICAL RECORDS: 12/06/24 PT WAS SEEN DURING HOSPITALIZ[place] [facility] 74 YF with AFib on Eliquis s/p failed cardioversions in 2017 and 2020, NIDDM, HTN, and anxiety admitted to [facility] on 12/06/24 with?upper abdominal and periumblical pain and nausea x 1 day. Pt described the pain as 8/10, constant, sharp and stabbing radiating to the back with no alleviating or relieving factors. Pt has not felt similar symptoms before. Pt complained of chills and nausea without vomiting. Pt reported has not eaten anything since night prior to symptom onset. Pt denied chest pain/pressure, palpitations, shortness or breath or difficulty breathing. Pt reports pain has decreased to 2/10 and well-controlled current analgesics. Pt also notes a change in bowel habits with constipation x 3 days followed by diarrhea for the past 3 weeks. Pt denies smoking or ETOH abuse. In the ED pt was tachycardic up to 101 and soft BP as low as 119/45. Labs showed lipase 1522, otherwise grossly unremarkable and around baseline for pt. No leukocytosis. Stable H&H. No significant electrolyte abnormalities. Renal function baseline. Lactic acid WNL. Hepatic function WNL. Triglycerides WNL at 97. Patient denies known family history of colon polyps, colon cancer or other GI malignancies. Acute pancreatitis likey biliary etiology versus related to pancreatic mass. RECOMMENDATIONS: 1. Agree with IV pain medications and antiemetics 2. Check CEA and CA 19-9 and lipase - added to am labs 3. Clear liquid diet and advance diet as tolerated. 4. Oncology consult. 5. Pt will need further evaluation with EUS guided biopsy of pancreatic lesion versus percutaneous bx by IR as an outpatient after acute pancreatitis resolves [facility] Medical History HTN (hypertension) Smoker ARMOND (obstructive sleep apnea) Diabetes HLD (hyperlipidemia) Persistent atrial fibrillation Surgical History History of bilateral breast reduction surgery History of appendectomy History of oophorectomy Family History Father Myocardial infarction Mother Arthritis Sister No problems noted. Sister No problems noted. Sister No problems noted. Brother No problems noted. Sister No problems noted. Brother No problems noted. Son No problems noted. Son No problems noted. 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 Gender identity: Female Review of Systems Const All systems reviewed & are unremarkable except as noted in HPI and below Physical Exam Vital Signs: Last Vital Signs Pulse 90 03/13/25 10:13 BP 109/53 L 03/13/25 10:13 Pulse Ox 99 03/13/25 10:13 Oxygen Delivery Method Room Air 03/13/25 10:13 BMI result Body Mass Index 31.1 Const General: healthy appearing and no acute distress Nutritional Appearance: obese Orientation/consciousness: patient oriented x3 Limitations: no limitations HEENT Head: Yes normal to inspection Ears: hearing grossly normal bilaterally Eyes Sclerae: sclerae normal Pupils: Equal, round and reactive pupils present Neck Neck: Yes normal visual inspection Chest Chest palpation & inspection: normal inspection of the chest Resp Effort & Inspection: normal respiratory effort Auscultation: clear to auscultation bilaterally Cardio Palpation: normal PMI Rate: regular rate Rhythm: regular rhythm Heart sounds: S1 normal heart sound present, S2 normal heart sound present and no murmurs GI Palpation (GI): Soft to palpation, nontender and No hepatosplenomegaly present Auscultation: normal bowel sounds Rectal Exam - Female: deferred Skin General skin exam: no rashes or lesions noted Neuro General: patient oriented x3, gait normal and moves all extremities Cranial nerves: Yes Equal, round and reactive pupils present Psych Appearance: grossly normal Mental Status: mental status grossly normal Assessment & Plan Assessment & Plan (1) Pancreatic adenocarcinoma: Code(s): C25.9 - Malignant neoplasm of pancreas, unspecified Category: Medical (2) Abdominal bloating: Code(s): R14.0 - Abdominal distension (gaseous) Category: Medical Plan 74 YF with AFib on Eliquis s/p failed cardioversions in 2017 and 2020, NIDDM, HTN, and anxiety hospitalized at [facility] [place]/06 to 12/08/24 with?upper abdominal and periumblical pain and nausea x 1 day. Labs showed lipase 1522, otherwise grossly unremarkable and around baseline for pt. No leukocytosis. Stable H&H. No significant electrolyte abnormalities. Renal function baseline. Lactic acid WNL. Hepatic function WNL. Triglycerides WNL at 97. Acute pancreatitis likey biliary etiology versus related to pancreatic mass. CEA and CA 19-9 were normal Pt is scheduled EUS guided biopsy of pancreatic lesion on 01/07/25 [place] [facility] Pt inquired about management of gallstones. She was advised to wait till biopsy results are available. If she needs pancreatic resection, can check with the surgeon if it is feasible to perform Lap Trupti on the same day Stool for pancreatic elastase to rule out pancreatic insufficiency. 12/20/[address] REID IN ONCOLOGY: This is a 74-year-old woman with past medical history significant for NIDDM, atrial fibrillation on Eliquis who has been diagnosed with acute pancreatitis in November 2024 and was noted to have mass in tail of pancreas. CT abdomen with contrast and subsequent MRI abdomen performed 12/06/2024 revealed a 4 x 3 cm lobulated mass in the tail of pancreas concerning for malignancy. There was no suspicious lymphadenopathy. She underwent EUS/biopsy on 01/07/25, pathology revealed adenocarcinoma, poorly differentiated. PET scan performed at [facility] on 01/16/2025 revealed pancreatic tail mass with max SUV of 7.9. Nonenlarged lymph nodes in the gastrohepatic, reid hepatis and retroperitoneal and inguinal regions with SUV ranging from 1.1 to 2.1. No definite findings to suggest metastatic disease. Clinical stage T3N0, stage IIA. I discussed treatment of localized pancreatic adenocarcinoma. She will have to meet with surgeon to see if she would be a candidate for upfront surgery versus neoadjuvant therapy followed by surgery. She will be sent to tertiary center for evaluation for surgery/resectability. Patient was seen by Dr. Chelsie Chavez of Surgical Oncology, Dr. Francois of Radiation Oncology and Dr. Damian Weaver of Medical Oncology [facility]. She has been recommended to start neoadjuvant chemotherapy for 4 cycles followed by restaging scans. If there is no progression she will transitioned to chemo RT with capecitabine, she will receive radiation therapy at [facility] under the care of Dr. Francois. 03/13/25 Diagnosed with pancreatic adenoca and had 2 cycles of chemo - notes d iarrhea after getting chemo. Has an appt on 05/20/25 for XRT x 28 days in [place] Never had a colonoscopy - stool cologuard was positive a month ago. Pt was advised to schedule a colonoscopy after she finishes chemo and before starting XRT FU in 4 months ADDENDUM: On 05/07/25 @ 12:04 Nereida Elizondo Wrote To Mary Bhardwaj Oncology department wants patient to cancel procedure because of a radiation treatment in [place] On 03/21/25 @ 13:41 Mary Bhardwaj Wrote To Mary Bhardwaj (2) patient is scheduled for colonoscopy 05/19. She has yearly appt on 05/[address] Bennett, can pre op clearance be added? ty Medications: New simethicone (Gas Relief (simethicone)) 125 mg PO BID-QID PRN 90 tabs 3RF abdominal distention 30 days R14.0 - Abdominal distension (gaseous) Coding Level of Care Code Est Pt Level 4 (95610) Diagnoses Pancreatic adenocarcinoma C25.9 Abdominal bloating R14.0 Time Spent (min) 20
[2025-03-13 10:13] VITALS: BP 109/53; PULSE 90; O2SAT 99; BMI 31.1
--- OUTSIDE RECORDS SUMMARY | 2025-03-13 10:23 | XMS_ITS | Encounter Summary ---
Author Organization [employer] Address [address] [place] [address] Care Team Providers Care Lockstitch Waistband Setter Name Role Phone Ayla Ziegler MD Primary Care Provider [phone] Reason for Visit * Reason Onset Date Comments Hospital Follow-up 12/12/2024 Encounter Details Date Type Department Care Team ([facility] st Contact Info) Description 12/12/2024 Telephone [facility] [address] [place] [address] Ayla Ziegler MD [address] [place], [place] [id number] Hospital Follow-up Social History Tobacco Use Types [...] son requesting a HDF appt. Hospital: [facility] Date of admission: 12/06 Discharge date: 12/08 Diagnosed: Pancreatic mass (acute), Acute Pancreatitis. *Send message to [facility] Clinical Care Coordinators [phone] documented in this encounter Plan of Treatment Upcoming Encounters Date Type Department Care Team ([facility] st Contact Info) Description 04/09/2025 11:15 AM EDT Office Visit [facility] [address] [place] [address] Ayla Ziegler MD [address] [place] [address] 04/16/2025 3:15 PM EDT Clinical Support [facility] [address] [place] [address] Heather Siddiqui RN [address] [place] [address] documented as of this encounter Visit Diagnoses Not on filedocumented in this encounter Additional Health Concerns Assessment Noted Time PHQ-9 Depression Total Score: 0 04/24/20 23 11:11 AM EDT documented as of this encounter Care Teams Lockstitch Waistband Setter Relationship Specialty Start Date End Date Ayla Ziegler MD [address] [place] [id number] PCP - General Family Medicine 11/14/13 documented as of this encounter
== END ==
PROVIDERS: PCP Student in an Organized Health Care Education/Training Program; Visit Provider Internal Medicine Gastroenterology
DX: C25.9 Malignant neoplasm of pancreas, unspecified (principal); R14.0 Abdominal distension (gaseous)
CPT/HCPCS: 99214

== ENCOUNTER → 2025-03-13 10:04 | Outpatient (BNVA) | payer MEDICARE, SELFPAY | PROVIDERS: PCP Student in an Organized Health Care Education/Training Program; Visit Provider Internal Medicine Gastroenterology | DX: C25.9 Malignant neoplasm of pancreas, unspecified (principal); R14.0 Abdominal distension (gaseous) | CPT/HCPCS: 99212 ==

== ENCOUNTER 2025-05-14 14:29 | Outpatient (AMB) | payer MEDICARE, MEDICAID, SELFPAY ==
[2025-05-14 14:33] VITALS: BP 120/62; PULSE 89; BMI 29.7
--- NOTE | 2025-05-14 14:33 | A.OFFVIS_ITS ---
Vital Signs 05/14/25 14:33 Height 5 ft 5 in Weight 178 lb 9.191 oz BMI 29.7 BP 120/62 Blood Pressure Location Lt brachial Position Sitting Pulse 89 Pulse Source Pulse Oximeter Intake Visit Reasons: 1 yr clearance colonoscopy Allergies Tetanus Vaccines and Toxoid (TETANUS VACCINES AND TOXOID) Allergy (Unknown, Verified 05/07/25 10:36) HIVES Medication List - Last Reconciled 05/14/25 by Nicholas Bennett MD acetaminophen 500 mg PO QID PRN apixaban (Eliquis) 5 mg PO BID 30 days dexamethasone 2 mg PO BID diphenoxylate-atropine 2.5-0.025 mg (Lomotil) 1 tab PO BID PRN loperamide (Imodium A-D) 2 mg PO Q4H PRN lorazepam 1 mg PO DAILY PRN magnesium glycinate 100 mg PO BID metformin 1,000 mg PO BID metoprolol succinate ER 50 mg PO DAILY nut.tx.gluc.intol,lac-free,soy (Glucerna oral liquid) 1 ea PO BID ondansetron 8 mg PO Q8H PRN potassium chloride ER 1 tab PO DAILY simethicone (Gas Relief (simethicone)) 125 mg PO BID-QID PRN 30 days tramadol 50 mg PO BID PRN HPI Comments Details: Saumya is here for follow-up regarding atrial fibrillation. To recall, she has had atrial fibrillation for the last few years. Underwent cardioversion in 2017 and 2020. She was on Flecainide in the past, but due to bradycardia and tiredness this was stopped. Then, she was on Multaq but in spite of this, went back into atrial fibrillation. Then she was seen by EP at [facility], but it was recommended that she continue rate control strategy as she had minimal or no symptoms. In the last few months, it seems that she has been diagnosed with pancreatic adenocarcinoma. She has received chemotherapy and is planning to go for radiation therapy in [place]. From the cardiac standpoint, she has got absolutely no symptoms. [facility] Medical History HTN (hypertension) Smoker ARMOND (obstructive sleep apnea) Diabetes HLD (hyperlipidemia) Persistent atrial fibrillation Surgical History History of bilateral breast reduction surgery History of appendectomy History of oophorectomy Family History Father Myocardial infarction Mother Arthritis Sister No problems noted. Sister No problems noted. Sister No problems noted. Brother No problems noted. Sister No problems noted. Brother No problems noted. Son No problems noted. Son No problems noted. 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 Gender identity: Female Review of Systems Const Denies weakness ENT Denies dizziness Card Denies chest pain, Denies chest pain with activity, Denies syncope, Denies rapid heart rate, Denies pedal edema, Denies edema, Denies leg edema, Denies lightheadedness, Denies palpitations, Denies dyspnea, Denies dyspnea on exertion and Denies orthopnea Resp Denies cough, Denies dyspnea and Denies dyspnea on exertion GI Denies hematochezia and Denies change in stool character Musc Denies abnormal gait, Denies muscle cramps, Denies muscle weakness, Denies numbness, Denies radiating pain into limb and Denies tingling Neuro Denies abnormal gait, Denies dizziness, Denies syncope, Denies numbness, Denies tingling and Denies weakness Endo Denies palpitations Physical Exam Vital Signs: Last Vital Signs Pulse 89 05/14/25 14:33 BP 120/62 05/14/25 14:33 BMI result Body Mass Index 29.7 Const General: comfortable and no acute distress Orientation/consciousness: patient oriented x3 HEENT Other: Unremarkable Head: Yes normal to inspection Neck Neck: Yes normal visual inspection Chest Chest palpation & inspection: normal inspection of the chest Resp Auscultation: clear to auscultation bilaterally Cardio Palpation: normal PMI Heart sounds: S1 normal heart sound present, S2 normal heart sound present, no gallops, no murmurs and no rubs GI Palpation (GI): Soft to palpation Back/Spine/Pelvis Other: unremarkable Skin General skin exam: no rashes or lesions noted Neuro General: patient oriented x3 Extrem General: Yes normal to inspection Psych Mental Status: mental status grossly normal Assessment & Plan Assessment & Plan (1) Persistent atrial fibrillation: Code(s): I48.19 - Other persistent atrial fibrillation Category: Medical Plan: Failed antiarrhythmics as well as cardioversions. Was seen by EP, but not felt to be a good candidate for ablation. On beta-blockers/Eliquis. (2) Non-rheumatic aortic regurgitation: Code(s): I35.1 - Nonrheumatic aortic (valve) insufficiency Category: Medical Plan: In the last echocardiogram from 2022, [id number] aortic regurgitation. We can schedule another echocardiogram in the future at the appropriate time in future. (3) Thrombocytopenia: Code(s): D69.6 - Thrombocytopenia, unspecified Category: Medical Plan: Labs show thrombocytopenia. We discussed about the fact that if the platelets become too low, under approximately 50,000 or so, then may have to stop Eliquis. Plan Discussion Notes I discussed with the patient regarding upcoming radiation therapy in [place]. We reviewed her atrial fibrillation management with metoprolol and the importance of monitoring her platelet levels due to thrombocytopenia. I advised follow-up appointments every six months to ensure her conditions are well-managed. Patient was informed and verbally consented to the use of an ambient scribe for clinic note documentation during this visit. Patient Instructions: - Take metoprolol as prescribed for atrial fibrillation. - Monitor for any symptoms of rapid heart rate or shortness of breath. - Attend follow-up appointments in 6 months. Coding Level of Care Code Est Pt Level 4 (52044) Complex EM visit Add On G2211 Diagnoses Persistent atrial fibrillation I48.19 Non-rheumatic aortic regurgitation I35.1 Thrombocytopenia D69.6
--- OUTSIDE RECORDS SUMMARY | 2025-05-14 15:11 | XMS_ITS | Encounter Summary ---
Author Organization [facility] Address [address] [place] [address] [place] [phone] Phone Care Team Providers Care Aws Software Development Engineer Name Role Phone Ayla Ziegler MD Primary Care Provider [phone] Encounter Details Date Type Department Care Team ([facility] st Contact Info) Description 04/25/2025 Orders Only [facility] Dept of Radiation Oncology [facility] [place] [address] [place] [address] Charisma Francois MD [address], [place] [address] [place] [address] [email or web address] Social History Tobacco Use Types Packs/Day Years Used Date Smoking Tobacco: Former Cigarettes Smokeless Tobacco: Former Education Answer Date Recorded Are you interested in more education? Not on arti e 01/28/2025 Are you concerned about learning? Not on file 01/28/2025 No 01/28/2025 No 01/28/2025 Digital Access Answer Date Recorded No 01/28/2025 No 01/28/2025 Reliable internet access at home? Not on file 01/28/2025 Device with a working camera? Not on file Comments Unknown Sex and Gender Information Value Date Recorded Sex Assigned at Female 01/24/2025 2:14 PM EDT Legal Sex Female 2:12 PM EDT Gender Identity Female 01/24/2025 2:14 PM EDT Sexual Orientation Straight 01/24/2025 2: 14 PM EDT documented as of this encounter Plan of Treatment Not on file documented as of this encounter Visit Diagnoses Not on filedocumented in this encounter Care Teams Aws Software Development Engineer Relationship Specialty Start Date End Date Ayla Ziegler MD [address] [place] [phone] PCP - General Family Medicine 01/24/25 documented as of this encounter Additional Source Comments The information contained in this document represents components of the legal health record. It is not the complete legal health record.[facility]
== END 2025-05-14 14:41 | disposition home or self-care (01) ==
LOC: HO.HCS 14:29
PROVIDERS: PCP Student in an Organized Health Care Education/Training Program; Visit Provider Internal Medicine
DX: I48.19 Other persistent atrial fibrillation (principal); I35.1 Nonrheumatic aortic (valve) insufficiency; D69.6 Thrombocytopenia, unspecified
CPT/HCPCS: 99214; G2211

== ENCOUNTER → 2025-05-14 14:29 | Outpatient (BNVA) | payer MEDICARE, SELFPAY | PROVIDERS: PCP Student in an Organized Health Care Education/Training Program; Visit Provider Internal Medicine | DX: I48.19 Other persistent atrial fibrillation (principal); I35.1 Nonrheumatic aortic (valve) insufficiency; D69.6 Thrombocytopenia, unspecified | CPT/HCPCS: 99212 ==

== ENCOUNTER 2025-07-15 15:00 | Outpatient (REF) | payer MEDICARE, MEDICAID, SELFPAY ==
--- OUTSIDE RECORDS SUMMARY | 2025-07-09 12:00 | XMS_ITS | Encounter Summary ---
Author Organization [facility] Address [address] [place] [address] Phone Care Team Providers Care Food Service Hotel Runner Name Role Phone Ayla Ziegler MD Primary Care Provider [phone] Damian Weaver MD, PhD Unavailable [phone] Asael Martines DO Unavailable [phone] Reason for Visit * Reason Comments Genetic Test Results Encounter Details Date Type Department Care Team (Latest Contact Info) Description 07/09/2025 12:00 PM EDT Telemedicine - audio only Formerly [facility] [address], [address] [place] [address] Rubin Davidson MD, PhD [address] [facility] [address] [place] [address] [email or web address] [address] [place] [address] [email or web address] Pancreatic cancer (Primary Dx); Family history of prostate cancer; Family history of breast cancer; Encounter for nonprocreative genetic counseling Social History Tobacco Use Types Packs/Day Years [...] PM EDT documented as of this encounter Progress Notes * Kavita Cortez - 07/09/2025 12:00 PM EDT Images from the original note were not included. [facility] [address] [place] [address] Patient Name: Saumya Coughlin : 1950 Reason for visit: Genetic Test Results KHOA: 07/09/2025 I disclosed the following germline genetic test results to Saumya Coughlin: Results The test detected no clinically significant variants in the 31 genes analyzed. Test name: BRCANext + limited evidence genes + Pancreatic cancer genes + limited evidence genes + CDK4 + Prostate cancer genes + limited evidence genes +BRIP1 + PALB2 Laboratory: [facility] A copy of the genetic test report, including technical specifications and a list of genes analyzed,can be viewed under the Media tab. Patient was advised that results summary, test report, and pedigree will be made available through [facility] or by contacting the [employer] [facility] Medical Records Department. We discussed the possible interpretations/implications of this test result. I recommended that Saumya Coughlin discuss these results with Saumya's healthcare providers. Interpretation This test did not determine the cause of Saumya's cancer diagnosis. Based on Saumya's personal and family history, it is possible that an inherited gene variant was not the underlying cause. However,it is also possible that Saumya Coughlin has a pathogenic variant (or gene mutation) that this testdid not identify. Additionally, Saumya's family members might have a pathogenic variant that Kieshaid not inherit. Recommendations for Saumya Coughlin After reviewing the case, the Cancer Genetics team has the following recommendations based on family history and genetic test results: Continue care with oncology team. Continue age-appropriate cancer screening. The patient should contact me if Saumya wishes to pursue additional genetic testing Changes to Saumya's medical history may change these recommendations. Saumya's healthcare providersmay consider additional personal health factors when making cancer screening recommendations. We recommend that Saumya Coughlin discusses cancer screening with them. Recommendations for Family Members Genetic Testing The following family members are candidates for genetic counseling: Children of brother who had metastatic prostate cancer Siblings Saumya Coughlin should inform us of Saumya's family members' test results. Their results may changeour recommendations. These recommendations are based on information provided at the time of the genetic counseling consultation. Patients should contact us with updates to their family history. Future advances in genetics and cancer knowledge may change risk assessment, genetic testing options, and/or cancer screening r ecommendations. For the most up to date recommendations, patients should re- contact us periodically. Kavita Cortez MS, [facility] Licensed Genetic Counselor II [facility] [address] [facility], [address] [address] I personally spent a total of 20 minutes on care for this patient on the date of the encounter. This includes xmll-ro-tnoo time during the visit as well as non brke-mu-mdls time spent on chart review, documentation, and care coordination. Virtual Visit Attestation Modality: interactive audio (phone only) Provider Location, state disclosed to patient: home / other Patient Location: home Patient State or Country: [place] documented in this encounter Plan of Treatment Upcoming Encounters Date Type Department Care Team (Late st Contact Info) Description 07/17/2025 1:40 PM EDT Infusion [facility] at [address] [address] Asael Martines DO [address] [place] [address] [email or web address] 07/21/2025 12:40 PM EDT Treatment [facility] Rad Onc [address] [place] [address] Yolis Sandoval MD [address] [place] [address] [email or web address] 07/22/2025 12:40 PM EDT Treatment [facility] Rad Onc [address] [place] [address] Yolis Sandoval MD [address] [place] [address] [email or web address] 07/23/2025 12:40 PM EDT Treatment [facility] Rad Onc [address] [place] [address] Yolis Sandoval MD [address] [place] [phone] [email or web address] 07/23/2025 12:40 PM EDT Nutrition [facility] at [address] [address] 07/24/2025 12:40 PM EDT Treatment [facility] Rad Onc [address] [place] [address] Yolis Sandoval MD [address] [place] [phone] [email or web address]@[facility] 07/24/2025 1:00 PM EDT Infusion [facility] at [address] [address] Asael Martines DO [address] [place] [address] [email or web address] 07/24/2025 1:00 PM EDT Social Work [facility] at [address] [address] Asael Martines DO [address] [place] [address] [email or web address] 07/25/2025 11:00 AM EDT Office Visit [facility] at [address] [address] Kaykay Guillen, JERRY [address] [place] [address] [email or web address] 07/25/2025 11:30 AM EDT Treatment [facility] at [address] [address] 07/25/2025 12:40 PM EDT Treatment [facility] Rad Onc [address] [place] [address] Yolis Sandoval MD [address] [place] [phone] [email or web address]@[facility] 07/29/2025 11:30 AM EDT Treatment [facility] at [address] [address] Rachael Newell CNP [address] [place] [address] [email or web address] 07/29/2025 12:40 PM EDT Treatment [facility] Rad Onc [address] [place] [address] Yolis Sandoval MD [address] [place] [phone] [email or web address] 07/30/2025 12:40 PM EDT Treatment [facility] Rad Onc [address] [place] [address] Yolis Sandoval MD [address] [place] [phone] reno@[facility] 07/31/2025 12:40 PM EDT Treatment [facility] Rad Onc [address] [place] [address] Yolis Sandoval MD [address] [place] [address] [email or web address]@[facility] 08/01/2025 12:40 PM EDT Treatment [facility] Rad Onc [address] [place] [address] Yolis Sandoval MD [address] [place] [phone] reno@[facility] 08/04/2025 12:40 PM EDT Treatment [facility] Rad Onc [address] [place] [address] Yolis Sandoval MD [address] [place] [phone] reno@[facility] 08/05/2025 12:40 PM EDT Treatment [facility] Rad Onc [address] [place] [address] Yolis Sandoval MD [address] [place] [phone] reno@[facility] 08/06/2025 12:40 PM EDT Treatment [facility] Rad Onc [address] [place] [address] Yolis Sandoval MD [address] [place] [address] reno@[facility] 08/07/2025 12:30 PM EDT Treatment [facility] Rad Onc [address] [place] [address] Yolis Sandoval MD [address] [place] [address] reno@[facility] 08/08/2025 12:40 PM EDT Treatment [facility] Rad Onc [address] [place] [address] Yolis Sandoval MD [address] [place] [phone] reno@[facility] 08/11/2025 12:40 PM EDT Treatment [facility] Rad Onc [address] [place] [address] Yolis Sandoval MD [address] [place] [address] reno@[facility] 08/12/2025 12:40 PM EDT Treatment [facility] Rad Onc [address] [place] [address] Yolis Sandoval MD [address] [place] [address] reno@[facility] 08/13/2025 12:40 PM EDT Treatment [facility] Rad Onc [address] [place] [address] Yolis Sandoval MD [address] [place] [phone] reno@[facility] 08/14/2025 12:40 PM EDT Treatment [facility] Rad Onc [address] [place] [address] Yolis Sandoval MD [address] [place] [phone] reno@[facility] 08/15/2025 12:40 PM EDT Treatment [facility] Rad Onc [address] [place] [address] Yolis Sandoval MD [address] [place] [address] reno@[facility] 08/18/2025 12:40 PM EST Treatment [facility] Rad Onc [address] [place] [address] Yolis Sandoval MD [address] [place] [address] reno@[facility] 08/19/2025 12:40 PM EST Treatment [facility] Rad Onc [address] [place] [address] Yolis Sandoval MD [address] [place] [phone] reno@[facility] 08/20/2025 12:40 PM EST Treatment [facility] Rad Onc [address] [place] [address] Yolis Sandoval MD [address] [place] [phone] reno@[facility] 08/21/2025 12:40 PM EST Treatment [facility] Rad Onc [address] [place] [address] Yolis Sandoval MD [address] [place] [phone] reno@[facility] 08/22/2025 12:10 PM EST Appointment [facility] [address] [place] [address] Asael Martines DO [address] [place] [address] [email or web address] 08/22/2025 12:40 PM EST Treatment [facility] Rad Onc [address] [place] [address] Yolis Sandoval MD [address] [place] [address] reno@[facility] 08/22/2025 1:30 PM EST Office Visit [facility] at [place] [address] [place] [address] Kaykay Guillen NP [address] [place] [address] [email or web address] 08/25/2025 12:40 PM EST Treatment [facility] Rad Onc [address] [place] [address] Yolis Sandoval MD [address] [place] [address] reno@[facility] 08/26/2025 12:40 PM EST Treatment [facility] Rad Onc [address] [place] [address] Yolis Sandoval MD [address] [place] [phone] reno@[facility] 08/27/2025 12:40 PM EST Treatment [facility] Rad Onc [address] [place] [address] Yolis Sandoval MD [address] [place] [phone] reno@[facility] 08/28/2025 12:40 PM EST Treatment [facility] Rad Onc [address] [place] [address] Yolis Sandoval MD [address] [place] [phone] reno@[facility] 08/29/2025 12:40 PM EST Treatment [facility] Rad Onc [address] [place] [address] Yolis Sandoval MD [address] [place] [phone] reno@[facility] 09/01/2025 12:40 PM EST Treatment [facility] Rad Onc [address] [place] [address] Yolis Sandoval MD [address] [place] [phone] reno@[facility] 09/02/2025 12:40 PM EST Treatment [facility] Rad Onc [address] [place] [address] Yolis Sandoval MD [address] [place] [phone] reno@[facility] 09/03/2025 12:40 PM EST Treatment [facility] Rad Onc [address] [place] [address] Yolis Sandoval MD [address] [place] [phone] reno@[facility] 09/04/2025 12:40 PM EST Treatment [facility] Rad Onc [address] [place] [address] Yolis Sandoval MD [address] [place] [address] reno@[email or web address] documented as of this encounter Visit Diagnoses Diagnosis Pancreatic cancer- Primary Malignant neoplasm of pancreas, part unspecified Family history of prostate cancer Family history of malignant neoplasm of prostate Family history of breast cancer Family history of malignant neoplasm of breast Encounter for nonprocreative genetic counseling documented in this encounter Care Teams Food Service Hotel Runner Relationship Specialty Start Date End Date Ayla Ziegler MD [address] [place] [address] PCP - General Family Medicine 01/24/25 Damian Weaver MD, PhD [address] [place] [address] [place] [address] [email or web address] Primary Oncologist Hematology and Oncology 05/21/25 Asael Martines DO [address] [place] [phone] (work) [email or web address] Hematology and Oncology 06/25/25 documented as of this encounter Additional Source Comments The information contained in this document represents components of the legal health record. It is not the complete legal health record.[facility]
--- OUTSIDE RECORDS SUMMARY | 2025-07-10 13:00 | XMS_ITS | Encounter Summary ---
Author Organization [facility] Address [address] [place] [address] [place] [phone] Phone Care Team Providers Care Informatics Spec Name Role Phone Ayla Ziegler MD Primary Care Provider [phone] Damian Weaver MD, PhD Unavailable [phone] Asael Martines DO Unavailable [phone] Reason for Referral * Consultation (Within 1 month) - New Request Specialty Diagnoses / Procedures Referred By Neyda t Referred To Contact Asael Martines DO [address] [place] [address] Phone: tel: fax: mailto:[email or web address] Referral ID Status Reason Start Date Expiration Date V isits Requested Visits Authorized [id number] New Request 07/10/2025 07/10/2026 1 1 Encounter Details Date Type Department Care Team (Latest Contact Info) Description 07/10/2025 1:00 PM EDT Office Visit [facility] at [address] [address] Asael Martines DO [address] [place] [address] [email or web address] Pancreatic adenocarcinoma (Primary Dx) Social History Tobacco Use Types [...] PM EDT documented as of this encounter Last Filed Vital Signs Vital Sign Reading Time Taken Comments Blood Pressure 110/70 07/10/2025 1:10 PM EDT Pulse 93 07/10/2025 1:10 PM EDT Temperature 35.4 C (95.7 F) 07/10/2025 1:10 PM EDT Respiratory Rate - - Oxygen Saturation 99% 07/10/2025 1:10 PM EDT Inhaled Oxygen Concentration - - Weight 83.9 kg (185 lb) 07/10/2025 1:09 PM EDT Height 160 cm (5' 2.99 ) 07/10/2025 1:09 PM EDT Body Mass Index 32.78 07/10/2025 1:09 PM EDT documented in this encounter Progress Notes * Asael Martines, - 07/10/2025 1:00 PM EDT Oncology History Overview Note - 11/2024: Positive Cologuard for colon cancer screening - 12/06/24: Presented to local ED with acute-onset central abdominal pain, lipase 1522 c/f acute pancreatitis - 12/06/24: CT AP showed a 4.2 x 3.8 x 3.5 cm pancreatic tail mass encasing the splenic vessels withhigh-grade narrowing of the splenic vein favored to represent pancreatic adenocarcinoma with likelyinvasion of the inferior proximal gastric wall and mild stranding posterior to the pancreatic tail mass along the left anterior renal fascia and in the gastrocolic region, portal veins, hepatic veins, and inrahepatic portin of the IVC demonstrated normal flow void signal, no lymphadenopathy, no evidence of peritoneal involvement or liver lesions, possible cholelithiasis without cholecystitis - 12/06/24: MRCP showed a lobulated 4 x 3 cm isointense T1 and T2 lesion in the tail of the pancreaswith no main pancreatic ductal dilatation, no retroperitoneal lymphadenopathy, hepatomegaly with nofocal liver lesions, evidence of acute calculus cholecystitis with possible choledocholithiasis, henna ateral renal cysts, left adrenal gland adenoma - 01/07/25: EGD with EUS and biopsy of the pancreatic tail mass revealed poorly differentiated adenocarcinoma ([facility] pathology review pending) - 01/17/25: PET-CT showed an FDG avid pancreatic tail mass consistent with biopsy- proven malignancy with nonenlarged, non-FDG avid upper abdominal lymph nodes and no definitive evidence of metastatic disease Pancreatic adenocarcinoma 12/06/2024 Initial Diagnosis Pancreatic adenocarcinoma Completed 8 cycles of FFX. Tolerated relatively well other than hypersensitivity reaction to oxali with the 6th treatment. Also oxali was DRed to 60% given neuropathy. She comleted all 8 cycles Subjective Saumya Coughlin is a 75 y.o. female. History of Present Illness The patient presents for pancreatic cancer. She reports feeling well today. She has completed a total of 8 cycles of chemotherapy, with 6 dosesadministered at [place] and 2 in [place] due to an adverse reaction to oxaliplatin. The chemotherapywas dose-reduced, and she experienced side effects such as mouth sores, diarrhea, fatigue, and low blood counts. She managed her diarrhea with Imodium, which proved effective. She also mentions numbness and tingling in her fingers when touching cold objects, a side effect of oxaliplatin, but notes that this symptom is improving. She is scheduled for a CT scan tomorrow and has an appointment with Dr. Weaver on 07/23/2025. She has an appointment with the social insurance adviser at 2:00 PM today. She has not yet been informed of the start date for her radiation therapy. She had a positive Cologuard test She has never had a colonoscopy before. Her bowel movements have returned to normal since discontinuing chemotherapy. Review of Systems Objective Physical Exam Constitutional: Patient appears anxious and diaphoretic. Integument/Skin: Patient is sweating. Psychiatric: Patient exhibits signs of anxiety. Results Labs - Cologuard test: Positive Assessment & Plan 1. Pancreatic cancer. Completed 8 cycles of chemotherapy, including dose reduction due to a reaction to oxaliplatin. The next phase involves radiation therapy combined with capecitabine (Xeloda), an oral chemotherapy. Thepotential side effects of capecitabine, including mouth sores, diarrhea, lowered blood counts, and f atigue, were discussed. A prescription for capecitabine will be sent to the pharmacy. Capecitabine will be taken twice daily from Monday to Monday on radiation days. If radiation is missed, the chemotherapy pills should be skipped for that day. Weekly blood work will be conducted during treatment. The port will be flushed in about a month and should be flushed every 8 weeks. We did discuss her getting her labs drawn off of this however she would rather a peripheral blood draw for her weekly labs. A CAT scan is scheduled for tomorrow before starting radiation. If diarrhea occurs, Imodium should be started, and the office should be contacted if it worsens. 2. Positive Cologuard test. A positive Cologuard test was noted, which could indicate an issue in the colon unrelated to pancreatic cancer. A referral for a colonoscopy will be placed now, as it takes several months to get an appointment. The colonoscopy will be scheduled after completing radiation therapy. 4. Numbness and tingling in fingers. Reports numbness and tingling in fingers when touching something cold, a side effect of oxaliplatin. This symptom is expected to improve over time. 5. Health maintenance. Advised to receive the influenza vaccine and COVID-19 vaccine, as she has been off chemotherapy fora few weeks and will start the next cycle in a week or two. I personally spent a total of 90 minutes on care for this patient on the date of the encounter. This includes gndi-yv-gcvx time during the visit as well as non seou-sz-maov time spent on chart review, documentation, and care coordination. ???I have maintained a long-term (or longitudinal) relationship with the patient, overseeing the care of their pancreatic cancer I obtained verbal consent from the patient or their proxy to record this visit for purposes of producing a draft of the encounter documentation. documented in this encounter Plan of Treatment Upcoming Encounters Date Type Department Care Team (Belgica dsouza Contact Info) Description 07/17/2025 1:40 PM EDT Infusion [facility] [place] [address] [place] [address] Asael Martines DO [address] [place] [phone] [email or web address] 07/21/2025 12:40 PM EDT Treatment [facility] At [facility] [address] [place] [address] Yolis Sandoval MD [address] [place] [address] [email or web address] 07/22/2025 12:40 PM EDT Treatment [facility] At [facility] [address] [place] [address] Yolis Sandoval MD [address] [place] [address] [email or web address] 07/23/2025 12:40 PM EDT Treatment [facility] At [facility] [address] [place] [address] Yolis Sandoval MD [address] [place] [phone] [email or web address] 07/23/2025 12:40 PM EDT Nutrition [facility] [place] [address] [place] [address] 07/24/2025 12:40 PM EDT Treatment [facility] At [facility] [address] [place] [address] Yolis Sandoval MD [address] [place] [address] [email or web address] 07/24/2025 1:00 PM EDT Infusion [facility] at [address] [address] Bobbi Vyas Drew, DO [address] [place] [phone] [email or web address] 07/24/2025 1:00 PM EDT Social Work [facility] at [address] [address] Asael Martines, DO [address] [place] [address] [email or web address] 07/25/2025 11:00 AM EDT Office Visit [facility] at [address] [address] Kaykay Guillen, JERRY [address] [place] [address] [email or web address] 07/25/2025 11:30 AM EDT Treatment [facility] at [address] [address] 07/25/2025 12:40 PM EDT Treatment [facility] At [facility] [address] [place] [address] Ylois Sandoval MD [address] [place] [phone] [email or web address] 07/29/2025 11:30 AM EDT Treatment [facility] at [address] [address] Rachael Newell CNP [address] [place] [phone] 07/29/2025 12:40 PM EDT Treatment [facility] At [facility] [address] [place] [address] Yolis Sandoval MD [address] [place] [address] [email or web address] 07/30/2025 12:40 PM EDT Treatment [facility] At [facility] [address] [place] [address] Yolis Sandoval MD [address] [place] [address] [email or web address] 07/31/2025 12:40 PM EDT Treatment [facility] At [facility] [address] [place] [address] Yolis Sandoval MD [address] [place] [address] [email or web address] 08/01/2025 12:40 PM EDT Treatment [facility] At [facility] [address] [place] [address] Yolis Sandoval MD [address] [place] [phone] [email or web address] 08/04/2025 12:40 PM EDT Treatment [facility] At [facility] [address] [place] [address] Yolis Sandoval MD [address] [place] [phone] [email or web address] 08/05/2025 12:40 PM EDT Treatment [facility] At [facility] [address] [place] [address] Yolis Sandoval MD [address] [place] [address] [email or web address] 08/06/2025 12:40 PM EDT Treatment [facility] At [facility] [address] [place] [address] Yolis Sandoval MD [address] [place] [phone] [email or web address] 08/07/2025 12:30 PM EDT Treatment [facility] [address] [place] [address] Yolis Sandoval MD [address] [place] [phone] [email or web address] 08/08/2025 12:40 PM EDT Treatment [facility] At [facility] [address] [place] [address] Yolis Sandoval MD [address] [place] [address] [email or web address] 08/11/2025 12:40 PM EDT Treatment [facility] At [facility] [address] [place] [address] Yolis Sandoval MD [address] [place] [address] [email or web address] 08/12/2025 12:40 PM EDT Treatment [facility] At [facility] [address] [place] [address] Yolis Sandoval MD [address] [place] [phone] [email or web address] 08/13/2025 12:40 PM EDT Treatment [facility] At [facility] [address] [place] [address] Yolis Sandoval MD [address] [place] [address] [email or web address] 08/14/2025 12:40 PM EDT Treatment [facility] [address] [place] [address] Yolis Sandoval MD [address] [place] [address] [email or web address] 08/15/2025 12:40 PM EDT Treatment [facility] At [facility] [address] [place] [address] Yolis Sandoval MD [address] [place] [address] [email or web address] 08/18/2025 12:40 PM EST Treatment [facility] At [facility] [address] [place] [address] Yolis Sandoval MD [address] [place] [address] [email or web address] 08/19/2025 12:40 PM EST Treatment [facility] At [facility] [address] [place] [address] Yolis Sandoval MD [address] [place] [address] [email or web address] 08/20/2025 12:40 PM EST Treatment [facility] At [facility] [address] [place] [address] Yolis Sandoval MD [address] [place] [address] [email or web address] 08/21/2025 12:40 PM EST Treatment [facility] [address] [place] [address] Yolis Sandoval MD [address] [place] [phone] [email or web address] 08/22/2025 12:10 PM EST Appointment [facility] [address] [place] [address] Asael Martines DO [address] [place] [address] [email or web address] 08/22/2025 12:40 PM EST Treatment [facility] [address] [place] [address] Yolis Sandoval MD [address] [place] [address] [email or web address] 08/22/2025 1:30 PM EST Office Visit [facility] at [address] [address] Kaykay Guillen NP [address] [place] [address] [email or web address] 08/25/2025 12:40 PM EST Treatment [facility] [address] [place] [address] Yolis Sandoval MD [address] [place] [address] [email or web address] 08/26/2025 12:40 PM EST Treatment [facility] [address] [place] [address] Yolis Sandoval MD [address] [place] [address] [email or web address] 08/27/2025 12:40 PM EST Treatment [facility] [address] [place] [address] Yolis Sandoval MD [address] [place] [address] [email or web address] 08/28/2025 12:40 PM EST Treatment [facility] At [facility] [address] [place] [address] Yolis Sandoval MD [address] [place] [address] [email or web address] 08/29/2025 12:40 PM EST Treatment [facility] [address] [place] [address] Yolis Sandoval MD [address] [place] [address] [email or web address] 09/01/2025 12:40 PM EST Treatment [facility] On[facility] [address] [place] [address] Yolis Sandoval MD [address] [place] [address] [email or web address] 09/02/2025 12:40 PM EST Treatment [facility] At [facility] [address] [place] [address] Yolis Sandoval MD [address] [place] [address] [email or web address] 09/03/2025 12:40 PM EST Treatment [facility] Rad [address] [address] Yolis Sandoval MD [address] [place] [address] [email or web address] 09/04/2025 12:40 PM EST Treatment [facility] [address] [place] [phone] Yolis Sandoval MD [address] [place] [address] [email or web address] Scheduled Orders Name Type Priority Associated Diagnoses Orde r Schedule CBC and differential Lab Routine Pancreatic adenocarcinoma Other for 1000 Occurrences starting 07/10/2025 until 07/10/2026 Comprehensive metabolic panel Lab Routine Pancreatic adenocarcinoma Other for 1000 Occurrences starting 07/10/2025 until 07/10/2026 CA-19-9 Lab Routine Pancreatic adenocarcinoma Monthly for 12 Occurrences starting 07/10/2025 until 07/10/2026 Carcinoembryonic antigen (CEA) Lab Routine Pancreatic adenocarcinoma Monthly for 12 Occurrences starting 07/10/2025 until 07/10/2026 Scheduled Referrals Name Type Priority Associated Diagnoses Order Schedule Ambulatory referral to External Gastroenterology Outpatient Referral Routine Ordered: 07/10/2025 documented as of this encounter Visit Diagnoses Diagnosis Pancreatic adenocarcinoma- Primary Malignant neoplasm of pancreas, part unspecified documented in this encounter Care Teams Informatics Spec Relationship Specialty Start Date End Date Ayla Ziegler MD [address] [place] [phone] PCP - General Family Medicine 01/24/25 Damian Weaver MD, PhD [address] [place] [address] [address] [place] [address] [email or web address] Primary Oncologist Hematology and Oncology 05/21/25 Asael Martines DO [address] [place] [address] [email or web address] 06/25/25 documented as of this encounter Additional Source Comments The information contained in this document represents components of the legal health record. It is not the complete legal health record.[facility]
--- OUTSIDE RECORDS SUMMARY | 2025-07-10 14:00 | XMS_ITS | Encounter Summary ---
Author Organization [facility] Address [address] [place] [address] [place] [phone] Phone Care Team Providers Care Snack Stewardess Name Role Phone Ayla Ziegler MD Primary Care Provider [phone] Damian Weaver MD, PhD Unavailable [phone] Asael Martines DO Unavailable [phone] Encounter Details Date Type Department Care Team (Late st Contact Info) Description 07/10/2025 2:00 PM EDT Social Work [facility] at [address] [address] Asael Martines DO [address] [place] [phone] [email or web address] Social History Tobacco Use Types Packs/Day Years [...] as of this encounter Progress Notes * Radha White, MUSICAL INSTRUMENT MAKER - 07/10/2025 2:00 PM EDT Saumya Coughlin is a 75 y.o. female seen at the Cancer Center for management of pancreatic cancer, accompanied by granddaughter Kunal. Saumya and Kunal are pleasant and receptive to visit. Saumya has completed 8 cycles of chemotherapy, 6 at [place], 2 at [facility]. She is establishing care here today for concurrent chemo (Xeloda) radiation. Saumya has not met with an boat worker before. I explained our role and scope of practice. Saumya shares that she lives in [place] with her son Manav and his daughter Kunal. She has another child, son German, who lives in [place] with his girlfriend, and another granddaughter in [facility]. Saumya is . Saumya does not have a health care proxy on file, education and form provided. Enc ouraged bringing completed copy to future visit for scanning to chart. Saumya has [employer] and [employer]. She is retired. Unfortunately son Manav was recently laid off from his job. Kunal is a student at [employer]. Saumya states Manav is in the process of applying for SNAP and she will suggest he apply for Fuel Assistance, household bills are in his name. We discussedfinancial assistance grants for people living with cancer and experiencing financial hardship, she states she may be interested in pursuing these. Provided [employer] card for help with gas as Saumya will be driving here frequently for daily radiation treatments. Saumya has a history of anxiety, uses Ativan PRN (states 1-2 times per week). Saumya has taken Prozac in the past and has discussed possibly starting a SSRI again with her PCP though feels overall she is coping well currently. She does feel sad at times about her cancer diagnosis, tells me she knows how deadly pancreatic cancer can be and is balancing this understanding with the hope that hers can be fully resected because they caught it early. Saumya is also grieving the loss of her mom who one year ago, they were very close. Saumya does not have a therapist, is not currently interested in finding one as she tells me she has incredibly strong support from her family, including siblings. States she also has a lot of help from family with things like laundry and shopping, for which she is grateful. Saumya and I discussed various other resources available for support, including ax survey worker, local support groups, peer mentor programs. We discussed availability of palliative care consult for symptom management; Saumya states she has been kelli so far with side effects, states she has tolerated treatment well overall, denies palliative care referral at this time. Saumya does request a referral to a tobacco buyer, referral sent to [facility]. Discussed integrative health therapies and the availability of these services in a limited capacity here at the cancer center, and at [facility] and [facility]. Saumya is interested in having these therapies at [facility] and I have sent a referral as requested. I sent a message to [facility] nurse practitioner Jazmín Morales per Saumya's request asking about status of referral to dental clinic; Saumya states Jazmín placed this referral last month, she is eager to move forward with dental implants to assist with eating and more. Saumya and Kunal deny additional SW questions/concerns at end of visit. Saumya would like to follow up in a few weeks in conjunction with other visit(s) here. Visit scheduled for 07/24 during port draw. Encouraged Saumya reach out as needed in the interim or should that appointment time change, contact information and community resource guide provided. documented in this encounter Plan of Treatment Upcoming Encounters Date Type Department Care Team (Late st Contact Info) Description 07/17/2025 1:40 PM EDT Infusion [facility] at [facility] [address] [place] [address] Asael Martines DO [address] [place] [address] [email or web address] 07/21/2025 12:40 PM EDT Treatment [facility] At [facility] Rad Onc [address] [place] [address] Yolis Sandoval MD [address] [place] [phone] [email or web address] 07/22/2025 12:40 PM EDT Treatment [facility] At [facility] Rad Onc [address] [place] [address] Yolis Sandoval MD [address] [place] [phone] [email or web address] 07/23/2025 12:40 PM EDT Treatment [facility] At [facility] Rad Onc [address] [place] [address] Yolis Sandoval MD [address] [place] [phone] [email or web address] 07/23/2025 12:40 PM EDT Nutrition [facility] at [address] [address] 07/24/2025 12:40 PM EDT Treatment [facility] At [facility] Rad Onc [address] [place] [address] Yolis Sandoval MD [address] [place] [phone] reno@[email or web address] 07/24/2025 1:00 PM EDT Infusion [facility] at [address] [address] Asael Martines DO [address] [place] [phone] [email or web address] 07/24/2025 1:00 PM EDT Social Work [facility] at [address] [address] Asael Martines DO [address] [place] [phone] [email or web address] 07/25/2025 11:00 AM EDT Office Visit [facility] [place] at [address] [address] Kaykay Guillen NP [address] [place] [address] [email or web address] 07/25/2025 11:30 AM EDT Treatment [facility] at [address] [address] 07/25/2025 12:40 PM EDT Treatment [facility] At [facility] Rad Onc [address] [place] [address] Yolis Sandoval MD [address] [place] [phone] [email or web address] 07/29/2025 11:30 AM EDT Treatment [facility] at [address] [address] Rachael Newell CNP [address] [place] [address] [email or web address] 07/29/2025 12:40 PM EDT Treatment [facility] At [facility] Rad Onc [address] [place] [address] Yolis Sandoval MD [address] [place] [phone] reno@[email or web address] 07/30/2025 12:40 PM EDT Treatment [facility] At [facility] Rad Onc [address] [place] [address] Yolis Sandoval MD [address] [place] [phone] reno@[email or web address] 07/31/2025 12:40 PM EDT Treatment [facility] At [facility] Rad Onc [address] [place] [address] Yolis Sandoval MD [address] [place] [phone] reno@[email or web address] 08/01/2025 12:40 PM EDT Treatment [facility] At [address] [address] Yolis Sandoval MD [address] [place] [phone] [email or web address] 08/04/2025 12:40 PM EDT Treatment [facility] At [facility] Rad Onc [address] [place] [address] Yolis Sandoval MD [address] [place] [phone] reno@[email or web address] 08/05/2025 12:40 PM EDT Treatment [facility] At [facility] Rad Onc [address] [place] [address] Yolis Sandoval MD [address] [place] [address] reno@[email or web address] 08/06/2025 12:40 PM EDT Treatment [facility] At [facility] Rad Onc [address] [place] [address] Yolis Sandoval MD [address] [place] [phone] reno@[email or web address] 08/07/2025 12:30 PM EDT Treatment [facility] At [facility] Rad Onc [address] [place] [address] Yolis Sandoval MD [address] [place] [phone] reno@[email or web address] 08/08/2025 12:40 PM EDT Treatment [facility] At [facility] Rad Onc [address] [place] [address] Yolis Sandoval MD [address] [place] [phone] reno@[email or web address] 08/11/2025 12:40 PM EDT Treatment [facility] At [facility] Rad Onc [address] [place] [address] Yolis Sandoval MD [address] [place] [phone] reno@[email or web address] 08/12/2025 12:40 PM EDT Treatment [facility] At [facility] Rad Onc [address] [place] [address] Yolis Sandoval MD [address] [place] [phone] reno@[email or web address] 08/13/2025 12:40 PM EDT Treatment [facility] At [facility] Rad Onc [address] [place] [address] Yolis Sandoval MD [address] [place] [phone] reno@[email or web address] 08/14/2025 12:40 PM EDT Treatment [facility] At [facility] Rad Onc [address] [place] [address] Yolis Sandoval MD [address] [place] [phone] reno@[email or web address] 08/15/2025 12:40 PM EDT Treatment [facility] At [facility] Rad Onc [address] [place] [address] Yolis Sandoval MD [address] [place] [phone] reno@[email or web address] 08/18/2025 12:40 PM EST Treatment [facility] At [facility] Rad Onc [address] [place] [address] Yolis Sandoval MD [address] [place] [phone] reno@[email or web address] 08/19/2025 12:40 PM EST Treatment [facility] At [facility] Rad Onc [address] [place] [address] Yolis Sandoval MD [address] [place] [phone] reno@[email or web address] 08/20/2025 12:40 PM EST Treatment [facility] At [facility] Rad Onc [address] [place] [address] Yolis Sandoval MD [address] [place] [address] [email or web address] 08/21/2025 12:40 PM EST Treatment [facility] At [facility] Rad Onc [address] [place] [address] Yolis Sandoval MD [address] [place] [address] reno@[email or web address] 08/22/2025 12:10 PM EST Appointment [facility] [address] [place] [address] Asael Martines DO [address] [place] [phone] [email or web address] 08/22/2025 12:40 PM EST Treatment [facility] At [facility] Rad Onc [address] [place] [address] Yolis Sandoval MD [address] [place] [phone] reno@[email or web address] 08/22/2025 1:30 PM EST Office Visit [facility] [address] [place] [address] Kaykay Guillen NP [address] [place] [address] [email or web address] 08/25/2025 12:40 PM EST Treatment [facility] At [facility] Rad Onc [address] [place] [address] Yolis Sandoval MD [address] [place] [address] reno@[email or web address] 08/26/2025 12:40 PM EST Treatment [facility] At [facility] Rad Onc [address] [place] [address] Yolis Sandoval MD [address] [place] [phone] reno@[email or web address] 08/27/2025 12:40 PM EST Treatment [facility] At [facility] Rad Onc [address] [place] [address] Yolis Sandoval MD [address] [place] [phone] reno@[email or web address] 08/28/2025 12:40 PM EST Treatment [facility] At [facility] Rad Onc [address] [place] [address] Yolis Sandoval MD [address] [place] [address] 33056 reno@[email or web address] 08/29/2025 12:40 PM EST Treatment [facility] At [facility] Rad Onc [address] [place] [address] Yolis Sandoval MD [address] [place] [address] [phone] reno@[email or web address] 09/01/2025 12:40 PM EST Treatment [facility] At [facility] Rad Onc [address] [place] [address] Yolis Sandoval MD [address] [place] [address] [phone] reno@[email or web address] 09/02/2025 12:40 PM EST Treatment [facility] At [facility] Rad Onc [address] [place] [address] Yolis Sandoval MD [address] [place] [phone] reno@[email or web address] 09/03/2025 12:40 PM EST Treatment [facility] At [facility] Rad Onc [address] [place] [address] Yolis Sandoval MD [address] [place] [address] [phone] reno@[email or web address] 09/04/2025 12:40 PM EST Treatment [facility] At [facility] Rad Onc [address] [place] [address] Yolis Sandoval MD [address] [place] [address] 100[address] [email or web address] documented as of this encounter Visit Diagnoses Not on filedocumented in this encounter Care Teams Snack Stewardess Relationship Specialty Start Date End Date Ayla Ziegler MD [address] [place] [id number] PCP - General Family Medicine 01/24/25 Damian Weaver MD, PhD [address] [place] [address] [place] [address]120 [email or web address] Primary Oncologist Hematology and Oncology 05/21/25 Asael Martines DO [address] [place] [address] [email or web address] Hematology [facility] Oncology 06/25/25 documented as of this encounter Additional Source Comments The information contained in this document represents components of the legal health record. It is not the complete legal health record.[facility]
--- OUTSIDE RECORDS SUMMARY | 2025-07-11 11:00 | XMS_ITS | Encounter Summary ---
Author Organization [facility] Address [address] [place] [address] [place] [phone] Phone Care Team Providers Care Vest Maker Name Role Phone Ayla Ziegler MD Primary Care Provider [phone] Damian Weaver MD, PhD Unavailable [phone] Asael Martines DO Unavailable [phone] Encounter Details Date Type Department Care Team (Late st Contact Info) Description 07/11/2025 11:00 AM EDT Office Visit [facility] Rad Onc [address] [place] [address] [id number] Yolis Sandoval MD [address] [place] [address] [phone] [email or web address] Pancreatic adenocarcinoma (Primary Dx) Social History Tobacco [...] as of this encounter Progress Notes * Yolis Sandoval MD - 07/11/2025 11:00 AM EDT Here for CT simulation to allow for planning of radiotherapy. documented in this encounter Plan of Treatment Upcoming Encounters Date Type Department Care Team (Late st Contact Info) Description 07/17/2025 1:40 PM EDT Infusion [facility] at [address] [address] Asael Martines DO [address] [place] [address] [phone] [email or web address] 07/21/2025 12:40 PM EDT Treatment [facility] Rad Onc [address] [place] [address] 71817 Yolis Sandoval MD [address] [place] [phone] [email or web address]@[facility] 07/22/2025 12:40 PM EDT Treatment [facility] Rad Onc [address] [place] [address] 42171 Yolis Sandoval MD [address] [place] [phone] [email or web address]@[facility] 07/23/2025 12:40 PM EDT Treatment [facility] Rad Onc [address] [place] [address] Yolis Sandoval MD [address] [place] [address] [phone] [email or web address]@[facility] 07/23/2025 12:40 PM EDT Nutrition [facility] at [address] [address] 07/24/2025 12:40 PM EDT Treatment [facility] Rad Onc [address] [place] [address] Yolis Sandoval MD [address] [place] [phone] [email or web address]@[facility] 07/24/2025 1:00 PM EDT Infusion [facility] at [address] [address] Asael Martines, DO [address] [place] [phone] [email or web address]@[email or web address] 07/24/2025 1:00 PM EDT Social Work [facility] at [address] [address] Asael Martines, DO [address] [place] [address] [phone] [email or web address]@[email or web address] 07/25/2025 11:00 AM EDT Office Visit [facility] at [address] [address] Kaykay Guillen NP [address] [place] [phone] [email or web address] 07/25/2025 11:30 AM EDT Treatment [facility] at [address] [address] 07/25/2025 12:40 PM EDT Treatment [facility] Rad Onc [address] [place] [address] Yolis Sandoval MD [address] [place] [address] [phone] [email or web address]@[facility] 07/29/2025 11:30 AM EDT Treatment [facility] [address] [place] [address] Rachael Newell CNP [address] [place] [address] [phone] [email or web address] 07/29/2025 12:40 PM EDT Treatment [facility] Rad Onc [address] [place] [address] 89769 Yolis Sandoval MD [address] [place] [address] [phone] reno@[facility] 07/30/2025 12:40 PM EDT Treatment [facility] Rad Onc [address] [place] [address] 89357 Yolis Sandoval MD [address] [place] [address] [phone] reno@[facility] 07/31/2025 12:40 PM EDT Treatment [facility] Rad Onc [address] [place] [address] Yolis Sandoval MD [address] [place] [address] [phone] reno@[facility] 08/01/2025 12:40 PM EDT Treatment [facility] Rad Onc [address] [place] [address] 59417 Yolis Sandoval MD [address] [place] [address] [phone] reno@[facility] 08/04/2025 12:40 PM EDT Treatment [facility] Rad Onc [address] [place] [address] 39997 Yolis Sandoval MD [address] [place] [address] [phone] reno@[facility] 08/05/2025 12:40 PM EDT Treatment [facility] Rad Onc [address] [place] [address] 09194 Yolis Sandoval MD [address] [place] [address] [phone] reno@[facility] 08/06/2025 12:40 PM EDT Treatment [facility] Rad Onc [address] [place] [address] 67383 Yolis Sandoval MD [address] [place] [address] [phone] reno@[facility] 08/07/2025 12:30 PM EDT Treatment [facility] Rad Onc [address] [place] [address] 75302 Yolis Sandoval MD [address] [place] [address] [phone] reno@[facility] 08/08/2025 12:40 PM EDT Treatment [facility] Rad Onc [address] [place] [address] 58182 Yolis Sandoval MD [address] [place] [address] [phone] reno@[facility] 08/11/2025 12:40 PM EDT Treatment [facility] Rad Onc [address] [place] [address] 68005 Yolis Sandoval MD [address] [place] [address] [phone] reno@[facility] 08/12/2025 12:40 PM EDT Treatment [facility] Rad Onc [address] [place] [address] 39761 Yolis Sandoval MD [address] [place] [address] [phone] reno@[facility] 08/13/2025 12:40 PM EDT Treatment [facility] Rad Onc [address] [place] [address] 04535 Yolis Sandoval MD [address] [place] [address] [phone] reno@[facility] 08/14/2025 12:40 PM EDT Treatment [facility] Rad Onc [address] [place] [address] 81806 Yolis Sandoval MD [address] [place] [address] [phone] reno@[facility] 08/15/2025 12:40 PM EDT Treatment [facility] Rad Onc [address] [place] [address] Yolis Sandoval MD [address] [place] [address] [phone] reno@[facility] 08/18/2025 12:40 PM EST Treatment [facility] Rad Onc [address] [place] [address] Yolis Sandoval MD [address] [place] [address] [phone] reno@[facility] 08/19/2025 12:40 PM EST Treatment [facility] Rad Onc [address] [place] [address] 40357 Yolis Sandoval MD [address] [place] [address] [phone] reno@[facility] 08/20/2025 12:40 PM EST Treatment [facility] Rad Onc [address] [place] [address] 14046 Yolis Sandoval MD [address] [place] [address] [phone] reno@[facility] 08/21/2025 12:40 PM EST Treatment [facility] Rad Onc [address] [place] [address] 11914 Yolis Sandoval MD [address] [place] [address] [phone] reno@[facility] 08/22/2025 12:10 PM EST Appointment [facility] [address] [place] [address] Asael Martines DO [address] [place] [address] [email or web address] 08/22/2025 12:40 PM EST Treatment [facility] Rad Onc [address] [place] [address] Yolis Sandoval MD [address] [place] [address] [phone] reno@[facility] 08/22/2025 1:30 PM EST Office Visit [facility] at [address] [address] Kaykay Guillen NP [address] [place] [phone] 08/25/2025 12:40 PM EST Treatment [facility] Rad Onc [address] [place] [address] 27293 Yolis Sandoval MD [address] [place] [address] [phone] reno@[facility] 08/26/2025 12:40 PM EST Treatment [facility] Rad Onc [address] [place] [address] Yolis Sandoval MD [address] [place] [address] [phone] reno@[facility] 08/27/2025 12:40 PM EST Treatment [facility] Rad Onc [address] [place] [address] 12409 Yolis Sandoval MD [address] [place] [address] [phone] reno@[facility] 08/28/2025 12:40 PM EST Treatment [facility] Rad Onc [address] [place] [address] Yolis Sandoval MD [address] [place] [address] [phone] reno@[facility] 08/29/2025 12:40 PM EST Treatment [facility] Rad Onc [address] [place] [address] Yolis Sandoval MD [address] [place] [address] [phone] reno@[facility] 09/01/2025 12:40 PM EST Treatment [facility] Rad Onc [address] [place] [address] 94605 Yolis Sandoval MD [address] [place] [address] [phone] reno@[facility] 09/02/2025 12:40 PM EST Treatment [facility] Rad Onc [address] [place] [address] 17045 Yolis Sandoval MD [address] [place] [address] [phone] reno@[facility] 09/03/2025 12:40 PM EST Treatment [facility] Rad Onc [address] [place] [address] 85127 Yolis Sandoval MD [address] [place] [address] [phone] reno@[facility] 09/04/2025 12:40 PM EST Treatment [facility] Rad Onc [address] [place] [address] 95105 Yolis Sandoval MD [address] [place] [address] [phone] [email or web address] documented as of this encounter Visit Diagnoses Diagnosis Pancreatic adenocarcinoma- Primary Malignant neoplasm of pancreas, part unspecified documented in this encounter Administered Medications Inactive Administered Medications - up to 3 most recent administrations Medication Order MAR Action Action Date Dose Rate Site iohexoL (OMNIPAQUE-240) 240 mg iodine/mL solution 100 mL 100 mL, Intravenous, Once as needed, imaging, Starting on Mon07/11/25 at 1058, For 1 dose, Dilute as directed. Please speak with the laboratory technologist prior to administering the oral contrast to the patient to confirm administration instructions and the timing of oral contrast prep before CT exam. Notify the tech if any apply: Patient is unable to drink, lie flat, or travel to Radiology in 2-4 hours; patient is at risk for aspiration, has difficulty swallowing, or is on thickened liquids; patient is allergic to Omnipaque or iodinated contrast media (dye). It's important to have the patient drink all the contrast media evenly over one (1) hour. If the patient is unable to do so, notify the technology internship. If Omnipaque is aspirated into the larynx, discontinue administration and notify the covering physician AMBREEN. CT Dilution Instructions: Mix 50mLs of Omnipaque-240 with 32oz (900mL) of water or other clear liquid. Product Precautions: When administered orally, caution should be used with patients at risk for aspiration, on thickened liquids, or who have difficulty swallowing. Given 07/11/2025 11:22 AM EDT 100 mL documented in this encounter Care Teams Vest Maker Relationship Specialty Start Date End Date Ayla Ziegler MD [address] [place] [id number] PCP - General Family Medicine 01/24/25 Damian Weaver MD, PhD [address] [place] [address] [place] [address] [email or web address] Primary Oncologist Hematology and Oncology 05/21/25 Asael Martines DO [address] [place] [phone] [email or web address] 06/25/25 documented as of this encounter Additional Source Comments The information contained in this document represents components of the legal health record. It is not the complete legal health record.[facility]
--- OUTSIDE RECORDS SUMMARY | 2025-07-15 10:00 | XMS_ITS | Encounter Summary ---
Author Organization [employer] Address [address] [facility] [facility] [address] [place] [address] Care Team Providers Care Asphalt Spreader Operator Name Role Phone Ayla Ziegler MD Primary Care Provider [phone] Encounter Details Date Type Department Care Team (Latest Contact Info) Description 07/15/2025 10:00 AM EDT Procedure Visit [facility] MED & PEDS [address] [place], [place] [phone] Yolis Merino MD [address] [place], [place] [phone] Cervical cancer screening (Primary Dx) Social History [...] Care Team (Late st Contact Info) Description 07/16/2025 11:15 AM EDT Office Visit [facility] MED & PEDS [address] [place] [address] Ayla Ziegler MD [address] [place] [address] 08/14/2025 10:00 AM EDT Clinical Support [facility] MED & PEDS [address] [place] [address] Heather Siddiqui RN [address] [place] [address] Scheduled Orders Name Type Priority Associated Diagnoses [...] documented as of this encounter Care Teams Asphalt Spreader Operator Relationship Specialty Start Date End Date Ayla Ziegler MD [address] [place] [phone] PCP - General Family Medicine 11/14/13 documented as of this encounter
--- OUTSIDE RECORDS SUMMARY | 2025-07-15 16:22 | XMS_ITS | Encounter Summary ---
Author Organization [employer] Address [address] [facility] 7t [place] [address] Care Team Providers Care Kosher Inspector Name Role Phone Ayla Ziegler MD Primary Care Provider [phone] Reason for Visit * Reason Onset Date Comments Referral 07/02/2025 Encounter Details Date Type Department Care Team ([facility] Contact Info) Description 07/02/2025 Telephone [facility] CHC MED & PEDS [address] [place] [address] Ayla Ziegler MD [address] [place] [address] Referral Social History Tobacco Use Types Packs/Day Years [...] encounter Miscellaneous Notes * Telephone Encounter - Lamar Bonner RN - 07/10/2025 1:47 PM EDT My Chart message * Telephone Encounter - Ayla Ziegler MD - 07/08/2025 12:51 PM EDT Televisit before refral * Telephone Encounter - Davey Landaverde - 07/02/2025 4:03 PM EDT Tc from pt requesting a referral for GI to be sent to [facility]. documented in this encounter Plan of Treatment Upcoming Encounters Date Type Department Care Team ([facility] st Contact Info) Description 07/16/2025 11:15 AM EDT Office Visit [facility] MED & PEDS [address] [place] [address] Ayla Ziegler MD [address] [place] [address] 08/14/2025 10:00 AM EDT Clinical Support [facility] MED & PEDS [address] [place] [address] Heather Siddiqui, RN [address] [place] [address] documented as of this encounter Visit Diagnoses Not on filedocumented in this encounter Additional Health Concerns Assessment Noted Time PHQ-9 Depression Total Score: 5 04/09/20 25 11:23 AM EDT documented as of this encounter Care Teams Kosher Inspector Relationship Specialty Start Date End Date Ayla Ziegler MD [address] [place] [address] PCP - General Family Medicine 11/14/13 documented as of this encounter
--- OUTSIDE RECORDS SUMMARY | 2025-07-15 16:22 | XMS_ITS | Encounter Summary ---
Author Organization [employer] Address [address] [facility] 7t [place] [address] Care Team Providers Care Therapeutic Riding Instructor Name Role Phone Ayla Ziegler MD Primary Care Provider [phone] Reason for Visit * Reason Onset Date Comments chart prep 07/14/2025 Encounter Details Date Type Department [facility] Description 07/14/2025 Telephone [facility] CHC MED & PEDS [address] [place] [address] Ayla Ziegler MD [address] [place] [address] chart prep Social History Tobacco Use Types [...] encounter Miscellaneous Notes * Telephone Encounter - Vaishlai Manzanares [place] - 07/14/2025 10:27 AM EDT Chart Prep Labs: not applicable Images: not applicable Referrals: not applicable Vaccines due: Covid, Flu, and Zoster, RSV Screenings: not applicable Overdue care gaps: Glucose documented in this encounter Plan of Treatment Upcoming Encounters Date Type Department Care Team ([facility] st Contact Info) Description 07/16/2025 11:15 AM EDT Office Visit [facility] MED & PEDS [address] [place] [address] Ayla Ziegler MD [address] [place] [address] 08/14/2025 10:00 AM EDT Clinical Support [facility] MED & PEDS [address] [place] [address] Heather Siddiqui RN [address] [place] [address] documented as of this encounter Visit Diagnoses Not on filedocumented in this encounter Additional Health Concerns Assessment Noted Time PHQ-9 Depression Total Score: 5 04/09/20 11:23 AM EDT documented as of this encounter Care Teams Therapeutic Riding Instructor Relationship Specialty Start Date End Date Ayla Ziegler MD [address] [place] [address] PCP - General Family Medicine 11/14/13 documented as of this encounter
--- OUTSIDE RECORDS SUMMARY | 2025-07-15 16:22 | XMS_ITS | Encounter Summary ---
Author Organization [employer] Address [address] [facility] [address] [place] [address] Care Team Providers Care Casting Assistant Name Role Phone Ayla Ziegler MD Primary Care Provider [phone] Reason for Visit * Reason Onset Date Comments No Show 07/10/2025 Encounter Details Date Type Department Care Team ([facility] Contact Info) Description 07/10/2025 Telephone [facility] MEDICINE [address] [place] [address] Ayla Ziegler MD [address] [place], [place] [phone] No Show Social History Tobacco Use Types Packs/Day Years [...] encounter Miscellaneous Notes * Telephone Encounter - Reinaldo Payne - 07/10/2025 1:00 PM EDT No show 07/09/25 documented in this encounter Plan of Treatment Upcoming Encounters Date Type Department Care Team (Late st Contact Info) Description 07/16/2025 11:15 AM EDT Office Visit [facility] MED & PEDS [address] [place] [address] Ayla Ziegler MD [address] [place] [address] 08/14/2025 10:00 AM EDT Clinical Support [facility] MED & PEDS [address] [place] [address] Heather Siddiqui, RN [address] [place] [address] documented as of this encounter Visit Diagnoses Not on filedocumented in this encounter Additional Health Concerns Assessment Noted Time PHQ-9 Depression Total Score: 5 04/09/20 25 11:23 AM EDT documented as of this encounter Care Teams Casting Assistant Relationship Specialty Start Date End Date Ayla Ziegler MD [address] [place] [address] [place] [address] PCP - General Family Medicine 11/14/13 documented as of this encounter
--- OUTSIDE RECORDS SUMMARY | 2025-07-15 16:23 | XMS_ITS | Encounter Summary ---
Author Organization [facility] Address [address] [place] [address] [place] [address] Phone Care Team Providers Care Restaurant Maintenance Technician Name Role Phone Ayla Ziegler MD Primary Care Provider [phone] Damian Weaver MD, PhD Unavailable [phone] Asael Martines DO Unavailable [phone] Reason for Referral * MRI/CAT Scan - New Request Specialty Diagnoses / Procedures Referred By Contac t Referred To Contact Radiology Diagnoses Pancreatic adenocarcinoma Procedures CT Chest Juan Francisco Etienne CNP Phone: tel: fax: mailto:[email or web address] Referral ID Status Reason Start Date Expiration Date V isits Requested Visits Authorized [id number] New Request 07/02/2025 1 1 * MRI/CAT Scan - New Request Specialty Diagnoses / Procedures Referred By Contac t Referred To Contact Radiology Diagnoses Pancreatic adenocarcinoma Procedures CT Abdomen/Pelvis Juan Francisco Etienne CNP Phone: tel: fax: mailto:[email or web address] Referral ID Status Reason Start Date Expiration Date V isits Requested Visits Authorized [id number] New Request 07/02/2025 1 1 Encounter Details Date Type Department Care Team (Late st Contact Info) Description 07/02/[address] [facility] [address], 7[address] Floor, [address] [place] [address] Juan Francisco Etienne, LIQUOR GALLERY OPERATOR [address] [facility] [address] [place] [address] [email or web address] Pancreatic adenocarcinoma Social History Tobacco Use Types Packs/Day Years [...] Info) Description 07/17/2025 1:40 PM EDT Infusion [facility] [place] [address] [place] [address] Asael Martines DO [address] [place] [address] [email or web address] [email or web address] 07/21/2025 12:40 PM EDT Treatment [facility] On[facility] [address] [place] [address] Yolis Sandoval MD [address] [place] [phone] [email or web address] 07/22/2025 12:40 PM EDT Treatment [facility] Cancer Center At [facility] Rad Onc [address] [place] [address] Yolis Sandoval MD [address] [place] [phone] [email or web address] 07/23/2025 12:40 PM EDT Treatment [facility] At [facility] Rad Onc [address] [place] [address] Yolis Sandoval MD [address] [place] [phone] [email or web address] 07/23/2025 12:40 PM EDT Nutrition [facility] at [address] [address] 07/24/2025 12:40 PM EDT Treatment [facility] At [facility] Onc [address] [place] [address] Yolis Sandoval MD [address] [place] [phone] [email or web address] 07/24/2025 1:00 PM EDT Infusion [facility] at [address] [address] Asael Martines, DO [address] [place] [phone] [email or web address] 07/24/2025 1:00 PM EDT Social Work [facility] at [address] [address] Asael Martines, DO [address] [place] [phone] [email or web address] 07/25/2025 11:00 AM EDT Office Visit [facility] at [address] [address] Kaykay Guillen NP [address] [place] [address] [email or web address] 07/25/2025 11:30 AM EDT Treatment [facility] [place] at [address] [address] 07/25/2025 12:40 PM EDT Treatment [facility] Cancer [facility] At [facility] Rad Onc [address] [place] [address] Yolis Sandoval MD [address] [place] [phone] [email or web address] 07/29/2025 11:30 AM EDT Treatment [facility] at [address] [address] Rachael Newell CNP [address] [place] [phone] [email or web address] 07/29/2025 12:40 PM EDT Treatment [facility] Cancer Center At [facility] Rad Onc [address] [place] [address] Yolis Sandoval MD [address] [place] [phone] [email or web address] 07/30/2025 12:40 PM EDT Treatment [facility] At [facility] Rad Onc [address] [place] [address] Yolis Sandoval MD [address] [place] [phone] [email or web address] 07/31/2025 12:40 PM EDT Treatment [facility] At [facility] Rad Onc [address] [place] [address] Yolis Sandoval MD [address] [place] [phone] [email or web address] 08/01/2025 12:40 PM EDT Treatment [facility] At [facility] Rad Onc [address] [place] [address] Yolis Sandoval MD [address] [place] [phone] [email or web address] 08/04/2025 12:40 PM EDT Treatment [facility] At [facility] Rad Onc [address] [place] [address] Yolis Sandoval MD [address] [place] [phone] [email or web address] 08/05/2025 12:40 PM EDT Treatment [facility] At [facility] Rad Onc [address] [place] [address] Yolis Sandoval MD [address] [place] [phone] reno@[email or web address] 08/06/2025 12:40 PM EDT Treatment [facility] At [facility] Rad Onc [address] [place] [address] Yolis Sandoval MD [address] [place] [phone] [email or web address] 08/07/2025 12:30 PM EDT Treatment [facility] At [facility] Rad Onc [address] [place] [address] Yolis Sandoval MD [address] [place] [phone] [email or web address]@[email or web address] 08/08/2025 12:40 PM EDT Treatment [facility] At [facility] Rad Onc [address] [place] [address] Yolis Sandoval MD [address] [place] [phone] [email or web address]@[email or web address] 08/11/2025 12:40 PM EDT Treatment [facility] At [facility] Rad Onc [address] [place] [address] Yolis Sandoval MD [address] [place] [phone] [email or web address]@[email or web address] 08/12/2025 12:40 PM EDT Treatment [facility] At [facility] Rad Onc [address] [place] [address] Yolis Sandoval MD [address] [place] [phone] [email or web address] 08/13/2025 12:40 PM EDT Treatment [facility] At [facility] Rad Onc [address] [place] [address] Yolis Sandoval MD [address] [place] [phone] reno@[email or web address] 08/14/2025 12:40 PM EDT Treatment [facility] At [facility] Rad Onc [address] [place] [address] Yolis Sandoval MD [address] [place] [phone] reno@[email or web address] 08/15/2025 12:40 PM EDT Treatment [facility] At [facility] Rad Onc [address] [place] [address] Yolis Sandoval MD [address] [place] [phone] reno@[email or web address] 08/18/2025 12:40 PM EST Treatment [facility] At [facility] Rad Onc [address] [place] [address] Yolis Sandoval MD [address] [place] [phone] reno@[email or web address] 08/19/2025 12:40 PM EST Treatment [facility] At [facility] Rad Onc [address] [place] [address] Yolis Sandoval MD [address] [place] [phone] reno@[email or web address] 08/20/2025 12:40 PM EST Treatment [facility] At [facility] Rad Onc [address] [place] [address] Yolis Sandoval MD [address] [place] [phone] reno@[email or web address] 08/21/2025 12:40 PM EST Treatment [facility] At [facility] Rad Onc [address] [place] [address] Yolis Sandoval MD [address] [place] [phone] reno@[email or web address] 08/22/2025 12:10 PM EST Appointment [facility] [address] [place] [address] Asael Martines DO [address] [place] [address] [email or web address] 08/22/2025 12:40 PM EST Treatment [facility] At [facility] Rad Onc [address] [place] [address] Yolis Sandoval MD [address] [place] [phone] [email or web address]@[email or web address] 08/22/2025 1:30 PM EST Office Visit [facility] Center at [address] [address] Kaykay Guillen NP [address] [place] [phone] [email or web address] 08/25/2025 12:40 PM EST Treatment [facility] Cancer Center At [facility] Rad Onc [address] [place] [address] Yolis Sandoval MD [address] [place] [phone] reno@[email or web address] 08/26/2025 12:40 PM EST Treatment [facility] At [facility] Rad Onc [address] [place] [address] Yolis Sandoval MD [address] [place] [phone] reno@[email or web address] 08/27/2025 12:40 PM EST Treatment [facility] At [facility] Rad Onc [address] [place] [address] Yolis Sandoval MD [address] [place] [phone] reno@[email or web address] 08/28/2025 12:40 PM EST Treatment [facility] At [facility] Rad Onc [address] [place] [address] Yolis Sandoval MD [address] [place] [phone] reno@[email or web address] 08/29/2025 12:40 PM EST Treatment [facility] At [facility] Rad Onc [address] [place] [address] Yolis Sandoval MD [address] [place] [phone] reno@[email or web address] 09/01/2025 12:40 PM EST Treatment [facility] At [facility] Rad Onc [address] [place] [address] Yolis Sandoval MD [address] [place] [phone] reno@[email or web address] 09/02/2025 12:40 PM EST Treatment [facility] At [facility] Rad Onc [address] [place] [address] Yolis Sandoval MD [address] [place] [phone] [email or web address] 09/03/2025 12:40 PM EST Treatment [facility] At [facility] Rad Onc [address] [place] [address] Yolis Sandoval MD [address] [place] [address] [email or web address] 09/04/2025 12:40 PM EST Treatment [facility] At [facility] Rad Onc [address] [place] [address] Yolis Sandoval MD [address] [place] [phone] [email or web address] Scheduled Orders Name Type Priority Associated Diagnoses Orde r Schedule CT Abdomen/Pelvis Imaging Urgent/patient waiting Pancreatic adenocarcinoma Expected: 09/17/2025 (Approximate), Expires: 07/02/2026 CT Chest Imaging Routine Pancreatic adenocarcinoma Expected: 09/17/2025 (Approximate), Expires: 07/02/2026 documented as of this encounter Visit Diagnoses Diagnosis Pancreatic adenocarcinoma Malignant neoplasm of pancreas, part unspecified documented in this encounter Care Teams Restaurant Maintenance Technician Relationship Specialty Start Date End Date Ayla Ziegler MD [address] [place] [address] PCP - General Family Medicine 01/24/25 Damian Weaver MD, PhD [address] [place] [address] [place] [phone] [email or web address] Primary Oncologist Hematology and Oncology 05/21/25 Asael Martines DO [address] [place] [phone] [email or web address] Hematology [facility] Oncology 06/25/25 documented as of this encounter Additional Source Comments The information contained in this document represents components of the legal health record. It is not the complete legal health record.[facility]
--- OUTSIDE RECORDS SUMMARY | 2025-07-15 16:23 | XMS_ITS | Encounter Summary ---
Author Organization [employer] Address [address] [place] [address] Care Team Providers Care Is Technician Name Role Phone Ayla Ziegler MD Primary Care Provider [phone] Encounter Details Date Type Department Care Team ([facility] st Contact Info) Description 12/07/2024 Orders Only [facility] [address] [place] [address] ProviderSybil MD Social History Tobacco Use Types [...] 11:15 AM EDT Office Visit [facility] PEDS [address] [place] [address] Ayla Ziegler MD [address] [place] [address] 08/14/2025 10:00 AM EDT Clinical Support [facility] [address] [place] [address] Heather Siddiqui RN [address] [place] [address] documented as of this encounter Procedures Procedure [...] documented as of this encounter Care Teams Is Technician Relationship Specialty Start Date End Date Ayla Ziegler MD [address] [place] [address] PCP - General Family Medicine 11/14/13 documented as of this encounter
--- OUTSIDE RECORDS SUMMARY | 2025-07-15 16:23 | XMS_ITS | Encounter Summary ---
Author Organization [facility] Address [address] [place] [address] [place] [phone] Phone Care Team Providers Care Assistant Center Manager Name Role Phone Ayla Ziegler MD Primary Care Provider [phone] Damian Weaver MD, PhD Unavailable [phone] Asael Martines DO Unavailable [phone] Encounter Details Date Type Department Care Team (Late st Contact Info) Description 07/11/2025 Telephone [facility] At [facility] Rad Onc [address] [place] [address] [phone] Yolis Sandoval MD [address] [place] [phone] [email or web address] Social History Tobacco Use Types Packs/Day Years [...] Info) Description 07/17/2025 1:40 PM EDT Infusion [facility] at [address] [address] Asael Martines DO [address] [place] [address] [email or web address] 07/21/2025 12:40 PM EDT Treatment [facility] Cancer [facility] At [facility] Rad Onc [address] [place] [address] 10858 Yolis Sandoval MD [address] [place] [phone] [email or web address] 07/22/2025 12:40 PM EDT Treatment [facility] Cancer Center At [facility] Rad Onc [address] [place] [address] 27901 Yolis Sandoval MD [address] [place] [address] [phone] [email or web address] 07/23/2025 12:40 PM EDT Treatment [facility] Cancer [facility] At [facility] Rad Onc [address] [place] [address] 16877 Yolis Sandoval MD [address] [place] [phone] [email or web address] 07/23/2025 12:40 PM EDT Nutrition [facility] at [address] [address] 07/24/2025 12:40 PM EDT Treatment [facility] Cancer [facility] At [facility] Rad Onc [address] [place] [address] Yolis Sandoval MD [address] [place] [phone] [email or web address] 07/24/2025 1:00 PM EDT Infusion [facility] [place] at [address] [address] Asael Martines, [address] [address] [email or web address] 07/24/2025 1:00 PM EDT Social Work [facility] at [address] [address] Asael Martines, [address] [address] [email or web address] 07/25/2025 11:00 AM EDT Office Visit [facility] at [address] [address] Kaykay Guillen NP [address] [place] [phone] [email or web address] 07/25/2025 11:30 AM EDT Treatment [facility] [place] at [address] [address] 07/25/2025 12:40 PM EDT Treatment [facility] Cancer [facility] At [address] [address] Yolis Sandoval MD [address] [place] [phone] [email or web address] 07/29/2025 11:30 AM EDT Treatment [facility] [place] at [address] [address] Rachael Newell CNP [address] [place] [phone] [email or web address] 07/29/2025 12:40 PM EDT Treatment [facility] Cancer [facility] At [facility] Rad Onc [address] [place] [address] Yolis Sandoval MD [address] [place] [phone] [email or web address] 07/30/2025 12:40 PM EDT Treatment [facility] Cancer Center At [facility] Rad Onc [address] [place] [address] Yolis Sandoval MD [address] [place] [phone] [email or web address] 07/31/2025 12:40 PM EDT Treatment [facility] Cancer [facility] At [facility] Rad Onc [address] [place] [address] Yolis Sandoval MD [address] [place] [phone] [email or web address] 08/01/2025 12:40 PM EDT Treatment [facility] Cancer Center At [facility] Rad Onc [address] [place] [address] Yolis Sandoval MD [address] [place] [phone] [email or web address] 08/04/2025 12:40 PM EDT Treatment [facility] Cancer Center At [facility] Rad Onc [address] [place] [address] Yolis Sandoval MD [address] [place] [address] [phone] [email or web address] 08/05/2025 12:40 PM EDT Treatment [facility] Cancer [facility] At [facility] Rad Onc [address] [place] [address] 97[address] Yolis Sandoval MD [address] [place] [phone] [email or web address] 08/06/2025 12:40 PM EDT Treatment [facility] Cancer Center At [facility] Rad Onc [address] [place] [address] Yolis Sandoval MD [address] [place] [address] [phone] [email or web address] 08/07/2025 12:30 PM EDT Treatment [facility] Cancer [facility] At [facility] Rad Onc [address] [place] [address] Yolis Sandoval MD [address] [place] [address] [phone] [email or web address] 08/08/2025 12:40 PM EDT Treatment [facility] Cancer [facility] At [facility] Rad Onc [address] [place] [address] 29[address] Yolis Sandoval MD [address] [place] [address] [phone] [email or web address] 08/11/2025 12:40 PM EDT Treatment [facility] Cancer [facility] At [facility] Rad Onc [address] [place] [address] Yolis Sandoval MD [address] [place] [address] [phone] [email or web address] 08/12/2025 12:40 PM EDT Treatment [facility] Cancer [facility] At [facility] Rad Onc [address] [place] [address] 277[address] Yolis Sandoval MD [address] [place] [address] [phone] [email or web address] 08/13/2025 12:40 PM EDT Treatment [facility] Cancer Center At [facility] Rad Onc [address] [place] [address] Yolis Sandoval MD [address] [place] [address] [phone] [email or web address] 08/14/2025 12:40 PM EDT Treatment [facility] Cancer Center At [facility] Rad Onc [address] [place] [address] Yolis Sandoval MD [address] [place] [phone] [email or web address] 08/15/2025 12:40 PM EDT Treatment [facility] Cancer Center At [facility] Rad Onc [address] [place] [address] 66[address] Yolis Sandoval MD [address] [place] [phone] [email or web address] 08/18/2025 12:40 PM EST Treatment [facility] Cancer Center At [facility] Rad Onc [address] [place] [address] Yolis Sandoval MD [address] [place] [phone] [email or web address] 08/19/2025 12:40 PM EST Treatment [facility] Cancer Center At [facility] Rad Onc [address] [place] [address] Yolis Sandoval MD [address] [place] [address] [phone] [email or web address] 08/20/2025 12:40 PM EST Treatment [facility] Cancer Center At [facility] Rad Onc [address] [place] [address] Yolis Sandoval MD [address] [place] [address] [phone] [email or web address] 08/21/2025 12:40 PM EST Treatment [facility] Cancer Center At [facility] Rad Onc [address] [place] [address] Yolis Sandoval MD [address] [place] [phone] [email or web address] 08/22/2025 12:10 PM EST Appointment [facility] Laboratory [address] [place] [address] Asael Martines DO [address] [place] [address] [email or web address] 08/22/2025 12:40 PM EST Treatment [facility] Cancer Center At [facility] Rad Onc [address] [place] [address] Yolis Sandoval MD [address] [place] [phone] [email or web address] 08/22/2025 1:30 PM EST Office Visit [facility] at [address] [address] Kaykay Guillen NP [address] [place] [phone] [email or web address] 08/25/2025 12:40 PM EST Treatment [facility] Cancer Center At [facility] Rad Onc [address] [place] [address] Yolis Sandoval MD [address] [place] [phone] [email or web address] 08/26/2025 12:40 PM EST Treatment [facility] Cancer Center At [facility] Rad Onc [address] [place] [address] Yolis Sandoval MD [address] [place] [phone] [email or web address] 08/27/2025 12:40 PM EST Treatment [facility] Cancer Center At [facility] Rad Onc [address] [place] [address] Yolis Sandoval MD [address] [place] [phone] [email or web address] 08/28/2025 12:40 PM EST Treatment [facility] Cancer Center At [facility] Rad Onc [address] [place] [address] Yolis Sandoval MD [address] [place] [phone] [email or web address] 08/29/2025 12:40 PM EST Treatment [facility] Cancer Center At [facility] Rad Onc [address] [place] [address] Yolis Sandoval MD [address] [place] [address] [phone] [email or web address] 09/01/2025 12:40 PM EST Treatment [facility] Cancer Center At [facility] Rad Onc [address] [place] [address] Yolis Sandoval MD [address] [place] [phone] [email or web address] 09/02/2025 12:40 PM EST Treatment [facility] Cancer Center At [facility] Rad Onc [address] [place] [address] Yolis Sandoval MD [address] [place] [phone] [email or web address] 09/03/2025 12:40 PM EST Treatment [facility] Cancer Center At [facility] Rad Onc [address] [place] [address] Yolis Sandoval MD [address] [place] [address] [phone] [email or web address] 09/04/2025 12:40 PM EST Treatment [facility] Cancer Center At [facility] Rad Onc [address] [place] [address] Yolis Sandoval MD [address] [place] [phone] [email or web address] documented as of this encounter Visit Diagnoses Not on filedocumented in this encounter Care Teams Assistant Center Manager Relationship Specialty Start Date End Date Ayla Ziegler MD [address] [place] [address] PCP - General Family Medicine 4/11/25 Damian Weaver MD, PhD [address] [place] [address] [email or web address] Primary Oncologist Hematology and Oncology 05/21/25 Asael Martines DO [address] [place] [address] [email or web address] Hematology and Oncology 06/25/25 documented as of this encounter Additional Source Comments The information contained in this document represents components of the legal health record. It is not the complete legal health record.[facility]
--- OUTSIDE RECORDS SUMMARY | 2025-07-15 16:23 | XMS_ITS | Encounter Summary ---
Author Organization [employer] Address [address] [facility] [address] [place] [address] Care Team Providers Care Hog Cooler Name Role Phone Ayla Ziegler MD Primary Care Provider Reason for Visit * Reason Onset Date Comments Hospital Follow-up 12/12/2024 Encounter Details Date Type Department Care Team ([facility] st Contact Info) Description 12/12/2024 Telephone [facility] [address] [place] [address] Ayla Ziegler MD [address] [place], [place] [phone] Hospital Follow-up Social History Tobacco Use Types [...] son requesting a HDF appt. [place] [facility] Date of admission: 12/06 Discharge date: 12/08 Diagnosed: Pancreatic mass (acute), Acute Pancreatitis. *Send message to [facility] Clinical Care Coordinators [phone] documented in this encounter Plan of Treatment Upcoming Encounters Date Type Department Care Team ([facility] st Contact Info) Description 07/16/2025 11:15 AM EDT Office Visit [facility] [address] [place] [address] Ayla Ziegler MD [address] [place] [address] 08/14/2025 10:00 AM EDT Clinical Support [facility] [address] [place] [address] Heather Siddiqui RN [address] [place] [address] documented as of this encounter Visit Diagnoses Not on filedocumented in this encounter Additional Health Concerns Assessment Noted Time PHQ-9 Depression Total Score: 0 04/24/20 23 11:11 AM EDT documented as of this encounter Care Teams Hog Cooler Relationship Specialty Start Date End Date Ayla Ziegler MD [address] [place] [address] PCP - General Family Medicine 11/14/13 documented as of this encounter
--- OUTSIDE RECORDS SUMMARY | 2025-07-15 16:23 | XMS_ITS | Clinical Summary ---
Author Organization [facility] Address [address] [employer] [facility] [address] [place] [address] Phone Care Team Providers Care Merchandiser Name Role Phone Ayla Ziegler MD Primary Care Provider [phone] Damian Weaver MD, PhD Unavailable [phone] Asael Martines W DO Unavailable [phone] Allergies Active Allergy Reactions Criticality Noted Date Comments Adhesive Itching,Erythema,Harley h with Blisters High 06/19/2025 Diffuse rash w/ skin tears and significant blistering to chest. [id number] dressings only, please. Omeprazole 12/02/2010 Other reaction(s): unspecified Oxaliplatin Shortness Of Breath,Neuropathy High 06/02/2025 Tingling in chest, throat expanding/speech difficulties Medications ondansetron (ZOFRAN-ODT) 4 MG disintegrating tablet Take 4 mg by mouth every 6 (six) hours as needed. 01/09/20 25 Active metoprolol succinate (TOPROL-XL) 50 MG 24 hr tablet Take 1 tablet by mouth every morning. 12/10/19 25 Active metFORMIN (GLUCOPHAGE) 1000 MG tablet Take 1,000 mg by mouth 2 (two) times a day with meals. 11/19/19 25 026 Active LORazepam (ATIVAN) 1 MG tablet Take 1 mg by mouth nightly at bedtime as needed. 01/18/20 25 Active cholecalciferol, vitamin D3, 25 mcg (1,000 unit) capsule Take 1 capsule by mouth every morning. 06/20/20 24 Active ELIQUIS 5 mg tablet Take 5 mg by mouth 2 (two) times a day. Active loperamide (IMODIUM) 2 mg capsule Take 1 capsule (2 mg total) by mouth 4 (four) times a day as needed for diarrhea. 60 capsule 1 05/30/20 25 Active fexofenadine (HEMANTH) 180 MG tablet Take 2 tablets (360mg total) the night before chemo, and 2 tablets (360mg) the morning before coming for chemo infusion. 8 tablet 05/30/20 25 Active capecitabine (XELODA) 500 MG tabletIndications: Pancreatic adenocarcinoma Take 3 tablets (1,500 mg) by mouth 2 (two) times a day Take Monday - Monday on radiation treatment days only, for total of 28 treatment days. Follow instructions given by provider. 168 tablet 07/14/20 25 025 Active PAIN RELIEF ES, ACETAMINOPHEN, 500 mg tablet Take 500 mg by mouth 4 (four) times a day as needed. 01/09/20 25 025 Discontin ued(No longer taking) docusate sodium (COLACE) 100 MG capsule Take 1 capsule (100 mg total) by mouth 2 (two) times a day. 60 capsule 2 05/30/20 25 025 Discontin ued(No longer taking) polyethylene glycol (MIRALAX) 17 gram packet Take 17 g by mouth 2 (two) times a day as needed for mild constipation. 60 packet 1 05/30/20 25 025 Discontin ued(No longer taking) Active Problems Patient Care Coordination No te Formatting of this note migh t be different from the original. Please use [id number] for port dressing. Irinotecan over 60 mins, +abd cramping and diarrhea w/ 30-min infusion; +Speech changes w/ atropine Problem Noted Date Diagnosed Date Drug reaction 05/21/2025 Pancreatic adenocarcinoma 02/02/2025 Cancer Staging:Clinical:Stage IIA(cT3, cN0, cM0) - Signed by Yolis Sandoval MD on 2025 Chronic atrial fibrillation 05/28/2024 Overview (02/02/2025): on eliquis Abdominal aortic aneurysm (AAA) 04/24/2023 Obesity 12/13/2011 Essential hypertension 12/13/2011 Diabetes mellitus 12/13/2011 Pure hypercholesterolemia 11/10/2011 Tobacco dependence syndrome 10/26/2011 Migraine 10/26/2011 Encounters Date Type Department Care Team Description 07/14/[address] [address] Zulma Donohue [facility] 07/11/2025 11:00 AM EDT Office Visit [facility] Rad Onc [address] [place] [address] Yolis Sandoval MD Pancreatic adenocarcinoma (Primary Dx) 07/11/2025 Telephone [facility] Rad Onc [address] [place] [address] Yolis Sandoval MD 07/11/2025 Telephone [facility] At [address] [address] [facility] MD [facility] 07/11/2025 Telephone [facility] Rad Onc [address] [place] [address] Genesis Barrientos, [place] 07/11/2025 Documentation [facility] Rad Onc [address] [place] [address] Genesis Barrientos, [place] 07/10/2025 2:00 PM EDT Social Work [facility] at [address] [address] Asael Martines DO 07/10/2025 1:00 PM EDT Office Visit [facility] Center at [address] [address] Asael Martines DO Pancreatic adenocarcinoma (Primary Dx) 07/10/2025 Documentation [facility] Specialty [address] [address] Lakisha Tyler Mikayla 07/09/2025 12:00 PM EDT Telemedicine - audio only [facility] [address] [place] [address], 10th Floor, [address] [place] [address] Rubin Davidson MD, PhD Kavita Cortez Pancreatic cancer (Primary Dx); Family history of prostate cancer; Family history of breast cancer; Encounter for nonprocreative genetic counseling 07/09/2025 Documentation [facility] Rad Onc [address] [place] [address] Yolis Sandoval MD 07/04/2025 Ancillary Orders [facility]Outside Imaging [address] [place] [address] UnknownMame MD 2025 11:00 AM EDT Office Visit [facility] Rad Onc [address] [place] [address] Yolis Sandoval MD Pancreatic adenocarcinoma (Primary Dx) 07/02/2025 Orders Only [facility] [address] [place] [address], 7th Floor, [address] [place] [address] Juan Francisco Etienne, DOMINIC Pancreatic adenocarcinoma 07/01/2025 Orders Only [facility] [address] [facility] [address] [facility], 7th Floor, [address] [place] [address] Juan Francisco Etienne, DOMINIC 06/25/2025 11:30 AM EDT Office Visit [facility] [address], 7th Floor, [address] [place] [address] Charisma Francois MD Pancreatic adenocarcinoma (Primary Dx) 06/25/2025 11:30 AM EDT Office Visit [facility] [address], 7th Floor, [address] [place] [address] Damian Weaver MD, PhD Pancreatic adenocarcinoma (Primary Dx) 06/25/2025 Telephone [facility] Center at [address] [address] Asael Martines DO BN NEW ONC- [facility] Pancreatic 06/21/2025 2:00 PM EDT Infusion [address], 8th Floor, [address] [place] [address] Damian Weaver MD, PhD Maryann Horn, [place] Pancreatic adenocarcinoma (Primary Dx) 06/21/2025 Telephone [facility] MEDICINE VIRTUAL DEPARTMENT [address] [place] [phone] Josselin Mccauley, ELECTRICAL INTERN 06/19/2025 7:00 AM EDT Infusion [address], 8th Floor, [address] [place] [address] Damian Weaver MD, PhD Jovita Sandoval RN Pancreatic adenocarcinoma (Primary Dx); Adverse effect of drug, subsequent encounter 06/19/2025 Documentation [facility] Allergy [address], 4th Floor, [address] [place] [address] Irineo Jones, ELECTRICAL INTERN 06/18/2025 11:30 AM EDT Office Visit [facility] [address], 7th Floor, [address] [place] [address] Lorie Lopez, ELECTRICAL INTERN Pancreatic adenocarcinoma (Primary Dx) 06/18/2025 Orders Only [facility] [address] [place] [address] Irineo Jones, ELECTRICAL INTERN 06/18/2025 Orders Only [facility] Allergy [address], 4th Floor, [address] [place] [address] Irineo Jones, ELECTRICAL INTERN 06/17/2025 Orders Only [facility] Allergy [address], 4th Floor, [address] [place] [address] Irineo Jones, ELECTRICAL INTERN 06/17/2025 Hospital Encounter [facility] Admissions [address] [place] [phone] Damian Weaver MD, PhD 06/04/2025 3:00 PM EDT Infusion [facility] [address], 8th Floor, [address] [place] [address] Damian Weaver MD, PhD Kaylen Schaefer, [place] Pancreatic adenocarcinoma (Primary Dx) 06/04/2025 2:52 PM EDT - 06/04/2025 11:59 PM EDT Hospital [facility], Ultrasound [address] [place] [address] Damian Weaver MD, PhD Discharge Disposition: Home or Self Care 06/03/[address], 8th Floor, [address] [place] [address] lAondra Benítez RN Follow-up 06/02/2025 3:00 PM EDT Infusion [address], 8th Floor, [address] [place] [address] Jazmín Morales, ELECTRICAL INTERN 06/02/2025 7:00 AM EDT Infusion [address], 8th Floor, [address] [place] [address] Damian Weaver MD, PhD Sylvain Thomson, [place] Pancreatic adenocarcinoma (Primary Dx); Adverse effect of drug, subsequent encounter 06/02/2025 Documentation [facility] Allergy [address], 4th Floor, [address] [place] [address] Irineo Jones, ELECTRICAL INTERN 05/30/2025 10:00 AM EDT Office Visit [facility] [address] [facility] [address], 7th Floor, [address] [place] [address] Damian Weaver MD, PhD Pancreatic adenocarcinoma (Primary Dx) 05/30/2025 Orders Only [address] [address] Marge Coulter MD 05/30/2025 Orders Only [facility] Allergy [address], 4th Floor, [address] [place] [address] Marge Coulter MD 05/30/2025 Orders Only [facility] Allergy [address], 4th Floor, [address] [place] [address] Norma Hinds MD 05/26/2025 10:38 AM EDT - 05/26/2025 11:59 PM EDT Hospital Encounter [facility] Ultrasound, [address] [facility], 2nd [place] [address] Damian Weaver MD, PhD Discharge Disposition: Home or Self Care 05/23/2025 10:00 AM EDT Office Visit [facility] [address] [facility] [address] [facility], 7th Floor, [address] [place] [address] Damian Weaver MD, PhD Pancreatic adenocarcinoma (Primary Dx); Edema, unspecified type 05/23/2025 10:00 AM EDT Office Visit [facility] [address] [facility] [address], 7th Floor, [address] [place] [address] Charisma Francois MD Pancreatic adenocarcinoma (Primary Dx) 05/22/2025 Orders Only [facility] [address] [facility] [address] [facility], 7th Floor, [address] [place] [address] PhotopoLorie whitfield, ELECTRICAL INTERN Pancreatic adenocarcinoma (Primary Dx) 05/21/2025 Orders Only [facility] Allergy [place] [address], 4th Floor, [address] [place] [address] Irineo Jones, ELECTRICAL INTERN Adverse effect of drug, subsequent encounter (Primary Dx) 05/21/2025 E-Consult [facility] [address] [facility] [address], 4th Floor, [address] [place] [address] Irineo Jones, ELECTRICAL INTERN 05/21/2025 Orders Only VIRTUAL DEPARTMENT [address] [place] [phone] Damian Weaver MD, PhD 05/20/2025 4:10 PM EDT - 05/20/2025 11:59 PM EDT Hospital Encounter [facility] [place] [address] [facility] [address], 6th [place] [address] Charisma Francois MD Discharge Disposition: Home or Self Care 05/20/2025 Orders Only VIRTUAL DEPARTMENT [address] [place] [phone] Damian Weaver MD, PhD 05/20/[address] [facility] [place] [address] [facility] [address], 6th [place] [address] 05/20/[address] [facility] [place] [address] [facility] [address], 6th [place] [address] 05/20/2025 Orders Only [facility] Dept of Radiation Oncology [address] [address] Charisma Francois MD Pancreatic adenocarcinoma (Primary Dx) 04/25/2025 Orders Only [facility] Dept of Radiation Oncology [address] [address] Charisma Francois MD from Last 3 Months Immunizations Immunization Administration Dates Next Due INFLUENZA, SPLIT VIRUS, TRIV ALENT W/ PRESERVATIVE IM 08/16/2014 Influenza High-Dose Quadriva lent Preservative Free IM 08/15/2022 Influenza High-Dose Trivalen t Preservative Free IM 07/29/2024,08/06/2018,06/09/2017,2015 Influenza Quadrivalent Adjuv anted Preservative Free IM 07/13/2023,07/16/2021,07/14/2020 Influenza Quadrivalent Prese rvative Free IM 08/17/2015 Influenza Quadrivalent w/ Preservative IM 09/03/2019 Influenza Split (Incl. Purif ied Surface Antigen) 10/18/2013,09/21/2012 Pneumococcal conjugate PCV13 06/18/2019 Pneumococcal conjugate PCV20 08/12/2022 Tdap 04/29/2024 Family History Medical History Relation Comments Prostate cancer Brother AT 36 Endometrial cancer Maternal Aunt at 71 Breast cancer Paternal Aunt at 70 Heart disease Paternal Grandmother Prostate cancer Paternal Uncle Diabetes Unspecified Relation Status Comments Brother Maternal Aunt Paternal Aunt Paternal Grandmother Paternal Uncle Alive Unspecified Social History Tobacco Use Types Packs/Day Years [...] Orientation Straight 01/24/2025 2: 14 PM EDT Last Filed Vital Signs Vital Sign Reading Time Taken Comments Blood Pressure 110/70 07/10/2025 1:10 PM EDT Pulse 93 07/10/2025 1:10 PM EDT Temperature 35.4 C (95.7 F) 07/10/2025 1:10 PM EDT Respiratory Rate 18 2025 11:01 AM EDT Oxygen Saturation 99% 07/10/2025 1:10 PM EDT Inhaled Oxygen Concentration - - Weight 83.9 kg (185 lb) 07/10/2025 1:09 PM EDT Height 160 cm (5' 2.99 ) 07/10/2025 1:09 PM EDT Body Mass Index 32.78 07/10/2025 1:09 PM EDT Plan of Treatment Upcoming Encounters Date Type Department Care Team (Late st Contact Info) Description 07/17/2025 1:40 PM EDT Infusion [facility] at [place] [facility] [address] [place] [address] Asael Martines DO [address] [place] [address] [email or web address] 07/21/2025 12:40 PM EDT Treatment [facility] Rad Onc [address] [place] [address] Yolis Sandoval MD [address] [place] [address] [email or web address] 07/22/2025 12:40 PM EDT Treatment [facility] Rad Onc [address] [place] [address] Yolis Sandoval MD [address] [place] [address] [email or web address] 07/23/2025 12:40 PM EDT Treatment [facility] Rad Onc [address] [place] [address] Yolis Sandoval MD [address] [place] [address] [email or web address] 07/23/2025 12:40 PM EDT Nutrition [facility] Center at [address] [address] 07/24/2025 12:40 PM EDT Treatment [facility] Rad Onc [address] [place] [address] Yolis Sandoval MD [address] [place] [address] [email or web address] 07/24/2025 1:00 PM EDT Infusion [facility] at [address] [address] Asael Martines, DO [address] [place] [address] [email or web address] 07/24/2025 1:00 PM EDT Social Work [facility] Center at [address] [address] Asael Martines, DO [address] [place] [address] [email or web address] 07/25/2025 11:00 AM EDT Office Visit [facility] at [address] [address] Kaykay Guillen NP [address] [place] [address] [email or web address] 07/25/2025 11:30 AM EDT Treatment [facility] at [address] [address] 07/25/2025 12:40 PM EDT Treatment [facility] Rad Onc [address] [place] [address] Yolis Sandoval MD [address] [place] [address] [email or web address] 07/29/2025 11:30 AM EDT Treatment [facility] at [address] [address] Rachael Newell CNP [address] [place] [address] [email or web address] 07/29/2025 12:40 PM EDT Treatment [facility] Rad Onc [address] [place] [address] Yolis Sandoval MD [address] [place] [address] [email or web address] 07/30/2025 12:40 PM EDT Treatment [facility] Rad Onc [address] [place] [address] Yolis Sandoval MD [address] [place] [address] [email or web address] 07/31/2025 12:40 PM EDT Treatment [facility] Rad Onc [address] [place] [address] Yolis Sandoval MD [address] [place] [address] [email or web address] 08/01/2025 12:40 PM EDT Treatment [facility] Rad Onc [address] [place] [address] Yolis Sandoval MD [address] [place] [address] [email or web address] 08/04/2025 12:40 PM EDT Treatment [facility] Rad Onc [address] [place] [address] Yolis Sandoval MD [address] [place] [address] [email or web address] 08/05/2025 12:40 PM EDT Treatment [facility] Rad Onc [address] [place] [address] Yolis Sandoval MD [address] [place] [address] [email or web address] 08/06/2025 12:40 PM EDT Treatment [facility] Rad Onc [address] [place] [address] Yolis Sandoval MD [address] [place] [address] [email or web address] 08/07/2025 12:30 PM EDT Treatment [facility] Rad Onc [address] [place] [address] Yolis Sandoval MD [address] [place] [address] [email or web address] 08/08/2025 12:40 PM EDT Treatment [facility] Rad Onc [address] [place] [address] Yolis Sandoval MD [address] [place] [address] [email or web address] 08/11/2025 12:40 PM EDT Treatment [facility] Onc [address] [place] [address] Yolis Sandoval MD [address] [place] [address] [email or web address] 08/12/2025 12:40 PM EDT Treatment [facility] Rad Onc [address] [place] [address] Yolis Sandoval MD [address] [place] [address] [email or web address] 08/13/2025 12:40 PM EDT Treatment [facility] Rad Onc [address] [place] [address] Yolis Sandoval MD [address] [place] [address] [email or web address] 08/14/2025 12:40 PM EDT Treatment [facility] Rad Onc [address] [place] [address] Yolis Sandoval MD [address] [place] [address] [email or web address] 08/15/2025 12:40 PM EDT Treatment [facility] Rad Onc [address] [place] [address] Yolis Sandoval MD [address] [place] [address] [email or web address] 08/18/2025 12:40 PM EST Treatment [facility] Rad Onc [address] [place] [address] Yolis Sandoval MD [address] [place] [address] [email or web address] 08/19/2025 12:40 PM EST Treatment [facility] Rad Onc [address] [place] [address] Yolis Sandoval MD [address] [place] [address] [email or web address] 08/20/2025 12:40 PM EST Treatment [facility] Rad Onc [address] [place] [address] Yolis Sandoval MD [address] [place] [address] [email or web address] 08/21/2025 12:40 PM EST Treatment [facility] Rad Onc [address] [place] [address] OlsYolis kelly MD [address] [place] [address] [email or web address] 08/22/2025 12:10 PM EST Appointment [facility] [address] [place] [address] Asael Martines DO [address] [place] [address] [email or web address] 08/22/2025 12:40 PM EST Treatment [facility] Rad Onc [address] [place] [address] Yolis Sandoval MD [address] [place] [address] [email or web address] 08/22/2025 1:30 PM EST Office Visit [facility] at [address] [address] Kaykay Guillen NP [address] [place] [address] [email or web address] 08/25/2025 12:40 PM EST Treatment [facility] Rad Onc [address] [place] [address] Yolis Sandoval MD [address] [place] [address] [email or web address] 08/26/2025 12:40 PM EST Treatment [facility] Rad Onc [address] [place] [address] Yolis Sandoval MD [address] [place] [address] [email or web address] 08/27/2025 12:40 PM EST Treatment [facility] Rad Onc [address] [place] [address] Yolis Sandoval MD [address] [place] [address] [email or web address] 08/28/2025 12:40 PM EST Treatment [facility] Rad Onc [address] [place] [address] Yolis Sandoval MD [address] [place] [address] [email or web address] 08/29/2025 12:40 PM EST Treatment [facility] Rad Onc [address] [place] [address] Yolis Sandoval MD [address] [place] [address] [email or web address] 09/01/2025 12:40 PM EST Treatment [facility] Rad Onc [address] [place] [address] Yolis Sandoval MD [address] [place] [address] [email or web address] 09/02/2025 12:40 PM EST Treatment [facility] Rad Onc [address] [place] [address] Yolis Sandoval MD [address] [place] [address] [email or web address] 09/03/2025 12:40 PM EST Treatment [facility] Rad Onc [address] [place] [address] Yolis Sandoval MD [address] [place] [address] [email or web address] 09/04/2025 12:40 PM EST Treatment [facility] Rad Onc [address] [place] [address] Yolis Sandoval MD [address] [place] [address] [email or web address] Health Maintenance Due Date Last Done Comments DEPRESSION SCREENING 1962 SMOKING Hx and SMOKELESS TOBACCO SCREENING 1963 ZOSTER VACCINES (1 of 2) 1969 COLONOSCOPY 1995 FIT TEST 1995 FOBT 1995 SIGMOIDOSCOPY 1995 VIRTUAL COLONOSCOPY 1995 OSTEOPOROSIS SCREENING INITIAL (ONE-TIME) 2015 DIABETIC EYE EXAM 02/02/2025 URINE MICROALBUMIN/CREATININE RATIO 02/02/2025 INFLUENZA VACCINE (#1) 2025 , 07/13/2023, 08/15/2022, Additional history exists COVID-19 VACCINE ( season) 2025 07/29/2024, 08/26/2022, 01/28/2022, Additional history exists RSV VACCINE (1 - 1-dose 75+ series) 2025 HEMOGLOBIN A1C 10/09/2025 04/09/2025, 11/19/2024 LIPID PANEL 11/19/2025 11/19/2024 BLOOD PRESSURE 01/07/2026 07/10/2025 CREATININE LEVEL 06/25/2026 06/25/2025, 12/2024, 05/30/2025, Additional history exists COLOGUARD 11/28/2027 11/28/2024 COLORECTAL CANCER SCREENING 11/28/2027 Adult Td,Tdap Booster 04/29/2034 04/29/2024 PNEUMOCOCCAL VACCINES (50+ years) Completed 08/12/2022, 06/18/2019 HEPATITIS C SCREENING Completed 02/04/2025, 025 HEPATITIS A VACCINES Aged Out No long er eligible based on patient's age to complete this topic HIB VACCINES Aged Out No longer eligi ble based on patient's age to complete this topic MENINGOCOCCAL VACCINES (ACWY) Aged Out No longer eligible based on patient's age to complete this topic MENINGOCOCCAL VACCINES (B) Aged Out N o longer eligible based on patient's age to complete this topic Medical Devices Not on file Procedures Procedure Name Priority Date/Time Associated Diagnosis Comments VITAMIN B12 Routine 06/25/2025 12:44 PM EDT Pancreatic adenocarcinoma FOLATE Routine 06/25/2025 12:44 PM EDT Pancreatic adenocarcinoma FERRITIN Routine 06/25/2025 12:44 PM EDT Pancreatic adenocarcinoma IRON AND IRON BINDING CAPACITY Routine 06/25/2025 12:44 PM EDT Pancreatic adenocarcinoma PHOSPHORUS Routine 06/25/2025 10:34 AM EDT Pancreatic adenocarcinoma MAGNESIUM Routine 06/25/2025 10:34 AM EDT Pancreatic adenocarcinoma COMPREHENSIVE METABOLIC PANEL Routine 06/25/2025 10:34 AM EDT Pancreatic adenocarcinoma CBC AND DIFFERENTIAL Routine 06/25/2025 10:34 AM EDT Pancreatic adenocarcinoma PHOSPHORUS Routine 06/18/2025 10:31 AM EDT Pancreatic adenocarcinoma MAGNESIUM Routine 06/18/2025 10:31 AM EDT Pancreatic adenocarcinoma COMPREHENSIVE METABOLIC PANEL Routine 06/18/2025 10:31 AM EDT Pancreatic adenocarcinoma CBC AND DIFFERENTIAL Routine 06/18/2025 10:31 AM EDT Pancreatic adenocarcinoma US THYROID GLAND Routine 06/04/2025 3:26 PM EDT Pancreatic adenocarcinoma INTERLEUKIN 6 Routine 06/02/2025 2:41 PM EDT Adverse effect of drug, subsequent encounter TRYPTASE Routine 06/02/2025 2:41 PM EDT Adverse effect of drug, subsequent encounter FERRITIN Routine 05/30/2025 11:24 AM EDT Pancreatic adenocarcinoma IRON AND IRON BINDING CAPACITY Routine 05/30/2025 11:24 AM EDT Pancreatic adenocarcinoma FOLATE Routine 05/30/2025 11:24 AM EDT Pancreatic adenocarcinoma VITAMIN B12 Routine 05/30/2025 11:24 AM EDT Pancreatic adenocarcinoma PHOSPHORUS Routine 05/30/2025 9:26 AM EDT Pancreatic adenocarcinoma MAGNESIUM Routine 05/30/2025 9:26 AM EDT Pancreatic adenocarcinoma COMPREHENSIVE METABOLIC PANEL Routine 05/30/2025 9:26 AM EDT Pancreatic adenocarcinoma CBC AND DIFFERENTIAL Routine 05/30/2025 9:26 AM EDT Pancreatic adenocarcinoma US LOWER EXTREMITY VEINS DUPLEX COMPLETE (BILATERAL) Routine 05/26/2025 11:28 AM EDT Edema, unspecified type CARCINOEMBRYONIC ANTIGEN (CEA) Routine 05/23/2025 9:27 AM EDT Pancreatic adenocarcinoma CA-19-9 Routine 05/23/2025 9:27 AM EDT Pancreatic adenocarcinoma COMPREHENSIVE METABOLIC PANEL Routine 05/23/2025 9:27 AM EDT Pancreatic adenocarcinoma CBC AND DIFFERENTIAL Routine 05/23/2025 9:27 AM EDT Pancreatic adenocarcinoma CT CHEST WITH CONTRAST Routine 5:03 PM EDT Pancreatic adenocarcinoma CT ABDOMEN/PELVIS WITH CONTRAST Routine 05/20/2025 5:03 PM EDT Pancreatic adenocarcinoma POCT CREATININE/EGFR Routine 05/20/2025 4:31 PM EDT HEPATITIS C VIRAL LOAD (PCR) Routine 02/04/2025 4:44 PM EDT Pancreatic adenocarcinoma from Last 3 Months or Most Recently Relevant to Health Maintenance Results * (ABNORMAL) Iron and iron binding capacity (06/25/2025 12:44 PM EDT) Only the most recent of2 resultswithin the time period is included. IRON 167(H) 30 - 160 ug/dL [facility] IRON BINDING CAPACITY 270 230 - 404 ug/dL [facility] TRANSFERRIN SATURAT. 62(H) 14 - 50 % [facility] 06/25/2025 12:4 4 PM EDT 06/25/2025 12:55 PM EDT us Damian Weaver MD, PhD LAB BLOOD ORDERABLES Final R esult Performing Organization Address City/[facility]/ZIP Co de Phone Number [address] [address] * Folate (06/25/2025 12:44 PM EDT) Only the most recent of2 resultswithin the time period is included. FOLIC ACID >20.0 >4.7 ng/mL [facility] 06/25/2025 12:4 4 PM EDT 06/25/2025 12:55 PM EDT us Damian Weaver MD, PhD LAB BLOOD ORDERABLES Final R esult [address] [address] * (ABNORMAL) Ferritin (06/25/2025 12:44 PM EDT) Only the most recent of2 resultswithin the time period is included. FERRITIN 725(H) 10 - 200 ug/L [facility] 06/25/2025 12:4 4 PM EDT 06/25/2025 12:55 PM EDT us Damian Weaver MD, PhD LAB BLOOD ORDERABLES Final R esult Performing Organization Address City/[facility]/ZIP Co de Phone Number [address] [address] * Vitamin B12 (06/25/2025 12:44 PM EDT) Only the most recent of2 resultswithin the time period is included. VITAMIN B12 >2000 >231 pg/mL [facility] 06/25/2025 12:4 4 PM EDT 06/25/2025 12:55 PM EDT us Damian Weaver MD, PhD LAB BLOOD ORDERABLES Final R esult Performing Organization Address City/[facility]/ZIP Co de Phone Number [address] [address] * (ABNORMAL) Comprehensive metabolic panel (06/25/2025 10:34 AM EDT) Only the most recent of4 resultswithin the time period is included. SODIUM 138 135 - 145 mmol/L [facility] POTASSIUM 4.6 3.4 - 5.0 mmol/L [facility] CHLORIDE 106 98 - 108 mmol/L [facility] CO2 23 23 - 32 mmol/L [facility] BUN 18 8 - 25 mg/dL [facility] CREATININE 0.73 0.50 - 1.00 mg/dL [facility] GLUCOSE 149(H) 70 - 110 mg/dL [facility] ALBUMIN 3.8 3.3 - 5.0 g/dL [facility] TOTAL PROTEIN 7.0 6.0 - 8.3 g/dL [facility] CALCIUM 8.8 8.5 - 10.5 mg/dL [facility] ALKALINE PHOSPHATASE 102(H) 30 - 100 U/L [facility] TOTAL BILIRUBIN 0.7 0.0 - 1.0 mg/dL [facility] AST 14 9 - 32 U/L [facility] ALT 12 7 - 33 U/L [facility] GLOBULIN 3.2 1.9 - 4.1 g/dL [facility] EGFR 86 >59 mL/min/1. 73m2 [facility] Comment:Estimated glomerular filtration rate calculated using the CKD-EPI refit equation. ANION GAP 9 3 - 17 mmol/L [facility] 06/25/2025 10:3 4 AM EDT 06/25/2025 10:43 AM EDT us Rhaea N Photopoulos [employer] LAB BLOOD ORDERABLES Fin al Result [facility] [address] [place] [address] * (ABNORMAL) CBC and differential (06/25/2025 10:34 AM EDT) Only the most recent of4 resultswithin the time period is included. WBC 9.89 4.00 - 11.00 K/uL [facility] RBC 2.54(L) 4.00 - 5.20 M/uL [facility] HGB 8.7(L) 12.0 - 16.0 g/dL [facility] HCT 27.3(L) 36.0 - 46.0 % [facility] PLT 66(L) 150 - 450 K/uL [facility] MCV 107.5(H) 80.0 - 100.0 fL [facility] MCH 34.3(H) 27.0 - 31.0 pg [facility] MCHC 31.9(L) 32.0 - 36.0 g/dL [facility] RDW 16.3(H) 11.5 - 14.5 % [facility] MPV 10.8 8.4 - 12.0 fL [facility] NRBC 0.00 0.00 /100 WBCs [facility] ABSOLUTE NRBC 0.00 0.00 K/uL [facility] DIFF METHOD Manual [facility] TOTAL CELLS COUNTED 115 [facility] NEUTS 84.3(H) 48.0 - 76.0 % [facility] LYMPHS 14.8(L) 18.0 - 41.0 % [facility] BASOS 0.9 0.0 - 1.5 % [facility] ABSOLUTE NEUTS 8.34(H) 1.92 - 7.60 K/uL [facility] ABSOLUTE LYMPHS 1.46 0.72 - 4.10 K/uL [facility] ABSOLUTE BASOS 0.09 0.00 - 0.15 K/uL [facility] Blood 06/25/2025 10:3 4 AM EDT 06/25/2025 10:43 AM EDT us Rhaea N Photopoulos [employer] LAB BLOOD ORDERABLES Fin al Result Performing Organization Address City/[facility] Co de Phone Number [address] [address] * Phosphorus (06/25/2025 10:34 AM EDT) Only the most recent of3 resultswithin the time period is included. PHOSPHORUS 2.7 2.6 - 4.5 mg/dL [facility] 06/25/2025 10:3 4 AM EDT 06/25/2025 10:43 AM EDT us Rhaea N Photopoulos [employer] LAB BLOOD ORDERABLES Fin al Result Performing Organization Address [facility] Co de Phone Number [address] [address] * Magnesium (06/25/2025 10:34 AM EDT) Only the most recent of3 resultswithin the time period is included. MAGNESIUM 2.0 1.7 - 2.4 mg/dL [facility] 06/25/2025 10:3 4 AM EDT 06/25/2025 10:43 AM EDT us Rhaea N Photopoulos [employer] LAB BLOOD ORDERABLES Fin al Result Performing Organization Address [facility] Co de Phone Number [address] [address] * US Thyroid Gland (06/04/2025 3:26 PM EDT) Anatomical Region Laterality Modality Neck, Head, Chest Ultrasound 06/05/2025 7:56 AM EDT Impressions 06/05/2025 7:59 AM EDT Bilateral TR 3 nodules measuring up to 20 mm. One-year follow-up is recommended. Narrative 06/05/2025 7:59 AM EDT US THYROID GLAND Referring clinician's provided indication for this examination in [facility]: Mass Or Lump In Thyroid TECHNIQUE: Ultrasound of the thyroid. COMPARISON: None FINDINGS: Right Thyroid: The right lobe measures 4.2 cm in sagittal dimension. Spongiform nodules measure up to 8 mm. Lower pole 17 x 15 x 12 mm mostly solid isoechoic nodule, wider greater than tall, with smooth margins, without echogenic foci, TR 3. No right sided adenopathy is detected. Left Thyroid: The left lobe measures 4.9 cm in sagittal dimension. Midpole 20 x 15 x 14 mm isoechoic solid nodule, wider greater than tall, with smooth margins, without echogenic foci, TR 3. Spongiform nodules measure up to 6 mm. No left sided adenopathy is detected. Parathyroid: A parathyroid adenoma is not identified. Procedure Note Anoop Lawson MD, PhD - 06/05/2025 US THYROID GLAND Referring clinician's provided indication for this examination in [facility]:Mass Or Lump In Thyroid TECHNIQUE: Ultrasound of the thyroid. COMPARISON: None FINDINGS: Right Thyroid: The right lobe measures 4.2 cm in sagittal dimension. Spongiform nodules measure up to 8 mm. Lower pole 17 x 15 x 12 mm mostly solid isoechoic nodule, wider greaterthan tall, with smooth margins, without echogenic foci, TR 3. No right sided adenopathy is detected. Left Thyroid: The left lobe measures 4.9 cm in sagittal dimension. Midpole 20 x 15 x 14 mm isoechoic solid nodule, wider greater than tall,with smooth margins, without echogenic foci, TR 3. Spongiform nodules measure up to 6 mm. No left sided adenopathy is detected. Parathyroid: A parathyroid adenoma is not identified. IMPRESSION: Bilateral TR 3 nodules measuring up to 20 mm. One-year follow-up isrecommended. Damian Weaver MD, PhD [facility] US THYROID Final Result * INTERLEUKIN 6 (06/02/2025 2:41 PM EDT) Interleukin 6 <2.5 <7.1 pg/mL [facility] Comment: Blood 06/02/2025 2:41 PM EDT 06/02/2025 2:57 PM EDT Irineo Leonardo Jones [facility] LAB BLOOD ORDERABLES Isidra l Result [facility] [address] [place] [address] * Tryptase (06/02/2025 2:41 PM EDT) Tryptase 2.8 0.1 - 11.5 ug/L [facility] 06/02/2025 2:41 PM EDT 06/02/2025 2:57 PM EDT Irineo Dominguezcoleen [facility] LAB BLOOD ORDERABLES Isidra l Result Performing Organization Address [facility] Co de Phone Number [facility] [address] [place] [address] * US Lower Extremity Veins Duplex Complete (Bilateral) (05/26/2025 11:28 AM EDT) Anatomical Region Laterality Modality Ultrasound 05/26/2025 11:2 9 AM EDT Impressions 05/26/2025 11:31 AM EDT * No evidence of deep or superficial venous thrombosis in the visualized veins of both lower extremities. Narrative 05/26/2025 11:31 AM EDT US LOWER EXTREMITY VEINS DUPLEX COMPLETE (BILATERAL) Referring clinician's provided indication for this examination in Epic: Edema TECHNIQUE: Lower extremity venous ultrasound with color and spectral Doppler. COMPARISON: None FINDINGS: Exam Quality: Technically adequate exam demonstrates: Right lower extremity: Common femoral vein: Normal compressibility and flow characteristics. Femoral vein: Normal compressibility and flow characteristics. Proximal profunda femoral vein: Normal compressibility. Popliteal vein: Normal compressibility and flow characteristics. Posterior tibial veins: Normal compressibility. Peroneal veins: Normal compressibility. Great saphenous vein: Normal compressibility at the saphenofemoral junction. Fluid collection in the popliteal fossa on the right side measuring 4.1 x 1.1 x 3.1 cm, likely a Huynh's cyst. Left lower extremity: Common femoral vein: Normal compressibility and flow characteristics. Femoral vein: Normal compressibility and flow characteristics. Proximal profunda femoral vein: Normal compressibility. Popliteal vein: Normal compressibility and flow characteristics. Posterior tibial veins: Normal compressibility. Peroneal veins: Normal compressibility. Great saphenous vein: Normal compressibility at the saphenofemoral junction. Procedure Note Charisse Sheridan MBBS - 05/26/2025 US LOWER EXTREMITY VEINS DUPLEX COMPLETE (BILATERAL) Referring clinician's provided indication for this examination in Epic:Edema TECHNIQUE: Lower extremity venous ultrasound with color and spectralDoppler. COMPARISON: None FINDINGS: Exam Quality: Technically adequate exam demonstrates: Right lower extremity: Common femoral vein: Normal compressibility and flow characteristics. Femoral vein: Normal compressibility and flow characteristics. Proximal profunda femoral vein: Normal compressibility. Popliteal vein: Normal compressibility and flow characteristics. Posterior tibial veins: Normal compressibility. Peroneal veins: Normal compressibility. Great saphenous vein: Normal compressibility at the saphenofemoraljunction. Fluid collection in the popliteal fossa on the right side measuring 4.1 x1.1 x 3.1 cm, likely a Huynh's cyst. Left lower extremity: Common femoral vein: Normal compressibility and flow characteristics. Femoral vein: Normal compressibility and flow characteristics. Proximal profunda femoral vein: Normal compressibility. Popliteal vein: Normal compressibility and flow characteristics. Posterior tibial veins: Normal compressibility. Peroneal veins: Normal compressibility. Great saphenous vein: Normal compressibility at the saphenofemoraljunction. IMPRESSION: * No evidence of deep or superficial venous thrombosis in the visualizedveins of both lower extremities. Damian Weaver MD, PhD CV US VASCULAR Final Result * CA-19-9 (05/23/2025 9:27 AM EDT) CA 19-9 25 <35 U/mL [facility] 05/23/2025 9:27 AM EDT 05/23/2025 9:35 AM EDT Charisma Francois MD LAB BLOOD ORDERABLES Final R esult [facility] [address] [place] [address] * Carcinoembryonic antigen (CEA) (05/23/2025 9:27 AM EDT) CEA 2.0 0.0 - 3.3 ng/mL [facility] 05/23/2025 9:27 AM EDT 05/23/2025 9:35 AM EDT us Charisma Francois MD LAB BLOOD ORDERABLES Final R esult Performing Organization Address [facility] Co de Phone Number [address] [address] * CT CHEST WITH CONTRAST (05/20/2025 5:03 PM EDT) Anatomical Region Laterality Modality Chest Computed Tomogra phy 05/24/2025 7:25 AM EDT Impressions 05/27/2025 9:29 AM EDT Staging of pancreatic cancer: Bilateral pulmonary nodules measuring up to 4 mm are indeterminate. 1.5 cm LEFT thyroid nodule. RECOMMENDATIONS: Consider follow-up CT in 3 months or per clinical protocol. Consider thyroid ultrasound. ATTESTATION: I, Dr. Isela Valentine as teaching physician, have reviewed the images for this case and if necessary edited the report originally created by Lydia Fletcher. Narrative 05/27/2025 9:[address] CHEST WITH CONTRAST Referring clinician's provided indication for this examination in Epic: Pancreatic Cancer TECHNIQUE: Multidetector CT of the chest was performed with intravenous contrast using tailored dose modulation techniques. COMPARISON: NM PET WHOLE BODY OUTSIDE (NO INTERPRETATION) FINDINGS: Devices/Tubes/Lines: Right chest wall port with the tip in the right atrium. Lungs: Biapical pleural parenchymal scarring. Mild centrilobular emphysema. Mosaic attenuation of the lungs, which can be seen in setting of small airways disease. Scattered calcified granulomas. Bilateral lower lobe subsegmental atelectasis versus scarring. 2 adjacent 4 mm nodules in the right upper lobe (302:157, 166). 2 mm left lower lobe pulmonary nodule (302: 2:30). No consolidation. The airways are clear. Pleura: No pleural effusion or pneumothorax. Mediastinum: 1.5 cm hypodense left hemithyroid nodule. Multichamber cardiomegaly. No pericardial effusion. Mild amount of coronary calcifications. Lymph Nodes: No enlarged supraclavicular, axillary, mediastinal, or hilar lymph nodes. Upper Abdomen: Please see concurrent abdominal CT for abdominal findings. Chest Wall: No chest wall mass. Bones: No suspicious lytic or blastic lesions. Multilevel degenerative changes of the spine. Procedure Note Isela Valentine MD - 05/27/2025 CT CHEST WITH CONTRAST Referring clinician's provided indication for this examination in Epic:Pancreatic Cancer TECHNIQUE: Multidetector CT of the chest was performed with intravenouscontrast using tailored dose modulation techniques. COMPARISON: NM PET WHOLE BODY OUTSIDE (NO INTERPRETATION) FINDINGS: Devices/Tubes/Lines: Right chest wall port with the tip in the rightatrium. Lungs: Biapical pleural parenchymal scarring. Mild centrilobularemphysema. Mosaic attenuation of the lungs, which can be seen in settingof small airways disease. Scattered calcified granulomas. Bilateral lowerlobe subsegmental atelectasis versus scarring. 2 adjacent 4 mm nodules inthe right upper lobe (302:157, 166). 2 mm left lower lobe pulmonary nodule(302: 2:30). No consolidation. The airways are clear. Pleura: No pleural effusion or pneumothorax. Mediastinum: 1.5 cm hypodense left hemithyroid nodule. Multichambercardiomegaly. No pericardial effusion. Mild amount of coronarycalcifications. Lymph Nodes: No enlarged supraclavicular, axillary, mediastinal, or hilarlymph nodes. Upper Abdomen: Please see concurrent abdominal CT for abdominalfindings. Chest Wall: No chest wall mass. Bones: No suspicious lytic or blastic lesions. Multilevel degenerativechanges of the spine. IMPRESSION: Staging of pancreatic cancer: Bilateral pulmonary nodules measuring up to 4 mm are indeterminate. 1.5 cm LEFT thyroid nodule. RECOMMENDATIONS: Consider follow-up CT in 3 months or per clinical protocol. Consider thyroid ultrasound. ATTESTATION: I, Dr. Isela Valentine as teaching physician, have reviewedthe images for this case and if necessary edited the report originallycreated by Lydia Fletcher. us Charisma Francois MD IMG CT CHEST Final Result * CT ABDOMEN/PELVIS WITH CONTRAST (05/20/2025 5:03 PM EDT) Anatomical Region Laterality Modality Abdomen, Pelvis Computed Tomogra phy 05/21/2025 9:07 AM EDT Impressions 05/21/2025 11:25 AM EDT Compared to 01/17/2025: 1. Slightly decreased size of the 3.1 cm pancreatic tail adenocarcinoma, inseparable from the posterior gastric body wall. Associated encasement of the splenic vein with chronic thrombus/occlusion. 2. Similar minimal thickening of the left anterior perirenal fascia adjacent to the pancreatic mass which likely represents edema and less likely early peritoneal disease. 3. No new metastases. ATTESTATION: I, Dr. Christian Zambrano as teaching physician, have reviewed the images for this case and if necessary edited the report originally created by Darius Ureña. Narrative 05/21/2025 11:[address] ABDOMEN/PELVIS WITH CONTRAST Referring clinician's provided indication for this examination in Epic: Pancreatic Cancer . TECHNIQUE: Multidetector-row CT of the abdomen and pelvis was performed after administration of intravenous contrast using tailored dose modulation techniques. Images were reconstructed in the axial, coronal, and sagittal planes. COMPARISON: MRI ABDOMEN OUTSIDE (NO INTERPRETATION) ; NM PET WHOLE BODY OUTSIDE (NO INTERPRETATION) FINDINGS: Lower chest: CT chest is dictated separately. Liver: No focal lesions. Biliary: Cholelithiasis with mild gallbladder wall thickening (7 mm), likely reactive. No pericholecystic fluid or hydrops. No biliary ductal dilatation. Spleen: Splenomegaly measures 13.5 cm in craniocaudal dimension. Pancreas: Slightly decreased size of the 3.1 x 3.1 cm pancreatic tail hypodense mass (308:216), previously 4.1 x 4.1 cm when remeasured. The mass is inseparable from the posterior gastric body wall. Persistent abutment of the splenic artery and encasement of the chronically thrombosed vein. Adrenal glands: No right nodules. Similar 0.9 cm left adrenal nodule, consistent with adenoma based on prior MRI. Kidneys/ureters: Cortical thinning bilaterally. Multiple cysts measure up to 3.4 cm. A few hypodensities are too small to characterize. No solid masses or hydronephrosis. No stones. Bowel: No dilation or wall thickening. Colonic diverticulosis. Peritoneum/retroperitoneum: No masses, free air. Trace perihepatic ascites. Similar mild thickening of the left anterior pararenal fascia, likely edema. Lymph nodes: No suspicious lymphadenopathy. Some periportal nodes measure up to 1 cm in short axis, mildly more prominent than on the prior PET-CT. Pelvic organs/bladder: No masses. Vessels: No abdominal aortic aneurysm. Mild atherosclerosis. 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 Bones/soft tissues: No destructive osseous lesions. Procedure Note Christian Zambrano MD, PhD - 05/21/2025 CT ABDOMEN/PELVIS WITH CONTRAST Referring clinician's provided indication for this examination in Epic:Pancreatic Cancer . TECHNIQUE: Multidetector-row CT of the abdomen and pelvis was performedafter administration of intravenous contrast using tailored dosemodulation techniques. Images were reconstructed in the axial, coronal,and sagittal planes. COMPARISON: MRI ABDOMEN OUTSIDE (NO INTERPRETATION) ; NM PETWHOLE BODY OUTSIDE (NO INTERPRETATION) FINDINGS: Lower chest: CT chest is dictated separately. Liver: No focal lesions. Biliary: Cholelithiasis with mild gallbladder wall thickening (7 mm),likely reactive. No pericholecystic fluid or hydrops. No biliary ductaldilatation. Spleen: Splenomegaly measures 13.5 cm in craniocaudal dimension. Pancreas: Slightly decreased size of the 3.1 x 3.1 cm pancreatic tailhypodense mass (308:216), previously 4.1 x 4.1 cm when remeasured. Themass is inseparable from the posterior gastric body wall. Persistentabutment of the splenic artery and encasement of the chronicallythrombosed vein. Adrenal glands: No right nodules. Similar 0.9 cm left adrenal nodule,consistent with adenoma based on prior MRI. Kidneys/ureters: Cortical thinning bilaterally. Multiple cysts measure upto 3.4 cm. A few hypodensities are too small to characterize. No solidmasses or hydronephrosis. No stones. Bowel: No dilation or wall thickening. Colonic diverticulosis. Peritoneum/retroperitoneum: No masses, free air. Trace perihepaticascites. Similar mild thickening of the left anterior pararenal fascia,likely edema. Lymph nodes: No suspicious lymphadenopathy. Some periportal nodes measureup to 1 cm in short axis, mildly more prominent than on the priorPET-CT. Pelvic organs/bladder: No masses. Vessels: No abdominal aortic aneurysm. Mild atherosclerosis. Chronicocclusion of the splenic vein with perisplenic and perigastriccollaterals. Bones/soft tissues: No destructive osseous lesions. IMPRESSION: Compared to 01/17/2025: 1. Slightly decreased size of the 3.1 cm pancreatic tail adenocarcinoma,inseparable from the posterior gastric body wall. Associated encasement ofthe splenic vein with chronic thrombus/occlusion. 2. Similar minimal thickening of the left anterior perirenal fasciaadjacent to the pancreatic mass which likely represents edema and lesslikely early peritoneal disease. 3. No new metastases. ATTESTATION: I, Dr. Christian Zambrano as teaching physician, have reviewed theimages for this case and if necessary edited the report originally createdby Darius Ureña. Charisma Francois MD IMG CT ABD/PELVIS Final Resu lt * POCT Creatinine/eGFR (05/20/2025 4:31 PM EDT) [facility] Creatinine 0.80 0.50 - 1.00 mg/dl [facility] EGFR 77 >59 mL/min/1.7 3m2 [facility] Comment:Estimated glomerular filtration rate calculated using the CKD-EPI refit equation. 05/20/2025 4:31 PM EDT 05/20/2025 4:33 PM EDT Charisma Francois MD POINT OF CARE TEST ORDERABLE S Final Result [facility] [address] [place] [address] * Hepatitis C viral load (PCR) (02/04/2025 4:44 PM EDT) HCV RNA PCR Not Detected Not Detected IU/mL [facility] Comment: (NOTE) Assay Range: 15-100,000,000 IU/ml In rare instances, there might be a 1.0 - 1.5 log increase measured viral load observed in individuals with genotype 3a and 4. Please refer any questions to the [facility] at extension [phone]. This is a quantitative assay utilizing real-time PCR technology. Results of this test may be clinically useful in monitoring a patient's clinical course or response to antiviral therapy but should not be used to make the diagnosis of HCV infection. A test result of less than the lower limit of quantification (LLoQ)(<15 IU/mL) should be interpreted as HCV RNA not quantifiable but does not exclude the diagnosis of HCV infection. Blood 02/04/2025 4:44 PM EDT 02/04/2025 7:14 PM EDT us Kristie Nelson MD NON CULTURE MICROBIO LOGY Final Result [address] [id number] from Last 3 Months or Most Recently Relevant to Health Maintenance Insurance MEDICARE PART A & B [facility] MEDICARE PART A & B [id number] [place] [address] MEDICARE PART A & B [facility] MEDICARE [facility] A & B [facility] B [address] [place], [place] [id number] [address] MEDICARE PART A & B [facility] Q[facility] Care Teams Merchandiser Relationship Specialty Start Date End Date Ayla Ziegler MD [address] [place] [address] PCP - General Family Medicine 01/24/25 Damian Weaver MD, PhD [address] [place] [address] 7[address] [place] [address] [email or web address] Primary Oncologist Hematology and Oncology 05/21/25 Asael Martines DO [address] [place] [address] [email or web address] Hematology and Oncology 06/25/25 Additional Source Comments The information contained in this document represents components of the legal health record. It is not the complete legal health record.[facility]
--- OUTSIDE RECORDS SUMMARY | 2025-07-15 16:23 | XMS_ITS | Encounter Summary ---
Author Organization [facility] Address [address] [place] [address] Phone Care Team Providers Care Patch Driller Name Role Phone Ayla Ziegler MD Primary Care Provider [phone] Damian Weaver MD, PhD Unavailable [phone] Asael Martines DO Unavailable [phone] Encounter Details Date Type Department Care Team (Late st Contact Info) Description 07/11/2025 Telephone [facility] Rad Onc [address] [place] [address] [phone] Genesis Barrientos, RN [address] [place] [address] [email or web address] Social History Tobacco Use Types Packs/Day Years [...] as of this encounter Progress Notes * Genesis Barrientos RN - 07/11/2025 11:53 AM EDT Call back received from Tona oncology nurse navigator at [facility]. She called radiology to confirm thatArlene's port is a power port. documented in this encounter Plan of Treatment Upcoming Encounters Date Type Department Care Team (Late st Contact Info) Description 07/17/2025 1:40 PM EDT Infusion [facility] at [address] [address] Asael Martines DO [address] [place] [address] [email or web address] 07/21/2025 12:40 PM EDT Treatment [facility] Rad Onc [address] [place] [address] Yolis Sandoval MD [address] [place] [address] [email or web address] 07/22/2025 12:40 PM EDT Treatment [facility] Rad Onc [address] [place] [address] Yolis Sandoval MD [address] [place] [address] [email or web address] 07/23/2025 12:40 PM EDT Treatment [facility] Rad Onc [address] [place] [address] Yolis Sandoval MD [address] [place] [address] [email or web address] 07/23/2025 12:40 PM EDT Nutrition [facility] at [address] [address] 07/24/2025 12:40 PM EDT Treatment [facility] Rad Onc [address] [place] [address] Yolis Sandoval MD [address] [place] [address] [email or web address] 07/24/2025 1:00 PM EDT Infusion [facility] at [address] [address] Asael Martines, [address] [place] [address] [email or web address] 07/24/2025 1:00 PM EDT Social Work [facility] Center at [address] [address] Asael Martines, DO [address] [place] [address] [email or web address] 07/25/2025 11:00 AM EDT Office Visit [facility] at [address] [address] Kaykay Guillen NP [address] [place] [address] [email or web address] 07/25/2025 11:30 AM EDT Treatment [facility] at [address] [address] 07/25/2025 12:40 PM EDT Treatment [facility] Rad Onc [address] [place] [address] Yolis Sandoval MD [address] [place] [phone] [email or web address] 07/29/2025 11:30 AM EDT Treatment [facility] at [place] [address] [place] [address] Rachael Newell CNP [address] [place] [address] [email or web address] [email or web address] 07/29/2025 12:40 PM EDT Treatment [facility] Rad Onc [address] [place] [address] Yolis Sandoval MD [address] [place] [address] [email or web address] 07/30/2025 12:40 PM EDT Treatment [facility] Rad Onc [address] [place] [address] Yolis Sandoval MD [address] [place] [address] [email or web address] 07/31/2025 12:40 PM EDT Treatment [facility] Rad Onc [address] [place] [address] Yolis Sandoval MD [address] [place] [address] [email or web address] 08/01/2025 12:40 PM EDT Treatment [facility] Rad Onc [address] [place] [address] Yolis Sandoval MD [address] [place] [address] [email or web address] 08/04/2025 12:40 PM EDT Treatment [facility] Rad Onc [address] [place] [address] Yolis Sandoval MD [address] [place] [address] [email or web address] 08/05/2025 12:40 PM EDT Treatment [facility] Rad Onc [address] [place] [address] Yolis Sandoval MD [address] [place] [address] 13372 [email or web address] 08/06/2025 12:40 PM EDT Treatment [facility] Rad Onc [address] [place] [address] Yolis Sandoval MD [address] [place] [address] 365[address] [email or web address] 08/07/2025 12:30 PM EDT Treatment [facility] Rad Onc [address] [place] [address] Yolis Sandoval MD [address] [place] [address] 30[address] [email or web address] 08/08/2025 12:40 PM EDT Treatment [facility] Rad Onc [address] [place] [address] Yolis Sandoval MD [address] [place] [phone] [email or web address] 08/11/2025 12:40 PM EDT Treatment [facility] Rad Onc [address] [place] [address] Yolis Sandoval MD [address] [place] [address] [email or web address] 08/12/2025 12:40 PM EDT Treatment [facility] Rad Onc [address] [place] [address] Yolis Sandoval MD [address] [place] [address] [email or web address] 08/13/2025 12:40 PM EDT Treatment [facility] Rad Onc [address] [place] [address] Yolis Sandoval MD [address] [place] [address] 8[address] [email or web address] 08/14/2025 12:40 PM EDT Treatment [facility] Rad Onc [address] [place] [address] Yolis Sandoval MD [address] [place] [address] 75[address] [email or web address] 08/15/2025 12:40 PM EDT Treatment [facility] Rad Onc [address] [place] [address] Yolis Sandoval MD [address] [place] [address] 135[address] [email or web address] 08/18/2025 12:40 PM EST Treatment [facility] Rad Onc [address] [place] [address] Yolis Sandoval MD [address] [place] [address] [email or web address] 08/19/2025 12:40 PM EST Treatment [facility] Rad Onc [address] [place] [address] Yolis Sandoval MD [address] [place] [address] [email or web address] 08/20/2025 12:40 PM EST Treatment [facility] Rad Onc [address] [place] [address] Yolis Sandoval MD [address] [place] [address] [email or web address] 08/21/2025 12:40 PM EST Treatment [facility] Rad Onc [address] [place] [address] Yolis Sandoval MD [address] [place] [address] 13774 [email or web address] 08/22/2025 12:10 PM EST Appointment [facility] Laboratory [address] [place] [address] Asael Martines DO [address] [place] [address] [email or web address] 08/22/2025 12:40 PM EST Treatment [facility] Rad Onc [address] [place] [address] 31737 Yolis Sandoval MD [address] [place] [address] [email or web address] 08/22/2025 1:30 PM EST Office Visit [facility] at [address] [address] Kaykay Guillen NP [address] [place] [address] 08/25/2025 12:40 PM EST Treatment [facility] Rad Onc [address] [place] [address] Yolis Sandoval MD [address] [place] [address] 41213 [email or web address] 08/26/2025 12:40 PM EST Treatment [facility] Rad Onc [address] [place] [address] Yolis Sandoval MD [address] [place] [address] 15615 [email or web address] 08/27/2025 12:40 PM EST Treatment [facility] Rad Onc [address] [place] [address] Yolis Sandoval MD [address] [place] [address] 96507 [email or web address] 08/28/2025 12:40 PM EST Treatment [facility] Rad Onc [address] [place] [address] Yolis Sandoval MD [address] [place] [address] 85753 [email or web address] 08/29/2025 12:40 PM EST Treatment [facility] Rad Onc [address] [place] [address] Yolis Sandoval MD [address] [place] [address] 85031 [email or web address] 09/01/2025 12:40 PM EST Treatment [facility] Rad Onc [address] [place] [address] Yolis Sandoval MD [address] [place] [address] 21991 [email or web address] 09/02/2025 12:40 PM EST Treatment [facility] Rad Onc [address] [place] [address] Yolis Sandoval MD [address] [place] [address] 05687 [email or web address] 09/03/2025 12:40 PM EST Treatment [facility] Rad Onc [address] [place] [address] Yolis Sandoval MD [address] [place] [address]43 [email or web address] 09/04/2025 12:40 PM EST Treatment [facility] Rad Onc [address] [place] [address] Yolis Sandoval MD [address] [place] [address] 45453 [email or web address] documented as of this encounter Visit Diagnoses Not on filedocumented in this encounter Care Teams Patch Driller Relationship Specialty Start Date End Date Ayla Ziegler MD [address] [place] [address] PCP - General Family Medicine 01/24/25 Damian Weaver MD, PhD [address] [place] [address] [place] [address] [email or web address] Primary Oncologist Hematology and Oncology 05/21/25 Asael Martines DO [address] [place] [address] [email or web address] Hematology and Oncology 06/25/25 documented as of this encounter Additional Source Comments The information contained in this document represents components of the legal health record. It is not the complete legal health record.[facility]
--- OUTSIDE RECORDS SUMMARY | 2025-07-15 16:23 | XMS_ITS | Encounter Summary ---
Author Organization [employer] Address [address] [facility] [address] [place] [address] Care Team Providers Care Electronics Commodity Manager Name Role Phone Ayla Ziegler MD Primary Care Provider [phone] Encounter Details Date Type Department Care Team ([facility] st Contact Info) Description 01/21/2025 Orders Only [facility] [address] [place] [address] ProviderSybil MD Social History Tobacco Use Types [...] Description 07/16/2025 11:15 AM EDT Office Visit [facility] [address] [place] [address] Ayla Ziegler MD [address] [place] [address] 08/14/2025 10:00 AM EDT Clinical Support [facility] [address] [place] [address] Heather Siddiqui RN [address] [place] [address] documented as of this encounter Procedures Procedure [...] documented as of this encounter Care Teams Electronics Commodity Manager Relationship Specialty Start Date End Date Ayla Ziegler MD [address] [place] [address] PCP - General Family Medicine 11/14/13 documented as of this encounter
--- OUTSIDE RECORDS SUMMARY | 2025-07-15 16:23 | XMS_ITS | Clinical Summary ---
Author Organization [facility] Address [address] [place] [address] Phone Care Team Providers Care Associate Professor Of Violin Name Role Phone Ayla Ziegler MD Primary Care Provider [phone] Allergies No known active allergies Medications No known medications Social History Tobacco Use Types Packs/Day Years Used Date Smoking Tobacco: Never Assessed Comments Unknown Sex and Gender Information Value Date Recorded Sex Assigned at Not on file Legal Sex Female 11:17 AM EST Gender Identity Not on file Sexual Orientation Not on file Last Filed Vital Signs Vital Sign Reading Time Taken Comments Blood Pressure - - Pulse - - Temperature - - Respiratory Rate - - Oxygen Saturation - - Inhaled Oxygen Concentration - - Weight 88.5 kg (195 lb) 02/03/2025 4:01 PM EDT Height 165.1 cm (5' 5 ) 02/03/2025 4:01 PM EDT Body Mass Index 32.45 02/03/2025 4:01 PM EDT Plan of Treatment Health Maintenance Due Date Last Done Comments Diabetes: Annual Retina Eye Exam 1960 Zoster Vaccines (1 of 2) 2000 Depression Screening 10/16/2024 Diabetes: Annual Urine Albumin-Creatinine Ratio (uACR) 12/05/2024 Falls Risk Assessment 12/05/2024 Medicare Annual Wellness Visit 12/05/2024 Osteoporosis Screening (Bone Density Screening) 12/05/2024 Social Influencers of Health Screening 12/05/2024 Diabetes: Blood Sugar Control Test (HGBA1C) 05/19/2025 11/19/2024 COVID-19 Vaccine ( season) 2025 07/29/2024, 08/26/2022, 01/28/2022, Additional history exists Influenza Vaccine (#1) 2025 , 07/13/2023, 08/15/2022, Additional history exists RSV Immunization Adult Patients (1 - 1-dose 75+ series) 2025 Diabetes: Annual Foot Exam 02/03/2026 02/03/2025 Diabetes: Annual GFR (Glomerular Filtration Rate) 02/05/2026 02/05/2025, 02/04/2025, 11/19/2024 Hypertension/CHF/CAD Annual BMP Blood Test 02/05/2026 02/05/2025, 02/04/2025, 11/19/2024 Colorectal Cancer Screening: FIT-DNA (Cologuard) 11/28/2027 11/28/2024 Cholesterol Screening (Lipid Panel) 11/19/2029 11/19/2024 DTaP,Tdap,and Td Vaccines (2 - Td or Tdap) 04/29/2034 04/29/2024 Pneumococcal Vaccine: 50+ Years Completed 08/12/2022, 06/18/2019 Breast Cancer Screening Discontinued 09/28/2022 Hepatitis C Screening Completed 02/04/2025, 025 HIB Vaccines Aged Out No longer eligi [...] Insurance [place]ICA[place] - [place] MEDICARE Care Teams Associate Professor Of Violin Relationship Specialty Start Date End Date Ayla Ziegler MD [address] [place] [address]81 PCP - General Family Medicine 12/05/24
--- OUTSIDE RECORDS SUMMARY | 2025-07-15 16:23 | XMS_ITS | Encounter Summary ---
Author Organization [facility] Address [address] [place] [address] [place] [phone] Phone Care Team Providers Care [employer] Name Role Phone Ayla Ziegler MD Primary Care Provider [phone] Damian Weaver MD, PhD Unavailable Asael Martines DO Unavailable [phone] Reason for Visit * Reason Onset Date Comments preauth 07/11/2025 Encounter Details Date Type Department Care Team (Late st Contact Info) Description 07/11/2025 Telephone [facility] Rad Onc [address] [place] [address] [phone] Yolis Sandoval MD [address] [place] [address] [email or web address] preauth Social History Tobacco Use Types Packs/Day Years [...] Info) Description 07/17/2025 1:40 PM EDT Infusion [facility] at [address] [address] Asael Martines DO [address] [place] [phone] [email or web address] 07/21/2025 12:40 PM EDT Treatment [facility] Rad Onc [address] [place] [address] 64069 Yolis Sandoval MD [address] [place] [phone] [email or web address] 07/22/2025 12:40 PM EDT Treatment [facility] Rad Onc [address] [place] [address] 37696 Yolis Sandoval MD [address] [place] [phone] [email or web address] 07/23/2025 12:40 PM EDT Treatment [facility] Rad Onc [address] [place] [address] 15379 Yolis Sandoval MD [address] [place] [address] [phone] [email or web address] 07/23/2025 12:40 PM EDT Nutrition [facility] at [address] [address] 07/24/2025 12:40 PM EDT Treatment [facility] Rad Onc [address] [place] [address] 27550 Yolis Sandoval MD [address] [place] [address] [phone] [email or web address] 07/24/2025 1:00 PM EDT Infusion [facility] at [address] [address] Asael Martines, DO [address] [place] [phone] [email or web address] 07/24/2025 1:00 PM EDT Social Work [facility] at [address] [address] Asael Martines, DO [address] [place] [address] [phone] [email or web address] 07/25/2025 11:00 AM EDT Office Visit [facility] at [address] [address] Kaykay Guillen NP [address] [place] [address] [email or web address] 07/25/2025 11:30 AM EDT Treatment [facility] at [address] [address] 07/25/2025 12:40 PM EDT Treatment [facility] Rad Onc [address] [place] [address] Yolis Sandoval MD [address] [place] [address] [phone] [email or web address] 07/29/2025 11:30 AM EDT Treatment [facility] at [place] [address] [place] [address] 28670 Rachael Newell CNP [address] [place] [address] [email or web address] 07/29/2025 12:40 PM EDT Treatment [facility] Rad Onc [address] [place] [address] 21612 Yolis Sandoval MD [address] [place] [address] [phone] [email or web address] 07/30/2025 12:40 PM EDT Treatment [facility] Rad Onc [address] [place] [address] 23241 Yolis Sandoval MD [address] [place] [address] [phone] [email or web address] 07/31/2025 12:40 PM EDT Treatment [facility] Rad Onc [address] [place] [address] 43196 Yolis Sandoval MD [address] [place] [address] [phone] [email or web address] 08/01/2025 12:40 PM EDT Treatment [facility] Rad Onc [address] [place] [address] 68626 Yolis Sandoval MD [address] [place] [address] [phone] [email or web address] 08/04/2025 12:40 PM EDT Treatment [facility] Rad Onc [address] [place] [address] 90447 Yolis Sandoval MD [address] [place] [address] [phone] [email or web address] 08/05/2025 12:40 PM EDT Treatment [facility] Rad Onc [address] [place] [address] 7[address]37 Yolis Sandoval MD [address] [place] [address] 56963 [email or web address] 08/06/2025 12:40 PM EDT Treatment [facility] Rad Onc [address] [place] [address] 28404 Yolis Sandoval MD [address] [place] [address] [phone] [email or web address] 08/07/2025 12:30 PM EDT Treatment [facility] Rad Onc [address] [place] [address] 32345 Yolis Sandoval MD [address] [place] [address] 14077 [email or web address] 08/08/2025 12:40 PM EDT Treatment [facility] Rad Onc [address] [place] [address] 67859 Yolis Sandoval MD [address] [place] [address] 51603 [email or web address] 08/11/2025 12:40 PM EDT Treatment [facility] Rad Onc [address] [place] [address] 03428 Yolis Sandoval MD [address] [place] [address] 32331 [email or web address] 08/12/2025 12:40 PM EDT Treatment [facility] Rad Onc [address] [place] [address] Yolis Sandoval MD [address] [place] [address] [phone] [email or web address] 08/13/2025 12:40 PM EDT Treatment [facility] Rad Onc [address] [place] [address] 8[address] Yolis Sandoval MD [address] [place] [address] [phone] [email or web address] 08/14/2025 12:40 PM EDT Treatment [facility] Rad Onc [address] [place] [address] 08331 Yolis Sandoval MD [address] [place] [address] [phone] [email or web address] 08/15/2025 12:40 PM EDT Treatment [facility] Rad Onc [address] [place] [address] 81570 Yolis Sandoval MD [address] [place] [address] [phone] [email or web address] 08/18/2025 12:40 PM EST Treatment [facility] Rad Onc [address] [place] [address] 03754 Yolis Sandoval MD [address] [place] [address] [phone] [email or web address] 08/19/2025 12:40 PM EST Treatment [facility] Rad Onc [address] [place] [address] 30671 Yolis Sandoval MD [address] [place] [address] [phone] [email or web address] 08/20/2025 12:40 PM EST Treatment [facility] Rad Onc [address] [place] [address] 92620 Yolis Sandoval MD [address] [place] [address] [phone] [email or web address] 08/21/2025 12:40 PM EST Treatment [facility] Rad Onc [address] [place] [address] 02595 Yolis Sandoval MD [address] [place] [address] [phone] [email or web address] 08/22/2025 12:10 PM EST Appointment [facility] Laboratory [address] [place] [address] 567[address] Asael Martines DO [address] [place] [address] [phone] [email or web address] 08/22/2025 12:40 PM EST Treatment [facility] Rad Onc [address] [place] [address] 96069 Yoils Sandoval MD [address] [place] [address] [phone] [email or web address] 08/22/2025 1:30 PM EST Office Visit [facility] [address] [place] [address] 2[address] Kaykay Guillen NP [address] [place] [address] 06291 [email or web address] 08/25/2025 12:40 PM EST Treatment [facility] Rad Onc [address] [place] [address] 76476 Yolis Sandoval MD [address] [place] [address] [phone] [email or web address]@[email or web address] 08/26/2025 12:40 PM EST Treatment [facility] Rad Onc [address] [place] [address] 78019 Yolis Sandoval MD [address] [place] [address] 62061 [email or web address] 08/27/2025 12:40 PM EST Treatment [facility] Rad Onc [address] [place] [address] 89208 Yolis Sandoval MD [address] [place] [address] [phone] [email or web address] 08/28/2025 12:40 PM EST Treatment [facility] Rad Onc [address] [place] [address] 91445 Yolis Sandoval MD [address] [place] [address] [phone] [email or web address]@[email or web address] 08/29/2025 12:40 PM EST Treatment [facility] Rad Onc [address] [place] [address] 96311 Yolis Sandoval MD [address] [place] [address] [phone] [email or web address] 09/01/2025 12:40 PM EST Treatment [facility] Rad Onc [address] [place] [address] 02746 Yolis Sandoval MD [address] [place] [address] [phone] [email or web address]@[email or web address] 09/02/2025 12:40 PM EST Treatment [facility] Rad Onc [address] [place] [address] 96333 Yolis Sandoval MD [address] [place] [address] [phone] [email or web address] 09/03/2025 12:40 PM EST Treatment [facility] Rad Onc [address] [place] [address] 73842 Yolis Sandoval MD [address] [place] [address] [phone] [email or web address]@[email or web address] 09/04/2025 12:40 PM EST Treatment [facility] Rad Onc [address] [place] [address] 81871 Yolis Sandoval MD [address] [place] [address] [phone] [email or web address] documented as of this encounter Visit Diagnoses Not on filedocumented in this encounter Care Teams [employer] Relationship Specialty Start Date End Date Ayla Ziegler MD [address] [place] [phone] PCP - General Family Medicine 01/24/25 Damian Weaver MD, PhD [address] [place] [address] [address] [place] [address] [email or web address] Primary Oncologist Hematology and Oncology 05/21/25 Asael Martines DO [address] [place] [address] [email or web address] Hematology [facility] Oncology 06/25/25 documented as of this encounter Additional Source Comments The information contained in this document represents components of the legal health record. It is not the complete legal health record.[facility]
--- OUTSIDE RECORDS SUMMARY | 2025-07-15 16:23 | XMS_ITS | Encounter Summary ---
Author Organization [facility] Address [address] [place] [address] Phone Care Team Providers Care Talent Solutions Manager Name Role Phone Ayla Ziegler MD Primary Care Provider [phone] Damian Weaver MD, PhD Unavailable [phone] Asael Martines DO Unavailable [phone] Encounter Details Date Type Department Care Team (Late st Contact Info) Description 07/11/2025 Documentation [facility] Cancer Center At [facility] Rad Onc [address] [place] [address] [id number] Genesis Barrientos, [place] [address] [place] [address] [email or web address] Social History Tobacco Use Types Packs/Day Years [...] Notes * Genesis Barrientos RN - 07/11/2025 8:09 AM EDT Radiation Oncology PATIENT INFORMATION: PELVIS OR ABDOMEN COMMON SIDE EFFECTS: Frequent Urination and/or discomfort when urinating Diarrhea or more frequent bowel movements Decreased appetite Skin reddening Nausea and vomiting Fatigue SPECIAL INSTRUCTIONS: Do not wash off skin morocho or attempt to replace them if they are removed. Do not apply powder, lotion, cologne/perfume, or ointments within the treated area unless directed.Cornstarch may be used to keep the area dry and to prevent chaffing as long as there are no open areas on the skin. Use of a engineering department chair on cool setting or a fan circulating onto skin area can be soothing and helpfulfor skin that is moist or peeling. Allow area to be exposed to air as often as possible to help reduce moisture. As fatigue is a common complaint, get plenty of rest as needed during the day. A healthy diet and adequate fluid intake will also help with fatigue. If you notice a change in your bowel habits, please notify the staff so that we can advise you on strategies to improve this. Low fiber diet can be helpful if you are having diarrhea. Please let staff know if you would like to speak with a rail car unloader. If you have any questions concerning your treatment please call [phone] to speak to a therapist, nurse, or doctor. For any problems after hours call [phone] and ask the grout machine operator to page thecovering Radiation Oncologist. A provider will return your call. documented in this encounter Plan of Treatment Upcoming Encounters Date Type Department Care Team (Late st Contact Info) Description 07/17/2025 1:40 PM EDT Infusion [facility] at [address] [address] Asael Martines DO [address] [place] [address] [email or web address] 07/21/2025 12:40 PM EDT Treatment [facility] Cancer Center At [facility] Rad Onc [address] [place] [address] Yolis Sandoval MD [address] [place] [phone] [email or web address] [place] 07/22/2025 12:40 PM EDT Treatment [facility] Cancer Center At [facility] Rad Onc [address] [place] [address] Yolis Sandoval MD [address] [place] [phone] [email or web address] [place] 07/23/2025 12:40 PM EDT Treatment [facility] Cancer Center At [facility] Rad Onc [address] [place] [address] Yolis Sandoval MD [address] [place] [phone] [email or web address] 07/23/2025 12:40 PM EDT Nutrition [facility] Center at [address] [address] 07/24/2025 12:40 PM EDT Treatment [facility] Cancer Center At [facility] Rad Onc [address] [place] [address] Yolis Sandoval MD [address] [place] [phone] [email or web address] 07/24/2025 1:00 PM EDT Infusion [facility] Center at [address] [address] Asael Martines DO [address] [place] [phone] [email or web address] 07/24/2025 1:00 PM EDT Social Work [facility] at [address] [address] Asael Martines DO [address] [place] [phone] [email or web address] 07/25/2025 11:00 AM EDT Office Visit [facility] at [address] [address] Kaykay Guillen NP [address] [place] [phone] [email or web address] 07/25/2025 11:30 AM EDT Treatment [facility] at [address] [address] 07/25/2025 12:40 PM EDT Treatment [facility] Cancer Center At [facility] Rad Onc [address] [place] [address] Yolis Sandoval MD [address] [place] [phone] [email or web address] 07/29/2025 11:30 AM EDT Treatment [facility] at [address] [address] Rachael Newell CNP [address] [place] [phone] [email or web address] 07/29/2025 12:40 PM EDT Treatment [facility] Cancer Center At [facility] Rad Onc [address] [place] [address] Yolis Sandoval MD [address] [place] [phone] [email or web address] 07/30/2025 12:40 PM EDT Treatment [facility] Cancer Center At [facility] Rad Onc [address] [place] [address] Yolis Sandoval MD [address] [place] [phone] [email or web address] 07/31/2025 12:40 PM EDT Treatment [facility] Cancer Center At [facility] Rad Onc [address] [place] [address] Yolis Sandoval MD [address] [place] [phone] [email or web address] 08/01/2025 12:40 PM EDT Treatment [facility] Cancer Center At [facility] Rad Onc [address] [place] [address] Yolis Sandoval MD [address] [place] [phone] [email or web address] 08/04/2025 12:40 PM EDT Treatment [facility] Cancer Center At [facility] Rad Onc [address] [place] [address] Yolis Sandoval MD [address] [place] [phone] [email or web address] 08/05/2025 12:40 PM EDT Treatment [facility] Cancer Center At [facility] Rad Onc [address] [place] [address] Yolis Sandoval MD [address] [place] [phone] [email or web address] 08/06/2025 12:40 PM EDT Treatment [facility] Cancer Center At [facility] Rad Onc [address] [place] [address] Yolis Sandoval MD [address] [place] [phone] [email or web address] 08/07/2025 12:30 PM EDT Treatment [facility] Cancer Center At [facility] Rad Onc [address] [place] [address] Yolis Sandoval MD [address] [place] [phone] [email or web address] 08/08/2025 12:40 PM EDT Treatment [facility] Cancer Center At [facility] Rad Onc [address] [place] [address] Yolis Sandoval MD [address] [place] [phone] [email or web address] 08/11/2025 12:40 PM EDT Treatment [facility] Cancer Center At [facility] Rad Onc [address] [place] [address] Yolis Sandoval MD [address] [place] [phone] [email or web address] 08/12/2025 12:40 PM EDT Treatment [facility] Cancer Center At [facility] Rad Onc [address] [place] [address] Yolis Sandoval MD [address] [place] [phone] [email or web address] 08/13/2025 12:40 PM EDT Treatment [facility] Cancer Center At [facility] Rad Onc [address] [place] [address] Yolis Sandoval MD [address] [place] [phone] [email or web address] 08/14/2025 12:40 PM EDT Treatment [facility] Cancer Center At [facility] Rad Onc [address] [place] [address] Yolis Sandoval MD [address] [place] [phone] [email or web address] 08/15/2025 12:40 PM EDT Treatment [facility] Cancer Center At [facility] Rad Onc [address] [place] [address] Yolis Sandoval MD [address] [place] [phone] [email or web address] 08/18/2025 12:40 PM EST Treatment [facility] Cancer Center At [facility] Rad Onc [address] [place] [address] Yolis Sandoval MD [address] [place] [phone] [email or web address] 08/19/2025 12:40 PM EST Treatment [facility] Cancer Center At [facility] Rad Onc [address] [place] [address] Yolis Sandoval MD [address] [place] [phone] [email or web address] 08/20/2025 12:40 PM EST Treatment [facility] Cancer Center At [facility] Rad Onc [address] [place] [address] Yolis Sandoval MD [address] [place] [phone] [email or web address] 08/21/2025 12:40 PM EST Treatment [facility] Cancer Center At [facility] Rad Onc [address] [place] [address] Yolis Sandoval MD [address] [place] [phone] [email or web address] 08/22/2025 12:10 PM EST Appointment [facility] Laboratory [address] [place] [address] Asael Martines DO [address] [place] [phone] [email or web address] 08/22/2025 12:40 PM EST Treatment [facility] Cancer Center At [facility] Rad Onc [address] [place] [address] Yolis Sandoval MD [address] [place] [phone] [email or web address] 08/22/2025 1:30 PM EST Office Visit [facility] at [facility] [address] [place] [address] Kaykay Guillen NP [address] [place] [address] 08/25/2025 12:40 PM EST Treatment [facility] Cancer Center At [facility] Rad Onc [address] [place] [address] Yolis Sandoval MD [address] [place] [phone] [email or web address] 08/26/2025 12:40 PM EST Treatment [facility] Cancer Center At [facility] Rad Onc [address] [place] [address] Yolis Sandoval MD [address] [place] [phone] [email or web address] 08/27/2025 12:40 PM EST Treatment [facility] Cancer Center At [facility] Rad Onc [address] [place] [address] Yolis Sandoval MD [address] [place] [phone] [email or web address] 08/28/2025 12:40 PM EST Treatment [facility] Cancer Center At [facility] Rad Onc [address] [place] [address] Yolis Sandoval MD [address] [place] [phone] [email or web address] 08/29/2025 12:40 PM EST Treatment [facility] Cancer Center At [facility] Rad Onc [address] [place] [address] Yolis Sandoval MD [address] [place] [phone] [email or web address] 09/01/2025 12:40 PM EST Treatment [facility] Cancer Center At [facility] Rad Onc [address] [place] [address] Yolis Sandoval MD [address] [place] [phone] [email or web address] 09/02/2025 12:40 PM EST Treatment [facility] Cancer Center At [facility] Rad Onc [address] [place] [address] Yolis Sandoval MD [address] [place] [phone] [email or web address] 09/03/2025 12:40 PM EST Treatment [facility] Cancer Center At [facility] Rad Onc [address] [place] [address] Yolis Sandoval MD [address] [place] [phone] [email or web address] 09/04/2025 12:40 PM EST Treatment [facility] Cancer Center At [facility] Rad Onc [address] [place] [address] Yolis Sandoval MD [address] [place] [phone] [email or web address] ([place] documented as of this encounter Visit Diagnoses Not on filedocumented in this encounter Care Teams Talent Solutions Manager Relationship Specialty Start Date End Date Ayla Ziegler MD [address] [place] [address] PCP - General Family Medicine 01/24/25 Damian Weaver MD, PhD [address] [place] [address] [place] [phone] [email or web address] Primary Oncologist Hematology and Oncology 05/21/25 Asael Martines DO [address] [place] [phone] [email or web address] Hematology and Oncology 9/10/25 documented as of this encounter Additional Source Comments The information contained in this document represents components of the legal health record. It is not the complete legal health record.[facility]
--- OUTSIDE RECORDS SUMMARY | 2025-07-15 16:23 | XMS_ITS | Encounter Summary ---
Author Organization [facility] Address [facility] [address] [place] [address] Phone Care Team Providers Care Spa Associate Name Role Phone Ayla Ziegler MD Primary Care Provider [phone] Damian Weaver MD, PhD Unavailable [phone] Asael Martines DO Unavailable [phone] Encounter Details Date Type Department Care Team (Late st Contact Info) Description 07/10/2025 Documentation [facility] [address] [place] [id number] Lakisha Tyler [address] [address] Social History Tobacco Use Types Packs/Day Years [...] as of this encounter Progress Notes * Federica Anedrson - 07/10/2025 2:17 PM EDT [facility] Prior Authorization Medication/Formulation/Frequency: Capecitabine 1500mg bid -M-F PA type: New start Insurance Plan/Phone number: Medicare B Member ID: Rx group: PCN: BIN: PA status: No PA required Approved until date: N/a Reference Number/Clinic Physician Name (if applicable): N/a Dispensing Pharmacy: [facility] Please call with additional questions: [facility] Option 1 documented in this encounter Plan of Treatment Upcoming Encounters Date Type Department Care Team (Late st Contact Info) Description 07/17/2025 1:40 PM EDT Infusion [facility] [place] [address] [address] Asael Martines DO [address] [place] [phone] [email or web address] 07/21/2025 12:40 PM EDT Treatment [facility] Cancer Center At [facility] Rad Onc [address] [place] [address]184 Yolis Sandoval MD [address] [place] [phone] [email or web address] 07/22/2025 12:40 PM EDT Treatment [facility] Cancer Center At [facility] Rad Onc [address] [place] [address] Yolis Sandoval MD [address] [place] [phone] [email or web address] 07/23/2025 12:40 PM EDT Treatment [facility] Cancer Center At [facility] Rad Onc [address] [place] [address] Yolis Sandoval MD [address] [place] [phone] [email or web address] 07/23/2025 12:40 PM EDT Nutrition [facility] at [address] [address] 07/24/2025 12:40 PM EDT Treatment [facility] Cancer Center At [facility] Rad Onc [address] [place] [address] Yolis Sandoval MD [address] [place] [phone] [email or web address] 07/24/2025 1:00 PM EDT Infusion [facility] Center at [address] [address] Asael Martines, DO [address] [place] [phone] [email or web address] 07/24/2025 1:00 PM EDT Social Work [facility] at [address] [address] Asael Martines, DO [address] [place] [phone] [email or web address] 07/25/2025 11:00 AM EDT Office Visit [facility] at [address] [address] Kaykay Guillen NP [address] [place] [address] [email or web address] 07/25/2025 11:30 AM EDT Treatment [facility] at [address] [address] 07/25/2025 12:40 PM EDT Treatment [facility] Cancer Center At [facility] Rad Onc [address] [place] [address] Yolis Sandoval MD [address] [place] [phone] [email or web address] 07/29/2025 11:30 AM EDT Treatment [facility] at [address] [address] Rachael Newell CNP [address] [place] [address] [email or web address] 07/29/2025 12:40 PM EDT Treatment [facility] Cancer Center At [facility] Rad Onc [address] [place] [address] Yolis Sandoval MD [address] [place] [phone] [email or web address] 07/30/2025 12:40 PM EDT Treatment [facility] Cancer Center At [facility] Rad Onc [address] [place] [address] Yolis Sandoval MD [address] [place] [address] [email or web address] 07/31/2025 12:40 PM EDT Treatment [facility] Cancer Center At [facility] Rad Onc [address] [place] [address] Yolis Sandoval MD [address] [place] [phone] [email or web address] 08/01/2025 12:40 PM EDT Treatment [facility] Cancer Center At [facility] Rad Onc [address] [place] [address] Yolis Sandoval MD [address] [place] [phone] [email or web address] 08/04/2025 12:40 PM EDT Treatment [facility] Cancer Center At [facility] Rad Onc [address] [place] [address] Yolis Sandoval MD [address] [place] [phone] [email or web address] 08/05/2025 12:40 PM EDT Treatment [facility] Cancer Center At [facility] Rad Onc [address] [place] [address] Yolis Sandoval MD [address] [place] [phone] [email or web address] 08/06/2025 12:40 PM EDT Treatment [facility] Cancer Center At [facility] Rad Onc [address] [place] [address] Yolis Sandoval MD [address] [place] [phone] [email or web address] 08/07/2025 12:30 PM EDT Treatment [facility] Cancer Center At [facility] Rad Onc [address] [place] [address] Yolis Sandoval MD [address] [place] [phone] [email or web address] 08/08/2025 12:40 PM EDT Treatment [facility] Cancer Center At [facility] Rad Onc [address] [place] [address] Yolis Sandoval MD [address] [place] [phone] [email or web address] 08/11/2025 12:40 PM EDT Treatment [facility] Cancer Center At [facility] Rad Onc [address] [place] [address] Yolis Sandoval MD [address] [place] [phone] reno@[email or web address] 08/12/2025 12:40 PM EDT Treatment [facility] Cancer Center At [facility] Rad Onc [address] [place] [address] Yolis Sandoval MD [address] [place] [address] 1940[address] reno@[email or web address] 08/13/2025 12:40 PM EDT Treatment [facility] Cancer Center At [facility] Rad Onc [address] [place] [address] Yolis Sandoval MD [address] [place] [phone] [email or web address] 08/14/2025 12:40 PM EDT Treatment [facility] Cancer Center At [facility] Rad Onc [address] [place] [address] Yolis Sandoval MD [address] [place] [phone] [email or web address] 08/15/2025 12:40 PM EDT Treatment [facility] Cancer Center At [facility] Rad Onc [address] [place] [address] Yolis Sandoval MD [address] [place] [address] 111[address] reno@[email or web address] 08/18/2025 12:40 PM EST Treatment [facility] Cancer Center At [facility] Rad Onc [address] [place] [address] Yolis Sandoval MD [address] [place] [phone] [email or web address] 08/19/2025 12:40 PM EST Treatment [facility] Cancer Center At [facility] Rad Onc [address] [place] [address] Yolis Sandoval MD [address] [place] [phone] reno@[email or web address] 08/20/2025 12:40 PM EST Treatment [facility] Cancer Center At [facility] Rad Onc [address] [place] [address] Yolis Sandoval MD [address] [place] [phone] [email or web address] 08/21/2025 12:40 PM EST Treatment [facility] Cancer Center At [facility] Rad Onc [address] [place] [address] Yolis Sandoval MD [address] [place] [phone] [email or web address] 08/22/2025 12:10 PM EST Appointment [facility] Laboratory [address] [place] [address] Asael Martines DO [address] [place] [address] [email or web address] 08/22/2025 12:40 PM EST Treatment [facility] Cancer Center At [facility] Rad Onc [address] [place] [address] Yolis Sandoval MD [address] [place] [phone] [email or web address] 08/22/2025 1:30 PM EST Office Visit [facility] at [address] [address] Kaykay Guillen NP [address] [place] [address] [email or web address] 08/25/2025 12:40 PM EST Treatment [facility] Cancer Center At [facility] Rad Onc [address] [place] [address] Yolis Sandoval MD [address] [place] [phone] [email or web address] 08/26/2025 12:40 PM EST Treatment [facility] Cancer Center At [facility] Rad Onc [address] [place] [address] Yolis Sandoval MD [address] [place] [phone] [email or web address] 08/27/2025 12:40 PM EST Treatment [facility] Cancer Center At [facility] Rad Onc [address] [place] [address] Yolis Sandoval MD [address] [place] [address] [email or web address] 08/28/2025 12:40 PM EST Treatment [facility] Cancer Center At [facility] Rad Onc [address] [place] [address] Yolis Sandoval MD [address] [place] [phone] [email or web address] 08/29/2025 12:40 PM EST Treatment [facility] Cancer Center At [facility] Rad Onc [address] [place] [address] Yolis Sandoval MD [address] [place] [address] [email or web address] 09/01/2025 12:40 PM EST Treatment [facility] Cancer Center At [facility] Rad Onc [address] [place] [address] Yolis Sandoval MD [address] [place] [address] [phone] [email or web address] 09/02/2025 12:40 PM EST Treatment [facility] Cancer Center At [facility] Rad Onc [address] [place] [address] Yolis Sandoval MD [address] [place] [phone] [email or web address] 09/03/2025 12:40 PM EST Treatment [facility] Cancer Center At [facility] Rad Onc [address] [place] [address] Yolis Sandoval MD [address] [place] [address] [email or web address] 09/04/2025 12:40 PM EST Treatment [facility]c [address] [place] [address] Yolis Sandoval MD [address] [place] [address] [email or web address] documented as of this encounter Visit Diagnoses Not on filedocumented in this encounter Care Teams Spa Associate Relationship Specialty Start Date End Date Ayla Ziegler MD [address] [place] [address] PCP - General Family Medicine 01/24/25 Damian Weaver MD, PhD [address] [place] [address] [place] [address] [email or web address] Primary Oncologist Hematology and Oncology 05/21/25 Asael Martines DO [address] [place] [phone] [email or web address] Hematology and Oncology 06/25/25 documented as of this encounter Additional Source Comments The information contained in this document represents components of the legal health record. It is not the complete legal health record.[facility]
--- OUTSIDE RECORDS SUMMARY | 2025-07-15 16:23 | XMS_ITS | Encounter Summary ---
Author Organization [facility] Address [address] [place] [address] Phone Care Team Providers Care Musical Instrument Maker Or Repairer Name Role Phone Ayla Ziegler MD Primary Care Provider [phone] Damian Weaver MD, PhD Unavailable [phone] Asael Martines DO Unavailable [phone] Encounter Details Date Type Department Care Team (Late st Contact Info) Description 07/01/[address] [facility] ([place], [place]) for Gastro[facility] [address] [facility], 7th Floor, [address] [place] [address] Juan Francisco Etienne, CHIEF DESIGN BRANCH [address] [facility] [address] [place] [address] [email or web address] Social History Tobacco Use Types Packs/Day Years [...] Info) Description 07/17/2025 1:40 PM EDT Infusion [facility] at [address] [address] Asael Martines DO [address] [place] [address] [email or web address] 07/21/2025 12:40 PM EDT Treatment [facility] Rad Onc [address] [place] [address] Yolis Sandoval MD [address] [place] [address] [email or web address] 07/22/2025 12:40 PM EDT Treatment [facility] Rad Onc [address] [place] [address] Yolis Sandoval MD [address] [place] [address] [email or web address] 07/23/2025 12:40 PM EDT Treatment [facility] Rad Onc [address] [place] [address] Yolis Sandoval MD [address] [place] [address] [email or web address] 07/23/2025 12:40 PM EDT Nutrition [facility] at [address] [address] 07/24/2025 12:40 PM EDT Treatment [facility] Rad Onc [address] [place] [address] Yolis Sandoval MD [address] [place] [address] [email or web address] 07/24/2025 1:00 PM EDT Infusion [facility] at [address] [address] Asael Martines, DO [address] [place] [address] [email or web address] [email or web address] 07/24/2025 1:00 PM EDT Social Work [facility] at [address] [address] Asael Martines, DO [address] [place] [address] [email or web address] [email or web address] 07/25/2025 11:00 AM EDT Office Visit [facility] at [address] [address] Kaykay Guillen NP [address] [place] [address] [email or web address] 07/25/2025 11:30 AM EDT Treatment [facility] at [address] [address] 07/25/2025 12:40 PM EDT Treatment [facility] Rad Onc [address] [place] [address] Yolis Sandoval MD [address] [place] [address] [email or web address] 07/29/2025 11:30 AM EDT Treatment [facility] at [address] [place] [address] Rachael Newell CNP [address] [place] [address] [email or web address] 07/29/2025 12:40 PM EDT Treatment [facility] Rad Onc [address] [place] [address] Yolis Sandoval MD [address] [place] [address] [email or web address] 07/30/2025 12:40 PM EDT Treatment [facility] Rad Onc [address] [place] [address] Yolis Sandoval MD [address] [place] [address] [email or web address] 07/31/2025 12:40 PM EDT Treatment [facility] Rad Onc [address] [place] [address] Yolis Sandoval MD [address] [place] [address] [email or web address] 08/01/2025 12:40 PM EDT Treatment [facility] Rad Onc [address] [place] [address] Yolis Sandoval MD [address] [place] [address] [email or web address] 08/04/2025 12:40 PM EDT Treatment [facility] Rad Onc [address] [place] [address] Yolis Sandoval MD [address] [place] [address] [email or web address] 08/05/2025 12:40 PM EDT Treatment [facility] Rad Onc [address] [place] [address] Yolis Sandoval MD [address] [place] [address] [email or web address] 08/06/2025 12:40 PM EDT Treatment [facility] Rad Onc [address] [place] [address] Yolis Sandoval MD [address] [place] [address] [email or web address] 08/07/2025 12:30 PM EDT Treatment [facility] Rad Onc [address] [place] [address] Yolis Sandoval MD [address] [place] [address] [email or web address] 08/08/2025 12:40 PM EDT Treatment [facility] Rad Onc [address] [place] [address] Yolis Sandoval MD [address] [place] [address] [email or web address] 08/11/2025 12:40 PM EDT Treatment [facility] Rad Onc [address] [place] [address] Yolis Sandoval MD [address] [place] [address] [email or web address] 08/12/2025 12:40 PM EDT Treatment [facility] Rad Onc [address] [place] [address] Yolis Sandoval MD [address] [place] [address] [email or web address] 08/13/2025 12:40 PM EDT Treatment [facility] Rad Onc [address] [place] [address] Yolis Sandoval MD [address] [place] [address] [email or web address] 08/14/2025 12:40 PM EDT Treatment [facility] Rad Onc [address] [place] [address] Yolis Sandoval MD [address] [place] [address] [email or web address] 08/15/2025 12:40 PM EDT Treatment [facility] Rad Onc [address] [place] [address] Yolis Sandoval MD [address] [place] [address] [email or web address] 08/18/2025 12:40 PM EST Treatment [facility] Rad Onc [address] [place] [address] Yolis Sandoval MD [address] [place] [address] [email or web address] 08/19/2025 12:40 PM EST Treatment [facility] Rad Onc [address] [place] [address] Yolis Sandoval MD [address] [place] [address] [email or web address] 08/20/2025 12:40 PM EST Treatment [facility] Rad Onc [address] [place] [address] Yolis Sandoval MD [address] [place] [address] [email or web address] 08/21/2025 12:40 PM EST Treatment [facility] Rad Onc [address] [place] [address] Yolis Sandoval MD [address] [place] [address] [email or web address] 08/22/2025 12:10 PM EST Appointment [facility] Laboratory [address] [place] [address] Asael Martines DO [address] [place] [address] [email or web address] 08/22/2025 12:40 PM EST Treatment [facility] Rad Onc [address] [place] [address] Yolis Sandoval MD [address] [place] [address] [email or web address] 08/22/2025 1:30 PM EST Office Visit [facility] at [address] [address] Kaykay Guillen NP [address] [place] [address] [email or web address] 08/25/2025 12:40 PM EST Treatment [facility] Rad Onc [address] [place] [address] Yolis Sandoval MD [address] [place] [address] [email or web address] 08/26/2025 12:40 PM EST Treatment [facility] Rad Onc [address] [place] [address] Yolis Sandoval MD [address] [place] [address] [email or web address] 08/27/2025 12:40 PM EST Treatment [facility] Rad Onc [address] [place] [address] Yolis Sandoval MD [address] [place] [address] [email or web address] 08/28/2025 12:40 PM EST Treatment [facility] Rad Onc [address] [place] [address] Yolis Sandoval MD [address] [place] [address] [email or web address] 08/29/2025 12:40 PM EST Treatment [facility] Rad Onc [address] [place] [address] Yolis Sandoval MD [address] [place] [address] [email or web address] 09/01/2025 12:40 PM EST Treatment [facility] Rad Onc [address] [place] [address] Yolis Sandoval MD [address] [place] [address] [email or web address] 09/02/2025 12:40 PM EST Treatment [facility] Rad Onc [address] [place] [address] Yolis Sandoval MD [address] [place] [address] [email or web address] 09/03/2025 12:40 PM EST Treatment [facility] Rad Onc [address] [place] [address] Yolis Sandoval MD [address] [place] [address] [email or web address] 09/04/2025 12:40 PM EST Treatment [facility] Rad Onc [address] [place] [address] Yolis Sandoval MD [address] [place] [address] [email or web address] documented as of this encounter Visit Diagnoses Not on filedocumented in this encounter Care Teams Musical Instrument Maker Or Repairer Relationship Specialty Start Date End Date Ayla Ziegler MD [address] [place] [address] PCP - General Family Medicine 01/24/25 Damian Weaver MD, PhD [address] [place] [address] [address] [place] [address] [email or web address] Primary Oncologist Hematology and Oncology 05/21/25 Asael Martines DO [address] [place] [address] [email or web address] Hematology and Oncology 06/25/25 documented as of this encounter Additional Source Comments The information contained in this document represents components of the legal health record. It is not the complete legal health record.[facility]
--- OUTSIDE RECORDS SUMMARY | 2025-07-15 16:23 | XMS_ITS | Encounter Summary ---
Author Organization [employer] Address [address] [facility] [facility] [address] 7t [place] [address] Care Team Providers Care Vegetable Grader Name Role Phone Ayla Ziegler MD Primary Care Provider [phone] Reason for Visit * Reason Onset Date Comments Appointment Request 04/15/2025 Encounter Details Date Type Department Care Team ([facility] Contact Info) Description 04/15/2025 Telephone [facility] [address] [place] [address] Ayla Ziegler MD [address] [place], [place] [phone] Appointment Request Social History Tobacco Use Types [...] your housing situation today? I have josephine alberst 08/09/[address] you li [...] * Telephone Encounter - Bhavesh Coreas - 04/15/2025 4:21 PM EDT Tc from pt requesting call back to reschedule REMARKETING MANAGER visit with Heather. Please contact pt at [phone]. documented in this encounter Plan of Treatment Upcoming Encounters Date Type Department Care Team ([facility] st Contact Info) Description 07/16/2025 11:15 AM EDT Office Visit [facility] [address] [place] [address] Ayla Ziegler MD [address] [place] [address] 08/14/2025 10:00 AM EDT Clinical Support [facility] [address] [place] [address] Heather Siddiqui RN [address] [place] [address] documented as of this encounter Visit Diagnoses Not on filedocumented in this encounter Additional Health Concerns Assessment Noted Time PHQ-9 Depression Total Score: 5 04/09/20 11:23 AM EDT documented as of this encounter Care Teams Vegetable Grader Relationship Specialty Start Date End Date Ayla Ziegler MD [address] [place] [address] PCP - General Family Medicine 11/14/13 documented as of this encounter
--- OUTSIDE RECORDS SUMMARY | 2025-07-15 16:23 | XMS_ITS | Encounter Summary ---
Author Organization [employer] Address [address] [facility] 7t [place] [address] Care Team Providers Care Manager Home Healthcare Name Role Phone Ayla Ziegler MD Primary Care Provider [phone] Reason for Visit * Reason Onset Date Comments Medication Question 03/05/2025 Encounter Details Date Type Department Care Team ([facility] st Contact Info) Description 03/05/2025 Telephone [facility] MEDICINE [address] [place] [address] Ayla Ziegler MD [address] [place], [place] [phone] Medication Question Social History Tobacco Use Types Packs/Day Years [...] * Telephone Encounter - Norma Ash - 03/05/2025 10:03 AM EDT Tc from pt requesting new script. Pt states needs more medication because of the anxiety and depression. Medication: LORazepam (Ativan) 1 MG tablet To be sent to: [facility]/pharmacy #[id number] [place], [place] - [address] [place] [address] AT [facility] documented in this encounter Plan of Treatment Upcoming Encounters Date Type Department Care Team ([facility] st Contact Info) Description 07/16/2025 11:15 AM EDT Office Visit [facility] [address] [place] [address] Ayla Ziegler MD [address] [place] [address] 08/14/2025 10:00 AM EDT Clinical Support [facility] [address] [place] [address] Heather Siddiqui RN [address] [place] [address] documented as of this encounter Visit Diagnoses Not on filedocumented in this encounter Additional Health Concerns Assessment Noted Time PHQ-9 Depression Total Score: 0 04/24/20 23 11:11 AM EDT documented as of this encounter Care Teams Manager Home Healthcare Relationship Specialty Start Date End Date Ayla Ziegler MD [address] [place] [address] PCP - General Family Medicine 11/14/13 documented as of this encounter
--- OUTSIDE RECORDS SUMMARY | 2025-07-15 16:23 | XMS_ITS | Encounter Summary ---
Author Organization [facility] Address [facility] [address] [place] [address] Phone Care Team Providers Care Day Habilitation Supervisor Name Role Phone Ayla Ziegler MD Primary Care Provider [phone] Damian Weaver MD, PhD Unavailable [phone] Asael Martines DO Unavailable [phone] Encounter Details Date Type Department Care Team (Late st Contact Info) Description 07/14/2025 Documentation [facility] [address] [place] [id number] Zulma Donohue [address] [address] [email or web address] Social History Tobacco Use Types Packs/Day Years [...] as of this encounter Progress Notes * Zulma Donohue RPH - 07/14/2025 1:00 PM EDT [facility] Specialty Medication Capecitabine 500mg tablets Treatment Plan Capecitabine 1500mg BID Mon-Fri with RT for 28 days Appropriateness of Therapy Medication therapy and dosing are clinically appropriate, and pertinent baseline labs have been assessed. Dispensing Pharmacy Name: [facility] Option 1 Delivery and Copay Delivery date: 07/17 Patient initial copay: $0 Financial assistance: N/A Final patient cost: $0 Education/Counseling Pharmacist reviewed dosing schedule, missed dose management and potential side effects. The patientwas advised on appropriate storage, disposal, and handling of medication. Medication History/Drug Interaction Medication History: Completed Drug Interaction Evaluation: No significant drug interactions Clinical outcomes Medication monitoring and goals of therapy were reviewed, and the importance of medication adherence was discussed with the patient. Please message or call with any questions. Zulma Donohue [facility] documented in this encounter Plan of Treatment Upcoming Encounters Date Type Department Care Team (Late st Contact Info) Description 07/17/2025 1:40 PM EDT Infusion [facility] [place] [address] [address] Asael Martines DO [address] [place] [phone] [email or web address] 07/21/2025 12:40 PM EDT Treatment [facility] At [facility] Rad Onc [address] [place] [address] Yolis Sandoval MD [address] [place] [phone] [email or web address] 07/22/2025 12:40 PM EDT Treatment [facility] At [facility] Rad Onc [address] [place] [address] Yolis Sandoval MD [address] [place] [phone] [email or web address] 07/23/2025 12:40 PM EDT Treatment [facility] At [facility] Rad Onc [address] [place] [address] Yolis Sandoval MD [address] [place] [phone] [email or web address] 07/23/2025 12:40 PM EDT Nutrition [facility] at [address] [address] 07/24/2025 12:40 PM EDT Treatment [facility] At [address] [address] Yolis Sandoval MD [address] [place] [address] [email or web address] 07/24/2025 1:00 PM EDT Infusion [facility] at [address] [address] Asael Martines, [address] [place] [phone] [email or web address] 07/24/2025 1:00 PM EDT Social Work [facility] at [address] [address] Asael Martines DO [address] [place] [id number] [email or web address] 07/25/2025 11:00 AM EDT Office Visit [facility] at [address] [address] Kaykay Guillen, JERRY [address] [place] [address] [email or web address] 07/25/2025 11:30 AM EDT Treatment [facility] at [address] [address] 07/25/2025 12:40 PM EDT Treatment [facility] At [facility] Rad Onc [address] [place] [address] Yolis Sandoval MD [address] [place] [address] [email or web address] 07/29/2025 11:30 AM EDT Treatment [facility] at [address] [address] Rachael Newell CNP [address] [place] [address] [email or web address] 07/29/2025 12:40 PM EDT Treatment [facility] At [facility] Rad Onc [address] [place] [address] Yolis Sandoval MD [address] [place] [phone] [email or web address] 07/30/2025 12:40 PM EDT Treatment [facility] At [facility] Rad Onc [address] [place] [address] Yolis Sandoval MD [address] [place] [phone] [email or web address] 07/31/2025 12:40 PM EDT Treatment [facility] At [facility] Rad Onc [address] [place] [address] Yolis Sandoval MD [address] [place] [phone] [email or web address] 08/01/2025 12:40 PM EDT Treatment [facility] At [facility] Rad Onc [address] [place] [address] Yolis Sandoval MD [address] [place] [phone] [email or web address] 08/04/2025 12:40 PM EDT Treatment [facility] At [facility] Rad Onc [address] [place] [address] Yolis Sandoval MD [address] [place] [phone] [email or web address] 08/05/2025 12:40 PM EDT Treatment [facility] At [facility] Rad Onc [address] [place] [address] Yolis Sandoval MD [address] [place] [address] [email or web address] 08/06/2025 12:40 PM EDT Treatment [facility] At [facility] Rad Onc [address] [place] [address] Yolis Sandoval MD [address] [place] [phone] [email or web address] 08/07/2025 12:30 PM EDT Treatment [facility] At [facility] Rad Onc [address] [place] [address] Yolis Sandoval MD [address] [place] [address] [email or web address] 08/08/2025 12:40 PM EDT Treatment [facility] At [facility] Rad Onc [address] [place] [address] Yolis Sandoval MD [address] [place] [phone] [email or web address] 08/11/2025 12:40 PM EDT Treatment [facility] At [facility] Rad Onc [address] [place] [address] Yolis Sandoval MD [address] [place] [address] [email or web address] 08/12/2025 12:40 PM EDT Treatment [facility] At [facility] Rad Onc [address] [place] [address] Yolis Sandoval MD [address] [place] [address] [email or web address] 08/13/2025 12:40 PM EDT Treatment [facility] At [facility] Rad Onc [address] [place] [address] Yolis Sandoval MD [address] [place] [phone] [email or web address] 08/14/2025 12:40 PM EDT Treatment [facility] At [facility] Rad Onc [address] [place] [address] Yolis Sandoval MD [address] [place] [phone] [email or web address] 08/15/2025 12:40 PM EDT Treatment [facility] At [facility] Rad Onc [address] [place] [address] Yolis Sandoval MD [address] [place] [phone] [email or web address] 08/18/2025 12:40 PM EST Treatment [facility] At [facility] Rad Onc [address] [place] [address] Yolis Sandoval MD [address] [place] [address] [email or web address] 08/19/2025 12:40 PM EST Treatment [facility] At [facility] Rad Onc [address] [place] [address] Yolis Sandoval MD [address] [place] [phone] [email or web address] 08/20/2025 12:40 PM EST Treatment [facility] At [facility] Rad Onc [address] [place] [address] Yolis Sandoval MD [address] [place] [phone] [email or web address] 08/21/2025 12:40 PM EST Treatment [facility] At [facility] Rad Onc [address] [place] [address] Yolis Sandoval MD [address] [place] [phone] [email or web address] 08/22/2025 12:10 PM EST Appointment [facility] Laboratory [address] [place] [address] Asael Martines DO [address] [place] [id number] [email or web address] 08/22/2025 12:40 PM EST Treatment [facility] At [facility] Rad Onc [address] [place] [address] Yolis Sandoval MD [address] [place] [address] [email or web address] 08/22/2025 1:30 PM EST Office Visit [facility] at [address] [address] Kaykay Guillen NP [address] [place] [address] [email or web address] 08/25/2025 12:40 PM EST Treatment [facility] At [facility] Rad Onc [address] [place] [address] Yolis Sandoval MD [address] [place] [phone] [email or web address] 08/26/2025 12:40 PM EST Treatment [facility] At [facility] Rad Onc [address] [place] [address] Yolis Sandoval MD [address] [place] [address] [email or web address] 08/27/2025 12:40 PM EST Treatment [facility] At [facility] Rad Onc [address] [place] [address] Yolis Sandoval MD [address] [place] [phone] [email or web address] 08/28/2025 12:40 PM EST Treatment [facility] At [facility] Rad Onc [address] [place] [address] Yolis Sandoval MD [address] [place] [phone] [email or web address] 08/29/2025 12:40 PM EST Treatment [facility] At [facility] Rad Onc [address] [place] [address] Yolis Sandoval MD [address] [place] [phone] [email or web address] 09/01/2025 12:40 PM EST Treatment [facility] At [facility] Rad Onc [address] [place] [address] Yolis Sandoval MD [address] [place] [phone] [email or web address] 09/02/2025 12:40 PM EST Treatment [facility] At [facility] Rad Onc [address] [place] [address] Yolis Sandoval MD [address] [place] [phone] [email or web address] 09/03/2025 12:40 PM EST Treatment [facility] At [facility] Rad Onc [address] [place] [address] Yolis Sandoval MD [address] [place] [address] [email or web address] 09/04/2025 12:40 PM EST Treatment [facility] At [facility] Rad Onc [address] [place] [address] Yolis Sandoval MD [address] [place] [address] [email or web address] documented as of this encounter Visit Diagnoses Not on filedocumented in this encounter Care Teams Day Habilitation Supervisor Relationship Specialty Start Date End Date Ayla Ziegler MD [address] [place] [phone] PCP - General Family Medicine 01/24/25 Damian Weaver MD, PhD [address] [place] [address] [place] [address] [email or web address] Primary Oncologist Hematology and Oncology 05/21/25 Asael Martines DO [address] [place] [address] [email or web address] Hematology and Oncology 06/25/25 documented as of this encounter Additional Source Comments The information contained in this document represents components of the legal health record. It is not the complete legal health record.[facility]
--- OUTSIDE RECORDS SUMMARY | 2025-07-15 16:24 | XMS_ITS | Encounter Summary ---
Author Organization Formerly [facility] Address [address] [place] [address] [place] [address] Phone Care Team Providers Care Stitch Rubber Name Role Phone Ayla Ziegler MD Primary Care Provider [phone] Damian Weaver MD, PhD Unavailable [phone] Asael Martines DO Unavailable [phone] Encounter Details Date Type Department Care Team (Late st Contact Info) Description 05/20/2025 Procedure Pass [facility] [place] [address] [facility], 6th [place] [address] Social History Tobacco Use Types Packs/Day Years [...] Info) Description 07/17/2025 1:[address] [facility] [address] [place] [address] 50916 Asael Martines DO [address] [place] [address] 14735 [email or web address] 07/21/2025 12:40 PM EDT Treatment [facility] Cancer Center At [facility] Rad Onc [address] [place] [address] 48704 Yolis Sandoval MD [address] [place] [address] 64080 [email or web address] 07/22/2025 12:40 PM EDT Treatment [facility] Cancer Center At [facility] Rad Onc [address] [place] [address] 45900 Yolis Sandoval MD [address] [place] [address] 93721 [email or web address] 07/23/2025 12:40 PM EDT Treatment [facility] Cancer Center At [facility] Rad Onc [address] [place] [address] 76467 Yolis Sandoval MD [address] [place] [address] 89926 [email or web address] 07/23/2025 12:[address] [facility] [place] [address] [place] [address] 0[address] 07/24/2025 12:40 PM EDT Treatment [facility] Cancer Center At [facility] Rad Onc [address] [place] [address] 52720 Yolis Sandoval MD [address] [place] [address] 33210 [email or web address] 07/24/2025 1:[address] [facility] at [address] [address] Asael Martines, DO [address] [place] [address] 52273 [email or web address] 07/24/2025 1:[address] [facility] [place] at [address] [address] Asael Martines, DO [address] [place] [address] 65289 [email or web address] 07/25/2025 11:00 AM EDT Office Visit [facility] at [address] [address] Kaykay Guillen NP [address] [place] [address] 93648 [email or web address] 07/25/2025 11:30 AM EDT Treatment [facility] at [address] [address] 07/25/2025 12:40 PM EDT Treatment [facility] Cancer Center At [facility] Rad Onc [address] [place] [address] 44967 Yolis Sandoval MD [address] [place] [address] 42987 [email or web address] 07/29/2025 11:30 AM EDT Treatment [facility] at [address] [address] Rachael Newell CNP [address] [place] [address] 795[address] 07/29/2025 12:40 PM EDT Treatment [facility] Cancer Center At [facility] Rad Onc [address] [place] [address] Yolis Sandoval MD [address] [place] [address] 49074 [email or web address] 07/30/2025 12:40 PM EDT Treatment [facility] Cancer Center At [facility] Rad Onc [address] [place] [address] 22703 Yolis Sandoval MD [address] [place] [address] 34855 [email or web address] 07/31/2025 12:40 PM EDT Treatment [facility] Cancer Center At [facility] Rad Onc [address] [place] [address] 32978 Yolis Sandoval MD [address] [place] [address] 52830 [email or web address] 08/01/2025 12:40 PM EDT Treatment [facility] Cancer Center At [facility] Rad Onc [address] [place] [address] Yolis Sandoval MD [address] [place] [address] 98672 [email or web address] 08/04/2025 12:40 PM EDT Treatment [facility] Cancer Center At [facility] Rad Onc [address] [place] [address] 89671 Yolis Sandoval MD [address] [place] [address] 70988 [email or web address]@[facility] 08/05/2025 12:40 PM EDT Treatment [facility] Cancer [facility] At [facility] Rad Onc [address] [place] [address] Yolis Sandoval MD [address] [place] [address] 56407 [email or web address]@[facility] 08/06/2025 12:40 PM EDT Treatment [facility] Cancer Center At [facility] Rad Onc [address] [place] [address] 83426 Yolis Sandoval MD [address] [place] [address] 15992 [email or web address]@[facility] 08/07/2025 12:30 PM EDT Treatment [facility] Cancer [facility] At [facility] Rad Onc [address] [place] [address] 00648 Yolis Sandoval MD [address] [place] [address] 28505 [email or web address] 08/08/2025 12:40 PM EDT Treatment [facility] Cancer Center At [facility] Rad Onc [address] [place] [address] 78326 Yolis Sandoval MD [address] [place] [address] 60070 [email or web address]@[facility] 08/11/2025 12:40 PM EDT Treatment [facility] Cancer Center At [facility] Rad Onc [address] [place] [address] 19907 Yolis Sandoval MD [address] [place] [address] 55632 [email or web address]@[facility] 08/12/2025 12:40 PM EDT Treatment [facility] Cancer Center At [facility] Rad Onc [address] [place] [address] 20750 Yolis Sandoval MD [address] [place] [address] 72526 [email or web address]@[facility] 08/13/2025 12:40 PM EDT Treatment [facility] Cancer [facility] At [facility] Rad Onc [address] [place] [address] 30425 Yolis Sandoval MD [address] [place] [address] 83308 [email or web address]@[facility] 08/14/2025 12:40 PM EDT Treatment [facility] Cancer Center At [facility] Rad Onc [address] [place] [address] 68809 Yolis Sandoval MD [address] [place] [address] 67361 [email or web address]@[facility] 08/15/2025 12:40 PM EDT Treatment [facility] Cancer Center At [facility] Rad Onc [address] [place] [address] 54041 Yolis Sandoval MD [address] [place] [address] 90502 [email or web address]@[facility] 08/18/2025 12:40 PM EST Treatment [facility] Cancer Center At [facility] Rad Onc [address] [place] [address] 80973 Yolis Sandoval MD [address] [place] [address] [phone] [email or web address]@[facility] 08/19/2025 12:40 PM EST Treatment [facility] Cancer Center At [facility] Rad Onc [address] [place] [address] 84759 Yolis Sandoval MD [address] [place] [address] 17835 [email or web address]@[facility] 08/20/2025 12:40 PM EST Treatment [facility] Cancer Center At [facility] Rad Onc [address] [place] [address] 94513 Yolis Sandoval MD [address] [place] [address] 92427 [email or web address]@[facility] 08/21/2025 12:40 PM EST Treatment [facility] Cancer Center At [facility] Rad Onc [address] [place] [address] 39748 Yolis Sandoval MD [address] [place] [address] 61568 [email or web address] 08/22/2025 12:10 PM EST Appointment [facility] Laboratory [address] [place] [address] 01286 Asael Martines DO [address] [place] [address] 77122 [email or web address] 08/22/2025 12:40 PM EST Treatment [facility] Cancer Center At [facility] Rad Onc [address] [place] [address] 14266 Yolis Sandoval MD [address] [place] [address] 96018 [email or web address] 08/22/2025 1:30 PM EST Office [facility] at [address] [address] Kaykay Guillen NP [address] [place] [address] 12772 [email or web address] 08/25/2025 12:40 PM EST Treatment [facility] Cancer Center At [facility] Rad Onc [address] [place] [address] Yolis Sandoval MD [address] [place] [address] 41415 [email or web address]@[facility] 08/26/2025 12:40 PM EST Treatment [facility] Cancer Center At [facility] Rad Onc [address] [place] [address] Yolis Sandoval MD [address] [place] [address] 82906 [email or web address] 08/27/2025 12:40 PM EST Treatment [facility] Cancer Center At [facility] Rad Onc [address] [place] [address] 76301 Yolis Sandoval MD [address] [place] [address] 35008 [email or web address] 08/28/2025 12:40 PM EST Treatment [facility] Cancer Center At [facility] Rad Onc [address] [place] [address] 73210 Yolis Sandoval MD [address] [place] [address] 43428 [email or web address] 08/29/2025 12:40 PM EST Treatment [facility] Cancer Center At [facility] Rad Onc [address] [place] [address] 38774 Yolis Sandoval MD [address] [place] [address] 44852 [email or web address] 09/01/2025 12:40 PM EST Treatment [facility] Cancer Center At [facility] Rad Onc [address] [place] [address] Yolis Sandoval MD [address] [place] [address] 92759 [email or web address] 09/02/2025 12:40 PM EST Treatment [facility] Cancer Center At [facility] Rad Onc [address] [place] [address] 02894 Yolis Sandoval MD [address] [place] [address] [phone] [email or web address] 09/03/2025 12:40 PM EST Treatment [facility] Cancer Center At [facility] Rad Onc [address] [place] [address] 94786 Ylois Sandoval MD [address] [place] [address] 00091 [email or web address] 09/04/2025 12:40 PM EST Treatment [facility] Cancer Center At [facility] Rad Onc [address] [place] [address] 53094 Yolis Sandoval MD [address] [place] [address] 23759 [email or web address] documented as of this encounter Visit Diagnoses Not on filedocumented in this encounter Care Teams Stitch Rubber Relationship Specialty Start Date End Date Ayla Ziegler MD [address] [place] [address] 15685 PCP - General Family Medicine 01/24/25 Damian Weaver MD, PhD [address] [place] [address] 730 [place] [address] [email or web address] Primary Oncologist Hematology and Oncology 05/21/25 Asael Martines DO [address] [place] [address] 96817 [email or web address] Hematology and Oncology 06/25/25 documented as of this encounter Additional Source Comments The information contained in this document represents components of the legal health record. It is not the complete legal health record.[facility]ly [facility]
--- OUTSIDE RECORDS SUMMARY | 2025-07-15 16:24 | XMS_ITS | Encounter Summary ---
Author Organization [facility] Address [address] [place] [address] Phone Care Team Providers Care Sanding Machine Buffer Name Role Phone Ayla Ziegler MD Primary Care Provider [phone] Damian Weaver MD, PhD Unavailable [phone] Asael Martines DO Unavailable [phone] Reason for Visit * Auth/Cert (Routine) Specialty Diagnoses / Procedures Referred By Contac t Referred To Contact Diagnoses pancreatic cancer Procedures allergy management chemotherapy Referral ID Status Reason Start Date Expiration Date Visits Re quested Visits Authorized [id number] 1 1 Encounter Details Date Type Department Care Team (Late st Contact Info) Description 06/17/2025 Hospital Encounter [facility] Admissions [address] [place] [id number] Damian Weaver MD, PhD [address] [place] [phone] [email or web address] Social History Tobacco Use Types Packs/Day Years [...] Info) Description 07/17/2025 1:40 PM EDT Infusion [facility] at [address] [address] Asael Martines DO [address] [place] [address] [phone] [email or web address] 07/21/2025 12:40 PM EDT Treatment [facility] At [facility] Rad Onc [address] [place] [address] 17684 Yolis Sandoval MD [address] [place] [address] 91460 [email or web address] 07/22/2025 12:40 PM EDT Treatment [facility] At [facility] Rad Onc [address] [place] [address] 60784 Yolis Sandoval MD [address] [place] [address] 94949 [email or web address] 07/23/2025 12:40 PM EDT Treatment [facility] At [facility] Rad Onc [address] [place] [address] 31933 Yolis Sandoval MD [address] [place] [address] [phone] [email or web address] 07/23/2025 12:40 PM EDT Nutrition [facility] Center at [address] [address] 07/24/2025 12:40 PM EDT Treatment [facility] At [facility] Rad Onc [address] [place] [address] 31907 Yolis Sandoval MD [address] [place] [address] 01168 [email or web address] 07/24/2025 1:00 PM EDT Infusion [facility] at [address] [address] Asael Martines, [address] [address] [email or web address] 07/24/2025 1:00 PM EDT Social Work [facility] at [address] [address] Asael Martines, DO [address] [place] [address] 30830 [email or web address] 07/25/2025 11:00 AM EDT Office Visit [facility] at [address] [address] Kaykay Guillen NP [address] [place] [address] 49157 [email or web address] 07/25/2025 11:30 AM EDT Treatment [facility] [place] at [address] [address] 07/25/2025 12:40 PM EDT Treatment [facility] At [facility] Rad Onc [address] [place] [address] 36931 Yolis Sandoval MD [address] [place] [address] 33602 [email or web address] 07/29/2025 11:30 AM EDT Treatment [facility] [place] [address] [place] [address] Rachael Newell CNP [address] [place] [address] [email or web address] 07/29/2025 12:40 PM EDT Treatment [facility] At [facility] Rad Onc [address] [place] [address] Yolis Sandoval MD [address] [place] [address] 79137 [email or web address] 07/30/2025 12:40 PM EDT Treatment [facility] At [facility] Rad Onc [address] [place] [address] 26469 Yolis Sandoval MD [address] [place] [address] 25437 [email or web address] 07/31/2025 12:40 PM EDT Treatment [facility] At [facility] Rad Onc [address] [place] [address] 56039 Yolis Sandoval MD [address] [place] [address] 35315 [email or web address] 08/01/2025 12:40 PM EDT Treatment [facility] At [facility] Rad Onc [address] [place] [address] 62758 Yolis Sandoval MD [address] [place] [address] 28208 [email or web address]@[facility] 08/04/2025 12:40 PM EDT Treatment [facility] At [facility] Rad Onc [address] [place] [address] Yolis Sandoval MD [address] [place] [address] [phone] [email or web address] 08/05/2025 12:40 PM EDT Treatment [facility] At [facility] Rad Onc [address] [place] [address] 37309 Yolis Sandoval MD [address] [place] [address] 25710 [email or web address]@[facility] 08/06/2025 12:40 PM EDT Treatment [facility] At [facility] Rad Onc [address] [place] [address] 47014 Yolis Sandoval MD [address] [place] [address] 30215 [email or web address]@[facility] 08/07/2025 12:30 PM EDT Treatment [facility] At [facility] Rad Onc [address] [place] [address] 87998 Yolis Sandoval MD [address] [place] [address] 04683 [email or web address] 08/08/2025 12:40 PM EDT Treatment [facility] At [facility] Rad Onc [address] [place] [address] 88676 Yolis Sandoval MD [address] [place] [address] 26460 [email or web address]@[facility] 08/11/2025 12:40 PM EDT Treatment [facility] At [facility] Rad Onc [address] [place] [address] 54467 Yolis Sandoval MD [address] [place] [address] 52386 [email or web address]@[facility] 08/12/2025 12:40 PM EDT Treatment [facility] At [facility] Rad Onc [address] [place] [address] Yolis Sandoval MD [address] [place] [address] 26230 [email or web address] 08/13/2025 12:40 PM EDT Treatment [facility] At [facility] Rad Onc [address] [place] [address] 58274 Yolis Sandoval MD [address] [place] [address] 02176 [email or web address] 08/14/2025 12:40 PM EDT Treatment [facility] At [facility] Rad Onc [address] [place] [address] 15883 Yolis Sandoval MD [address] [place] [address] 49730 [email or web address]@[facility] 08/15/2025 12:40 PM EDT Treatment [facility] At [facility] Rad Onc [address] [place] [address] Yolis Sandoval MD [address] [place] [address] 72244 [email or web address]@[facility] 08/18/2025 12:40 PM EST Treatment [facility] At [facility] Rad Onc [address] [place] [address] 86294 Yolis Sandoval MD [address] [place] [address] 04953 [email or web address]@[facility] 08/19/2025 12:40 PM EST Treatment [facility] At [facility] Rad Onc [address] [place] [address] Yolis Sandoval MD [address] [place] [address] 09992 [email or web address] 08/20/2025 12:40 PM EST Treatment [facility] At [facility] Rad [address] [address] Yolis Sandoval MD [address] [place] [address] 31536 [email or web address] 08/21/2025 12:40 PM EST Treatment [facility] At [facility] Rad Onc [address] [place] [address] 92148 Yolis Sandoval MD [address] [place] [address] 43496 [email or web address] 08/22/2025 12:10 PM EST Appointment [facility] Laboratory [address] [place] [address] 06769 Asael Martines DO [address] [place] [address] 77577 [email or web address] 08/22/2025 12:40 PM EST Treatment [facility] At [facility] Rad Onc [address] [place] [address] 88700 Yolis Sandoval MD [address] [place] [address] 09426 [email or web address] 08/22/2025 1:30 PM EST Office Visit [facility] at [address] [address] Kaykay Guillen NP [address] [place] [address] 28059 [email or web address] 08/25/2025 12:40 PM EST Treatment [facility] At [facility] Rad Onc [address] [place] [address] 98291 Yolis Sandoval MD [address] [place] [address] 36019 [email or web address] 08/26/2025 12:40 PM EST Treatment [facility] At [facility] Rad Onc [address] [place] [address] 23369 Yolis Sandoval MD [address] [place] [address] 49538 [email or web address] 08/27/2025 12:40 PM EST Treatment [facility] At [facility] Rad Onc [address] [place] [address] 95757 Yolis Sandoval MD [address] [place] [address] 29492 [email or web address] 08/28/2025 12:40 PM EST Treatment [facility] At [facility] Rad Onc [address] [place] [address] 17607 Yolis Sandoval MD [address] [place] [address] 55571 [email or web address]@[facility] 08/29/2025 12:40 PM EST Treatment [facility] At [facility] Rad Onc [address] [place] [address] 39931 Yolis Sandoval MD [address] [place] [address] 03192 [email or web address]@[facility] 09/01/2025 12:40 PM EST Treatment [facility] At [facility] Rad Onc [address] [place] [address] 44838 Yolis Sandoval MD [address] [place] [address] 74166 [email or web address]@[facility] 09/02/2025 12:40 PM EST Treatment [facility] At [facility] Rad [address] [address] Yolis Sandoval MD [address] [place] [address] 69597 [email or web address] 09/03/2025 12:40 PM EST Treatment [facility] At [facility] Rad Onc [address] [place] [address] 86941 Yolis Sandoval MD [address] [place] [address] 45590 [email or web address] 09/04/2025 12:40 PM EST Treatment [facility] At [facility] Rad Onc [address] [place] [address] 64991 Yolis Sandoval MD [address] [place] [address] 67169 [email or web address] documented as of this encounter Visit Diagnoses Not on filedocumented in this encounter Care Teams Sanding Machine Buffer Relationship Specialty Start Date End Date Ayla Ziegler MD [address] [place] [address] PCP - General Family Medicine 01/24/25 Damian Weaver MD, PhD [address] [place] [address] 730 [place] [address] [email or web address] Primary Oncologist Hematology and Oncology 05/21/25 Asael Martines DO [address] [place] [address] [email or web address] Hematology and Oncology 06/25/25 documented as of this encounter Additional Source Comments The information contained in this document represents components of the legal health record. It is not the complete legal health record.[facility]
--- OUTSIDE RECORDS SUMMARY | 2025-07-15 16:24 | XMS_ITS | Clinical Summary ---
Author Organization [employer] Address [address] [place] [address] 7t [place] [address] Care Team Providers Care Mine Wedge Sawyer Name Role Phone Ayla Ziegler MD Primary Care Provider [phone] Allergies Active Allergy Reactions Criticality Noted Date Comments Omeprazole 12/02/2010 Other reaction(s): unspecified Oxaliplatin Shortness of breath High 06/02/2025 Other Reaction(s): Neuropathy Tingling in chest, throat expanding/speech difficulties Tetanus Toxoid 04/24/2023 Other reaction(s): fever, vomiting Medications metoprolol succinate XL (Toprol-XL) 50 MG 24 hr tablet 04/19/20 23 Active D3-1000 25 MCG (1000 UT) capsule TAKE 1 CAPSULE BY MOUTH IN THE MORNING 90 capsule 3 06/20/20 24 Active metFORMIN (Glucophage) 1000 MG tablet Take 1 tablet (1,000 mg) by mouth with breakfast and with evening meal. 60 tablet 11 11/19/19 25 026 Active glucose blood (FreeStyle Precision Sukhi Test) test stripIndications: Type 2 diabetes mellitus without complication, without long-term current use of insulin (HCC) USE TO TEST BLOOD SUGAR ONCE A DAYY IN CASE OF CGM FAILURE OR EXTREMES OF BLOOD GLUCOSE 100 strip 11 02/15/20 25 Active Eliquis 5 MG tablet TAKE ONE TABLET EVERY TWELVE HOURS 180 tablet 1 04/23/20 25 Active LORazepam (Ativan) 1 MG tabletIndications :Anxiety Take 1 tablet (1 mg) by mouth Once per day. Dose increased 30 tablet 05/14/20 25 Active dexAMETHasone (Decadron) 2 MG tablet TAKE 1 TABLET EVERY 12 HOURS FOR JUST 2 DAYS AFTER CHEMOTHERAPY 06/02/20 25 Active loperamide (Imodium) 2 MG capsule Take 2 mg by mouth if needed in the morning, at noon, in the evening, and at bedtime. 05/30/20 25 Active RSVPreF3 Vac Recomb Adjuvanted 120 MCG/0.5ML reconstituted suspension Inject 0.5 mL into the muscle 1 (one) time for 1 dose. 1 each 07/15/20 25 025 Active Continuous Glucose Power Electronics Engineer (FreeStyle Tevin 3 [place]) deviceIndications :Type 2 diabetes mellitus without complication, without long-term current use of insulin (HCC) 1 EACH ONCE PER DAY. USE DIRECTED FOR CGM 1 each 02/15/20 25 025 Discontin ued(Cost of medicatio n) Continuous Glucose Sensor (FreeStyle Tevin 3 Plus Sensor) miscIndications:T ype 2 diabetes mellitus without complication, without long-term current use of insulin (HCC) USE 1 SENSOR EVERY 15 DAYS. APPLY 1 EVERY 15 DAYS DIRECTED FOR CGM 1 each 02/15/20 025 Discontin ued(Cost of medicatio n) Active Problems Problem Noted Date Diagnosed Date Varicose veins of both lower extremities 025 Drug reaction 05/21/2025 Anxiety 04/09/2025 Pancreatic adenocarcinoma ([facility]/HCC) 02/02/2025 Chronic atrial fibrillation ([facility]/HCC) 05/28/2024 Overview (05/28/2024): on eliquis AAA (abdominal aortic aneurysm) 04/24/2023 Essential hypertension 12/13/2011 Diabetes mellitus 12/13/2011 Obesity 12/13/2011 Pure hypercholesterolemia 11/10/2011 Migraine 10/26/2011 Acute pharyngitis 05/18/2011 Resolved Problems Problem Noted Date Diagnosed Date Resolved Date Pancreatic adenoma 04/09/2025 Tobacco dependence syndrome 10/26/2011 07/15/2025 Encounters Date Type Department Care Team Description 07/15/2025 10:00 AM EDT Procedure Visit [facility] [address] [place] [address] Yolis Merino MD Cervical cancer screening (Primary Dx) 07/15/2025 Travel 07/14/2025 Telephone [facility] [address] [place] [address] Ayla Ziegler MD chart prep 07/10/2025 Telephone [facility] [address] [place] [address] Ayla Ziegler MD No Show 07/09/2025 Telephone [facility] [address] [place] [address] Ayla Ziegler MD Chart Prep 07/08/2025 Travel 07/02/2025 Telephone [facility] [address] [facility] [place] [place] [address] Ayla Ziegler MD Referral 06/25/2025 Telephone [facility] [address] [facility] [place] [address] Ayla Ziegler MD Appointment Request; orders needed 05/15/2025 1:00 PM EDT Clinical Support [facility] [address] [place] [address] Heather Siddiqui, RN Anxiety; Long-term current use of benzodiazepine 05/15/2025 Telephone [facility] [address] [place] [address] Heather Siddiqui RN 05/15/2025 Travel 05/14/2025 Refill [facility] [address] [facility] [place] [address] Ayla Ziegler MD Anxiety 05/09/2025 Travel 05/01/2025 Travel 05/01/2025 Telephone [facility] [address] [place] [address] Heather Siddiqui RN 04/29/2025 Travel 04/23/2025 Refill [facility] [address] [facility] [place] [address] Ayla Ziegler MD 04/16/2025 Travel 04/16/2025 Telephone [facility] [address] [place] [address] Heather Siddiqui RN BOAT ASSEMBLER 04/15/2025 Telephone [facility] [address] [place] [address] Ayla Ziegler MD Appointment Request from Last 3 Months Immunizations Immunization Administration Dates Next Due Influenza High-dose Quadriva lent Preservative Free 08/15/2022 Influenza Quadrivalent Adjuvanted 07/13/2023,10/2020,07/14/2020 Influenza injectable quadriv alent IIV4 with preservative 09/03/2019 Influenza injectable quadriv alent preservative free 08/17/2015 Influenza, High Dose Seasona l, Preservative Free 07/10/2025,07/29/2024,08/06/2018,2016,07/21/2016 Influenza, IIV3, injectable 08/16/2014 Influenza, Split (incl. [...] Mass Index 32.1 07/15/2025 10:20 AM EDT Plan of Treatment Upcoming Encounters Date Type Department Care Team (Late st Contact Info) Description 07/16/2025 11:15 AM EDT Office Visit [facility] [address] [place] [address] Ayla Ziegler MD [address] [place] [address] 08/14/2025 10:00 AM EDT Clinical Support [facility] [address] [place] [address] Heather Siddiqui RN [address] [place] [address] Health Maintenance Due Date Last Done Comments CT Colonography 1950 Colonoscopy 1950 FIT 1950 Sigmoidoscopy 1950 Alcohol/Substance Use Screening 1962 Hepatitis C Screening 1968 Zoster Vaccines (1 of 2) 2000 Diabetes: Urine Protein Screening 04/29/2025 04/29/2024, 04/24/2023 RSV Patients and Patients Aged 60 years or older (1 - 1-dose 75+ series) 2025 Diabetes: Hemoglobin A1C 10/09/2025 025, 11/19/2024, 04/29/2024, Additional history exists Lipid Panel 11/19/2025 11/19/2024, 04/15, 04/24/2023, Additional history exists FOBT 11/28/2025 11/28/2024 Diabetes: Foot Exam 02/03/2026 02/03/2025, 04/29/2024, 04/29/2024, Additional history exists Eye Exam 02/27/2026 02/28/2024 SDOH Screening 04/02/2026 04/02/2025 Depression Screening 04/09/2026 04/09/2025, 04/09/20 Tobacco Screening 07/15/2026 07/15/2025 Colorectal Cancer Screening 11/28/2027 FIT DNA/Cologuard 11/28/2027 11/28/2024 DTaP/Tdap/Td Vaccines (2 - Td or Tdap) 04/29/2034 04/29/2024 Pneumococcal Vaccine: 50+ Years Completed 08/12/2022, 06/18/2019 Hepatitis B Vaccines Aged Out 02/04/2025 No long er eligible based on patient's age to complete this topic COVID-19 Vaccine Completed 07/10/2025, , 08/26/2022, Additional history exists Influenza Vaccine Completed 07/10/2025, , 07/13/2023, Additional history exists HIB Vaccines Aged Out [...] Name Priority Date/Time Associated Diagnosis Comments POCT KYLEE-14 URINE DRUG SCREEN Routine 05/15/2025 1:45 PM EDT Anxiety Long-term current use of benzodiazepine POCT GLYCATED HEMOGLOBIN, TOTAL Routine 04/09/2025 11:21 AM EDT Type 2 diabetes mellitus without complication, without long-term current use of insulin ([facility]) AMB REFERRAL TO PODIATRY Routine 02/03/2025 Type 2 diabetes mellitus without complication, without long-term current use of insulin ([facility]) LAB COLOGUARD COLON CANCER SCREEN Routine 11/28/2024 10:45 AM EST Encounter for screening for malignant neoplasm of colon LIPID PANEL, STANDARD Routine 11/19/2024 9:24 AM EST Type 2 diabetes mellitus without complication, without long-term current use of insulin ([facility]) ALBUMIN, RANDOM URINE W/CREATININE Routine 04/29/2024 11:01 AM EDT Type 2 diabetes mellitus without complication, without long-term current use of insulin ([facility]) DIABETES EYE EXAM Routine 02/28/2024 7:24 PM EDT from Last 3 Months or Most Recently Relevant to Health Maintenance Results * POCT KYLEE-14 Urine Drug Screen (05/15/2025 1:45 PM EDT) THC Negative Negative Cocaine Screen, Urine Negative Negative Opiate Screen, Urine Negative Negative Methamphetamine Screen Urine Negative Negative Amphetamine Screen, Urine Negative Negative Benzodiazepines Screen, Urine Negative Negative Barbiturate Screen, Urine Negative Negative Methadone Screen, Urine Negative Negative Buprenophine Screen, Urine Negative Negative TCA, Urine Negative Negative MDMA Urine Negative Negative ng/mL Oxycodone Screen, Urine Negative Negative Phencyclidine (PCP), Urine Negative Negative Propoxyphene, Urine Negative Negative Fentanyl, Urine Negative Negative Urine Urine specimen obtained by clean catch procedure / Unknown 05/15/2025 1:45 PM EDT Narrative Heather Siddiqui RN - 05/15/2025 1:45 PM EDT Internal Pass Control Lot# [id number] Exp: 08-15-26 us Ayla Ziegler MD POINT OF CARE TEST ENTER/EDIT OR DERABLES Final Result * POCT HGB A1C (04/09/2025 11:21 AM EDT) Pathologist [facility] Hemoglobin A1C 5.9 4.0 - 6.0 % QC Media Lot # [id number] Lot# Expiration Date Blood 04/09/2025 11:2 1 AM EDT us Ayla Ziegler MD POINT OF CARE TEST ENTER/EDIT OR DERABLES Final Result * Referral to Podiatry (02/03/2025) us Ayla Ziegler MD OUTPATIENT REFERRAL ORDERABLES F inal Result * (ABNORMAL) Cologuard?? colon cancer screening (11/28/2024 10:45 AM EST) [facility] Cologuard Result Positive( A) Negative 12/04/2024 2:53 PM EST [employer] (CLIA #:[id number]) Comment: POSITIVE TEST RESULT. A positive Cologuard result should be followed with a colonoscopy or visual examination of the colon. The normal value (reference range) for this assay is negative. TEST DESCRIPTION: Composite algorithmic analysis of stool DNA-biomarkers with hemoglobin immunoassay. Quantitative values of individual biomarkers are not [...] (Dawn Farfan al, N Engl J Med 2014;370(14):9862-0929.) Cologuard may produce a false negative or false positive result (no colorectal cancer or precancerous polyp present at colonoscopy follow up). A negative Cologuard test result does not guarantee the absence of CRC or advanced adenoma (pre-cancer). The current Cologuard screening interval is every 3 years. ([place] [employer] Society and U.S. Multi-Society Task Force). Cologuard performance data in a 10,000 patient pivotal study using colonoscopy as the reference method can be accessed at the following location: www.[employer]/results. Additional description of the Cologuard test process, warnings and precautions can be found at www.ShipEarlyrd.com. Stool specimen (specimen) Rectal contents / Unknown 11/28/2024 10:45 AM EST 11/29/2024 10:58 AM EST us Ayla Ziegler MD LAB MOLECULAR DIAGNOSTICS BERYL AREVALO Final Result [employer] (CLIA #:[id number]) [place] [address], * (ABNORMAL) Lipid Panel, Standard (11/19/2024 9:24 AM EST) Triglycerides 84 <150 mg/dL [facility] Comment:Desirable Triglyceri de: less than 150 mg/dLBorderline High Triglyceride 150-199 mg/dLHigh Triglyceride: 200-499 mg/dLVery High Triglyceride: greater than or equal to 5OO mg/dL Cholesterol 175 <200 mg/dL [facility] Comment:Desirable Cholestero l: less than 200 mg/dLBorderline High Cholesterol: 200-239 mg/dLHigh Cholesterol: greater than 239 mg/dL LDL Cholesterol Calculated 123(H) <100 mg/dL [facility] Comment:Desirable LDL: less than 100 mg/dLNear Optimal/Above Optimal LDL: 110- 129 mg/dLBorderline High LDL: 130-159 mg/dLHigh LDL: 160-189 mg/dLVery High LDL: greater than or equal to 190 mg/dL HDL Cholesterol 36(L) >40 mg/dL [facility] Comment:Desirable HDL: great er than 40 mg/dL Note: This HDL assay may give artificially low results in patients with liver disease. Blood Venous blood specimen / Unknown 11/19/2024 9:24 AM EST 11/19/2024 2:10 PM EST Ayla Ziegler MD LAB BLOOD ORDERABLES Final Resul t Performing Organization Address City/[facility]/ZIP Co de Phone Number [facility] [address] [place] [phone] * Albumin, Random Urine W/Creatinine (04/29/2024 11:01 AM EDT) Creatinine, Urine 109.33 mg/dL [facility] Microalbumin Urine 26.0 mg/L [facility] Microalbum Creatinine Ratio Ur 23.7 <30 ug/mg cr [facility] Comment:Albumin/Creatinine R atio Reference Ranges: Normal: < 30 ug/mg creatinine Microalbuminuria: 30 - 300 ug/mg creatinineClinical Albuminuria: > 300 ug/mg creatinine Urine (Urine, Random) 04/29/2024 11:01 AM EDT 04/29/2024 2:26 PM EDT Ayla Ziegler MD LAB URINE ORDERABLES Final Resul t Performing Organization Address [facility]/ZIP Co de Phone Number [facility] [address] [place] [phone] * Diabetes Eye Exam (02/28/2024 7:24 PM EDT) us Historical Provider HEALTH MAINTENANCE Final Result from Last 3 Months or Most Recently Relevant to Health Maintenance Insurance [facility] STANDARD MEDICARE Care Teams Mine Wedge Sawyer Relationship Specialty Start Date End Date Ayla Ziegler MD [address] [place] [phone] PCP - General Family Medicine 11/14/13
--- OUTSIDE RECORDS SUMMARY | 2025-07-15 16:24 | XMS_ITS | Encounter Summary ---
Author Organization [employer] Address [address] [place] [address] Care Team Providers Care Fuel Cell Designer Name Role Phone Ayla Ziegler MD Primary Care Provider [phone] Encounter Details Date Type Department Care Team (Latest Contact Info) Description 07/15/2025 Travel Social History Tobacco Use Types Packs/Day [...] Description 07/16/2025 11:15 AM EDT Office Visit [facility] [address] [place] [address] Ayla Ziegler MD [address] [place] [address] 08/14/2025 10:00 AM EDT Clinical Support [facility] [address] [place] [address] Heather Siddiqui, [place] [address] [place] [address] documented as of this encounter Visit Diagnoses Not on filedocumented in this encounter Additional Health Concerns Assessment Noted Time PHQ-9 Depression Total Score: 5 04/09/20 25 11:23 AM EDT documented as of this encounter Care Teams Fuel Cell Designer Relationship Specialty Start Date End Date Ayla Ziegler MD [address] [place] [phone] PCP - General Family Medicine 11/14/13 documented as of this encounter
--- OUTSIDE RECORDS SUMMARY | 2025-07-15 16:24 | XMS_ITS | Encounter Summary ---
Author Organization [employer] Address [address] [facility] 7t [place] [address] Care Team Providers Care Commercial Sales Director Name Role Phone Ayla Ziegler MD Primary Care Provider [phone] Reason for Visit * Reason Onset Date Comments Med Refill 03/21/2024 Encounter Details Date Type Department Care Team ([facility] st Contact Info) Description 03/21/2024 Telephone [facility] [address] [place] [address] Ayla Ziegler MD [address] [place], [place] [phone] Med Refill Social History Tobacco Use Types [...] 1 MG tablet To be sent to: [facility]/pharmacy #[id number] AT [facility] documented in this encounter Plan of Treatment Upcoming Encounters Date Type Department Care Team (Late st Contact Info) Description 07/16/2025 11:15 AM EDT Office Visit [facility] [address] [place] [address] Ayla Ziegler MD [address] [place] [address] 08/14/2025 10:00 AM EDT Clinical Support [facility] [address] [place] [address] Heather Siddiqui, [place] [address] [place] [address] documented as of this encounter Visit Diagnoses Not on filedocumented in this encounter Additional Health Concerns Assessment Noted Time PHQ-9 Depression Total Score: 0 04/24/20 23 11:11 AM EDT documented as of this encounter Care Teams Commercial Sales Director Relationship Specialty Start Date End Date Ayla Ziegler MD [address] [place] [phone] PCP - General Family Medicine 11/14/13 documented as of this encounter
--- OUTSIDE RECORDS SUMMARY | 2025-07-15 16:24 | XMS_ITS ---
Author Organization [facility] Address [address] [place] [phone] Phone Care Team Providers Care Qa Test Analyst Name Role Phone Ayla Ziegler MD Primary Care Provider [phone] Damian Weaver MD, PhD Unavailable [phone] Asael Martines DO Unavailable [phone] Active Problems Patient Care Coordination No te Formatting of this note migh t be different from the original. Please use [id number] for port dressing. Irinotecan over 60 mins, [...] 11/10/2011 Tobacco dependence syndrome 10/26/2011 Migraine 10/26/2011 Current Treatment and Therapy Plans CAPECITABINE WITH XRT - 5 DAY PER WEEK SCHEDULE* Plan Start Date:07/14/2025 Plan Provider:Asael Martines DO Linked Problems Pancreatic adenocarcinoma Treatment Medications Current Day (Day 8 , Cycle 1 - Planned for 07/21/2025) Next Day (Day 15, Cycle 1 - Planned for 07/28/2025) capecitabine (XELODA) No medications scheduled. No medications scheduled. Other Current Plans Desensitization Associated Orders* Plan Start Date:06/02/2025 Plan Provider:Irineo Jones CNP Linked Problems Adverse effect of drug, subs equent encounter Treatment Medications No medications scheduled. Past Treatment and Therapy Plans TREATMENT PLAN Plan Name Start Date Discontinue Date Treatment Medications Discontinue Reason Plan Provider Cycles FOLFIRINOX - Fluorouracil/ Leucovorin/Ir inotecan/Oxal iplatin 5 07/10/2025 desensitization infusion builder (HIGH RISK HAZARDOUS CHEMO SOC)(Charge) Bagfluorouracil (ADRACIL)fluoroura cil (ADRUCIL)fluoroura cil (ADRUCIL) CADD pump infusion (total dose < 5000 mg) (100 mL)irinotecan (CAMPTOSAR) IVPBoxaliplatin (ELOXATIN) IVPB a. Therapy Complete Damian Weaver MD, PhD 2 of 4 cycles started
--- OUTSIDE RECORDS SUMMARY | 2025-07-15 16:24 | XMS_ITS | Encounter Summary ---
Author Organization [employer] Address [address] [facility] 7t [place] [address] Care Team Providers Care Manager Gift Name Role Phone Ayla Ziegler MD Primary Care Provider [phone] Reason for Visit * Reason Onset Date Comments Med Refill 02/13/2025 Encounter Details Date Type Department Care Team ([facility] st Contact Info) Description 02/13/2025 Telephone [facility] MED[facility] [address] [place] [address] Ayla Ziegler MD [address] [place], [place] [phone] Med Refill Social History Tobacco Use Types [...] encounter Miscellaneous Notes * Telephone Encounter - Davide Galvez - 02/13/2025 8:13 AM EDT TC from pt requesting medication refill. Medications needing refill : LORazepam (Ativan) 1 MG tablet To be sent to: [id number] [facility] documented in this encounter Plan of Treatment Upcoming Encounters Date Type Department Care Team ([facility] st Contact Info) Description 07/16/2025 11:15 AM EDT Office Visit [facility] [address] [place] [address] Ayla Ziegler MD [address] [place] [address] 08/14/2025 10:00 AM EDT Clinical Support [facility] [address] [place] [address] Heather Siddiqui RN [address] [place] [address] documented as of this encounter Visit Diagnoses Not on filedocumented in this encounter Additional Health Concerns Assessment Noted Time PHQ-9 Depression Total Score: 0 04/24/20 23 11:11 AM EDT documented as of this encounter Care Teams Manager Gift Relationship Specialty Start Date End Date Ayla Ziegler MD [address] [place] [phone] PCP - General Family Medicine 11/14/13 documented as of this encounter
--- OUTSIDE RECORDS SUMMARY | 2025-07-15 16:24 | XMS_ITS | Encounter Summary ---
Author Organization [employer] Address [address] [facility] [address] 7[address] [place] [address] Care Team Providers Care Manager Medical Device Name Role Phone Ayla Ziegler MD Primary Care Provider [phone] Encounter Details Date Type Department Care Team ([facility] st Contact Info) Description 04/09/2025 Orders Only [facility] & PEDS [address] [place] [address] ProviderSybil MD Social History Tobacco Use Types [...] AM EDT documented as of this encounter Functional Status * Over the past 2 weeks, how often have you been bothered by any of the following problems? Question Answer Date of Assessment Author Patient Health Questionnaire -2 Score 3 04/09/2025 11:23 AM Nevaeh Disla [place] * Little interest or pleasure in doing things Answer Date of Assessment Author Several days 04/09/2025 11:23 AM Iglesia Disla MA * Feeling down, depressed, or hopeless Answer Date of Assessment Author More than half the days 04/09/2025 11:23 AM Nevaeh Disla [place] * Trouble falling or staying asleep, or sleeping too much Answer Date of Assessment Author Several days 04/09/2025 11:23 AM Iglesia Disla [place] * Feeling tired or having little energy Answer Date of Assessment Author Several days 04/09/2025 11:23 AM Iglesia Disla [place] * Poor appetite or overeating Answer Date of Assessment Author Not at all 04/09/2025 11:23 AM Iglesia Disla MA * Feeling bad about yourself - or that you are a failure or have let yourself or your family down Answer Date of Assessment Author Not at all 04/09/2025 11:23 AM Iglesia Disla MA * Trouble concentrating on things, such as reading the newspaper or watching television Answer Date of Assessment Author Not at all 04/09/2025 11:23 AM Iglesia Disla [place] * Moving or speaking so slowly that other people could have noticed? Or the opposite - being so fidgety or restless that you have been moving around a lot more than usual. Answer Date of Assessment Author Not at all 04/09/2025 11:23 AM Iglesia Disla MA * Thoughts that you would be better off or hurting yourself in some way Answer Date of Assessment Author Not at all 04/09/2025 11:23 AM Iglesia Disla MA * Patient Health Questionnaire-9 Score Answer Date of Assessment Author 5 04/09/2025 11:23 AM Iglesia Disla MA * How difficult have these problems made it for you to do your work, take care of things at home, or get along with other people? Answer Date of Assessment Author Somewhat difficult 04/09/2025 11:23 AM Nevaeh Disla MA documented as of this encounter Plan of Treatment Upcoming Encounters Date Type Department Care Team (Late st Contact Info) Description 07/16/2025 11:15 AM EDT Office Visit [facility] [address] [place] [address] Ayla Ziegler MD [address] [place] [address] 08/14/2025 10:00 AM EDT Clinical Support [facility] [address] [place] [address] Heather Siddiqui RN [address] [place] [address] documented as of this encounter Procedures Procedure Name Priority Date/Time Associated Diagnosis Comments PET CT SKULL TO MID THIGH W FDG Routine 04/04/2025 2:23 PM EDT documented in this encounter Results * PET/CT FDG Skull Base To Mid-Thigh (04/04/2025 2:23 PM EDT) Anatomical Region Laterality Modality Computed Tomogra phy us Historical Provider MD CAMACHO CT PROCEDURES Final R esult documented in this encounter Visit Diagnoses Not on filedocumented in this encounter Additional Health Concerns Assessment Noted Time PHQ-9 Depression Total Score: 5 06/25/20 25 11:23 AM EDT documented as of this encounter Care Teams Manager Medical Device Relationship Specialty Start Date End Date Ayla Ziegler MD [address] [place] [address] PCP - General Family Medicine 11/14/13 documented as of this encounter
--- OUTSIDE RECORDS SUMMARY | 2025-07-15 16:24 | XMS_ITS | Encounter Summary ---
Author Organization [facility] Address [address] [place] [address] [place] [address] Phone Care Team Providers Care Patient Financial Representative Name Role Phone Ayla Ziegler MD Primary Care Provider [phone] Damian Weaver MD, PhD Unavailable [phone] Asael Martines DO Unavailable [phone] Encounter Details Date Type Department Care Team (Late st Contact Info) Description 05/20/[address] [facility] - CT [address] [facility], 6th [place] [address] Social History Tobacco Use Types Packs/Day Years [...] Info) Description 07/17/2025 1:40 PM EDT Infusion [facility] Dayana [address] [place] [address] Asael Martines DO [address] [place] [address] [email or web address] 07/21/2025 12:40 PM EDT Treatment [facility] Rad Onc [address] [place] [address] Yolis Sandoval MD [address] [place] [address] [email or web address] 07/22/2025 12:40 PM EDT Treatment [facility] Rad Onc [address] [place] [address] 11608 Yolis Sandoval MD [address] [place] [address] [email or web address] 07/23/2025 12:40 PM EDT Treatment [facility] Rad Onc [address] [place] [address]16 Yolis Sandoval MD [address] [place] [address] [email or web address] 07/23/2025 12:40 PM EDT Nutrition [facility] [address] [place] [address] 07/24/2025 12:40 PM EDT Treatment [facility] Rad Onc [address] [place] [address] Yolis Sandoval MD [address] [place] [address] [email or web address] 07/24/2025 1:00 PM EDT Infusion [facility] at [address] [address] Asael Martines, DO [address] [place] [address] [email or web address] 07/24/2025 1:00 PM EDT Social Work [facility] at [address] [address] Asael Martines, DO [address] [place] [address] [email or web address] 07/25/2025 11:00 AM EDT Office Visit [facility] at [address] [address] Kaykay Guillen NP [address] [place] [address] [email or web address] 07/25/2025 11:30 AM EDT Treatment [facility] at [address] [address] 07/25/2025 12:40 PM EDT Treatment [facility] Rad Onc [address] [place] [address] Yolis Sandoval MD [address] [place] [address] [email or web address] 07/29/2025 11:30 AM EDT Treatment [facility] at [address] [address] Rachael Newell CNP [address] [place] [address] 07/29/2025 12:40 PM EDT Treatment [facility] Rad Onc [address] [place] [address] Yolis Sandoval MD [address] [place] [address] [email or web address] 07/30/2025 12:40 PM EDT Treatment [facility] Rad Onc [address] [place] [address] Yolis Sandoval MD [address] [place] [address] [email or web address] 07/31/2025 12:40 PM EDT Treatment [facility] Rad Onc [address] [place] [address] Yolis Sandoval MD [address] [place] [address] [email or web address] 08/01/2025 12:40 PM EDT Treatment [facility] Rad Onc [address] [place] [address] Yolis Sandoval MD [address] [place] [address] [email or web address] 08/04/2025 12:40 PM EDT Treatment [facility] Rad Onc [address] [place] [address] Yolis Sandoval MD [address] [place] [address] [email or web address] 08/05/2025 12:40 PM EDT Treatment [facility] Rad Onc [address] [place] [address] Yolis Sandoval MD [address] [place] [address] [email or web address] 08/06/2025 12:40 PM EDT Treatment [facility] Rad Onc [address] [place] [address] Yolis Sandoval MD [address] [place] [address] [email or web address] 08/07/2025 12:30 PM EDT Treatment [facility] Rad Onc [address] [place] [address] Yolis Sandoval MD [address] [place] [address] [email or web address] 08/08/2025 12:40 PM EDT Treatment [facility] Rad Onc [address] [place] [address] Yolis Sandoval MD [address] [place] [address] [email or web address] 08/11/2025 12:40 PM EDT Treatment [facility] Rad Onc [address] [place] [address] Yolis Sandoval MD [address] [place] [address] [email or web address] 08/12/2025 12:40 PM EDT Treatment [facility] Rad Onc [address] [place] [address] Yolis Sandoval MD [address] [place] [address] [email or web address] 08/13/2025 12:40 PM EDT Treatment [facility] Rad Onc [address] [place] [address] Yolis Sandoval MD [address] [place] [address] [email or web address] 08/14/2025 12:40 PM EDT Treatment [facility] Rad Onc [address] [place] [address] Yolis Sandoval MD [address] [place] [address] [email or web address] 08/15/2025 12:40 PM EDT Treatment [facility] Rad Onc [address] [place] [address] Yolis Sandoval MD [address] [place] [address] [email or web address] 08/18/2025 12:40 PM EST Treatment [facility] Rad Onc [address] [place] [address] Yolis Sandoval MD [address] [place] [address] [email or web address] 08/19/2025 12:40 PM EST Treatment [facility] Rad Onc [address] [place] [address] Yolis Sandoval MD [address] [place] [address] [email or web address] 08/20/2025 12:40 PM EST Treatment [facility] Rad Onc [address] [place] [address] Yolis Sandoval MD [address] [place] [address] 64056 [email or web address] 08/21/2025 12:40 PM EST Treatment [facility] Rad Onc [address] [place] [address] Yolis Sandoval MD [address] [place] [address] 416[address] [email or web address] 08/22/2025 12:10 PM EST Appointment [facility] [address] [place] [address] Asael Martines DO [address] [place] [address] [email or web address] 08/22/2025 12:40 PM EST Treatment [facility] Rad Onc [address] [place] [address] Yolis Sandoval MD [address] [place] [address] [email or web address] 08/22/2025 1:30 PM EST Office Visit [facility] at [address] [address] Kaykay Guillen NP [address] [place] [address] [email or web address] 08/25/2025 12:40 PM EST Treatment [facility] Rad Onc [address] [place] [address] Yolis Sandoval MD [address] [place] [address] [email or web address] 08/26/2025 12:40 PM EST Treatment [facility] Rad Onc [address] [place] [address] Yolis Sandoval MD [address] [place] [address] [email or web address] 08/27/2025 12:40 PM EST Treatment [facility] Rad Onc [address] [place] [address] Yolis Sandoval MD [address] [place] [address] [email or web address] 08/28/2025 12:40 PM EST Treatment [facility] Rad Onc [address] [place] [address] Yolis Sandoval MD [address] [place] [address] [email or web address] 08/29/2025 12:40 PM EST Treatment [facility] Rad Onc [address] [place] [address] Yolis Sandoval MD [address] [place] [address] [email or web address] 09/01/2025 12:40 PM EST Treatment [facility] Rad Onc [address] [place] [address] Yolis Sandoval MD [address] [place] [address] 61477 [email or web address] 09/02/2025 12:40 PM EST Treatment [facility] Rad Onc [address] [place] [address] Yolis Sandoval MD [address] [place] [address] [email or web address] 09/03/2025 12:40 PM EST Treatment [facility] Rad Onc [address] [place] [address] Yolis Sandoval MD [address] [place] [address] [email or web address] 09/04/2025 12:40 PM EST Treatment [facility] Rad Onc [address] [place] [address] Yolis Sandoval MD [address] [place] [address] [email or web address] documented as of this encounter Visit Diagnoses Not on filedocumented in this encounter Care Teams Patient Financial Representative Relationship Specialty Start Date End Date Ayla Ziegler MD [address] [place] [address] PCP - General Family Medicine 01/24/25 Damian Weaver MD, PhD [address] [place] [address] [address] [place] [address] [email or web address] Primary Oncologist Hematology and Oncology 05/21/25 Asael Martines DO [address] [place] [address] [email or web address] H[facility] On[facility] 06/25/25 documented as of this encounter Additional Source Comments The information contained in this document represents components of the legal health record. It is not the complete legal health record.[facility]
== END 2025-07-15 15:01 | disposition home or self-care (01) ==
LOC: HO.LNP 15:00
PROVIDERS: Visit Provider Family Medicine
DX: Z11.51 Encounter for screening for human papillomavirus (HPV) (principal); Z12.4 Encounter for screening for malignant neoplasm of cervix
CPT/HCPCS: 87626; 88175

== ENCOUNTER 2025-07-16 11:21 | Outpatient (REF) | payer MEDICARE, MEDICAID, SELFPAY ==
--- OUTSIDE RECORDS SUMMARY | 2025-07-11 11:00 | XMS_ITS | Encounter Summary ---
Author Organization [facility] Address [address] [place] [address] [place] [address] Phone Care Team Providers Care Tobacco Sample Puller Name Role Phone Ayla Ziegler MD Primary Care Provider [phone] Damian Weaver MD, PhD Unavailable [phone] Asael Martines DO Unavailable [phone] Encounter Details Date Type Department Care Team (Late st Contact Info) Description 07/11/2025 11:00 AM EDT Office Visit [facility] Rad Onc [address] [place] [address] [phone] Yolis Sandoval MD [address] [place] [phone] [email or web address] Pancreatic adenocarcinoma (Primary Dx) Social History [...] Info) Description 07/17/2025 1:40 PM EDT [facility] [address] [address] Asael Martines DO [address] [place] [address] [phone] [email or web address] 07/21/2025 12:40 PM EDT Treatment [facility] Rad Onc [address] [place] [address] 83137 Yolis Sandoval MD [address] [place] [phone] [email or web address] 07/22/2025 12:40 PM EDT Treatment [facility] Rad Onc [address] [place] [address] 9[address]71 Yolis Sandoval MD [address] [place] [address] [phone] [email or web address] 07/23/2025 12:40 PM EDT Treatment [facility] Rad Onc [address] [place] [address] Yolis Sandoval MD [address] [place] [address] [phone] [email or web address] 07/23/2025 12:40 PM EDT Nutrition [facility] at [address] [address] 07/24/2025 12:40 PM EDT Treatment [facility] Rad Onc [address] [place] [address] 23538 Yolis Sandoval MD [address] [place] [phone] [email or web address] 07/24/2025 1:00 PM EDT Infusion [facility] at [address] [address] Asael Martines, DO [address] [place] [phone] [email or web address] 07/24/2025 1:00 PM EDT Social Work [facility] at [address] [address] Asael Martines, DO [address] [place] [address] [email or web address] 07/25/2025 11:00 AM EDT Office Visit [facility] at [address] [address] Kaykay Guillen NP [address] [place] [phone] [email or web address] 07/25/2025 11:30 AM EDT Treatment [facility] at [address] [address] 07/25/2025 12:40 PM EDT Treatment [facility] Rad Onc [address] [place] [address] Yolis Sandoval MD [address] [place] [address] [phone] [email or web address] 07/29/2025 11:30 AM EDT Treatment [facility] [address] [place] [address] Rachael Newell CNP [address] [place] [address] 64[address] [email or web address] 07/29/2025 12:40 PM EDT Treatment [facility] Rad Onc [address] [place] [address] 675[address] Yolis Sandoval MD [address] [place] [address] [phone] [email or web address] 07/30/2025 12:40 PM EDT Treatment [facility] Rad Onc [address] [place] [address] Yolis Sandoval MD [address] [place] [phone] [email or web address] 07/31/2025 12:40 PM EDT Treatment [facility] Rad Onc [address] [place] [address] 60[address] Yolis Sandoval MD [address] [place] [phone] [email or web address] 08/01/2025 12:40 PM EDT Treatment [facility] Rad Onc [address] [place] [address] 61057 Yolis Sandoval MD [address] [place] [address] [phone] [email or web address] 08/04/2025 12:40 PM EDT Treatment [facility] Rad Onc [address] [place] [address] Yolis Sandoval MD [address] [place] [address] [phone] [email or web address] 08/05/2025 12:40 PM EDT Treatment [facility] Rad Onc [address] [place] [address] Yolis Sandoval MD [address] [place] [address] [phone] [email or web address] 08/06/2025 12:40 PM EDT Treatment [facility] Rad Onc [address] [place] [address] 590[address] Yolis Sandoval MD [address] [place] [address] [phone] [email or web address] 08/07/2025 12:30 PM EDT Treatment [facility] Rad Onc [address] [place] [address] 499[address] Yolis Sandoval MD [address] [place] [address] [phone] [email or web address] 08/08/2025 12:40 PM EDT Treatment [facility] Rad Onc [address] [place] [address] 68[address] Yolis Sandoval MD [address] [place] [address] [phone] [email or web address] 08/11/2025 12:40 PM EDT Treatment [facility] Rad Onc [address] [place] [address] 397[address] Yolis Sandoval MD [address] [place] [address] [phone] [email or web address] 08/12/2025 12:40 PM EDT Treatment [facility] Rad Onc [address] [place] [address] Yolis Sandoval MD [address] [place] [address] [phone] [email or web address] 08/13/2025 12:40 PM EDT Treatment [facility] Rad Onc [address] [place] [address] 38312 Yolis Sandoval MD [address] [place] [address] [phone] [email or web address] 08/14/2025 12:40 PM EDT Treatment [facility] Rad Onc [address] [place] [address] 90[address] Yolis Sandoval MD [address] [place] [address] [phone] [email or web address] 08/15/2025 12:40 PM EDT Treatment [facility] Rad Onc [address] [place] [address] 37412 Yolis Sandoval MD [address] [place] [address] [phone] [email or web address] 08/18/2025 12:40 PM EST Treatment [facility] Rad Onc [address] [place] [address] Yolis Sandoval MD [address] [place] [phone] [email or web address] 08/19/2025 12:40 PM EST Treatment [facility] Rad Onc [address] [place] [address] 95841 Yolis Sandoval MD [address] [place] [address] [phone] [email or web address] 08/20/2025 12:40 PM EST Treatment [facility] Rad Onc [address] [place] [address] Yolis Sandoval MD [address] [place] [address] [phone] [email or web address] 08/21/2025 12:40 PM EST Treatment [facility] Rad Onc [address] [place] [address] Yolis Sandoval MD [address] [place] [phone] [email or web address] 08/22/2025 12:10 PM EST Appointment [facility] Laboratory [address] [place] [address]306 Asael Martines DO [address] [place] [address] [email or web address] 08/22/2025 12:40 PM EST Treatment [facility] Rad Onc [address] [place] [address] Yolis Sandoval MD [address] [place] [address] [phone] [email or web address] 08/22/2025 1:30 PM EST [facility] [address] [address] Kaykay Guillen NP [address] [place] [address] 08/25/2025 12:40 PM EST Treatment [facility] Rad Onc [address] [place] [address] 20155 Yolis Sandoval MD [address] [place] [address] [phone] [email or web address] 08/26/2025 12:40 PM EST Treatment [facility] Rad Onc [address] [place] [address] Yolis Sandoval MD [address] [place] [phone] [email or web address] 08/27/2025 12:40 PM EST Treatment [facility] Rad Onc [address] [place] [address] 19183 Yolis Sandoval MD [address] [place] [address] [phone] [email or web address] 08/28/2025 12:40 PM EST Treatment [facility] Rad Onc [address] [place] [address] Yolis Sandoval MD [address] [place] [address] [phone] [email or web address] 08/29/2025 12:40 PM EST Treatment [facility] Rad Onc [address] [place] [address] Yolis Sandoval MD [address] [place] [address] [phone] [email or web address] 09/01/2025 12:40 PM EST Treatment [facility] Rad Onc [address] [place] [address] Yolis Sandoval MD [address] [place] [address] [phone] [email or web address] 09/02/2025 12:40 PM EST Treatment [facility] Rad Onc [address] [place] [address] 10681 Yolis Sandoval MD [address] [place] [address] [phone] [email or web address] 09/03/2025 12:40 PM EST Treatment [facility] Rad Onc [address] [place] [address] Yolis Sandoval MD [address] [place] [address] [phone] [email or web address] 09/04/2025 12:40 PM EST Treatment [facility] Rad Onc [address] [place] [address] Yolis Sandoval MD [address] [place] [phone] [email or web address] documented as of this encounter Visit [...] Dilute as directed. Please speak with the electroencephalographic technologist prior to administering the oral contrast [...] is unable to do so, notify the sterile supply technician. If Omnipaque is aspirated into the larynx, [...] mL documented in this encounter Care Teams Tobacco Sample Puller Relationship Specialty Start Date End Date Ayla Ziegler MD [address] [place] [address] PCP - General Family Medicine 01/24/25 Damian Weaver MD, PhD [address] [place] [address] [place] [address] [email or web address] Primary Oncologist Hematology and Oncology 05/21/25 Asael Martines DO [address] [place] [address] [email or web address] 06/25/25 documented as of this encounter Additional Source Comments The information contained in this document represents components of the legal health record. It is not the complete legal health record.[facility]
--- OUTSIDE RECORDS SUMMARY | 2025-07-15 10:00 | XMS_ITS | Encounter Summary ---
Author Organization [employer] Address [address] [facility] [address] [place] [address] Care Team Providers Care Auto Parts Professional Name Role Phone Ayla Ziegler MD Primary Care Provider Encounter Details Date Type Department Care Team (Latest Contact Info) Description 07/15/2025 10:00 AM EDT Procedure Visit [facility] MED & PEDS [address] [place], [place] [phone] Yolis Merino MD [address] [place], [place] [phone] Cervical cancer screening (Primary Dx) Social History Tobacco Use Types Packs/Day Years Used Date Smoking Tobacco: Former Cigarettes Q uit: 04/21/2023 Smokeless Tobacco: Never Alcohol Use Standard Drinks/Week Comments Never 0 (1 standard drink = 0.6 oz pur e alcohol) Depression Answer Date Recorded Patient Health Questionnaire-9 Score 5 04/09/2025 Patient Health Questionnaire-9 Score 5 04/09/2025 Last PHQ-9: Questionnaire Data Not on file 0 04/09/2025 Housing Stability Answer Date Recorded What is [...] Answer Date Recorded Patient Health Questionnaire-2 Score 3 04/09/2025 Internet Access Answer Date Recorded Internet Access [...] Sign Reading Time Taken Comments Blood Pressure 134/60 07/15/2025 10:20 AM EDT Pulse 72 07/15/2025 10:20 AM EDT Temperature 37.1 C (98.7 F) 07/15/2025 10:20 AM EDT Respiratory Rate 18 07/15/2025 10:20 AM EDT Oxygen Saturation 98% 07/15/2025 10:20 AM EDT Inhaled Oxygen Concentration - - Weight 84.8 kg (187 lb) 07/15/2025 10:20 AM EDT Height 162.6 cm (5' 4 ) 07/15/2025 10:20 AM EDT Body Mass Index 32.1 07/15/2025 10:20 AM EDT documented in this encounter Plan of Treatment Upcoming Encounters Date Type Department Care Team (Late st Contact Info) Description 08/14/2025 10:00 AM EDT Clinical Support [facility]EDS [address] [place] [address] Heather Siddiqui, [place] [address] [place] [address] Scheduled Orders Name Type Priority Associated Diagnoses Orde r Schedule Pap Smear Pathology and Cytology Routine Cervical cancer screening Ordered: 07/15/2025 HPV High Risk with Reflex to Subtypes Lab Routine Cervical cancer screening Ordered: 07/15/2025 documented as of this encounter Visit Diagnoses Diagnosis Cervical cancer screening- Primary Screening for malignant neoplasm of the cervix documented in this encounter Additional Health Concerns Assessment Noted Time PHQ-9 Depression Total Score: 5 04/09/20 25 11:23 AM EDT documented as of this encounter Care Teams Auto Parts Professional Relationship Specialty Start Date End Date Ayla Ziegler MD [address] [place] [address] PCP - General Family Medicine 11/14/13 documented as of this encounter
--- OUTSIDE RECORDS SUMMARY | 2025-07-16 11:15 | XMS_ITS | Encounter Summary ---
Author Organization [email or web address] Address [address] [place] [address] Care Team Providers Care Computer Sciences Professor Name Role Phone Ayla Ziegler MD Primary Care Provider [phone] Encounter Details Date Type Department Care Team ([facility] st Contact Info) Description 07/16/2025 11:15 AM EDT Office Visit [facility] PEDS [address] [place] [address] Ayla Ziegler MD [address] [place] [address] Bilateral leg edema (Primary Dx); Anxiety Social History Tobacco Use Types Packs/Day [...] Reading Time Taken Comments Blood Pressure 134/60 07/16/2025 11:09 AM EDT Pulse 84 07/16/2025 11:09 AM EDT Temperature 36.2 C (97.2 F) 07/16/2025 11:09 AM EDT Respiratory Rate 18 07/16/2025 11:09 AM EDT Oxygen Saturation 98% 07/16/2025 11:09 AM EDT Inhaled Oxygen Concentration - - Weight 84.5 kg (186 lb 3.2 oz) 07/16/2025 11:09 AM EDT Height 162.6 cm (5' 4 ) 07/16/2025 11:09 AM EDT Body Mass Index 31.96 07/16/2025 11:09 AM EDT documented in this encounter Progress Notes * Ayla Ziegler MD - 07/16/2025 11:15 AM EDT Subjective Patient ID: Saumya Coughlin is a 75 y.o. female who presents for No chief complaint on file.. Edema Pertinent negative symptoms include no chest pain and no palpitations. Review of Systems Constitutional: Negative. Respiratory: Negative. Negative for shortness of breath. Cardiovascular: Positive for leg swelling. Negative for chest pain and palpitations. Gastrointestinal: Negative. Genitourinary: Negative. Musculoskeletal: Negative for neck pain. Neurological: Negative for headaches. Objective Physical Exam Constitutional: Appearance: Normal appearance. Cardiovascular: Rate and Rhythm: Normal rate and regular rhythm. Pulses: Normal pulses. Heart sounds: Normal heart sounds. Pulmonary: Effort: Pulmonary effort is normal. Neurological: Mental Status: She is alert. Assessment/Plan Diagnoses and all orders for this visit: Bilateral leg edema Comments: Labs ordered USG reviewed - No DVT If Kidney functions normal will start on Lasix Advised Leg elevation Orders: - Basic Metabolic Panel; Future Anxiety Comments: Lorazepam refilled and changed to Daily Orders: - LORazepam (Ativan) 1 MG tablet; Take 1 tablet (1 mg) by mouth Once per day. Dose increased documented in this encounter Plan of Treatment Upcoming Encounters Date Type Department Care Team (Late st Contact Info) Description 08/14/2025 10:00 AM EDT Clinical Support [facility] [address] [place] [address] Heather Siddiqui RN [address] [place] [address] Scheduled Orders Name Type Priority Associated Diagnoses Orde r Schedule Basic Metabolic Panel Lab Routine Bilateral leg edema Expected: 07/16/2025 (Approximate), Expires: 07/16/2026 documented as of this encounter Visit Diagnoses Diagnosis Bilateral leg edema- Primary Edema Anxiety Anxiety state, unspecified documented in this encounter Additional Health Concerns Assessment Noted Time PHQ-9 Depression Total Score: 5 04/09/20 25 11:23 AM EDT documented as of this encounter Care Teams Computer Sciences Professor Relationship Specialty Start Date End Date Ayla Ziegler MD [address] [place] [phone] PCP - General Family Medicine 11/14/13 documented as of this encounter
--- OUTSIDE RECORDS SUMMARY | 2025-07-16 12:59 | XMS_ITS | Encounter Summary ---
Author Organization [employer] Address [address] [facility] 7t [place] [address] Care Team Providers Care Incendiaries Supervisor Name Role Phone Ayla Ziegler MD Primary Care Provider [phone] Reason for Visit * Reason Onset Date Comments chart prep 07/14/2025 Encounter Details Date Type Department Care Team ([facility] Contact Info) Description 07/14/2025 Telephone [facility] & PEDS [address] [place] [address] Ayla Ziegler MD [address] [place] [address] chart prep Social History Tobacco Use Types [...] encounter Miscellaneous Notes * Telephone Encounter - Vaishali Manzanares [place] - 07/14/2025 10:27 AM EDT Chart Prep Labs: not applicable Images: not applicable Referrals: not applicable Vaccines due: Covid, Flu, and Zoster, RSV Screenings: not applicable Overdue care gaps: Glucose documented in this encounter Plan of Treatment Upcoming Encounters Date Type Department Care Team (Late st Contact Info) Description 08/14/2025 10:00 AM EDT Clinical Support [facility] MED & PEDS [address] [place] [address] Heather Siddiqui RN [address] [place] [address] documented as of this encounter Visit Diagnoses Not on filedocumented in this encounter Additional Health Concerns Assessment Noted Time PHQ-9 Depression Total Score: 5 04/09/20 25 11:23 AM EDT documented as of this encounter Care Teams Incendiaries Supervisor Relationship Specialty Start Date End Date Ayla Ziegler MD [address] [place] [address] PCP - General Family Medicine 11/14/13 documented as of this encounter
--- OUTSIDE RECORDS SUMMARY | 2025-07-16 12:59 | XMS_ITS | Encounter Summary ---
Author Organization [employer] Address [address] [facility] 7t [place] [address] Care Team Providers Care Mirror Department Supervisor Name Role Phone Ayla Ziegler MD Primary Care Provider [phone] Reason for Visit * Reason Onset Date Comments Hospital Follow-up 12/12/2024 Encounter Details Date Type Department Care Team ([facility] st Contact Info) Description 12/12/2024 Telephone [facility] [address] [place] [address] Ayla Ziegler MD [address] [place], [place] [id number] Hospital Follow-up Social History Tobacco Use Types [...] pt son requesting a HDF appt. Hospital: [facility] Date of admission: 12/06 Discharge date: 12/08 Diagnosed: Pancreatic mass (acute), Acute Pancreatitis. *Send message to [facility] Clinical Care Coordinators [phone] documented in this encounter Plan of Treatment Upcoming Encounters Date Type Department Care Team (Late st Contact Info) Description 08/14/2025 10:00 AM EDT Clinical Support [facility] MED & PEDS [address] [place] [address] Heather Siddiqui RN [address] [place] [address] documented as of this encounter Visit Diagnoses Not on filedocumented in this encounter Additional Health Concerns Assessment Noted Time PHQ-9 Depression Total Score: 0 04/24/20 23 11:11 AM EDT documented as of this encounter Care Teams Mirror Department Supervisor Relationship Specialty Start Date End Date Ayla Ziegler MD [address] [place] [address] PCP - General Family Medicine 11/14/13 documented as of this encounter
--- OUTSIDE RECORDS SUMMARY | 2025-07-16 12:59 | XMS_ITS | Clinical Summary ---
Author Organization [address] [facility] Address [address] [place] [address] Phone Care Team Providers Care Oil Well Cable Tool Operator Name Role Phone Ayla Ziegler MD Primary Care Provider [phone] Allergies No known active allergies Medications No [...] Insurance MEDICAID - [place] MEDICARE Care Teams Oil Well Cable Tool Operator Relationship Specialty Start Date End Date Ayla Ziegler MD [address] [place] [phone] PCP - General Family Medicine 12/05/24
--- OUTSIDE RECORDS SUMMARY | 2025-07-16 12:59 | XMS_ITS | Encounter Summary ---
Author Organization [facility] Address [address] [place] [address] [place] [phone] Phone Care Team Providers Care Sprinkling System Installer Name Role Phone Ayla Ziegler MD Primary Care Provider [phone] Damian Weaver MD, PhD Unavailable [phone] Asael Martines DO Unavailable [phone] Reason for Visit * Reason Onset Date Comments preauth 07/11/2025 Encounter Details Date Type Department Care Team (Late st Contact Info) Description 07/11/2025 Telephone [facility] [place] [facility] Rad Onc [address] [place] [address] [phone] Yolis Sandoval MD [address] [place] [address] [email or web address] preauth Social History Tobacco Use Types Packs/Day [...] as of this encounter Progress Notes * Venus Bustamante - 07/16/2025 8:29 AM EDT Insurance does not require prior authorization. documented in this encounter Plan of Treatment Upcoming Encounters Date Type Department Care Team (Late st Contact Info) Description 07/17/2025 1:40 PM EDT Infusion [facility] at [address] [address] Asael Martines DO [address] [place] [phone] [email or web address] [place] 07/21/2025 12:40 PM EDT Treatment [facility] [place] [facility] Rad Onc [address] [place] [address] [phone] Yolis Sandoval MD [address] [place] [phone] [email or web address] 07/22/2025 12:40 PM EDT Treatment [facility] [place] [facility] Rad Onc [address] [place] [address] 13554 Yolis Sandoval MD [address] [place] [phone] [email or web address] 07/23/2025 12:40 PM EDT Treatment [facility] [place] [facility] Rad Onc [address] [place] [address] 449[address] Yolis Sandoval MD [address] [place] [address] [phone] [email or web address] 07/23/2025 12:40 PM EDT Nutrition [facility] at [address] [address] 07/24/2025 12:40 PM EDT Treatment [facility] [place] [facility] Rad Onc [address] [place] [address] Yolis Sandoval MD [address] [place] [phone] [email or web address] 07/24/2025 1:00 PM EDT Infusion [facility] Center at [address] [address] Asael Martines, [address] [place] [phone] [email or web address] 07/24/2025 1:00 PM EDT Social Work [facility] at [address] [address] Asael Martines, DO [address] [place] [phone] [email or web address] 07/25/2025 11:00 AM EDT Office Visit [facility] at [address] [address] Kaykay Guillen NP [address] [place] [phone] [email or web address] 07/25/2025 11:30 AM EDT Treatment [facility] [place] at [address] [address] 07/25/2025 12:40 PM EDT Treatment [facility] [place] [place] [facility] Rad Onc [address] [place] [address] Yolis Sandoval MD [address] [place] [phone] [email or web address] 07/29/2025 11:30 AM EDT Treatment [facility] [place] [address] [place] [address] Rachael Newell CNP [address] [place] [address] [email or web address] 07/29/2025 12:40 PM EDT Treatment [facility] [place] [facility] Rad Onc [address] [place] [phone] Yolis Sandoval MD [address] [place] [address] [phone] [email or web address] 07/30/2025 12:40 PM EDT Treatment [facility] Rad Onc [address] [place] [address]27 Yolis Sandoval MD [address] [place] [phone] [email or web address] 07/31/2025 12:40 PM EDT Treatment [facility] [place] [facility] Rad Onc [address] [place] [address] 33240 Yolis Sandoval MD [address] [place] [phone] [email or web address] 08/01/2025 12:40 PM EDT Treatment [facility] [place] [facility] Rad Onc [address] [place] [address] Yolis Sandoval MD [address] [place] [phone] [email or web address] 08/04/2025 12:40 PM EDT Treatment [facility] [place] [facility] Rad Onc [address] [place] [address] Yolis Sandoval MD [address] [place] [address] [phone] [email or web address] 08/05/2025 12:40 PM EDT Treatment [facility] Rad Onc [address] [place] [address] Yolis Sandoval MD [address] [place] [phone] [email or web address] 08/06/2025 12:40 PM EDT Treatment [facility] Rad Onc [address] [place] [address] Yolis Sandoval MD [address] [place] [address] [phone] [email or web address] 08/07/2025 12:30 PM EDT Treatment [facility] [place] [facility] Rad Onc [address] [place] [address] 92294 Yolis Sandoval MD [address] [place] [address] [phone] [email or web address] 08/08/2025 12:40 PM EDT Treatment [facility] [facility] Rad Onc [address] [place] [address] 9[address] Yolis Sandoval MD [address] [place] [phone] [email or web address] 08/11/2025 12:40 PM EDT Treatment [facility] [place] [facility] Rad Onc [address] [place] [address] Yolis Sandoval MD [address] [place] [phone] [email or web address] 08/12/2025 12:40 PM EDT Treatment [facility] [facility] Rad Onc [address] [place] [address] Yolis Sandoval MD [address] [place] [phone] [email or web address] 08/13/2025 12:40 PM EDT Treatment [facility] [place] [facility] Rad Onc [address] [place] [address] Yolis Sandoval MD [address] [place] [address] [email or web address] 08/14/2025 12:40 PM EDT Treatment [facility] [place] [facility] Rad Onc [address] [place] [address] 16499 Yolis Sandoval MD [address] [place] [address] [phone] [email or web address]@[email or web address] 08/15/2025 12:40 PM EDT Treatment [facility] Rad Onc [address] [place] [address] Yolis Sandoval MD [address] [place] [address] [phone] [email or web address] 08/18/2025 12:40 PM EST Treatment [facility] Rad Onc [address] [place] [address] 11416 Yolis Sandoval MD [address] [place] [phone] [email or web address] 08/19/2025 12:40 PM EST Treatment [facility] Rad Onc [address] [place] [address] 227[address] Yolis Sandoval MD [address] [place] [address] 63692 [email or web address]@[email or web address] 08/20/2025 12:40 PM EST Treatment [facility] [place] [facility] Rad Onc [address] [place] [address] 27939 Yolis Sandoval MD [address] [place] [address] [phone] [email or web address]@[email or web address] 08/21/2025 12:40 PM EST Treatment [facility] Rad Onc [address] [place] [phone] Yolis Sandoval MD [address] [place] [phone] [email or web address] 08/22/2025 12:10 PM EST Appointment [facility] Laboratory [address] [place] [address] Asael Martines DO [address] [place] [phone] [email or web address] 08/22/2025 12:40 PM EST Treatment [facility] Rad Onc [address] [place] [address] Yolis Sandoval MD [address] [place] [address] [phone] [email or web address] 08/22/2025 1:30 PM EST Office Visit [facility] Center at [address] [address] Kaykay Guillen NP [address] [place] [address] [email or web address] 08/25/2025 12:40 PM EST Treatment [facility] [facility] Rad Onc [address] [place] [address] Yolis Sandoval MD [address] [place] [phone] [email or web address] 08/26/2025 12:40 PM EST Treatment [facility] [place] [place] [facility] Rad Onc [address] [place] [address] 99989 Yolis Sandoval MD [address] [place] [phone] [email or web address]@[email or web address] 08/27/2025 12:40 PM EST Treatment [facility] Rad Onc [address] [place] [address] Yolis Sandoval MD [address] [place] [address] [phone] [email or web address]@[email or web address] 08/28/2025 12:40 PM EST Treatment [facility] Rad Onc [address] [place] [address] Yolis Sandoval MD [address] [place] [address] [phone] [email or web address]@[email or web address] 08/29/2025 12:40 PM EST Treatment [facility] [place] [facility] Rad Onc [address] [place] [address] Yolis Sandoval MD [address] [place] [address] 21386 [email or web address] 09/01/2025 12:40 PM EST Treatment [facility] [place] [facility] Rad Onc [address] [place] [address] 8[address]67 Yolis Sandoval MD [address] [place] [address] [phone] [email or web address] 09/02/2025 12:40 PM EST Treatment [facility] Rad Onc [address] [place] [address] 11571 Yolis Sandoval MD [address] [place] [phone] [email or web address] 09/03/2025 12:40 PM EST Treatment [facility] [facility] Rad Onc [address] [place] [address] 25947 Yolis Sandoval MD [address] [place] [address] [phone] [email or web address] 09/04/2025 12:40 PM EST Treatment [facility] [place] [facility] Rad Onc [address] [place] [address] Yolis Sandoval MD [address] [place] [address] [email or web address] documented as of this encounter Visit Diagnoses Not on filedocumented in this encounter Care Teams Sprinkling System Installer Relationship Specialty Start Date End Date Ayla Ziegler MD [address] [place] [phone] PCP - General Family Medicine 01/24/25 Damian Weaver MD, PhD [address] [place] [address] [place] [phone] [email or web address] Primary Oncologist Hematology and Oncology 05/21/25 Asael Martines DO [address] [place] [address] [email or web address] [email or web address] Hematology and Oncology 06/25/25 documented as of this encounter Additional Source Comments The information contained in this document represents components of the legal health record. It is not the complete legal health record.[facility]
--- OUTSIDE RECORDS SUMMARY | 2025-07-16 12:59 | XMS_ITS | Encounter Summary ---
Author Organization [facility] Address [address] [place] [address] [place] [phone] Phone Care Team Providers Care Auto Body Repair Technician Name Role Phone Ayla Ziegler MD Primary Care Provider [phone] Damian Weaver MD, PhD Unavailable [phone] Asael Martines DO Unavailable [phone] Encounter Details Date Type Department Care Team (Late st Contact Info) Description 07/11/2025 Telephone [facility] Rad Onc [address] [place] [phone] Yolis Sandoval MD [address] [place] [phone] [email or web address] Social History Tobacco Use Types [...] Info) Description 07/17/2025 1:40 PM EDT Infusion [facility] at [address] [address] Asael Martines DO [address] [place] [address] [email or web address] 07/21/2025 12:40 PM EDT Treatment [facility] Rad Onc [address] [place] [address] 51067 Yolis Sandoval MD [address] [place] [phone] [email or web address] 07/22/2025 12:40 PM EDT Treatment [facility] Rad Onc [address] [place] [address] 9[address]69 Yolis Sandoval MD [address] [place] [phone] [email or web address] 07/23/2025 12:40 PM EDT Treatment [facility] Rad Onc [address] [place] [address] Yolis Sandoval MD [address] [place] [phone] [email or web address] 07/23/2025 12:40 PM EDT Nutrition [facility] at [address] [address] 07/24/2025 12:40 PM EDT Treatment [facility] Rad Onc [address] [place] [address]47 Yolis Sandoval MD [address] [place] [phone] [email or web address] 07/24/2025 1:00 PM EDT Infusion [facility] at [address] [address] Asael Martines, [address] [address] [email or web address] 07/24/2025 1:00 PM EDT Social Work [facility] at [address] [address] Asael Martines, [address] [address] [email or web address] 07/25/2025 11:00 AM EDT Office Visit [facility] at [address] [address] Kaykay Guillen NP [address] [place] [address] [email or web address] 07/25/2025 11:30 AM EDT Treatment [facility] at [address] [address] 07/25/2025 12:40 PM EDT Treatment [facility] At [address] [address] Yolis Sandoval MD [address] [place] [address] [email or web address] 07/29/2025 11:30 AM EDT Treatment [facility] at [address] [address] Rachael Newell CNP [address] [place] [address] [email or web address] 07/29/2025 12:40 PM EDT Treatment [facility] Rad Onc [address] [place] [address] Yolis Sandoval MD [address] [place] [address] [email or web address] 07/30/2025 12:40 PM EDT Treatment [facility] Rad Onc [address] [place] [address] Yolis Sandoval MD [address] [place] [address] [email or web address] 07/31/2025 12:40 PM EDT Treatment [facility] Rad Onc [address] [place] [address] Yolis Sandoval MD [address] [place] [phone] [email or web address] 08/01/2025 12:40 PM EDT Treatment [facility] Rad Onc [address] [place] [address] Yolis Sandoval MD [address] [place] [phone] [email or web address] 08/04/2025 12:40 PM EDT Treatment [facility] Rad Onc [address] [place] [address] Yolis Sandoval MD [address] [place] [address] [phone] [email or web address] 08/05/2025 12:40 PM EDT Treatment [facility] Rad Onc [address] [place] [address] Yolis Sandoval MD [address] [place] [address] [phone] [email or web address] 08/06/2025 12:40 PM EDT Treatment [facility] Rad Onc [address] [place] [address] 28[address] Yolis Sandoval MD [address] [place] [address] 38968 [email or web address] 08/07/2025 12:30 PM EDT Treatment [facility] Rad Onc [address] [place] [address] 60[address] Yolis Sandoval MD [address] [place] [phone] [email or web address] 08/08/2025 12:40 PM EDT Treatment [facility] Rad Onc [address] [place] [address] Yolis Sandoval MD [address] [place] [address] [email or web address]@[facility] 08/11/2025 12:40 PM EDT Treatment [facility] Rad Onc [address] [place] [address] 9[address] Yolis Sandoval MD [address] [place] [address] [phone] [email or web address]@[facility] 08/12/2025 12:40 PM EDT Treatment [facility] Rad Onc [address] [place] [address] 9[address] Yolis aSndoval MD [address] [place] [address] [email or web address] 08/13/2025 12:40 PM EDT Treatment [facility] Rad Onc [address] [place] [address] Yolis Sandoval MD [address] [place] [address] [email or web address]@[facility] 08/14/2025 12:40 PM EDT Treatment [facility] Rad Onc [address] [place] [address] Yolis Sandoval MD [address] [place] [address] [email or web address]@[facility] 08/15/2025 12:40 PM EDT Treatment [facility] Rad Onc [address] [place] [address] 334[address] Yolis Sandoval MD [address] [place] [address] 74359 [email or web address] 08/18/2025 12:40 PM EST Treatment [facility] Rad Onc [address] [place] [address] Yolis Sandoval MD [address] [place] [phone] [email or web address] 08/19/2025 12:40 PM EST Treatment [facility] Rad Onc [address] [place] [address] Yolis Sandoval MD [address] [place] [address] [email or web address] 08/20/2025 12:40 PM EST Treatment [facility] Rad Onc [address] [place] [address] 8[address] Yolis Sandoval MD [address] [place] [address] 14565 [email or web address]@[facility] 08/21/2025 12:40 PM EST Treatment [facility] Rad Onc [address] [place] [address] Yolis Sandoval MD [address] [place] [address]158 [email or web address] 08/22/2025 12:10 PM EST Appointment [facility] Laboratory [address] [place] [address] Asael Martines DO [address] [place] [address] [email or web address] 08/22/2025 12:40 PM EST Treatment [facility] Rad Onc [address] [place] [address] Yolis Sandoval MD [address] [place] [phone] [email or web address] 08/22/2025 1:30 PM EST Office Visit [facility] at [address] [address] Kaykay Guillen NP [address] [place] [address] [email or web address] 08/25/2025 12:40 PM EST Treatment [facility] Rad Onc [address] [place] [address] Yolis Sandoval MD [address] [place] [address] [email or web address] 08/26/2025 12:40 PM EST Treatment [facility] Rad Onc [address] [place] [address] Yolis Sandoval MD [address] [place] [address] 8[address]61 [email or web address]@[facility] 08/27/2025 12:40 PM EST Treatment [facility] Rad Onc [address] [place] [address] 270[address] Yolis Sandoval MD [address] [place] [phone] [email or web address]@[facility] 08/28/2025 12:40 PM EST Treatment [facility] Rad Onc [address] [place] [address] Yolis Sandoval MD [address] [place] [address] [phone] [email or web address] 08/29/2025 12:40 PM EST Treatment [facility] Rad Onc [address] [place] [address] Yolis Sandoval MD [address] [place] [phone] [email or web address] 09/01/2025 12:40 PM EST Treatment [facility] Rad Onc [address] [place] [address] Yolis Sandoval MD [address] [place] [phone] [email or web address] 09/02/2025 12:40 PM EST Treatment [facility] Rad Onc [address] [place] [address] Yolis Sandoval MD [address] [place] [address] 7[address] [email or web address] 09/03/2025 12:40 PM EST Treatment [facility] Rad Onc [address] [place] [address] Yolis Sandoval MD [address] [place] [address] 473[address] [email or web address] 09/04/2025 12:40 PM EST Treatment [facility] Rad Onc [address] [place] [address] Yolis Sandoval MD [address] [place] [address] [email or web address] documented as of this encounter Visit Diagnoses Not on filedocumented in this encounter Care Teams Auto Body Repair Technician Relationship Specialty Start Date End Date Ayla Ziegler MD [address] [place] [phone] PCP - General Family Medicine 4/11/25 Damian Weaver MD, PhD [address] [place] [address] [email or web address] Primary Oncologist Hematology and Oncology 05/21/25 Asael Martines DO [address] [place] [address] [email or web address] On[facility] 06/25/25 documented as of this encounter Additional Source Comments The information contained in this document represents components of the legal health record. It is not the complete legal health record.[facility]
--- OUTSIDE RECORDS SUMMARY | 2025-07-16 12:59 | XMS_ITS | Encounter Summary ---
Author Organization [facility] Address formerly [facility] [address] [place] [address] Phone Care Team Providers Care Director Of Health Care Marketing Name Role Phone Ayla Ziegler MD Primary Care Provider [phone] Damian Weaver MD, PhD Unavailable [phone] Asael Martines DO Unavailable [phone] Encounter Details Date Type Department Care Team (Late st Contact Info) Description 07/14/2025 Documentation [facility] [address] [place] [id number] Zulma Donohue [address] [address] [email or web address] Social History Tobacco Use Types Packs/Day Years [...] Donohue RPH - 07/14/2025 1:00 PM EDT [facility] Specialty Medication Capecitabine 500mg tablets Treatment Plan Capecitabine 1500mg BID Mon-Fri with RT for 28 days Appropriateness of Therapy Medication therapy and dosing are clinically appropriate, and pertinent baseline labs have been assessed. Dispensing Pharmacy Name: [facility] Option 1 Delivery and [...] or call with any questions. Zulma Donohue [facility] documented in this encounter Plan of Treatment Upcoming Encounters Date Type Department Care Team (Late st Contact Info) Description 07/17/2025 1:40 PM EDT Infusion [facility] [address] [address] Asael Martines DO [address] [place] [phone] [email or web address] [email or web address] 07/21/2025 12:40 PM EDT Treatment [facility] Rad Onc [address] [place] [address] Yolis Sandoval MD [address] [place] [phone] [email or web address] 07/22/2025 12:40 PM EDT Treatment [facility] [place] [facility] Onc [address] [place] [address] Yolis Sandoval MD [address] [place] [address] [email or web address] 07/23/2025 12:40 PM EDT Treatment [facility] [place] Onc [address] [place] [address] Yolis Sandoval MD [address] [place] [phone] [email or web address] 07/23/2025 12:40 PM EDT Nutrition [facility] at [address] [address] 07/24/2025 12:40 PM EDT Treatment [facility] At [address] [address] Yolis Sandoval MD [address] [place] [phone] [email or web address] 07/24/2025 1:00 PM EDT Infusion [facility] at [address] [address] Asael Martines, [address] [place] [phone] [email or web address] 07/24/2025 1:00 PM EDT Social Work [facility] at [address] [address] Asael Martines DO [address] [place] [phone] [email or web address] 07/25/2025 11:00 AM EDT Office Visit [facility] at [address] [address] Kaykay Guillen, JERRY [address] [place] [phone] [email or web address] 07/25/2025 11:30 AM EDT Treatment [facility] at [address] [address] 07/25/2025 12:40 PM EDT Treatment [facility] Onc [address] [place] [address] Yolis Sandoval MD [address] [place] [phone] [email or web address] 07/29/2025 11:30 AM EDT Treatment [facility] at [address] [address] Rachael Newell CNP [address] [place] [address] [email or web address] 07/29/2025 12:40 PM EDT Treatment [facility] Onc [address] [place] [address] Yolis Sandoval MD [address] [place] [phone] [email or web address] 07/30/2025 12:40 PM EDT Treatment [facility] [place] On[facility] [address] [place] [address] Yolis Sandoval MD [address] [place] [phone] [email or web address] 07/31/2025 12:40 PM EDT Treatment [facility] Onc [address] [place] [address] Yolis Sandoval MD [address] [place] [phone] [email or web address] 08/01/2025 12:40 PM EDT Treatment [facility] Onc [address] [place] [address] Yolis Sandoval MD [address] [place] [phone] [email or web address] 08/04/2025 12:40 PM EDT Treatment [facility] [place] On[facility] [address] [place] [address] Yolis Sandoval MD [address] [place] [phone] [email or web address] 08/05/2025 12:40 PM EDT Treatment [facility] Onc [address] [place] [address] Yolis Sandoval MD [address] [place] [phone] [email or web address] 08/06/2025 12:40 PM EDT Treatment [facility] On[facility] [address] [place] [address] Yolis Sandoval MD [address] [place] [phone] [email or web address] 08/07/2025 12:30 PM EDT Treatment [facility] Onc [address] [place] [address] Yolis Sandoval MD [address] [place] [phone] [email or web address] 08/08/2025 12:40 PM EDT Treatment [facility] Onc [address] [place] [address] Yolis Sandoval MD [address] [place] [phone] [email or web address] 08/11/2025 12:40 PM EDT Treatment [facility] On[facility] [address] [place] [address] Yolis Sandoval MD [address] [place] [phone] [email or web address] 08/12/2025 12:40 PM EDT Treatment [facility] On[facility] [address] [place] [address] Yolis Sandoval MD [address] [place] [phone] [email or web address] 08/13/2025 12:40 PM EDT Treatment [facility] On[facility] [address] [place] [address] Yolis Sandoval MD [address] [place] [phone] [email or web address] 08/14/2025 12:40 PM EDT Treatment [facility] Onc [address] [place] [address] Yolis Sandoval MD [address] [place] [phone] [email or web address] 08/15/2025 12:40 PM EDT Treatment [facility] Onc [address] [place] [address] Yolis Sandoval MD [address] [place] [phone] [email or web address] 08/18/2025 12:40 PM EST Treatment [facility] On[facility] [address] [place] [address] Yolis Sandoval MD [address] [place] [phone] [email or web address] 08/19/2025 12:40 PM EST Treatment [facility] On[facility] [address] [place] [address] Yolis Sandoval MD [address] [place] [phone] [email or web address] 08/20/2025 12:40 PM EST Treatment [facility] Onc [address] [place] [address] Yolis Sandoval MD [address] [place] [phone] [email or web address] 08/21/2025 12:40 PM EST Treatment [facility] On[facility] [address] [place] [address] Yolis Sandoval MD [address] [place] [phone] [email or web address] 08/22/2025 12:10 PM EST Appointment [facility] [address] [place] [address] Asael Martines DO [address] [place] [phone] [email or web address] 08/22/2025 12:40 PM EST Treatment [facility] On[facility] [address] [place] [address] Yolis Sandoval MD [address] [place] [phone] [email or web address] 08/22/2025 1:30 PM EST Office Visit [facility] at [address] [address] Kaykay Guillen NP [address] [place] [phone] [email or web address] 08/25/2025 12:40 PM EST Treatment [facility] On[facility] [address] [place] [address] Yolis Sandoval MD [address] [place] [phone] [email or web address] 08/26/2025 12:40 PM EST Treatment [facility] On[facility] [address] [place] [address] Yolis Sandoval MD [address] [place] [phone] [email or web address] 08/27/2025 12:40 PM EST Treatment [facility] On[facility] [address] [place] [address] Yolis Sandoval MD [address] [place] [phone] [email or web address] 08/28/2025 12:40 PM EST Treatment [facility] Onc [address] [place] [address] Yolis Sandoval MD [address] [place] [phone] [email or web address] 08/29/2025 12:40 PM EST Treatment [facility] Onc [address] [place] [address] Yolis Sandoval MD [address] [place] [phone] [email or web address] 09/01/2025 12:40 PM EST Treatment [facility] On[facility] [address] [place] [address] Yolis Sandoval MD [address] [place] [phone] [email or web address] 09/02/2025 12:40 PM EST Treatment [facility] Onc [address] [place] [address] Yolis Sandoval MD [address] [place] [phone] [email or web address] 09/03/2025 12:40 PM EST Treatment [facility] On[facility] [address] [place] [address] Yolis Sandoval MD [address] [place] [address] [email or web address] 09/04/2025 12:40 PM EST Treatment [facility] Rad Onc [address] [place] [address] Yolis Sandoval MD [address] [place] [address] [email or web address] documented as of this encounter Visit Diagnoses Not on filedocumented in this encounter Care Teams Director Of Health Care Marketing Relationship Specialty Start Date End Date Ayla Ziegler MD [address] [place] [address] PCP - General Family Medicine 01/24/25 Damian Weaver MD, PhD [address] [place] [address] [place] [phone] [email or web address] Primary Oncologist Hematology and Oncology 05/21/25 Asael Martines DO [address] [place] [phone] [email or web address] Hematology [facility] Oncology 06/25/25 documented as of this encounter Additional Source Comments The information contained in this document represents components of the legal health record. It is not the complete legal health record.[facility]
--- OUTSIDE RECORDS SUMMARY | 2025-07-16 12:59 | XMS_ITS | Encounter Summary ---
Author Organization [employer] Address [address] [place] [address] Care Team Providers Care Nurse Anesthetist Name Role Phone Ayla Ziegler MD Primary Care Provider [phone] Reason for Visit * Reason Onset Date Comments Appointment Request 04/15/2025 Encounter Details Date Type Department Care Team ([facility] Contact Info) Description 04/15/2025 Telephone [facility] [address] [place] [address] Ayla Ziegler MD [address] [place], [place] [phone] Appointment Request Social History Tobacco Use Types [...] from pt requesting call back to reschedule [facility] visit with Heather. Please contact pt at [phone]. documented in this encounter Plan of Treatment Upcoming Encounters Date Type Department Care Team ([facility] st Contact Info) Description 08/14/2025 10:00 AM EDT Clinical Support [facility] [address] [place] [address] Heather Siddiqui, RN [address] [place] [address] documented as of this encounter Visit Diagnoses Not on filedocumented in this encounter Additional Health Concerns Assessment Noted Time PHQ-9 Depression Total Score: 5 04/09/20 25 11:23 AM EDT documented as of this encounter Care Teams Nurse Anesthetist Relationship Specialty Start Date End Date Ayla Ziegler MD [address] [place] [address] PCP - General Family Medicine 11/14/13 documented as of this encounter
--- OUTSIDE RECORDS SUMMARY | 2025-07-16 12:59 | XMS_ITS | Encounter Summary ---
Author Organization [facility] Address [address] [place] [phone] Phone Care Team Providers Care Shoe Salesperson Name Role Phone Ayla Ziegler MD Primary Care Provider [phone] Damian Weaver MD, PhD Unavailable [phone] Asael Martines DO Unavailable [phone] Encounter Details Date Type Department Care Team (Late st Contact Info) Description 07/11/2025 Documentation [facility] Rad Onc [address] [place] [address] [id number] Genesis Barrientos, RN [address] [place] [address] [email or web address] Social History Tobacco Use Types Packs/Day Years [...] areas on the skin. Use of a electronics technology department chair on cool setting or a [...] you would like to speak with a maintenance fitter. If you have any questions concerning your treatment please call [phone] to speak to a therapist, nurse, or doctor. For any problems after hours call [phone] and ask the fruit picker machine operator to page thecovering Radiation Oncologist. A provider will return your call. documented in this encounter Plan of Treatment Upcoming Encounters Date Type Department Care Team (Late st Contact Info) Description 07/17/2025 1:40 PM EDT Infusion [facility] at [address] [address] Asael Martines DO [address] [place] [address] [email or web address] 07/21/2025 12:40 PM EDT Treatment [facility] Rad Onc [address] [place] [address] Yolis Sandoval MD [address] [place] [id number] [email or web address] 07/22/2025 12:40 PM EDT Treatment [facility] Rad Onc [address] [place] [address] 200[address] Yolis Sandoval MD [address] [place] [phone] [email or web address] 07/23/2025 12:40 PM EDT Treatment [facility] Rad Onc [address] [place] [address] Yolis Sandoval MD [address] [place] [address] [email or web address] 07/23/2025 12:40 PM EDT Nutrition [facility] at [address] [address] 07/24/2025 12:40 PM EDT Treatment [facility] Rad Onc [address] [place] [address] 37722 Yolis Sandoval MD [address] [place] [phone] [email or web address] 07/24/2025 1:00 PM EDT Infusion [facility] at [address] [address] Asael Martines DO [address] [place] [id number] [email or web address] 07/24/2025 1:00 PM EDT Social Work [facility] [place] at [address] [address] Asael Martines DO [address] [place] [id number] [email or web address] 07/25/2025 11:00 AM EDT Office Visit [facility] [place] at [address] [address] Kaykay Guillen NP [address] [place] [address] [email or web address] 07/25/2025 11:30 AM EDT Treatment [facility] at [address] [address] 07/25/2025 12:40 PM EDT Treatment [facility] Rad Onc [address] [place] [address] Yolis Sandoval MD [address] [place] [id number] [email or web address] 07/29/2025 11:30 AM EDT Treatment [facility] at [address] [address] Rachael Newell CNP [address] [place] [address] [email or web address] 07/29/2025 12:40 PM EDT Treatment [facility] Onc [address] [place] [address] 89[address] Yolis Sandoval MD [address] [place] [phone] [email or web address] 07/30/2025 12:40 PM EDT Treatment [facility] Rad Onc [address] [place] [address] Yolis Sandoval MD [address] [place] [address] [email or web address] 07/31/2025 12:40 PM EDT Treatment [facility] Rad Onc [address] [place] [address] Yolis Sandoval MD [address] [place] [phone] [email or web address] 08/01/2025 12:40 PM EDT Treatment [facility] Rad Onc [address] [place] [address] Yolis Sandoval MD [address] [place] [address] [email or web address] 08/04/2025 12:40 PM EDT Treatment [facility] Rad Onc [address] [place] [address] 127[address] Yolis Sandoval MD [address] [place] [address] [email or web address] 08/05/2025 12:40 PM EDT Treatment [facility] Rad Onc [address] [place] [address] Yolis Sandoval MD [address] [place] [address] 89019 [email or web address] 08/06/2025 12:40 PM EDT Treatment [facility] Onc [address] [place] [address] 613[address] Yolis Sandoval MD [address] [place] [address] [id number] [email or web address] 08/07/2025 12:30 PM EDT Treatment [facility] Onc [address] [place] [address] 00656 Yolis Sandoval MD [address] [place] [address] [phone] [email or web address] 08/08/2025 12:40 PM EDT Treatment [facility] Onc [address] [place] [address] Yolis Sandoval MD [address] [place] [address] [phone] [email or web address] 08/11/2025 12:40 PM EDT Treatment [facility] Rad Onc [address] [place] [address] 79167 Yolis Sandoval MD [address] [place] [address] 9[address]49 [email or web address] 08/12/2025 12:40 PM EDT Treatment [facility] Rad Onc [address] [place] [address] 211[address] Yolis Sandoval MD [address] [place] [address] [phone] [email or web address] 08/13/2025 12:40 PM EDT Treatment [facility] Rad Onc [address] [place] [address] 77[address] Yolis Sandoval MD [address] [place] [address] [phone] [email or web address] 08/14/2025 12:40 PM EDT Treatment [facility] Rad Onc [address] [place] [address] 35[address] Yolis Sandoval MD [address] [place] [address] [phone] [email or web address] 08/15/2025 12:40 PM EDT Treatment [facility] Rad Onc [address] [place] [address] Yolis Sandoval MD [address] [place] [address] 450[address] [email or web address] 08/18/2025 12:40 PM EST Treatment [facility] Onc [address] [place] [address] Yolis Sandoval MD [address] [place] [address] [email or web address] 08/19/2025 12:40 PM EST Treatment [facility] Rad Onc [address] [place] [address] 61063 Yolis Sandoval MD [address] [place] [phone] [email or web address] 08/20/2025 12:40 PM EST Treatment [facility] Rad Onc [address] [place] [address] 166[address] Yolis Sandoval MD [address] [place] [address] 46435 [email or web address] 08/21/2025 12:40 PM EST Treatment [facility] Rad Onc [address] [place] [address]39 Yolis Sandoval MD [address] [place] [address] [phone] [email or web address] 08/22/2025 12:10 PM EST Appointment [facility] [address] [place] [address] Asael Martines DO [address] [place] [id number] [email or web address] 08/22/2025 12:40 PM EST Treatment [facility] Rad Onc [address] [place] [address] 12428 Yolis Sandoval MD [address] [place] [address] 11346 [email or web address] 08/22/2025 1:30 PM EST Office Visit [facility] [address] [place] [address] Kaykay Guillen NP [address] [place] [address] 08/25/2025 12:40 PM EST Treatment [facility] Rad Onc [address] [place] [address] 52820 Yolis Sandoval MD [address] [place] [address] [phone] [email or web address] 08/26/2025 12:40 PM EST Treatment [facility] Onc [address] [place] [address] Yolis Sandoval MD [address] [place] [address] [phone] [email or web address] 08/27/2025 12:40 PM EST Treatment [facility] Rad Onc [address] [place] [address] Yolis Sandoval MD [address] [place] [phone] [email or web address] 08/28/2025 12:40 PM EST Treatment [facility] Rad Onc [address] [place] [address] Yolis Sandoval MD [address] [place] [address] [phone] [email or web address] 08/29/2025 12:40 PM EST Treatment [facility] Rad Onc [address] [place] [address] Yolis Sandoval MD [address] [place] [address] [phone] [email or web address] 09/01/2025 12:40 PM EST Treatment [facility] Rad Onc [address] [place] [address] Yolis Sandoval MD [address] [place] [address] 89625 [email or web address] 09/02/2025 12:40 PM EST Treatment [facility] Onc [address] [place] [address] Yolis Sandoval MD [address] [place] [address] [phone] [email or web address] 09/03/2025 12:40 PM EST Treatment [facility] Rad Onc [address] [place] [address] 07180 Yolis Sandoval MD [address] [place] [address] 6[address]67 [email or web address] 09/04/2025 12:40 PM EST Treatment [facility] Rad Onc [address] [place] [address] 198[address] Yolis Sandoval MD [address] [place] [address] [phone] [email or web address] documented as of this encounter Visit Diagnoses Not on filedocumented in this encounter Care Teams Shoe Salesperson Relationship Specialty Start Date End Date Ayla Ziegler MD [address] [place] [id number] PCP - General Family Medicine 01/24/25 Damian Weaver MD, PhD [address] [place] [address] [place] [address] [email or web address] Primary Oncologist Hematology and Oncology 05/21/25 Asael Martines DO [address] [place] [id number] [email or web address] Hematology and Oncology 9/10/25 documented as of this encounter Additional Source Comments The information contained in this document represents components of the legal health record. It is not the complete legal health record.[facility]
--- OUTSIDE RECORDS SUMMARY | 2025-07-16 12:59 | XMS_ITS | Clinical Summary ---
Author Organization [facility] Address [address] [facility] [address] [place] [address] Phone Care Team Providers Care Manager E Learning Name Role Phone Ayla Ziegler MD Primary Care Provider [phone] Damian Weaver MD, PhD Unavailable [phone] Asael Martines W DO Unavailable [phone] Allergies Active Allergy Reactions Criticality Noted Date Comments Adhesive Itching,Erythema,Harley h with Blisters High 06/19/2025 Diffuse rash w/ skin tears and significant blistering to chest. [id number] dressings only, please. Omeprazole 12/02/2010 Other reaction(s): [...] be different from the original. Please use [id number] for port dressing. Irinotecan over 60 mins, [...] Type Department Care Team Description 07/14/[address] [address] Zulma Donohue [facility] 07/11/2025 11:00 AM EDT Office Visit [facility] Rad Onc [address] [place] [address] Yolis Sandoval MD Pancreatic adenocarcinoma (Primary Dx) 07/11/2025 Telephone [facility] Rad Onc [address] [place] [address] Yolis Sandoval MD 07/11/2025 Telephone [facility] At [address] [address] Yolis Sandoval MD [facility] 07/11/2025 Telephone [facility] Rad Onc [address] [place] [address] Genesis Barrientos, [place] 07/11/2025 Documentation [facility] Rad Onc [address] [place] [address] Genesis Barrientos, [place] 07/10/2025 2:00 PM EDT Social Work [facility] at [address] [address] Asael Martines DO 07/10/2025 1:00 PM EDT Office Visit [facility] at [address] [address] Asael Martines DO Pancreatic adenocarcinoma (Primary Dx) 07/10/2025 Documentation [facility] [address] [address] Lakisha Tyler Mikayla 07/09/2025 12:00 PM EDT Telemedicine - audio only [facility] [address] [place] [address], 10th Floor, [address] [place] [address] Rubin Davidson MD, PhD Kavita Cortez Pancreatic cancer (Primary Dx); Family history of prostate cancer; Family history of breast cancer; Encounter for nonprocreative genetic counseling 07/09/2025 Documentation [facility] Rad Onc [address] [place] [address] Yolis Sandoval MD 07/04/2025 Ancillary Orders [facility]Outside Imaging [address] [place] [address] UnknownMame MD 2025 11:00 AM EDT Office Visit [facility] Rad Onc [address] [place] [address] Yolis Sandoval MD Pancreatic adenocarcinoma (Primary Dx) 07/02/2025 Orders Only [facility] [address] [place] [address], 7th Floor, [address] [place] [address] Juan Francisco Etienne, DOMINIC Pancreatic adenocarcinoma 07/01/2025 Orders Only [facility] [address] [facility], 7th Floor, [address] [place] [address] Juan Francisco Etienne, DOMINIC 06/25/2025 11:30 AM EDT Office Visit [facility] [address] [facility], 7th Floor, [address] [place] [address] Charisma Francois MD Pancreatic adenocarcinoma (Primary Dx) 06/25/2025 11:30 AM EDT Office Visit [facility] [address] [facility], 7th Floor, [address] [place] [address] Damian Weaver MD, PhD Pancreatic adenocarcinoma (Primary Dx) 06/25/2025 Telephone [facility] at [address] [address] Asael Martines DO BN [facility] Pancreatic 06/21/2025 2:00 PM EDT Infusion [address], 8th Floor, [address] [place] [address] Damian Weaver MD, PhD Maryann Horn, [place] Pancreatic adenocarcinoma (Primary Dx) 06/21/2025 Telephone [facility] MEDICINE VIRTUAL DEPARTMENT [address] [place] [address] Josselin Mccauley, PRINT JOURNALIST 06/19/2025 7:00 AM EDT Infusion [address], 8th Floor, [address] [place] [address] Damian Weaver MD, PhD Jovita Sandoval RN Pancreatic adenocarcinoma (Primary Dx); Adverse effect of drug, subsequent encounter 06/19/2025 Documentation [facility] Allergy [address], 4th Floor, [address] [place] [address] Irineo Jones, PRINT JOURNALIST 06/18/2025 11:30 AM EDT Office Visit [facility] [address] [facility], 7th Floor, [address] [place] [address] Lorie Lopez, PRINT JOURNALIST Pancreatic adenocarcinoma (Primary Dx) 06/18/2025 Orders Only [facility] [address] [place] [address] Irineo Jones, PRINT JOURNALIST 06/18/2025 Orders Only [facility] Allergy [address], 4th Floor, [address] [place] [address] Irineo Jones, PRINT JOURNALIST 06/17/2025 Orders Only [facility] Allergy [address], 4th Floor, [address] [place] [address] Irineo Jones, PRINT JOURNALIST 06/17/2025 Hospital Encounter [facility] Admissions [address] [place] [phone] Damian Weaver MD, PhD 06/04/2025 3:00 PM EDT Infusion [facility] [address] [facility], 8th Floor, [address] [place] [address] Damian Weaver MD, PhD Kaylen Schaefer, [place] Pancreatic adenocarcinoma (Primary Dx) 06/04/2025 2:52 PM EDT - 06/04/2025 11:59 PM EDT Hospital [facility], Ultrasound [address] [place] [address] Damian Weaver MD, PhD Discharge Disposition: Home or Self Care 06/03/[address], 8th Floor, [address] [place] [address] Alondra Benítez RN Follow-up 06/02/2025 3:00 PM EDT Infusion [address], 8th Floor, [address] [place] [address] Jazmín Morales, PRINT JOURNALIST 06/02/2025 7:00 AM EDT Infusion [address], 8th Floor, [address] [place] [address] Damian Weaver MD, PhD Sylvain Thomson, [place] Pancreatic adenocarcinoma (Primary Dx); Adverse effect of drug, subsequent encounter 06/02/2025 Documentation [facility] Allergy [address], 4th Floor, [address] [place] [address] Irineo Jones, PRINT JOURNALIST 05/30/2025 10:00 AM EDT Office Visit [facility] [address] [facility], 7th Floor, [address] [place] [address] Damian Weaver MD, PhD Pancreatic adenocarcinoma (Primary Dx) 05/30/2025 Orders Only [address] [address] Marge Coulter MD 05/30/2025 Orders Only [facility] Allergy [address], 4th Floor, [address] [place] [address] Marge Coulter MD 05/30/2025 Orders Only [facility] Allergy [address], 4th Floor, [address] [place] [address] Norma Hinds MD 05/26/2025 10:38 AM EDT - 05/26/2025 11:59 PM EDT Hospital Encounter [facility] Ultrasound, [facility] [address] [facility], 2nd [place] [address] Damian Weaver MD, PhD Discharge Disposition: Home or Self Care 05/23/2025 10:00 AM EDT Office Visit [facility] [address] [facility], 7th Floor, [address] [place] [address] Damian Weaver MD, PhD Pancreatic adenocarcinoma (Primary Dx); Edema, unspecified type 05/23/2025 10:00 AM EDT Office Visit [facility] [address] [facility], 7th Floor, [address] [place] [address] Charisma Francois MD Pancreatic adenocarcinoma (Primary Dx) 05/22/2025 Orders Only [facility] [address] [facility], 7th Floor, [address] [place] [address] PhotopoLorie whitfield, PRINT JOURNALIST Pancreatic adenocarcinoma (Primary Dx) 05/21/2025 Orders Only [facility] Allergy [address] [facility], 4th Floor, [address] [place] [address] Irineo Jones, PRINT JOURNALIST Adverse effect of drug, subsequent encounter (Primary Dx) 05/21/2025 E-Consult [facility] [address] [facility], 4th Floor, [address] [place] [address] Irineo Jones, PRINT JOURNALIST 05/21/2025 Orders Only VIRTUAL DEPARTMENT [address] [place] [phone] Damian Weaver MD, PhD 05/20/2025 4:10 PM EDT - 05/20/2025 11:59 PM EDT Hospital Encounter [facility] [place] [address] [facility], 6th [place] [address] Charisma Francois MD Discharge Disposition: Home or Self Care 05/20/2025 Orders Only VIRTUAL DEPARTMENT [address] [place] [phone] Damian Weaver MD, PhD 05/20/2025 Procedure Pass [facility] [place] [address] [facility], 6th [place] [address] 05/20/2025 Procedure Pass [facility] [place] [address] [facility], 6th [place] [address] 05/20/2025 Orders Only [facility] Dept of Radiation Oncology [address] [address] Charisma Francois MD Pancreatic adenocarcinoma (Primary Dx) 04/25/2025 Orders Only [facility] Dept of Radiation Oncology [address] [address] Charisma Francois MD from Last 3 Months [...] Info) Description 07/17/2025 1:40 PM EDT Infusion [facility] [place] [address] [place] [address] Asael Martines DO [address] [place] [address] [email or web address] 07/21/2025 12:40 PM EDT Treatment [facility] Rad Onc [address] [place] [address] Yolis Sandoval MD [address] [place] [address] [email or web address] 07/22/2025 12:40 PM EDT Treatment [facility] Rad Onc [address] [place] [address] Yolis Sandoval MD [address] [place] [address] [email or web address] 07/23/2025 12:40 PM EDT Treatment [facility] Rad Onc [address] [place] [address] Yolis Sandoval MD [address] [place] [address] [email or web address] 07/23/2025 12:40 PM EDT Nutrition [facility] at [address] [address] 07/24/2025 12:40 PM EDT Treatment [facility] Rad Onc [address] [place] [address] Yolis Sandoval MD [address] [place] [address] [email or web address] 07/24/2025 1:00 PM EDT Infusion [facility] at [address] [address] Asael Martines, DO [address] [place] [address] [email or web address] 07/24/2025 1:00 PM EDT Social Work [facility] at [address] [address] Asael Martines, DO [address] [place] [address] [email or web address] 07/25/2025 11:00 AM EDT Office Visit [facility] at [address] [address] Kaykay Guillen NP [address] [place] [address] [email or web address] 07/25/2025 11:30 AM EDT Treatment [facility] at [address] [address] 07/25/2025 12:40 PM EDT Treatment [facility] Rad Onc [address] [place] [address] Yolis Sandoval MD [address] [place] [address] [email or web address] 07/29/2025 11:30 AM EDT Treatment [facility] at [address] [address] Rachael Newell CNP [address] [place] [address] [email or web address] 07/29/2025 12:40 PM EDT Treatment [facility] Rad Onc [address] [place] [address] Yolis Sandoval MD [address] [place] [address] [email or web address] 07/30/2025 12:40 PM EDT Treatment [facility] Rad Onc [address] [place] [address] Yolis Sandoval MD [address] [place] [phone] [email or web address] 07/31/2025 12:40 PM EDT Treatment [facility] Rad Onc [address] [place] [address] Yolis Sandoval MD [address] [place] [address] [email or web address] 08/01/2025 12:40 PM EDT Treatment [facility] Rad Onc [address] [place] [address] Yolis Sandoval MD [address] [place] [address] [email or web address] 08/04/2025 12:40 PM EDT Treatment [facility] Rad Onc [address] [place] [address] Yolis Sandoval MD [address] [place] [address] [email or web address] 08/05/2025 12:40 PM EDT Treatment [facility] Rad Onc [address] [place] [address] Yolis Sandoval MD [address] [place] [phone] [email or web address] 08/06/2025 12:40 PM EDT Treatment [facility] Rad Onc [address] [place] [address] Yolis Sandoval MD [address] [place] [address] [email or web address] 08/07/2025 12:30 PM EDT Treatment [facility] Rad Onc [address] [place] [address] Yolis Sandoval MD [address] [place] [address] [email or web address] 08/08/2025 12:40 PM EDT Treatment [facility] Rad Onc [address] [place] [address] Yolis Sandoval MD [address] [place] [address] [email or web address] 08/11/2025 12:40 PM EDT Treatment [facility] [employer] Onc [address] [place] [address] Yolis Sandoval MD [address] [place] [address] [email or web address] 08/12/2025 12:40 PM EDT Treatment [facility] Rad Onc [address] [place] [address] Yolis Sandoval MD [address] [place] [address] [email or web address] 08/13/2025 12:40 PM EDT Treatment [facility] Rad Onc [address] [place] [address] Yolis Sandoval MD [address] [place] [address] [email or web address] 08/14/2025 12:40 PM EDT Treatment [facility] Rad Onc [address] [place] [address] Yolis Sandoval MD [address] [place] [phone] [email or web address] 08/15/2025 12:40 PM EDT Treatment [facility] Rad Onc [address] [place] [address] Yolis Sandoval MD [address] [place] [phone] [email or web address] 08/18/2025 12:40 PM EST Treatment [facility] Rad Onc [address] [place] [address] Yolis Sandoval MD [address] [place] [address] [email or web address] 08/19/2025 12:40 PM EST Treatment [facility] Rad Onc [address] [place] [address] Yolis Sandoval MD [address] [place] [address] [email or web address] 08/20/2025 12:40 PM EST Treatment [facility] Rad Onc [address] [place] [address] Yolis Sandoval MD [address] [place] [address] 277[address] [email or web address] 08/21/2025 12:40 PM EST Treatment [facility] Rad Onc [address] [place] [address] OlsYolis kelly MD [address] [place] [phone] [email or web address] 08/22/2025 12:10 PM EST Appointment [facility] Laboratory [address] [place] [address] Asael Martines DO [address] [place] [address] [email or web address] 08/22/2025 12:40 PM EST Treatment [facility] Rad Onc [address] [place] [address] Yolis Sandoval MD [address] [place] [phone] [email or web address] 08/22/2025 1:30 PM EST Office Visit [facility] at [address] [address] Kaykay Guillen NP [address] [place] [address] [email or web address] 08/25/2025 12:40 PM EST Treatment [facility] Rad Onc [address] [place] [address] Yolis Sandoval MD [address] [place] [address] [email or web address] 08/26/2025 12:40 PM EST Treatment [facility] Rad Onc [address] [place] [address] Yolis Sandoval MD [address] [place] [address] [email or web address] 08/27/2025 12:40 PM EST Treatment [facility] Rad Onc [address] [place] [address] Yolis Sandoval MD [address] [place] [address] [email or web address] 08/28/2025 12:40 PM EST Treatment [facility] Rad Onc [address] [place] [address] Yolis Sandoval MD [address] [place] [address] [email or web address] 08/29/2025 12:40 PM EST Treatment [facility] Rad Onc [address] [place] [address] Yolis Sandoval MD [address] [place] [address] [email or web address] 09/01/2025 12:40 PM EST Treatment [facility] Rad Onc [address] [place] [address] Yolis Sandoval MD [address] [place] [address] [email or web address] 09/02/2025 12:40 PM EST Treatment [facility] Rad Onc [address] [place] [address] Yolis Sandoval MD [address] [place] [address] [email or web address] 09/03/2025 12:40 PM EST Treatment [facility] Rad Onc [address] [place] [address] Yolis Sandoval MD [address] [place] [address] [email or web address] 09/04/2025 12:40 PM EST Treatment [facility] Rad Onc [address] [place] [address] Yolis Sandoval MD [address] [place] [phone] [email or web address] Health Maintenance Due Date Last Done Comments [...] included. IRON 167(H) 30 - 160 ug/dL [facility] IRON BINDING CAPACITY 270 230 - 404 ug/dL [facility] TRANSFERRIN SATURAT. 62(H) 14 - 50 % [facility] 06/25/2025 12:4 4 PM EDT 06/25/2025 12:55 PM EDT us Damian Weaver MD, PhD LAB BLOOD ORDERABLES Final R esult Performing Organization Address City/[facility]/ZIP Co de Phone Number [address] [address] * Folate (06/25/2025 12:44 PM EDT) Only the most recent of2 resultswithin the time period is included. FOLIC ACID >20.0 >4.7 ng/mL [facility] 06/25/2025 12:4 4 PM EDT 06/25/2025 12:55 PM EDT us Damian Weaver MD, PhD LAB BLOOD ORDERABLES Final R esult [address] [address] * (ABNORMAL) Ferritin (06/25/2025 12:44 PM EDT) Only the most recent of2 resultswithin the time period is included. FERRITIN 725(H) 10 - 200 ug/L [facility] 06/25/2025 12:4 4 PM EDT 06/25/2025 12:55 PM EDT us Damian Weaver MD, PhD LAB BLOOD ORDERABLES Final R esult Performing Organization Address City/[facility]/ZIP Co de Phone Number [address] [address] * Vitamin B12 (06/25/2025 12:44 PM EDT) Only the most recent of2 resultswithin the time period is included. VITAMIN B12 >2000 >231 pg/mL [facility] 06/25/2025 12:4 4 PM EDT 06/25/2025 12:55 PM EDT us Damian Weaver MD, PhD LAB BLOOD ORDERABLES Final R esult Performing Organization Address City/[facility]/ZIP Co de Phone Number [address] [address] * (ABNORMAL) Comprehensive metabolic panel (06/25/2025 10:34 AM EDT) Only the most recent of4 resultswithin the time period is included. SODIUM 138 135 - 145 mmol/L [facility] POTASSIUM 4.6 3.4 - 5.0 mmol/L [facility] CHLORIDE 106 98 - 108 mmol/L [facility] CO2 23 23 - 32 mmol/L [facility] BUN 18 8 - 25 mg/dL [facility] CREATININE 0.73 0.50 - 1.00 mg/dL [facility] GLUCOSE 149(H) 70 - 110 mg/dL [facility] ALBUMIN 3.8 3.3 - 5.0 g/dL [facility] TOTAL PROTEIN 7.0 6.0 - 8.3 g/dL [facility] CALCIUM 8.8 8.5 - 10.5 mg/dL [facility] ALKALINE PHOSPHATASE 102(H) 30 - 100 U/L [facility] TOTAL BILIRUBIN 0.7 0.0 - 1.0 mg/dL [facility] AST 14 9 - 32 U/L [facility] ALT 12 7 - 33 U/L [facility] GLOBULIN 3.2 1.9 - 4.1 g/dL [facility] EGFR 86 >59 mL/min/1. 73m2 [facility] Comment:Estimated glomerular filtration rate calculated using the CKD-EPI refit equation. ANION GAP 9 3 - 17 mmol/L [facility] 06/25/2025 10:3 4 AM EDT 06/25/2025 10:43 AM EDT us Rhaea N Photopoulos PR[employer] J[employer]RNA[employer] LAB BLOOD ORDERABLES Fin al Result [facility] [address] [place] [address] * (ABNORMAL) CBC and differential (06/25/2025 10:34 AM EDT) Only the most recent of4 resultswithin the time period is included. WBC 9.89 4.00 - 11.00 K/uL [facility] RBC 2.54(L) 4.00 - 5.20 M/uL [facility] HGB 8.7(L) 12.0 - 16.0 g/dL [facility] HCT 27.3(L) 36.0 - 46.0 % [facility] PLT 66(L) 150 - 450 K/uL [facility] MCV 107.5(H) 80.0 - 100.0 fL [facility] MCH 34.3(H) 27.0 - 31.0 pg [facility] MCHC 31.9(L) 32.0 - 36.0 g/dL [facility] RDW 16.3(H) 11.5 - 14.5 % [facility] MPV 10.8 8.4 - 12.0 fL [facility] NRBC 0.00 0.00 /100 WBCs [facility] ABSOLUTE NRBC 0.00 0.00 K/uL [facility] DIFF METHOD Manual [facility] TOTAL CELLS COUNTED 115 [facility] NEUTS 84.3(H) 48.0 - 76.0 % [facility] LYMPHS 14.8(L) 18.0 - 41.0 % [facility] BASOS 0.9 0.0 - 1.5 % [facility] ABSOLUTE NEUTS 8.34(H) 1.92 - 7.60 K/uL [facility] ABSOLUTE LYMPHS 1.46 0.72 - 4.10 K/uL [facility] ABSOLUTE BASOS 0.09 0.00 - 0.15 K/uL [facility] Blood 06/25/2025 10:3 4 AM EDT 06/25/2025 10:43 AM EDT us Rhaea N Photopoulos PR[employer] LAB BLOOD ORDERABLES Fin al Result Performing Organization Address City/[facility] Co de Phone Number [address] [address] * Phosphorus (06/25/2025 10:34 AM EDT) Only the most recent of3 resultswithin the time period is included. PHOSPHORUS 2.7 2.6 - 4.5 mg/dL [facility] 06/25/2025 10:3 4 AM EDT 06/25/2025 10:43 AM EDT us Rhaea N Photopoulos PRINT JOURNALIST LAB BLOOD ORDERABLES Fin al Result Performing Organization Address [facility] Co de Phone Number [address] [address] * Magnesium (06/25/2025 10:34 AM EDT) Only the most recent of3 resultswithin the time period is included. MAGNESIUM 2.0 1.7 - 2.4 mg/dL [facility] 06/25/2025 10:3 4 AM EDT 06/25/2025 10:43 AM EDT us Rhaea N Photopoulos PRINT JOURNALIST LAB BLOOD ORDERABLES Fin al Result Performing Organization Address [facility] Co de Phone Number [address] [address] * US Thyroid Gland (06/04/2025 3:26 PM EDT) Anatomical Region Laterality Modality Neck, Head, Chest Ultrasound 06/05/2025 7:56 AM EDT Impressions 06/05/2025 7:59 AM EDT Bilateral TR 3 nodules measuring up to 20 mm. One-year follow-up is recommended. Narrative 06/05/2025 7:59 AM EDT US THYROID GLAND Referring clinician's provided indication for this examination in [facility]: Mass Or Lump In Thyroid TECHNIQUE: [...] clinician's provided indication for this examination in [facility]:Mass Or Lump In Thyroid TECHNIQUE: Ultrasound [...] One-year follow-up isrecommended. Damian Weaver MD, PhD [facility] US THYROID Final Result * INTERLEUKIN 6 (06/02/2025 2:41 PM EDT) Interleukin 6 <2.5 <7.1 pg/mL [facility] Comment: Blood 06/02/2025 2:41 PM EDT 06/02/2025 2:57 PM EDT Irineo Leonardo Jones [facility] LAB BLOOD ORDERABLES Isidra l Result [facility] [address] [place] [address] * Tryptase (06/02/2025 2:41 PM EDT) Tryptase 2.8 0.1 - 11.5 ug/L [facility] 06/02/2025 2:41 PM EDT 06/02/2025 2:57 PM EDT Irineo Dominguezcoleen [facility] LAB BLOOD ORDERABLES Isidra l Result Performing Organization Address [facility] Co de Phone Number [facility] [address] [place] [address] * US Lower Extremity Veins Duplex Complete [...] AM EDT) CA 19-9 25 <35 U/mL [facility] 05/23/2025 9:27 AM EDT 05/23/2025 9:35 AM EDT Charisma Francois MD LAB BLOOD ORDERABLES Final R esult [facility] [address] [place] [address] * Carcinoembryonic antigen (CEA) (05/23/2025 9:27 AM EDT) CEA 2.0 0.0 - 3.3 ng/mL [facility] 05/23/2025 9:27 AM EDT 05/23/2025 9:35 AM EDT us Charisma Francois MD LAB BLOOD ORDERABLES Final R esult Performing Organization Address [facility] Co de Phone Number [address] [address] * CT CHEST WITH CONTRAST (05/20/2025 5:03 [...] * POCT Creatinine/eGFR (05/20/2025 4:31 PM EDT) [facility] Creatinine 0.80 0.50 - 1.00 mg/dl [facility] EGFR 77 >59 mL/min/1.7 3m2 [facility] Comment:Estimated glomerular filtration rate calculated using the CKD-EPI refit equation. 05/20/2025 4:31 PM EDT 05/20/2025 4:33 PM EDT Charisma Francois MD POINT OF CARE TEST ORDERABLE S Final Result [facility] [address] [place] [address] * Hepatitis C viral load (PCR) (02/04/2025 4:44 PM EDT) HCV RNA PCR Not Detected Not Detected IU/mL [facility] Comment: (NOTE) Assay Range: 15-100,000,000 IU/ml In rare instances, there might be a 1.0 - 1.5 log increase measured viral load observed in individuals with genotype 3a and 4. Please refer any questions to the [facility] at extension [phone]. This is a quantitative assay utilizing real-time [...] MD NON CULTURE MICROBIO LOGY Final Result [address] [address] from Last 3 Months or Most Recently Relevant to Health Maintenance Insurance MEDICARE PART A & B [facility] MEDICARE PART A & B [id number] [place] [address] MEDICARE PART A & B [facility] MEDICARE PART A & B [facility] MED[facility] PART A & B [address] [place], [place] [id number] [address] MEDICARE PART A & B [facility] QMB Care Teams Manager E Learning Relationship Specialty Start Date End Date Ayla Ziegler MD [address] [place] [address] PCP - General Family Medicine 01/24/25 Damian Weaver MD, PhD [address] [place] [address] [address] [place] [address] [email or web address] Primary Oncologist Hematology and Oncology 05/21/25 Asael Martines DO [address] [place] [address] [email or web address] Hematology and Oncology 06/25/25 Additional Source Comments The information contained in this document represents components of the legal health record. It is not the complete legal health record.[facility]
--- OUTSIDE RECORDS SUMMARY | 2025-07-16 12:59 | XMS_ITS | Encounter Summary ---
Author Organization [facility] Address [address] [place] [address] Phone Care Team Providers Care Business Systems Manager Name Role Phone Ayla Ziegler MD Primary Care Provider [phone] Damian Weaver MD, PhD Unavailable [phone] Asael Martines DO Unavailable [phone] Encounter Details Date Type Department Care Team (Late st Contact Info) Description 07/11/2025 Telephone [facility] Rad Onc [address] [place] [address] [phone] Genesis Barrientos, RN [address] [place] [address] [email or web address] Social History Tobacco Use Types Packs/Day [...] received from [place] oncology nurse navigator at [facility]. She called radiology to confirm thatArlene's port is a power port. documented in this encounter Plan of Treatment Upcoming Encounters Date Type Department Care Team (Late st Contact Info) Description 07/17/2025 1:40 PM EDT Infusion [facility] at [address] [address] Asael Martines DO [address] [place] [address] [email or web address] 07/21/2025 12:40 PM EDT Treatment [facility] At [facility] Rad Onc [address] [place] [address] Yolis Sandoval MD [address] [place] [phone] [email or web address] 07/22/2025 12:40 PM EDT Treatment [facility] Rad Onc [address] [place] [address] Yolis Sandoval MD [address] [place] [address] [email or web address]@[email or web address] 07/23/2025 12:40 PM EDT Treatment [facility] Rad Onc [address] [place] [address] Yolis Sandoval MD [address] [place] [address] [email or web address]@[email or web address] 07/23/2025 12:40 PM EDT Nutrition [facility] at [address] [address] 07/24/2025 12:40 PM EDT Treatment [facility] Rad Onc [address] [place] [address] Yolis Sandoval MD [address] [place] [address] [email or web address] 07/24/2025 1:00 PM EDT Infusion [facility] at [address] [address] Asael Martines, [address] [place] [phone] [email or web address] 07/24/2025 1:00 PM EDT Social Work [facility] Center at [address] [address] Asael Martines, DO [address] [place] [phone] [email or web address] 07/25/2025 11:00 AM EDT Office Visit [facility] at [address] [address] Kaykay Guillen NP [address] [place] [address] [email or web address] 07/25/2025 11:30 AM EDT Treatment [facility] at [address] [address] 07/25/2025 12:40 PM EDT Treatment [facility] Rad Onc [address] [place] [address] Yolis Sandoval MD [address] [place] [phone] [email or web address]@[email or web address] 07/29/2025 11:30 AM EDT Treatment [facility] at [place] [facility] [address] [place] [address] Rachael Newell CNP [address] [place] [address] [email or web address] 07/29/2025 12:40 PM EDT Treatment [facility] Rad Onc [address] [place] [address] Yolis Sandoval MD [address] [place] [phone] [email or web address]@[facility] 07/30/2025 12:40 PM EDT Treatment [facility] Rad Onc [address] [place] [address] Yolis Sandoval MD [address] [place] [address] [email or web address]@[facility] 07/31/2025 12:40 PM EDT Treatment [facility] Rad Onc [address] [place] [address] Yolis Sandoval MD [address] [place] [address] [email or web address]@[facility] 08/01/2025 12:40 PM EDT Treatment [facility] Rad Onc [address] [place] [address] Yolis Sandoval MD [address] [place] [address] [email or web address]@[facility] 08/04/2025 12:40 PM EDT Treatment [facility] Rad Onc [address] [place] [address] Yolis Sandoval MD [address] [place] [phone] [email or web address]@[facility] 08/05/2025 12:40 PM EDT Treatment [facility] Rad Onc [address] [place] [address] Yolis Sandoval MD [address] [place] [phone] [email or web address]@[facility] 08/06/2025 12:40 PM EDT Treatment [facility] Rad Onc [address] [place] [address] Yolis Sandoval MD [address] [place] [phone] [email or web address]@[facility] 08/07/2025 12:30 PM EDT Treatment [facility] Rad Onc [address] [place] [address] Yolis Sandoval MD [address] [place] [phone] [email or web address]@[facility] 08/08/2025 12:40 PM EDT Treatment [facility] Rad Onc [address] [place] [address] Yolis Sandoval MD [address] [place] [phone] [email or web address]@[facility] 08/11/2025 12:40 PM EDT Treatment [facility] Rad Onc [address] [place] [address] Yolis Sandoval MD [address] [place] [phone] [email or web address]@[facility] 08/12/2025 12:40 PM EDT Treatment [facility] Rad Onc [address] [place] [address] Yolis Sandoval MD [address] [place] [address] [email or web address]@[facility] 08/13/2025 12:40 PM EDT Treatment [facility] Rad Onc [address] [place] [address] Yolis Sandoval MD [address] [place] [phone] [email or web address]@[facility] 08/14/2025 12:40 PM EDT Treatment [facility] Rad Onc [address] [place] [address] Yolis Sandoval MD [address] [place] [address] [email or web address]@[facility] 08/15/2025 12:40 PM EDT Treatment [facility] Rad Onc [address] [place] [address] Yolis Sandoval MD [address] [place] [phone] [email or web address]@[facility] 08/18/2025 12:40 PM EST Treatment [facility] Rad Onc [address] [place] [address] Yolis Sandoval MD [address] [place] [address] reno@[facility] 08/19/2025 12:40 PM EST Treatment [facility] Rad Onc [address] [place] [address] Yolis Sandoval MD [address] [place] [phone] reno@[facility] 08/20/2025 12:40 PM EST Treatment [facility] Rad Onc [address] [place] [address] Yolis Sandoval MD [address] [place] [phone] reno@[facility] 08/21/2025 12:40 PM EST Treatment [facility] Rad Onc [address] [place] [address] Yolis Sandoval MD [address] [place] [phone] reno@[facility] 08/22/2025 12:10 PM EST Appointment [facility] Laboratory [address] [place] [address] Asael Martines DO [address] [place] [phone] [email or web address] 08/22/2025 12:40 PM EST Treatment [facility] Rad Onc [address] [place] [address] Yolis Sandoval MD [address] [place] [phone] [email or web address]@[facility] 08/22/2025 1:30 PM EST Office Visit [facility] at [address] [address] Kaykay Guillen NP [address] [place] [address] 08/25/2025 12:40 PM EST Treatment [facility] Rad Onc [address] [place] [address] Yolis Sandoval MD [address] [place] [phone] reno@[facility] 08/26/2025 12:40 PM EST Treatment [facility] Rad Onc [address] [place] [address] Yolis Sandoval MD [address] [place] [phone] [email or web address]@[facility] 08/27/2025 12:40 PM EST Treatment [facility] Rad Onc [address] [place] [address] Yolis Sandoval MD [address] [place] [phone] [email or web address]@[facility] 08/28/2025 12:40 PM EST Treatment [facility] Rad Onc [address] [place] [address] Yolis Sandoval MD [address] [place] [address] [email or web address]@[facility] 08/29/2025 12:40 PM EST Treatment [facility] Rad Onc [address] [place] [address] Yolis Sandoval MD [address] [place] [phone] [email or web address]@[facility] 09/01/2025 12:40 PM EST Treatment [facility] Rad Onc [address] [place] [address] Yolis Sandoval MD [address] [place] [phone] [email or web address]@[facility] 09/02/2025 12:40 PM EST Treatment [facility] Rad Onc [address] [place] [address] Yolis Sandoval MD [address] [place] [phone] [email or web address]@[facility] 09/03/2025 12:40 PM EST Treatment [facility] Rad Onc [address] [place] [address] Yolis Sandoval MD [address] [place] [phone] [email or web address]@[facility] 09/04/2025 12:40 PM EST Treatment [facility] Rad Onc [address] [place] [address] Yolis Sandoval MD [address] [place] [phone] [email or web address] documented as of this encounter Visit Diagnoses Not on filedocumented in this encounter Care Teams Business Systems Manager Relationship Specialty Start Date End Date Ayla Ziegler MD [address] [place] [address] PCP - General Family Medicine 01/24/25 Damian Weaver MD, PhD [address] [place] [address] [place] [address] [email or web address] Primary Oncologist Hematology and Oncology 05/21/25 Asael Martines DO [address] [place] [phone] [email or web address] Hematology and Oncology 06/25/25 documented as of this encounter Additional Source Comments The information contained in this document represents components of the legal health record. It is not the complete legal health record.[facility]
--- OUTSIDE RECORDS SUMMARY | 2025-07-16 13:00 | XMS_ITS | Encounter Summary ---
Author Organization [employer] Address [address] [place] [address] Care Team Providers Care Floor Sweeper Name Role Phone Ayla Ziegler MD Primary Care Provider [phone] Encounter Details Date Type Department Care Team [...] AM EDT Clinical Support [facility] [address] [place] [address] Heather Siddiqui, [place] [address] [place] [address] documented as of this encounter Visit Diagnoses Not on filedocumented in this encounter Additional Health Concerns Assessment Noted Time PHQ-9 Depression Total Score: 5 04/09/20 25 11:23 AM EDT documented as of this encounter Care Teams Floor Sweeper Relationship Specialty Start Date End Date Ayla Ziegler MD [address] [place] [address] PCP - General Family Medicine 11/14/13 documented as of this encounter
--- OUTSIDE RECORDS SUMMARY | 2025-07-16 13:00 | XMS_ITS | Clinical Summary ---
Author Organization [employer] Address [address] [place] [address] [address] [place] [address] Care Team Providers Care Singer Songwriter Name Role Phone Ayla Ziegler MD Primary Care Provider [phone] Allergies Active Allergy Reactions Criticality Noted Date Comments Omeprazole 12/02/2010 Other reaction(s): unspecified Oxaliplatin Shortness of breath High 06/02/2025 Other Reaction(s): Neuropathy Tingling in chest, throat expanding/speech difficulties Tetanus Toxoid 04/24/2023 Other reaction(s): fever, vomiting Medications metoprolol succinate XL (Toprol-XL) 50 MG 24 hr tablet 023 Active D3-1000 25 MCG (1000 UT) capsule TAKE 1 CAPSULE BY MOUTH IN THE MORNING 90 capsule 3 024 Active metFORMIN (Glucophage) 1000 MG tablet Take 1 tablet (1,000 mg) by mouth with breakfast and with evening meal. 60 tablet 11 025 2025 Active glucose blood (FreeStyle Precision Sukhi Test) test stripIndications :Type 2 diabetes mellitus without complication, without long-term current use of insulin (HCC) USE TO TEST BLOOD SUGAR ONCE A DAYY IN CASE OF CGM FAILURE OR EXTREMES OF BLOOD GLUCOSE 100 strip 11 025 Active Eliquis 5 MG tablet TAKE ONE TABLET EVERY TWELVE HOURS 180 tablet 1 025 Active dexAMETHasone (Decadron) 2 MG tablet TAKE 1 TABLET EVERY 12 HOURS FOR JUST 2 DAYS AFTER CHEMOTHERAPY 025 Active loperamide (Imodium) 2 MG capsule Take 2 mg by mouth if needed in the morning, at noon, in the evening, and at bedtime. 08/15/2 025 Active LORazepam (Ativan) 1 MG tabletIndication s:Anxiety Take 1 tablet (1 mg) by mouth Once per day. Dose increased 30 tablet 025 2024 Active Continuous Glucose Assistant Women'S Rowing Coach (FreeStyle Tevin 3 [place]) deviceIndication s:Type 2 diabetes mellitus without complication, without long-term current use of insulin (HCC) 1 EACH ONCE PER DAY. USE DIRECTED FOR CGM 1 each 025 2024 Discontinued(C ost of medication) Continuous Glucose Sensor (FreeStyle Tevin 3 Plus Sensor) miscIndications: Type 2 diabetes mellitus without complication, without long-term current use of insulin (HCC) USE 1 SENSOR EVERY 15 DAYS. APPLY 1 EVERY 15 DAYS DIRECTED FOR CGM 1 each 025 2024 Discontinued(C ost of medication) LORazepam (Ativan) 1 MG tabletIndication s:Anxiety Take 1 tablet (1 mg) by mouth Once per day. Dose increased 30 tablet 025 2024 Discontinued(R eorder (will not trigger notification to Pharmacy)) [id number] Vac Recomb Adjuvanted 120 MCG/0.5ML reconstituted suspension Inject 0.5 mL into the muscle 1 (one) time for 1 dose. 1 each 025 2024 Active Problems Problem Noted Date Diagnosed Date Varicose veins of both lower extremities 025 Drug reaction 05/21/2025 Anxiety 04/09/2025 Pancreatic adenocarcinoma ([facility]/HCC) 02/02/2025 Chronic atrial fibrillation ([facility]) 05/28/2024 Overview (05/28/2024): on eliquis AAA (abdominal aortic aneurysm) 04/24/2023 Essential hypertension 12/13/2011 Diabetes mellitus 12/13/2011 Obesity 12/13/2011 Pure hypercholesterolemia 11/10/2011 Migraine 10/26/2011 Acute pharyngitis 05/18/2011 Resolved Problems Problem Noted Date Diagnosed Date Resolved Date Pancreatic adenoma 04/09/2025 Tobacco dependence syndrome 10/26/2011 07/15/2025 Encounters Date Type Department Care Team Description 07/16/2025 11:15 AM EDT Office Visit [facility] [address] [place] [address] Ayla Ziegler MD Bilateral leg edema (Primary Dx); Anxiety 07/16/2025 Travel 07/15/2025 10:00 AM EDT Procedure Visit [facility] [address] [place] [address] Yolis Merino MD Cervical cancer screening (Primary Dx) 07/15/2025 Travel 07/14/2025 Telephone [facility] [address] [place] [address] Ayla Ziegler MD chart prep 07/10/2025 Telephone [facility] [address] [place] [id number] Ayla Ziegler MD No Show 07/09/2025 Telephone [facility] [address] [place] [address] Ayla Ziegler MD Chart Prep 07/08/2025 Travel 07/02/2025 Telephone [facility] [address] [place] [address] Ayla Ziegler MD Referral 06/25/2025 Telephone [facility] [address] [place] [address] Ayla Ziegler MD Appointment Request; orders needed 05/15/2025 1:00 PM EDT Clinical Support [facility] [address] [place] [address] Heather Siddiqui, RN Anxiety; Long-term current use of benzodiazepine 05/15/2025 Telephone [facility] [address] [place] [address] Heather Siddiqui RN 05/15/2025 Travel 05/14/2025 Refill [facility] [address] [place] [address] Ayla Ziegler MD Anxiety 05/09/2025 Travel 05/01/2025 Travel 05/01/2025 Telephone [facility] [address] [place] [address] Heather Siddiqui RN 04/29/2025 Travel 04/23/2025 Refill [facility] [address] [facility] [place] [address] Ayla Ziegler MD 04/16/2025 Travel 04/16/2025 Telephone [facility] [address] [place] [address] Heather Siddiqui, [place] BARKER PEELER 04/15/2025 Telephone [facility] [address] [place] [address] Ayla Ziegler MD Appointment Request from Last [...] Mass Index 31.96 07/16/2025 11:09 AM EDT Plan of Treatment Upcoming Encounters Date Type Department Care Team (Late st Contact Info) Description 08/14/2025 10:00 AM EDT Clinical Support [facility] [address] [place] [address] Heather Siddiqui, RN [address] [place] [address] Health Maintenance Due Date Last Done Comments [...] complication, without long-term current use of insulin ([facility]) AMB REFERRAL TO PODIATRY Routine 02/03/2025 Type 2 diabetes mellitus without complication, without long-term current use of insulin ([facility]) LAB COLOGUARD COLON CANCER SCREEN Routine 11/28/2024 10:45 AM EST Encounter for screening for malignant neoplasm of colon LIPID PANEL, STANDARD Routine 11/19/2024 9:24 AM EST Type 2 diabetes mellitus without complication, without long-term current use of insulin ([facility]) ALBUMIN, RANDOM URINE W/CREATININE Routine 04/29/2024 11:01 AM EDT Type 2 diabetes mellitus without complication, without long-term current use of insulin ([facility]) HM DIABETES EYE EXAM Routine 02/28/2024 7:24 [...] 1:45 PM EDT Internal Pass Control Lot# [id number] Exp: 08-15-26 us Ayla Ziegler MD POINT OF CARE TEST ENTER/EDIT OR DERABLES Final Result * POCT HGB A1C (04/09/2025 11:21 AM EDT) Hemoglobin A1C 5.9 4.0 - 6.0 % QC Media Lot # [id number] Lot# Expiration Date Blood 04/09/2025 11:2 1 AM EDT Result [facility] us Ayla Ziegler MD POINT OF CARE TEST ENTER/EDIT OR DERABLES Final Result * Referral to Podiatry (02/03/2025) us Ayla Ziegler MD OUTPATIENT REFERRAL ORDERABLES F inal Result * (ABNORMAL) Cologuard?? colon cancer screening (11/28/2024 10:45 AM EST) Cologuard Result Positive( A) Negative 12/04/2024 2:53 PM EST Flotype (CLIA #:[id number]) Comment: POSITIVE TEST RESULT. A positive Cologuard [...] screened with both Cologuard and colonoscopy. (Dawn Dia. et al, N Engl J Med 2014;370(14):8902-3617.) Cologuard may produce a false negative or false positive result (no colorectal cancer or precancerous polyp present at colonoscopy follow up). A negative Cologuard test result does not guarantee the absence of CRC or advanced adenoma (pre-cancer). The current Cologuard screening interval is every 3 years. ([employer] and U.S. Multi-Society Task Force). Cologuard performance data in a 10,000 patient pivotal study using colonoscopy as the reference method can be accessed at the following location: [email or web address]/results. Additional description of the Cologuard test process, warnings and precautions can be found at [email or web address]. Stool specimen (specimen) Rectal contents / Unknown 11/28/2024 10:45 AM EST 11/29/2024 10:58 AM EST us Ayla Ziegler MD LAB MOLECULAR DIAGNOSTICS ORDERA BLES Final Result Flotype (CLIA #:[id number]) [place] [address] [place] [address], * (ABNORMAL) Lipid Panel, Standard (11/19/2024 9:24 AM EST) Triglycerides 84 <150 mg/dL [facility] Comment:Desirable Triglyceri de: less than 150 mg/dLBorderline High Triglyceride 150-199 mg/dLHigh Triglyceride: 200-499 mg/dLVery High Triglyceride: greater than or equal to 5OO mg/dL Cholesterol 175 <200 mg/dL [facility] Comment:Desirable Cholestero l: less than 200 mg/dLBorderline High Cholesterol: 200-239 mg/dLHigh Cholesterol: greater than 239 mg/dL LDL Cholesterol Calculated 123(H) <100 mg/dL [facility] Comment:Desirable LDL: less than 100 mg/dLNear Optimal/Above Optimal LDL: 110- 129 mg/dLBorderline High LDL: 130-159 mg/dLHigh LDL: 160-189 mg/dLVery High LDL: greater than or equal to 190 mg/dL HDL Cholesterol 36(L) >40 mg/dL [facility] Comment:Desirable HDL: great er than 40 mg/dL Note: This HDL assay may give artificially low results in patients with liver disease. Blood Venous blood specimen / Unknown 11/19/2024 9:24 AM EST 11/19/2024 2:10 PM EST Ayla Ziegler MD LAB BLOOD ORDERABLES Final Resul t [facility] [address] [place] [phone] * Albumin, Random Urine W/Creatinine (04/29/2024 11:01 AM EDT) Creatinine, Urine 109.33 mg/dL [facility] Microalbumin Urine 26.0 mg/L [facility] Microalbum Creatinine Ratio Ur 23.7 <30 ug/mg cr [facility] Comment:Albumin/Creatinine R atio Reference Ranges: Normal: < 30 ug/mg creatinine Microalbuminuria: 30 - 300 ug/mg creatinineClinical Albuminuria: > 300 ug/mg creatinine Urine (Urine, Random) 04/29/2024 11:01 AM EDT 04/29/2024 2:26 PM EDT Ayla Ziegler MD LAB URINE ORDERABLES Final Resul t [facility] [address] [place] [address] [phone] * Diabetes Eye Exam (02/28/2024 7:24 PM EDT) us Historical Provider HEALTH MAINTENANCE Final Result from Last 3 Months or Most Recently Relevant to Health Maintenance Insurance [facility] STANDARD [place] [id number] Care Teams Singer Songwriter Relationship Specialty Start Date End Date Ayla Ziegler MD [address] [place] [address] [place] [address] PCP - General Family Medicine 11/14/13
--- OUTSIDE RECORDS SUMMARY | 2025-07-16 13:00 | XMS_ITS | Encounter Summary ---
Author Organization [employer] Address [address] [place] [address] Care Team Providers Care Pearl Diver Name Role Phone Ayla Ziegler MD Primary Care Provider [phone] Encounter Details Date Type Department Care Team ([facility] st Contact Info) Description 12/07/2024 Orders Only [facility] [address] [place] [address] ProviderSybil MD Social History Tobacco Use Types [...] Description 08/14/2025 10:00 AM EDT Clinical Support [facility] [address] [place] [address] Heather Siddiqui RN [address] [place] [address] documented as of this encounter Procedures Procedure [...] documented as of this encounter Care Teams Pearl Diver Relationship Specialty Start Date End Date Ayla Ziegler MD [address] [place] [id number] PCP - General Family Medicine 11/14/13 documented as of this encounter
--- OUTSIDE RECORDS SUMMARY | 2025-07-16 13:00 | XMS_ITS | Encounter Summary ---
Author Organization [employer] Address [address] [facility] [address] [place] [address] Care Team Providers Care Distillation Operator Helper Name Role Phone Ayla Ziegler MD Primary Care Provider [phone] Reason for Visit * Reason Onset Date Comments Medication Question 03/05/2025 Encounter Details Date Type Department Care Team ([facility] st Contact Info) Description 03/05/2025 Telephone [facility] [address] [place] [address] Ayla Ziegler MD [address] [place], [place] [id number] Medication Question Social History Tobacco Use Types [...] 1 MG tablet To be sent to: [facility]/pharmacy #[id number] [place], [place] - [address] [place] [address] AT [facility] documented in this encounter Plan of Treatment Upcoming Encounters Date Type Department Care Team (Late st Contact Info) Description 08/14/2025 10:00 AM EDT Clinical Support [facility] [address] [place] [address] Heather Siddiqui, [place] [address] [place] [address] documented as of this encounter Visit Diagnoses Not on filedocumented in this encounter Additional Health Concerns Assessment Noted Time PHQ-9 Depression Total Score: 0 04/24/20 23 11:11 AM EDT documented as of this encounter Care Teams Distillation Operator Helper Relationship Specialty Start Date End Date Ayla Ziegler MD [address] [place] [id number] PCP - General Family Medicine 11/14/13 documented as of this encounter
--- OUTSIDE RECORDS SUMMARY | 2025-07-16 13:00 | XMS_ITS | Encounter Summary ---
Author Organization [facility] Address [address] [facility] [address] [place] [phone] Phone Care Team Providers Care Industrial Psychology Teacher Name Role Phone Ayla Ziegler MD Primary Care Provider [phone] Damian Weaver MD, PhD Unavailable [phone] Asael Martines DO Unavailable [phone] Reason for Visit * Auth/Cert (Routine) Specialty Diagnoses / Procedures Referred By Contac t Referred To Contact Diagnoses pancreatic cancer Procedures allergy management chemotherapy Referral ID Status Reason Start Date Expiration Date Visits Re quested Visits Authorized [id number] 1 1 Encounter Details Date Type Department Care Team (Late st Contact Info) Description 06/17/2025 Hospital Encounter [facility] Admissions [address] [place] [id number] Damian Weaver MD, PhD [address] [place] [address] [email or web address] Social History Tobacco Use Types Packs/Day Years [...] Info) Description 07/17/2025 1:40 PM EDT Infusion [facility] at [address] [address] Asael Martines DO [address] [place] [address] [email or web address] 07/21/2025 12:40 PM EDT Treatment [facility] At [facility] Rad Onc [address] [place] [address] Yolis Sandoval MD [address] [place] [phone] reno@[facility] 07/22/2025 12:40 PM EDT Treatment [facility] At [facility] Rad Onc [address] [place] [address] Yolis Sandoval MD [address] [place] [address] reno@[facility] 07/23/2025 12:40 PM EDT Treatment [facility] At [facility] Onc [address] [place] [address] Yolis Sandoval MD [address] [place] [address] reno@[facility] 07/23/2025 12:40 PM EDT Nutrition [facility] at [address] [address] 07/24/2025 12:40 PM EDT Treatment [facility] Onc [address] [place] [address] Yolis Sandoval MD [address] [place] [address] reno@[facility] 07/24/2025 1:00 PM EDT Infusion [facility] at [address] [address] Asael Martines, [address] [address] [email or web address] 07/24/2025 1:00 PM EDT Social Work [facility] at [address] [address] Asael Martines, DO [address] [place] [address] [email or web address] 07/25/2025 11:00 AM EDT Office Visit [facility] at [address] [address] Kaykay Guillen NP [address] [place] [address] [email or web address] 07/25/2025 11:30 AM EDT Treatment [facility] [place] at [address] [address] 07/25/2025 12:40 PM EDT Treatment [facility] Rad Onc [address] [place] [address] Yolis Sandoval MD [address] [place] [address] reno@[facility] 07/29/2025 11:30 AM EDT Treatment [facility] at [address] [place] [address] Rachael Newell CNP [address] [place] [address] [email or web address] 07/29/2025 12:40 PM EDT Treatment [facility] Onc [address] [place] [address] Yolis Sandoval MD [address] [place] [phone] reno@[facility] 07/30/2025 12:40 PM EDT Treatment [facility] Onc [address] [place] [address] Yolis Sandoval MD [address] [place] [phone] reno@[facility] 07/31/2025 12:40 PM EDT Treatment [facility] Onc [address] [place] [address] Yolis Sandoval MD [address] [place] [phone] reno@[facility] 08/01/2025 12:40 PM EDT Treatment [facility] Onc [address] [place] [address] Yolis Sandoval MD [address] [place] [phone] reno@[facility] 08/04/2025 12:40 PM EDT Treatment [facility] Onc [address] [place] [address] Yolis Sandoval MD [address] [place] [phone] reno@[facility] 08/05/2025 12:40 PM EDT Treatment [facility] Onc [address] [place] [address] Yolis Sandoval MD [address] [place] [phone] reno@[facility] 08/06/2025 12:40 PM EDT Treatment [facility] Onc [address] [place] [address] Yolis Sandoval MD [address] [place] [phone] reno@[facility] 08/07/2025 12:30 PM EDT Treatment [facility] Onc [address] [place] [address] Yolis Sandoval MD [address] [place] [phone] reno@[facility] 08/08/2025 12:40 PM EDT Treatment [facility] Onc [address] [place] [address] Yolis Sandoval MD [address] [place] [address] reno@[facility] 08/11/2025 12:40 PM EDT Treatment [facility] Onc [address] [place] [address] Yolis Sandoval MD [address] [place] [address] reno@[facility] 08/12/2025 12:40 PM EDT Treatment [facility] Onc [address] [place] [address] Yolis Sandoval MD [address] [place] [phone] reno@[facility] 08/13/2025 12:40 PM EDT Treatment [facility] Onc [address] [place] [address] Yolis Sandoval MD [address] [place] [phone] reno@[facility] 08/14/2025 12:40 PM EDT Treatment [facility] Onc [address] [place] [address] Yolis Sandoval MD [address] [place] [phone] reno@[facility] 08/15/2025 12:40 PM EDT Treatment [facility] Onc [address] [place] [address] Yolis Sandoval MD [address] [place] [phone] reno@[facility] 08/18/2025 12:40 PM EST Treatment [facility] On[facility] [address] [place] [address] Yolis Sandoval MD [address] [place] [address] [phone] reno@[facility] 08/19/2025 12:40 PM EST Treatment [facility] Onc [address] [place] [address] Yolis Sandoval MD [address] [place] [phone] reno@[facility] 08/20/2025 12:40 PM EST Treatment [facility] Rad [address] [address] Yolis Sandoval MD [address] [place] [address] reno@[facility] 08/21/2025 12:40 PM EST Treatment [facility] [address] [place] [address] Yolis Sandoval MD [address] [place] [address] [phone] reno@[facility] 08/22/2025 12:10 PM EST Appointment [facility] [address] [place] [address] Asael Martines DO [address] [place] [address] [email or web address] 08/22/2025 12:40 PM EST Treatment [facility] Onc [address] [place] [address] Yolis Sandoval MD [address] [place] [address] reno@[facility] 08/22/2025 1:30 PM EST Office [facility] at [address] [address] Kaykay Guillen NP [address] [place] [address] [email or web address] 08/25/2025 12:40 PM EST Treatment [facility] Onc [address] [place] [address] Yolis Sandoval MD [address] [place] [phone] reno@[facility] 08/26/2025 12:40 PM EST Treatment [facility] Onc [address] [place] [address] Yolis Sandoval MD [address] [place] [phone] reno@[facility] 08/27/2025 12:40 PM EST Treatment [facility] On[facility] [address] [place] [address] Yolis Sandoval MD [address] [place] [phone] reno@[facility] 08/28/2025 12:40 PM EST Treatment [facility] Onc [address] [place] [address] Yolis Sandoval MD [address] [place] [address] reno@[facility] 08/29/2025 12:40 PM EST Treatment [facility] Onc [address] [place] [address] Yolis Sandoval MD [address] [place] [phone] reno@[facility] 09/01/2025 12:40 PM EST Treatment [facility] Onc [address] [place] [address] Yolis Sandoval MD [address] [place] [phone] reno@[facility] 09/02/2025 12:40 PM EST Treatment [facility] Rad [address] [address] Yolis Sandoval MD [address] [place] [phone] reno@[facility] 09/03/2025 12:40 PM EST Treatment [facility] Onc [address] [place] [address] Yolis Sandoval MD [address] [place] [address] reno@[facility] 09/04/2025 12:40 PM EST Treatment [facility] Onc [address] [place] [address] Yolis Sandoval MD [address] [place] [phone] reno@[email or web address] documented as of this encounter Visit Diagnoses Not on filedocumented in this encounter Care Teams Industrial Psychology Teacher Relationship Specialty Start Date End Date Ayla Ziegler MD [address] [place] [address] PCP - General Family Medicine 01/24/25 Damian Weaver MD, PhD [address] [place] [address] [address] [place] [address] [email or web address] Primary Oncologist Hematology and Oncology 05/21/25 Asael Martines DO [address] [place] [address] [email or web address] Hematology [facility] Oncology 06/25/25 documented as of this encounter Additional Source Comments The information contained in this document represents components of the legal health record. It is not the complete legal health record[facility]
--- OUTSIDE RECORDS SUMMARY | 2025-07-16 13:00 | XMS_ITS | Encounter Summary ---
Author Organization [facility] Address [address] [place] [address] [place] [phone] Phone Care Team Providers Care Deputy Probation Officer Name Role Phone Ayla Ziegler MD Primary Care Provider [phone] Damian Weaver MD, PhD Unavailable [phone] Asael Martines DO Unavailable [phone] Reason for Referral * MRI/CAT Scan - New Request Specialty Diagnoses / Procedures Referred By Contac t Referred To Contact Radiology Diagnoses Pancreatic adenocarcinoma Procedures CT Chest Juan Francisco Etienne CNP Phone: tel: fax: mailto:[email or web address] Referral ID Status Reason Start Date Expiration Date V isits Requested Visits Authorized [id number] New Request 07/02/2025 1 1 * MRI/CAT Scan - New Request Specialty Diagnoses / Procedures Referred By Contac t Referred To Contact Radiology Diagnoses Pancreatic adenocarcinoma Procedures CT Abdomen/Pelvis Juan Francisco Etienne CNP Phone: tel: fax: mailto:[email or web address] Referral ID Status Reason Start Date Expiration Date V isits Requested Visits Authorized [id number] New Request 07/02/2025 1 1 Encounter Details Date Type Department Care Team (Late st Contact Info) Description 07/02/2025 Orders Only [facility] [address], 7th Floor, [address] [place] [address] Juan Francisco Etienne, SECURITY SERVICES SPECIALIST [address] [facility] [address] [place] [address] [email or web address] Pancreatic adenocarcinoma Social History Tobacco Use Types [...] Info) Description 07/17/2025 1:40 PM EDT Infusion [facility] [place] [address] [place] [address] Asael Martines DO [address] [place] [address] [email or web address] 07/21/2025 12:40 PM EDT Treatment [facility] [address] [place] [address] Yolis Sandoval MD [address] [place] [address] [email or web address] 07/22/2025 12:40 PM EDT Treatment [facility] Rad Onc [address] [place] [address] Yolis Sandoval MD [address] [place] [phone] [email or web address] 07/23/2025 12:40 PM EDT Treatment [facility] On[facility] [address] [place] [address] Yolis Sandoval MD [address] [place] [address] [email or web address] 07/23/2025 12:40 PM EDT Nutrition [facility] at [address] [address] 07/24/2025 12:40 PM EDT Treatment [facility] Onc [address] [place] [address] Yolis Sandoval MD [address] [place] [address] [email or web address] 07/24/2025 1:00 PM EDT Infusion [facility] at [address] [address] Asael Martines, DO [address] [place] [address] [email or web address] 07/24/2025 1:00 PM EDT Social Work [facility] at [address] [address] Asael Martines, DO [address] [place] [address] [email or web address] 07/25/2025 11:00 AM EDT Office Visit [facility] at [address] [address] Kaykay Guillen NP [address] [place] [address] [email or web address] 07/25/2025 11:30 AM EDT Treatment [facility] [place] at [address] [address] 07/25/2025 12:40 PM EDT Treatment [facility] On[facility] [address] [place] [address] Yolis Sandoval MD [address] [place] [address] [email or web address] 07/29/2025 11:30 AM EDT Treatment [facility] at [address] [address] Rachael Newell CNP [address] [place] [address] [email or web address] 07/29/2025 12:40 PM EDT Treatment [facility] [address] [place] [address] Yolis Sandoval MD [address] [place] [address] [email or web address] 07/30/2025 12:40 PM EDT Treatment [facility] [address] [place] [address] Yolis Sandoval MD [address] [place] [address] [email or web address] 07/31/2025 12:40 PM EDT Treatment [facility] [address] [place] [address] Yolis Sandoval MD [address] [place] [address] [email or web address] 08/01/2025 12:40 PM EDT Treatment [facility] [address] [place] [address] Yolis Sandoval MD [address] [place] [address] [email or web address] 08/04/2025 12:40 PM EDT Treatment [facility] [address] [place] [address] Yolis Sandoval MD [address] [place] [address] [email or web address] 08/05/2025 12:40 PM EDT Treatment [facility] On[facility] [address] [place] [address] Yolis Sandoval MD [address] [place] [address] [email or web address] 08/06/2025 12:40 PM EDT Treatment [facility] Onc [address] [place] [address] Yolis Sandoval MD [address] [place] [address] [email or web address] 08/07/2025 12:30 PM EDT Treatment [facility] On[facility] [address] [place] [address] Yolis Sandoval MD [address] [place] [address] [email or web address] 08/08/2025 12:40 PM EDT Treatment [facility] Onc [address] [place] [address] Yolis Sandoval MD [address] [place] [address] [email or web address] 08/11/2025 12:40 PM EDT Treatment [facility] [address] [place] [address] Yolis Sandoval MD [address] [place] [address] [email or web address] 08/12/2025 12:40 PM EDT Treatment [facility] On[facility] [address] [place] [address] Yolis Sandoval MD [address] [place] [address] [email or web address] 08/13/2025 12:40 PM EDT Treatment [facility] [address] [place] [address] Yolis Sandoval MD [address] [place] [address] [email or web address] 08/14/2025 12:40 PM EDT Treatment [facility] [address] [place] [address] Yolis Sandoval MD [address] [place] [address] [email or web address] 08/15/2025 12:40 PM EDT Treatment [facility] [address] [place] [address] Yolis Sandoval MD [address] [place] [address] [email or web address] 08/18/2025 12:40 PM EST Treatment [facility] [address] [place] [address] Yolis Sandoval MD [address] [place] [address] [email or web address] 08/19/2025 12:40 PM EST Treatment [facility] [address] [place] [address] Yolis Sandoval MD [address] [place] [address] [email or web address] 08/20/2025 12:40 PM EST Treatment [facility] [address] [place] [address] Yolis Sandoval MD [address] [place] [address] [email or web address] 08/21/2025 12:40 PM EST Treatment [facility] [address] [place] [address] Yolis Sandoval MD [address] [place] [phone] [email or web address] 08/22/2025 12:10 PM EST Appointment [facility] [address] [place] [address] Asael Martines DO [address] [place] [address] [email or web address] 08/22/2025 12:40 PM EST Treatment [facility] [address] [place] [address] Yolis Sandoval MD [address] [place] [address] [email or web address] 08/22/2025 1:30 PM EST Office Visit [facility] at [address] [address] Kaykay Guillen NP [address] [place] [address] [email or web address] 08/25/2025 12:40 PM EST Treatment [facility] [address] [place] [address] Yolis Sandoval MD [address] [place] [address] [email or web address] 08/26/2025 12:40 PM EST Treatment [facility] [address] [place] [address] Yolis Sandoval MD [address] [place] [address] [email or web address] 08/27/2025 12:40 PM EST Treatment [facility] [address] [place] [address] Yolis Sandoval MD [address] [place] [address] [email or web address] 08/28/2025 12:40 PM EST Treatment [facility] [address] [place] [address] Yolis Sandoval MD [address] [place] [address] [email or web address] 08/29/2025 12:40 PM EST Treatment [facility] [address] [place] [address] 214[address] Yolis Sandoval MD [address] [place] [address] [email or web address] 09/01/2025 12:40 PM EST Treatment [facility] [address] [place] [address] 590[address] Yolis Sandoval MD [address] [place] [address] [email or web address] 09/02/2025 12:40 PM EST Treatment [facility] On[facility] [address] [place] [address] Yolis Sandoval MD [address] [place] [address] [email or web address] 09/03/2025 12:40 PM EST Treatment [facility] On[facility] [address] [place] [address] Yolis Sandoval MD [address] [place] [address] [email or web address] 09/04/2025 12:40 PM EST Treatment [facility] [address] [place] [address] Yolis Sandoval MD [address] [place] [address] [email or web address] Scheduled Orders Name Type Priority Associated Diagnoses Orde r Schedule CT Abdomen/Pelvis Imaging Urgent/patient waiting Pancreatic adenocarcinoma Expected: 09/17/2025 (Approximate), Expires: 07/02/2026 CT Chest Imaging Routine Pancreatic adenocarcinoma Expected: 09/17/2025 (Approximate), Expires: 07/02/2026 documented as of this encounter Visit Diagnoses Diagnosis Pancreatic adenocarcinoma Malignant neoplasm of pancreas, part unspecified documented in this encounter Care Teams Deputy Probation Officer Relationship Specialty Start Date End Date Ayla Ziegler MD [address] [place] [address] PCP - General Family Medicine 01/24/25 Damian Weaver MD, PhD [address] [place] [address] [place] [address] [email or web address] Primary Oncologist Hematology and Oncology 05/21/25 Asael Martines DO [address] [place] [address] [email or web address] Hematology and Oncology 06/25/25 documented as of this encounter Additional Source Comments The information contained in this document represents components of the legal health record. It is not the complete legal health record.[facility]
--- OUTSIDE RECORDS SUMMARY | 2025-07-16 13:00 | XMS_ITS | Encounter Summary ---
Author Organization [facility] Address [address] [place] [address] [place] [address]78 Phone Care Team Providers Care Wire Setter Name Role Phone Ayla Ziegler MD Primary Care Provider [phone] Damian Weaver MD, PhD Unavailable [phone] Asael Martines DO Unavailable [phone] Encounter Details Date Type Department Care Team (Late st Contact Info) Description 05/20/2025 Procedure Pass [facility] [place] [address] [facility], 6th [place] [address] Social History Tobacco Use Types Packs/Day Years [...] Description 07/17/2025 1:40 PM EDT [facility] [place] [address] [place] [address] 29861 Asael Martines DO [address] [place] [address] 33373 [email or web address] 07/21/2025 12:40 PM EDT Treatment [facility] Rad Onc [address] [place] [address] 39538 Yolis Sandoval MD [address] [place] [address] 94969 [email or web address]@[facility] 07/22/2025 12:40 PM EDT Treatment [facility] Rad Onc [address] [place] [address] 37959 Yolis Sandoval MD [address] [place] [address] 30361 [email or web address]@[facility] 07/23/2025 12:40 PM EDT Treatment [facility] Rad Onc [address] [place] [address] 70822 Yolis Sandoval MD [address] [place] [address] 48711 [email or web address]@[facility] 07/23/2025 12:40 PM EDT [facility] [place] [address] [place] [address] 79825 07/24/2025 12:40 PM EDT Treatment [facility] Rad Onc [address] [place] [address] 59232 Yolis Sandoval MD [address] [place] [address] 50851 [email or web address]@[facility] 07/24/2025 1:00 PM EDT [facility] at [address] [address] Asael Martines, DO [address] [place] [address] 48730 [email or web address] 07/24/2025 1:00 PM EDT Social Work [facility] [place] at [address] [address] Asael Martines, DO [address] [place] [address] 11144 [email or web address] 07/25/2025 11:00 AM EDT Office Visit [facility] at [address] [address] Kaykay Guillen NP [address] [place] [address] 15922 [email or web address] 07/25/2025 11:30 AM EDT Treatment [facility] at [address] [address] 07/25/2025 12:40 PM EDT Treatment [facility] Onc [address] [place] [address] 18308 Yolis Sandoval MD [address] [place] [address] 54535 [email or web address]@[facility] 07/29/2025 11:30 AM EDT Treatment [facility] at [address] [address] Rachael Newell CNP [address] [place] [address] 43133 07/29/2025 12:40 PM EDT Treatment [facility] Rad Onc [address] [place] [address] Yolis Sandoval MD [address] [place] [address] 63125 [email or web address]@[facility] 07/30/2025 12:40 PM EDT Treatment [facility] Onc [address] [place] [address] 39506 Yolis Sandoval MD [address] [place] [address] 59626 [email or web address]@[facility] 07/31/2025 12:40 PM EDT Treatment [facility] Onc [address] [place] [address] 45231 Yolis Sandoval MD [address] [place] [address] 81467 [email or web address]@[facility] 08/01/2025 12:40 PM EDT Treatment [facility] Rad Onc [address] [place] [address] Yolis Sandoval MD [address] [place] [address] 82024 [email or web address]@[facility] 08/04/2025 12:40 PM EDT Treatment [facility] Rad Onc [address] [place] [address] 45301 Yolis Sandoval MD [address] [place] [address] 17686 [email or web address]@[facility] 08/05/2025 12:40 PM EDT Treatment [facility] Rad Onc [address] [place] [address] Yolis Sandoval MD [address] [place] [address] 12174 [email or web address]@[facility] 08/06/2025 12:40 PM EDT Treatment [facility] Rad Onc [address] [place] [address] 98793 Yolis Sandoval MD [address] [place] [address] 81538 [email or web address]@[facility] 08/07/2025 12:30 PM EDT Treatment [facility] Rad Onc [address] [place] [address] 25515 Yolis Sandoval MD [address] [place] [address] 89373 [email or web address]@[facility] 08/08/2025 12:40 PM EDT Treatment [facility] Rad Onc [address] [place] [address] 52852 Yolis Sandoval MD [address] [place] [address] 41408 [email or web address]@[facility] 08/11/2025 12:40 PM EDT Treatment [facility] Rad Onc [address] [place] [address] 85695 Yolis Sandoval MD [address] [place] [address] 27977 [email or web address]@[facility] 08/12/2025 12:40 PM EDT Treatment [facility] Rad Onc [address] [place] [address] 22412 Yolis Sandoval MD [address] [place] [address] 63224 [email or web address]@[facility] 08/13/2025 12:40 PM EDT Treatment [facility] Rad Onc [address] [place] [address] 62199 Yolis Sandoval MD [address] [place] [address] 35891 [email or web address]@[facility] 08/14/2025 12:40 PM EDT Treatment [facility] Rad Onc [address] [place] [address] 56038 Yolis Sandoval MD [address] [place] [address] [phone] [email or web address]@[facility] 08/15/2025 12:40 PM EDT Treatment [facility] Rad Onc [address] [place] [address] 09285 Yolis Sandoval MD [address] [place] [address] 85031 [email or web address]@[facility] 08/18/2025 12:40 PM EST Treatment [facility] Rad Onc [address] [place] [address] 80816 Yolis Sandoval MD [address] [place] [address] 02447 [email or web address]@[facility] 08/19/2025 12:40 PM EST Treatment [facility] Rad Onc [address] [place] [address] 06566 Yolis Sandoval MD [address] [place] [address] 92556 [email or web address]@[facility] 08/20/2025 12:40 PM EST Treatment [facility] Rad Onc [address] [place] [address] 72534 Yolis Sandoval MD [address] [place] [address] 16211 [email or web address]@[facility] 08/21/2025 12:40 PM EST Treatment [facility] Rad Onc [address] [place] [address] 46244 Yolis Sandoval MD [address] [place] [address] 61315 [email or web address]@[facility] 08/22/2025 12:10 PM EST Appointment [facility] Laboratory [address] [place] [address] 74149 Asael Martines DO [address] [place] [address] [phone] [email or web address] 08/22/2025 12:40 PM EST Treatment [facility] Rad Onc [address] [place] [address] 14045 Yolis Sandoval MD [address] [place] [address] [phone] [email or web address]@[facility] 08/22/2025 1:30 PM EST Office [facility] at [address] [address] Kaykay Guillen NP [address] [place] [address] 55590 [email or web address] 08/25/2025 12:40 PM EST Treatment [facility] At [facility] Rad Onc [address] [place] [address] Yolis Sandoval MD [address] [place] [address] 95813 [email or web address]@[facility] 08/26/2025 12:40 PM EST Treatment [facility] At [facility] Rad Onc [address] [place] [address] Yolis Sandoval MD [address] [place] [address] 32961 [email or web address]@[facility] 08/27/2025 12:40 PM EST Treatment [facility] Rad Onc [address] [place] [address] 07455 Yolis Sandoval MD [address] [place] [address] 47647 [email or web address]@[facility] 08/28/2025 12:40 PM EST Treatment [facility] Rad Onc [address] [place] [address] 16383 Yolis Sandoval MD [address] [place] [address] 54622 [email or web address]@[facility] 08/29/2025 12:40 PM EST Treatment [facility] Rad Onc [address] [place] [address] 35390 Yolis Sandoval MD [address] [place] [address] 21567 [email or web address] 09/01/2025 12:40 PM EST Treatment [facility] Rad Onc [address] [place] [address] Yolis Sandoval MD [address] [place] [address] 12994 [email or web address]@[facility] 09/02/2025 12:40 PM EST Treatment [facility] At [facility] Rad Onc [address] [place] [address] 65110 Yolis Sandoval MD [address] [place] [address] 08322 [email or web address]@[facility] 09/03/2025 12:40 PM EST Treatment [facility] Rad Onc [address] [place] [address] 90843 Yolis Sandoval MD [address] [place] [address] 66484 [email or web address]@[facility] 09/04/2025 12:40 PM EST Treatment [facility] Rad Onc [address] [place] [address] 96181 Yolis Sandoval MD [address] [place] [address] 10624 [email or web address] documented as of this encounter Visit Diagnoses Not on filedocumented in this encounter Care Teams Wire Setter Relationship Specialty Start Date End Date Ayla Ziegler MD [address] [place] [address] 06326 PCP - General Family Medicine 01/24/25 Damian Weaver MD, PhD [address] [place] [address] 730 [place] [address] [email or web address] Primary Oncologist Hematology and Oncology 05/21/25 Asael Martines DO [address] [place] [address] [phone] [email or web address] Hematology and Oncology 06/25/25 documented as of this encounter Additional Source Comments The information contained in this document represents components of the legal health record. It is not the complete legal health record.[facility]
--- OUTSIDE RECORDS SUMMARY | 2025-07-16 13:00 | XMS_ITS | Encounter Summary ---
Author Organization [facility] Address [address] [place] [address] [place] [address] 52389 Phone Care Team Providers Care Screener Operator Name Role Phone Ayla Ziegler MD Primary Care Provider [phone] Damian Weaver MD, PhD Unavailable [phone] Asael Martines DO Unavailable [phone] Encounter Details Date Type Department Care Team (Late st Contact Info) Description 05/20/2025 Procedure Pass [facility] - [place] 32 [facility], 6th [place] [address] Social History Tobacco Use Types Packs/Day Years [...] Description 07/17/2025 1:40 PM EDT Infusion [facility] at [facility] [place] [address] [place] [address] 83289 Asael Martines DO [address] [place] [address] 74255 [email or web address] 07/21/2025 12:40 PM EDT Treatment [facility] At [facility] Rad Onc [address] [place] [address] 95419 Yolis Sandoval MD [address] [place] [address] 12949 [email or web address] 07/22/2025 12:40 PM EDT Treatment [facility] At [facility] Rad Onc [address] [place] [address] 29034 Yolis Sandoval MD [address] [place] [address] 62073 [email or web address] 07/23/2025 12:40 PM EDT Treatment [facility] At [facility] Rad Onc [address] [place] [address] 13425 Yolis Sandoval MD [address] [place] [address] [phone] [email or web address] 07/23/2025 12:40 PM EDT Nutrition [facility] at [place] [address] [place] [address] 31805 07/24/2025 12:40 PM EDT Treatment [facility] At [facility] Rad Onc [address] [place] [address] 13074 Yolis Sandoval MD [address] [place] [address] [phone] [email or web address] 07/24/2025 1:00 PM EDT Infusion [facility] at [address] [address] Asael Martines, DO [address] [place] [address] 80175 [email or web address] 07/24/2025 1:00 PM EDT Social Work [facility] [place] at [address] [address] Asael Martines, DO [address] [place] [address] 24619 [email or web address] 07/25/2025 11:00 AM EDT [facility] [address] [address] Kaykay Guillen NP [address] [place] [address] 99301 [email or web address] 07/25/2025 11:30 AM EDT [facility] [address] [address] 07/25/2025 12:40 PM EDT Treatment [facility] At [facility] Rad Onc [address] [place] [address] 19201 Yolis Sandoval MD [address] [place] [address] 41578 [email or web address] 07/29/2025 11:30 AM EDT Treatment [facility] [address] [address] Rachael Newell CNP [address] [place] [address] 22515 07/29/2025 12:40 PM EDT Treatment [facility] Cancer [facility] At [facility] Rad Onc [address] [place] [address] Yolis Sandoval MD [address] [place] [address] 70822 [email or web address] 07/30/2025 12:40 PM EDT Treatment [facility] Cancer [facility] At [facility] Rad Onc [address] [place] [address] 14989 Yolis Sandoval MD [address] [place] [address] 75589 [email or web address] 07/31/2025 12:40 PM EDT Treatment [facility] Cancer Center At [facility] Rad Onc [address] [place] [address] 19051 Yolis Sandoval MD [address] [place] [address] 10241 [email or web address] 08/01/2025 12:40 PM EDT Treatment [facility] Cancer [facility] At [facility] Rad Onc [address] [place] [address] Yolis Sandoval MD [address] [place] [address] 19650 [email or web address] 08/04/2025 12:40 PM EDT Treatment [facility] Cancer [facility] At [facility] Rad Onc [address] [place] [address] 91904 Yolis Sandoval MD [address] [place] [address] [phone] [email or web address] 08/05/2025 12:40 PM EDT Treatment [facility] Cancer [facility] At [facility] Rad Onc [address] [place] [address] Yolis Sandoval MD [address] [place] [address] 04357 [email or web address] 08/06/2025 12:40 PM EDT Treatment [facility] Cancer [facility] At [facility] Rad Onc [address] [place] [address] 61394 Yolis Sandoval MD [address] [place] [address] 71816 [email or web address] 08/07/2025 12:30 PM EDT Treatment [facility] Cancer [facility] At [facility] Rad Onc [address] [place] [address] 69760 Yolis Sandoval MD [address] [place] [address] 71311 [email or web address] 08/08/2025 12:40 PM EDT Treatment [facility] Cancer [facility] At [facility] Rad Onc [address] [place] [address] 53733 Yolis Sandoval MD [address] [place] [address] 12927 [email or web address] 08/11/2025 12:40 PM EDT Treatment [facility] At [facility] Rad Onc [address] [place] [address] 51265 Yolis Sandoval MD [address] [place] [address] 30989 [email or web address] 08/12/2025 12:40 PM EDT Treatment [facility] Cancer [facility] At [facility] Rad Onc [address] [place] [address] 37906 Yolis Sandoval MD [address] [place] [address] 43826 [email or web address] 08/13/2025 12:40 PM EDT Treatment [facility] At [facility] Rad Onc [address] [place] [address] 56651 Yolis Sandoval MD [address] [place] [address] 23272 [email or web address] 08/14/2025 12:40 PM EDT Treatment [facility] Cancer [facility] At [facility] Rad Onc [address] [place] [address] 25868 Yolis Sandoval MD [address] [place] [address] 97912 [email or web address] 08/15/2025 12:40 PM EDT Treatment [facility] At [facility] Rad Onc [address] [place] [address] 73134 Yolis Sandoval MD [address] [place] [address] [phone] [email or web address] 08/18/2025 12:40 PM EST Treatment [facility] At [facility] Rad Onc [address] [place] [address] 22990 Yolis Sandoval MD [address] [place] [address] 68009 [email or web address] 08/19/2025 12:40 PM EST Treatment [facility] At [facility] Rad Onc [address] [place] [address] 91386 Yolis Sandoval MD [address] [place] [address] [phone] [email or web address] 08/20/2025 12:40 PM EST Treatment [facility] Cancer [facility] At [facility] Rad Onc [address] [place] [address] 49574 Yolis Sandoval MD [address] [place] [address] 79460 [email or web address] 08/21/2025 12:40 PM EST Treatment [facility] Cancer [facility] At [facility] Rad Onc [address] [place] [address] 42866 Yolis Sandoval MD [address] [place] [address] [phone] [email or web address] 08/22/2025 12:10 PM EST Appointment [facility] Laboratory [address] [place] [address] 86771 Asael Martines DO [address] [place] [address] 70321 [email or web address] 08/22/2025 12:40 PM EST Treatment [facility] Cancer [facility] At [facility] Rad Onc [address] [place] [address] 81016 Yolis Sandoval MD [address] [place] [address] 01558 [email or web address] 08/22/2025 1:30 PM EST Office Visit [facility] at [address] [address] Kaykay Guillen NP [address] [place] [address] 85242 [email or web address] 08/25/2025 12:40 PM EST Treatment [facility] At [facility] Rad Onc [address] [place] [address] Yolis Sandoval MD [address] [place] [address] 16373 [email or web address] 08/26/2025 12:40 PM EST Treatment [facility] Cancer [facility] At [facility] Rad Onc [address] [place] [address] Yolis Sandoval MD [address] [place] [address] 95578 [email or web address] 08/27/2025 12:40 PM EST Treatment [facility] At [facility] Rad Onc [address] [place] [address] 68117 Yolis Sandoval MD [address] [place] [address] [phone] [email or web address] 08/28/2025 12:40 PM EST Treatment [facility] At [facility] Rad Onc [address] [place] [address] 34969 Yolis Sandoval MD [address] [place] [address] 22726 [email or web address] 08/29/2025 12:40 PM EST Treatment [facility] At [facility] Rad Onc [address] [place] [address] 15917 Yolis Sandoval MD [address] [place] [address] 42283 [email or web address] 09/01/2025 12:40 PM EST Treatment [facility] At [facility] Rad Onc [address] [place] [address] Yolis Sandoval MD [address] [place] [address] 50656 [email or web address] 09/02/2025 12:40 PM EST Treatment [facility] Cancer [facility] At [facility] Rad Onc [address] [place] [address] 31867 Yolis Sandoval MD [address] [place] [address] 67179 [email or web address] 09/03/2025 12:40 PM EST Treatment [facility] At [facility] Rad Onc [address] [place] [address] 12191 Yolis Sandoval MD [address] [place] [address] [phone] [email or web address] 09/04/2025 12:40 PM EST Treatment [facility] At [facility] Rad Onc [address] [place] [address] 42376 Yolis Sandoval MD [address] [place] [address] [phone] [email or web address] documented as of this encounter Visit Diagnoses Not on filedocumented in this encounter Care Teams Screener Operator Relationship Specialty Start Date End Date Ayla Ziegler MD [address] [place] [address] 27586 PCP - General Family Medicine 01/24/25 Damian Weaver MD, PhD [address] [place] [address] 730 [place] [address] [email or web address] Primary Oncologist Hematology and Oncology 05/21/25 Asael Martines DO [address] [place] [address] [phone] [email or web address] Hematology and Oncology 06/25/25 documented as of this encounter Additional Source Comments The information contained in this document represents components of the legal health record. It is not the complete legal health record.[facility]
--- OUTSIDE RECORDS SUMMARY | 2025-07-16 13:00 | XMS_ITS | Encounter Summary ---
Author Organization [employer] Address [address] [place] [address] Care Team Providers Care Palliative Care Specialist Name Role Phone Ayla Ziegler MD Primary Care Provider [phone] Encounter Details Date Type Department Care Team (Latest Contact Info) Description 07/16/2025 Travel Social History Tobacco Use Types Packs/Day [...] Description 08/14/2025 10:00 AM EDT Clinical Support [facility] [address] [place] [address] Heather Siddiqui, [place] [address] [place] [address] documented as of this encounter Visit Diagnoses Not on filedocumented in this encounter Additional Health Concerns Assessment Noted Time PHQ-9 Depression Total Score: 5 04/09/20 25 11:23 AM EDT documented as of this encounter Care Teams Palliative Care Specialist Relationship Specialty Start Date End Date Ayla Ziegler MD [address] [place] [address] PCP - General Family Medicine 11/14/13 documented as of this encounter
--- OUTSIDE RECORDS SUMMARY | 2025-07-16 13:00 | XMS_ITS | Encounter Summary ---
Author Organization [employer] Address [address] [facility] [address] [place] [address] Care Team Providers Care Retail Leasing Agent Name Role Phone Ayla Ziegler MD Primary Care Provider [phone] Reason for Visit * Reason Onset Date Comments Med Refill 03/21/2024 Encounter Details Date Type Department Care Team ([facility] st Contact Info) Description 03/21/2024 Telephone [facility] MED[facility] [address] [place] [address] Ayla Ziegler MD [address] [place], [place] [id number] Med Refill Social History Tobacco Use Types [...] 1 MG tablet To be sent to: [facility]/pharmacy #[id number] AT [facility] documented in this encounter Plan of Treatment Upcoming Encounters Date Type Department Care Team (Late st Contact Info) Description 08/14/2025 10:00 AM EDT Clinical Support [facility] [address] [place] [address] Heather Siddiqui, [place] [address] [place] [address] documented as of this encounter Visit Diagnoses Not on filedocumented in this encounter Additional Health Concerns Assessment Noted Time PHQ-9 Depression Total Score: 0 04/24/20 23 11:11 AM EDT documented as of this encounter Care Teams Retail Leasing Agent Relationship Specialty Start Date End Date Ayla Ziegler MD [address] [place] [address] PCP - General Family Medicine 11/14/13 documented as of this encounter
--- OUTSIDE RECORDS SUMMARY | 2025-07-16 13:00 | XMS_ITS | Encounter Summary ---
Author Organization [employer] Address [address] [place] [address] Care Team Providers Care Sterile Products Processor Name Role Phone Ayla Ziegler MD Primary Care Provider [phone] Encounter Details Date Type Department Care Team (Late st Contact Info) Description 01/21/2025 Orders Only [facility]S [address] [place] [address] ProviderSybil MD Social History Tobacco Use Types [...] [facility] [address] [place] [address] Heather Siddiqui, [place] [address] [place] [address] documented as of this encounter Procedures Procedure [...] documented as of this encounter Care Teams Sterile Products Processor Relationship Specialty Start Date End Date Ayla Ziegler MD [address] [place] [address] PCP - General Family Medicine 11/14/13 documented as of this encounter
--- OUTSIDE RECORDS SUMMARY | 2025-07-16 13:00 | XMS_ITS | Encounter Summary ---
Author Organization [employer] Address [address] [facility] [address] [place] [address] Care Team Providers Care Valve Inspector Name Role Phone Ayla Ziegler MD Primary Care Provider [phone] Encounter Details Date Type Department Care Team ([facility] st Contact Info) Description 04/09/2025 Orders Only [facility]EDS [address] [place] [address] ProviderSybil MD Social History Tobacco Use Types [...] Description 08/14/2025 10:00 AM EDT Clinical Support [facility] [address] [place] [address] Heather Siddiqui, RN [address] [place] [address] documented as of this encounter Procedures Procedure [...] documented as of this encounter Care Teams Valve Inspector Relationship Specialty Start Date End Date Ayla Ziegler MD [address] [place] [address] PCP - General Family Medicine 11/14/13 documented as of this encounter
--- OUTSIDE RECORDS SUMMARY | 2025-07-16 13:00 | XMS_ITS | Encounter Summary ---
Author Organization [employer] Address [address] [facility] 7t [place] [address] Care Team Providers Care Ware Cleaner Name Role Phone Ayla Ziegler MD Primary Care Provider [phone] Reason for Visit * Reason Onset Date Comments Med Refill 02/13/2025 Encounter Details Date Type Department Care Team ([facility] st Contact Info) Description 02/13/2025 Telephone [facility] MED[facility] [address] [place] [address] Ayla Ziegler MD [address] [place], [place] [id number] Med Refill Social History Tobacco Use Types [...] 1 MG tablet To be sent to: [facility]/pharmacy #[id number] AT [facility] documented in this encounter Plan of Treatment Upcoming Encounters Date Type Department Care Team ([facility] st Contact Info) Description 08/14/2025 10:00 AM EDT Clinical Support [facility]S [address] [place] [address] Heather Siddiqui, RN [address] [place] [address] documented as of this encounter Visit Diagnoses Not on filedocumented in this encounter Additional Health Concerns Assessment Noted Time PHQ-9 Depression Total Score: 0 04/24/20 23 11:11 AM EDT documented as of this encounter Care Teams Ware Cleaner Relationship Specialty Start Date End Date Ayla Ziegler MD [address] [place] [address] PCP - General Family Medicine 11/14/13 documented as of this encounter
--- OUTSIDE RECORDS SUMMARY | 2025-07-16 13:00 | XMS_ITS ---
Author Organization [facility] Address [address] [place] [address] Phone Care Team Providers Care Strand Buncher Fine Wire Name Role Phone Ayla Ziegler MD Primary Care Provider [phone] Damian Weaver MD, PhD Unavailable [phone] Asael Martines DO Unavailable [phone] Active Problems Patient Care Coordination No te Formatting of this note migh t be different from the original. Please use [id number] for port dressing. Irinotecan over 60 mins, [...]
[2025-07-16 14:26] LABS: Anion Gap 10 (12-20); Blood Urea Nitrogen 13 mg/dL (9-16); Calcium 9.1 mg/dL (8.4-10.2); Carbon Dioxide 26 mmol/L (22-29); Chloride 109 mmol/L (96-108); Estimated Glomerular Filt Rate > 60; Potassium 4.4 mmol/L (3.3-5.1); Sodium 141 mmol/L (135-145)
== END 2025-07-16 11:22 | disposition home or self-care (01) ==
LOC: HO.CHCLDS 11:21
PROVIDERS: Visit Provider Student in an Organized Health Care Education/Training Program
DX: R60.0 Localized edema (principal)
CPT/HCPCS: 36415; 80048